=== PATIENT | female | born 1940 | race Caucasian/White ===

== ENCOUNTER 2019-06-10 13:07 | Emergency (ER) | payer MEDICARE, SELFPAY ==
[2019-06-10 13:22] VITALS: BP 139/95; PULSE 87; RESP 16; TEMP 36.7; O2SAT 96; BMI 32.8
--- NOTE | 2019-06-10 13:38 | XR_ITS ---
WS: [id number] RIGHT KNEE: 3 VIEW(S) TECHNIQUE: AP, oblique(s) and lateral. HISTORY: swelling COMPARISON: 10/31/2012 No fracture or dislocation. Mild tricompartment arthritis. Large joint effusion. Effusion extends over a length of 13.6 cm. Femoral artery calcifications. XR/XR knee RT 3V* [id number] IMPRESSION: Large suprapatellar joint effusion. New since 10/31/2012. No fracture.
--- NOTE | 2019-06-10 13:42 | ED_ITS ---
HPI - Extremity Problem General: Chief complaint: Extremity Problem,Nontraumatic Stated complaint: swollen knee Time Seen by Provider: 06/10/19 13:07 Review of Systems General: Reports: 10 or more systems reviewed and unremarkable except in HPI and below Musc: Reports: joint pain, joint swelling and limited range of motion; Denies: redness or joint warmth PFSH ED PFSH: Social History Smoking and tobacco status: never smoked Physical Exam Extremity: GENERAL: Yes weight-bearing difficulty LEFT LOWER EXTREMITY: Yes knee joint (ttp) Left knee: Yes palpation and Yes ROM (decreased) Course Vital Signs: Vital signs: Vital Signs Temperature 98.1 F 06/10/19 13:22 Pulse Rate 87 06/10/19 13:22 Respiratory Rate 16 06/10/19 13:22 Blood Pressure 139/95 06/10/19 13:22 Pulse Oximetry 96 06/10/19 13:22 Discharge Plan Discharge Patient Disposition: Home, Self-Care Clinical Impression: DJD (degenerative joint disease) of knee Qualifiers: Osteoarthritis type: unspecified Laterality: left Qualified Code(s): M17.12 - Unilateral primary osteoarthritis, left knee Condition: Stable Prescriptions: New tramadol 50 mg tablet 50 mg PO Q6H PRN (Reason: pain) Qty: 14 RF: 0 Discharge Orders: Discharge Order (Routine); Ordered 06/10/19 Ordered By: John Nazario Referrals: Alisa Mcnamara [Primary Care Provider] - Coding Level of Care Code ED Gamewell Operator for Chg Fwd Exam Problem Focused
[2019-06-10 15:49] VITALS: BP 140/92; PULSE 88; O2SAT 96
== END 2019-06-10 15:51 | disposition home or self-care (01) ==
PROVIDERS: Emergency Provider Family Medicine; Family Provider Registered Nurse; PCP Registered Nurse
DX: M17.12 Unilateral primary osteoarthritis, left knee (principal); M25.461 Effusion, right knee
CPT/HCPCS: 12345; 73562; 99281; 99282

== ENCOUNTER 2019-08-29 09:08 | Outpatient (CLI) | payer MEDICARE, SELFPAY ==
--- NOTE | 2019-08-29 09:27 | CT_ITS ---
WS: [id number] CTA THORACIC AORTA WITH AND WITHOUT CONTRAST. HISTORY: ASCENDING AORTIC ANEURYSM TECHNIQUE: CT imaging of the thorax is performed with and without contrast. After noncontrast imaging is performed, CT angiogram is performed during injection of Visipaque 320; 95 mL IV.. Sagittal and c oronal reconstructions, sagittal and coronal MIP imaging is submitted. All CT scans at [facility] use at least one of these dose optimization techniques: automated exposure control; mA and/o r kV adjustment per patient size (includes targeted exams where dose is matched to clinical indicatio n); or iterative reconstruction. DLP: 1340.84 mGycm COMPARISON: 02/24/2017 and 12/15/2016 Mild ectasia thoracic aorta. Maximum diameter of the ascending aorta is 4.0 cm. Similar to the prior study from 02/24/2017. Descending aorta normal caliber at 3.5 cm diameter. Atherosclerotic plaque is moderate. Atherosclerotic plaque extends into the proximal great vessels. LEFT vertebral artery arise s directly from the arch. There is intimal thickening and scattered calcifications within the aorta. Suprarenal aorta is normal caliber with atherosclerotic plaque. Pulmonary artery size is normal. Chronic emphysema with benign granulomata posterior LEFT upper lobe and RIGHT lower lobe. No adenopathy. Heart size is moderately enlarged. No pericardial effusion. Prior cholecystectomy. No adrenal mass. Splenic granulomata. Increase in thoracic kyphosis centered in the upper thoracic spine. Benign hemangioma at T5. CT/CT angio chest [id number] IMPRESSION: 1. Ectatic but nonaneurysmal dilatation thoracic aorta. Maximum diameter 4.0 c m, no change since 02/24/2017. 2. Intimal thickening and atherosclerotic plaque within the aorta. 3. Chronic emphysema with no suspicious pulmonary nodule or mass. 4. Prior cholecystectomy. 5. Mild cardiomegaly with extensive coronary artery atherosclerosis.
[2019-08-29] MEDS: iodixanol 320 mg/mL 100mL Btl IV (09:57)
== END 2019-08-29 09:09 | disposition home or self-care (01) ==
LOC: RADWPI 09:14
PROVIDERS: Family Provider Registered Nurse; PCP Registered Nurse; Visit Provider Internal Medicine Cardiovascular Disease
DX: I71.2 Thoracic aortic aneurysm, without rupture (principal); I25.10 Atherosclerotic heart disease of native coronary artery without angina pectoris; I51.7 Cardiomegaly; J43.8 Other emphysema
CPT/HCPCS: 71275; Q9967

== ENCOUNTER 2019-12-27 12:00 | Outpatient (CLI) | payer MEDICARE, SELFPAY ==
--- NOTE | 2019-12-27 12:12 | CT_ITS ---
WS: [id number] Exam: CT abdomen pelvis w con* [id number] Date/Time of Exam: 12/27/2019 12:00 PM Reason For Exam: EPIGASTRIC PAIN, RUQ PAIN, DIARRHEA, WEIGHT LOSS, AAA DLP: 1102.[address] scans at [facility] use at least one of these dose optimization techniques: automat ed exposure control; mA and/or kV adjustment per patient size (includes targeted exams where dose is matched to clinical indication); or iterative reconstruction. Comparison 11/14/2007. 5 mm noncalcified nodule in the right lower lobe. Calcified granulomas in both lower lobes. Triple ve ssel coronary artery calcifications noted. The liver, stomach, and pancreas are unremarkable. 1.2 cm low-attenuation nodule in the inferior posterior spleen probably a cyst. Calcified granulomas in the spleen. The gallbladder is surgically absent. There is mild aneurysmal dilatation of the infrarenal abdominal aorta measuring 3.6 cm greatest diameter. No dissection noted. The portal vein and IVC are patent. 4 mm nonobstructing stone in the right kidney. Very tiny bilateral renal cysts are noted. The kidneys function and drain normally. No adrenal masses. No lymphadenopathy or free air. Small bowel loops are normal in caliber. Normal appendix visualized. Sigmoid diverticulosis. No sign of acute div erticulitis. No mass or adenopathy in the pelvis. Unremarkable urinary bladder. No destructive bone l esions are seen. CT/CT abdomen pelvis w con* [id number] IMPRESSION: 1. Mild aneurysmal dilatation of the infrarenal abdominal aorta measuring 3.6 c m in greatest diameter. 2. Sigmoid diverticulosis. Small nonobstructing right renal stone. 3. 5 mm noncalcified nodule in the right lower lobe too small to characterize. If this patient is high risk for pulmonary malignancy a follow-up CT in 6-8 mo nths might be considered for further surveillance. 4. Other nonemergent findings as above.
[2019-12-27] MEDS: iohexol 300 mg/mL 50 mL Btl PO (13:01)
[2019-12-27 13:46] LABS: Blood Urea Nitrogen 9 mg/dL (8-23)
[2019-12-27] MEDS: iohexol 300 mg/mL 100 mL Btl IV (13:52)
== END 2019-12-27 12:01 | disposition home or self-care (01) ==
LOC: RADWPI 12:04
PROVIDERS: PCP Registered Nurse; Visit Provider Surgery
DX: R10.13 Epigastric pain (principal); R10.11 Right upper quadrant pain; R19.7 Diarrhea, unspecified; R63.4 Abnormal weight loss; I71.4 Abdominal aortic aneurysm, without rupture; K57.30 Diverticulosis of large intestine without perforation or abscess without bleeding; R91.1 Solitary pulmonary nodule
CPT/HCPCS: 74177; 82565; 84520; Q9967

== ENCOUNTER 2020-04-29 09:48 | Outpatient (CLI) | payer MEDICARE, SELFPAY ==
--- NOTE | 2020-04-29 10:02 | US_ITS ---
WS: [id number] THYROID ULTRASOUND HISTORY: ENLARGED THYROID GLAND/HYPOTHYROIDISM COMPARISON: None available. Right lobe: 2.9 cm x 0.9 cm x 1.2 cm. Volume: 1.8 cm3. Small shrunken thyroid gland is heterogeneous. No discrete well-formed nodules are identified. No inc reased vascularity. Left lobe: 0.5 cm x 0.4 cm x 0.2 cm. Small caliber thyroid. No discrete nodules. No increased vascularity. Isthmus: 0.2 cm. US/US soft tissue head neck [id number] IMPRESSION: Small shrunken heterogeneous thyroid gland. No discrete or suspicious nodules.
== END 2020-04-29 09:49 | disposition home or self-care (01) ==
LOC: RAD 10:00
PROVIDERS: PCP Registered Nurse; Visit Provider Registered Nurse
DX: E03.9 Hypothyroidism, unspecified (principal); E04.9 Nontoxic goiter, unspecified
CPT/HCPCS: 76536

== ENCOUNTER 2020-07-25 15:52 | Outpatient (CLI) | payer MEDICARE, SELFPAY ==
--- NOTE | 2020-07-25 16:13 | XRR_ITS ---
PROCEDURE INFORMATION: Exam: XR Chest Exam date and time: 07/25/2020 4:14 PM Age: 80 years old Clinical indication: Condition or disease; Lung condition and disease; Copd TECHNIQUE: Imaging protocol: XR of the chest. Views: 2 views. COMPARISON: CR Chest 1 [place] [id number] 11/23/2018 3:19 AM FINDINGS: The lungs are clear of infiltrate. There are no pleural effusions or pneumothorax. The heart size and pulmonary vascularity are normal. There is atherosclerotic change of the thoracic aorta. XR/XR chest 2V* [id number] IMPRESSION: No active disease.
[2020-07-25 16:51] LABS: Basophils % 0.5 %; Eosinophils # 0.1 10^3/uL (0.0-0.8); Eosinophils % 1.5 %; Hematocrit 43.7 % (37.0-47.0); Hemoglobin 13.8 g/dL (11.5-15.3); Lymphocytes # 2.7 10^3/uL (0.8-4.8); Mean Corpuscular HGB Conc 31.6 g/dL (30.0-36.0); Mean Corpuscular Hemoglobin 28.9 pg (28.0-34.0); Mean Corpuscular Volume 91.6 fL (81-99); Mean Platelet Volume 12.6 fL (7.4-10.4); Monocytes # 0.7 10^3/uL (0.2-0.9); Monocytes % 8.9 %; Neutrophils # 4.18 10^3/uL (1.8-7.7); Neutrophils % 53.8 %; Nucleated Red Blood Cells % 0 %; Platelet Count 227 10^3/cmm (130-400); Red Blood Count 4.77 10^6/uL (4.1-5.3); Red Cell Distribution Width 13.2 % (12.1-15.1); White Blood Count 7.8 10^3/uL (4.0-10.0)
[2020-07-25 17:12] LABS: D Dimer 0.68 ug/mIFEU (0-0.59)
[2020-07-25 17:22] LABS: Troponin T (5th) Once 9 ng/L (0-10)
[2020-07-25 17:29] LABS: Alanine Aminotransferase 9 U/L (0-33); Albumin Level 4.5 g/dL (3.5-5.2); Alkaline Phosphatase 101 IU/L (35-105); Anion Gap 15.7 (5-19); Aspartate Amino Transferase 16 U/L (0-32); Blood Urea Nitrogen 22 mg/dL (8-23); Calcium 9.5 mg/dL (8.5-10.5); Carbon Dioxide 27 mmol/L (22-29); Chloride 103 mmol/L (98-107); Chol HDL Ratio 3.02 mg/dL (0.0-4.40); Cholesterol 160 mg/dL (0-200); Globulin 2.3 g/dL (1.3-4.6); Glucose 87 mg/dL (65-115); HDL Cholesterol 53 mg/dL (60-100); LDL Cholesterol Calculated 62 mg/dL (50-129); LDL HDL Ratio 1.17 RATIO (0.00-3.22); NT Pro B Type Natriuretic Pept 1491 pg/mL (0-450); Osmolality Calculated 297 mOsm/kg (285-295); Potassium 3.7 mmol/L (3.5-5.1); Sodium 142 mmol/L (136-145); Thyroid Stimulating Hormone 3.04 uIU/mL (0.27-4.20); Total Bilirubin 0.3 mg/dL (0.15-1.2); Total Protein 6.8 g/dL (6.6-8.7); Triglycerides 224 mg/dL (0-150)
== END 2020-07-25 15:53 | disposition home or self-care (01) ==
PROVIDERS: PCP Registered Nurse; Visit Provider Registered Nurse
DX: J44.9 Chronic obstructive pulmonary disease, unspecified (principal); J96.11 Chronic respiratory failure with hypoxia; R07.9 Chest pain, unspecified; E03.9 Hypothyroidism, unspecified; I50.9 Heart failure, unspecified; I48.20 Chronic atrial fibrillation, unspecified
CPT/HCPCS: 36415; 71046; 80053; 80061; 83880; 84443; 84484; 85025; 85378

== ENCOUNTER 2021-04-27 20:00 | Outpatient (CLI) | payer MEDICARE, SELFPAY | END 2021-04-27 20:01 | disposition home or self-care (01) | LOC: SLEEP 04-28 08:01 | PROVIDERS: PCP Registered Nurse; Visit Provider Registered Nurse | DX: G47.10 Hypersomnia, unspecified (principal); R06.83 Snoring; R53.83 Other fatigue; G47.33 Obstructive sleep apnea (adult) (pediatric) | CPT/HCPCS: 95810 ==

== ENCOUNTER 2021-07-09 15:17 | Emergency (ER) | payer MEDICARE, SELFPAY ==
[2021-07-09 15:29] VITALS: BP 160/97; PULSE 104; RESP 18; TEMP 36.9; O2SAT 95; BMI 30.9
--- NOTE | 2021-07-09 16:00 | XRR_ITS ---
PROCEDURE INFORMATION: Exam: XR Chest Exam date and time: 07/09/2021 4:42 PM Age: 81 years old Clinical indication: Pain; Angina pectoris; Additional info: Chest pain TECHNIQUE: Imaging protocol: XR of the chest. Views: 1 view. COMPARISON: CR XR chest 2V* [id number] 07/25/2020 4:20 PM FINDINGS: Lungs: Hyperinflated lungs with mild diffuse coarsening. Calcified granulomas noted at the lung bases. No consolidation. Pleural spaces: No pleural effusion. No pneumothorax. Heart/Mediastinum: No cardiomegaly. Bones/joints: Visualized osseous structures are intact. XR/XR chest 1V portable [id number] IMPRESSION: No acute findings.
--- NOTE | 2021-07-09 16:00 | CTR_ITS ---
PROCEDURE INFORMATION: Exam: CTA Chest With Contrast Exam date and time: 07/09/2021 5:33 PM Clinical indication: Abnormal findings; Other: Increased aorta diameter; Additional info: Abd pain with increased aorta on US TECHNIQUE: Imaging protocol: Computed tomographic angiography of the chest with contrast. 3D rendering (Not supervised by radiologist): MIP and/or 3D reconstructed images were created and reviewed. COMPARISON: CTA chest 08/29/2019 FINDINGS: Pulmonary arteries: Normal. No pulmonary emboli. Aorta: Ectasia of the ascending thoracic aorta up to 4.2 cm. No aortic dissection. Lungs: Moderate centrilobular emphysematous changes of the lungs. No consolidation. 1 cm noncalcified slightly lobulated solid nodule noted in the left lung base series 2, image 359. Calcified granulomas noted at the lung bases. Pleural spaces: Unremarkable. No pneumothorax. No pleural effusion. Heart: Coronary artery calcifications noted. No cardiomegaly. No pericardial effusion. Lymph nodes: Mildly prominent mediastinal lymph nodes which are most likely reactive. Bones/joints: No acute fracture. Soft tissues: Unremarkable. Low-risk and high-risk patients: consider CT at 3 months, PET/CT, or tissue sampling 2. Ectasia of the ascending thoracic aorta up to 4.2 cm. PROCEDURE INFORMATION: Exam: CTA Abdomen and Pelvis With Contrast Exam date and time: 07/09/2021 5:33 PM Age: 81 years old Clinical indication: Abnormal findings; Other: Increased aorta diameter; Additional info: Abd pain with increased aorta on US TECHNIQUE: Imaging protocol: Computed tomographic angiography of the abdomen and pelvis with contrast material. 3D rendering (Not supervised by radiologist): MIP and/or 3D reconstructed images were created by the technologist. Radiation optimization: All CT scans at this facility use at least one of these dose optimization techniques: automated exposure control; mA and/or kV adjustment per patient size (includes targeted exams where dose is matched to clinical indication); or iterative reconstruction. Contrast material: [id number]; Contrast volume: 55 ml; Contrast route: INTRAVENOUS (IV); COMPARISON: CTA Thorac/Abd Aor [id number] 12/15/2016 3:09 PM RADIATION DOSE METRICS: Total DLP (mGy-cm): 1370.44 FINDINGS: Aorta: Infrarenal abdominal aortic aneurysm measuring up to 3.8 cm in AP diameter. No aortic dissection. Celiac trunk and mesenteric arteries: No occlusion or significant stenosis. Renal arteries: Mild stenosis at the origin of the left renal artery. No occlusion. Right iliac arteries: No occlusion or significant stenosis. Left iliac arteries: No occlusion or significant stenosis. Liver: No mass. Gallbladder and bile ducts: Cholecystectomy. No ductal dilation. Pancreas: Unremarkable. No mass. No ductal dilation. Spleen: Multiple calcified granulomas noted. No splenomegaly. Adrenal glands: Unremarkable. No mass. Kidneys and ureters: Unremarkable. No solid mass. No hydronephrosis. Stomach and bowel: Colonic diverticulosis noted. No obstruction. No mucosal thickening. Appendix: No evidence of appendicitis. Intraperitoneal space: Unremarkable. No free air. No significant fluid collection. Lymph nodes: Unremarkable. No enlarged lymph nodes. Urinary bladder: Unremarkable. No mass. Reproductive: Hysterectomy. Bones/joints: No acute fracture. No dislocation. Soft tissues: Unremarkable. CT/CT angio chest abdomen pelvis IMPRESSION: 1. Moderate emphysematous changes of the lungs with a 1 cm solid nodule noted in the left lung base. This is new from most recent comparison 08/29/2019. Fleischner criteria given below. IMPRESSION: Infrarenal abdominal aortic aneurysm measuring up to 3.8 cm.
--- NOTE | 2021-07-09 16:01 | ECG_ITS ---
[facility] Test Date: 2021-07-09 Pat Name: Samantha Lewis Department: Room: Gender: Female Manager Front Office: : 1940 Requested By: Billy Russell Order Number: [id number] Joanna MD: Quentin Jean M.D. Measurements Intervals [place] Rate: 120 P: MA: QRS: 42 QRSD: 83 T: 51 QT: 288 QTc: 408 Interpretive Statements ATRIAL FIBRILLATION WITH RAPID VENTRICULAR RESPONSE ABNORMAL RHYTHM ECG INTERPRETATION BASED ON A DEFAULT AGE OF 40 YEARS Compared to ECG 11/23/2018 03:10:52 No significant changes Electronically Signed On 07-10-2021 0:00:29 CDT by Quentin Jean M.D. [id number]
--- NOTE | 2021-07-09 16:02 | ED_ITS ---
HPI - Chest Pain General: Chief Complaint: Shortness of Breath/Dyspnea Stated Complaint: SOB Time Seen by Provider: 07/09/21 15:38 Source: patient and family Mode of arrival: ambulatory Limitations: no limitations History of Present Illness: This patient presents to emergency department because of abdominal and lower chest discomfort. She states his symptoms began earlier today and were associated with feeling lightheaded and short of breath. He states she is not felt like this before. She denies any ripping or tearing pain. She states the pain is better when she is nonambulatory. She denies any recent fever cough or other illness. She states that she has felt full today and tried to eat a banana but did not feel like she could eat much in the way of any food. She has had history of atrial fibrillation and is on diltiazem as well as rivaroxaban. She states she is taken those last night. She denies any blood in her stools bloody emesis etc. She is an ex-smoker. She is unaware of any history of aneurysm but was told she had a hernia somewhere . MD complaint: chest discomfort Prior episodes: No Pain location: substernal Relieving factors: rest Context: recent illness Associated symptoms: Reports abdominal pain and dyspnea; Deny fever(s), nausea, syncope or vomiting Risk Factors: Coronary artery disease risk factors: smoking history (Quit years ago) Thoracic aortic dissection risk factors: none Review of Systems Const: Denies: fever(s) or chills Eyes: Denies: change in vision or blurry vision ENMT: Denies: throat pain or odynophagia Card: Reports: chest pain, irregular heart rhythm, lightheadedness and pre- syncope; Denies: edema, swelling of feet/ankles or syncope Resp: Reports: dyspnea; Denies: productive cough, non-productive cough or wheezing GI: Reports: abdominal pain; Denies: nausea or vomiting : Denies: flank pain, difficulty voiding or dysuria Musc: Denies: neck pain, back pain or extremity pain Skin/Breast: Denies: rash Neuro: Denies: headache(s) Psych: Denies: anxiety or depression [facility] ED PFSH: Medical History AAA (abdominal aortic aneurysm) Atrial fibrillation CHF (congestive heart failure) COPD (chronic obstructive pulmonary disease) HTN (hypertension) Hyperlipidemia Family History Other CAD (coronary artery disease) Cancer Stroke Social History Smoking and tobacco status: former smoker Alcohol intake: never Physical Exam Narrative: EXAM NARRATIVE: Is alert and appears to be in no acute distress able to answer questions in appropriate fashion. Const: COMMON NORMALS: no acute distress and patient oriented x3 GENERAL APPEARANCE: comfortable HENMT: COMMON NORMALS: normocephalic, atraumatic, Normal nasal mucous me mbranes and turbinates present and moist oral mucous membranes HEAD & SCALP: normocephalic and atraumatic NOSE: Normal nasal mucous membranes and turbinates present Eye: COMMON NORMALS: Equal, round and reactive pupils present, EOMs intact bilaterally and no scleral icterus PUPIL: Yes Equal, round and reactive pupils present Neck/C-Spine: COMMON NORMALS: full ROM, no lymphadenopathy, no JVD and No carotid bruits Chest: COMMONS NORMALS: normal inspection of the chest and normal palpation of entire chest wall Resp: COMMON NORMALS: normal respiratory effort, No retractions, No use of accessory muscles and clear to auscultation bilaterally AUSCULTATION: clear to auscultation bilaterally Cardio: COMMON NORMALS: no JVD, No murmurs present (Cardio) and Peripheral pulses 2+ throughout RHYTHM: abnormal rhythm irregularly irregular PERIPHERAL PULSES: Peripheral pulses 2+ throughout GI: COMMON NORMALS: Normal to inspection, nondistended, normoactive bowel sounds present, no masses and no bruits INSPECTION: No visible herniation and No visible pulsation PALPATION: Yes Tenderness to palpation present (GI) (Under left paramedian just to the left of the umbilicus. No palpable mass) : COMMON NORMALS: Yes no CVA tenderness BLADDER/KIDNEY EXAM: Yes no CVA tenderness Back/Pelvis: COMMON NORMALS: no CVA tenderness, thoracic and lumbar spine normal to inspection, no thoracic nor lumbar tenderness, thoraco-lumbar ROM nor mal and straight leg raise negative bilaterally Extremity: COMMON NORMALS: normal to inspection, full ROM, capillary refill normal, no calf tenderness and no pedal edema Neuro: COMMON NORMALS: patient oriented x3, moves all extremities, no focal motor deficits and no sensory deficits noted CRANIAL NERVES: Yes CN normal except as noted Psych: COMMON NORMALS: mental status grossly normal and Normal thought process present THOUGHT PROCESS: Normal thought process present Skin: COMMON NORMALS: no rashes or lesions noted, no wounds, turgor normal and no jaundice GENERAL SKIN EXAM: no rashes or lesions noted and turgor normal Course Reevaluation(s): Reevaluation #1: Portable bedside ultrasound was used to visualize the abdominal aorta. She appears to have an increased AP diameter on sagittal view. We will proceed with CTA. Reevaluation #2: Patient's heart rate has been well controlled while in the emergency department. Her serial troponins are reassuring. She did have hypokalemia discovered which may have contributed to her symptoms as I suspect she was given episodes of rapid ventricular response causing her subjective lightheadedness and uncomfortable feeling in her lower abdomen and substernal region. Certainly no evidence at this time of pulmonary embolus, ruptured or dissecting aneurysm, ACS etc. Although she denied that she had a aneurysm I was able to find in her past history that she has had a history of an infrarenal aortic aneurysm of 3.3 cm previously noted. It is 3.8 cm today and I have cautioned her on that this will need to be monitored on an annual basis. We will go ahead and have her start taking a daily potassium replacement in addition to her Lasix. She states that she previously was taking a potassium replacement but it was large and she could not swallow it so discontinued it. We will give her a prescription for effervescent potassium to help mitigate that. At this point no evidence of an ongoing emergency medical condition I believe she is safe to be discharged home with close follow-up. She acknowledged our discussion. Time: 20:07 Vital Signs: Vital signs: Vital Signs Temperature 98.4 F 07/09/21 15:29 Pulse Rate 73 07/09/21 18:56 Respiratory Rate 17 07/09/21 18:56 Blood Pressure 115/111 07/09/21 18:56 Pulse Oximetry 94 07/09/21 18:56 MDM - Chest Pain Medical Decision Making Pleasant lady with history of vague substernal epigastric chest discomfort and lightheadedness. Her work-up today has been reassuring. No evidence to suggest a ongoing emergency medical condition such as, PE, aortic aneurysm, dissection, ACS etc. Hypokalemia is likely etiology to rapid ventricular response of her chronic atrial fibrillation with associated symptoms. Stable and controlled rate at this time after potassium replacement. Will discharge home at this time. Medical Records I reviewed the patient's medical records. Lab Data I reviewed the patient's lab results. : 07/09/21 15:44 07/09/21 15:44 Radiology Impressions Chest X-Ray 07/09/21 16:00 IMPRESSION: No acute findings. Chest/Abdomen/Pelvis CTA 07/09/21 16:00 IMPRESSION: 1. Moderate emphysematous changes of the lungs with a 1 cm solid nodule noted in the left lung base. This is new from most recent comparison 08/29/2019. Fleischner criteria given below. IMPRESSION: Infrarenal abdominal aortic aneurysm measuring up to 3.8 cm. Laboratory Results WBC 8.1 10^3/uL (4.0-10.0) 07/09/21 15:44 RBC 4.89 10^6/uL (4.1-5.3) 07/09/21 15:44 Hgb 14.4 g/dL (11.5-15.3) 07/09/21 15:44 Hct 43.8 % (37.0-47.0) 07/09/21 15:44 MCV 89.6 fl (81-99) 07/09/21 15:44 MCH 29.4 pg (28.0-34.0) 07/09/21 15:44 MCHC 32.9 g/dL (30.0-36.0) 07/09/21 15:44 RDW 13.2 % (12.1-15.1) 07/09/21 15:44 Plt Count 234 10^3/cmm (130-400) 07/09/21 15:44 MPV 13.3 fL (7.4-10.4) H 07/09/21 15:44 Neut % (Auto) 60.6 % 07/09/21 15:44 Lymph % (Auto) 28.1 % 07/09/21 15:44 [place] % (Auto) 8.7 % 07/09/21 15:44 Eos % (Auto) 1.5 % 07/09/21 15:44 Baso % (Auto) 0.7 % 07/09/21 15:44 Neut # (Auto) 4.91 10^3/uL (1.8-7.7) 07/09/21 15:44 Lymph # (Auto) 2.3 10^3/uL (0.8-4.8) 07/09/21 15:44 [place] # (Auto) 0.7 10^3/uL (0.2-0.9) 07/09/21 15:44 Eos # (Auto) 0.1 10^3/uL (0.0-0.8) 07/09/21 15:44 Baso # (Auto) 0.1 10^3/uL (0.0-0.1) 07/09/21 15:44 Nucleated RBC % (auto) 0 % 07/09/21 15:44 Nucleated RBCs # 0.0 /100WBC 07/09/21 15:44 Sodium 139 mmol/L (136-145) 07/09/21 15:44 Potassium 2.9 mmol/L (3.5-5.1) L 07/09/21 15:44 Chloride 99 mmol/L (98-107) 07/09/21 15:44 Carbon Dioxide 24 mmol/L (22-29) 07/09/21 15:44 Anion Gap 18.9 (5-19) 07/09/21 15:44 BUN 18 mg/dL (8-23) 07/09/21 15:44 Creatinine 1.0 mg/dL (0.5-0.9) H 07/09/21 15:44 GFR Calculation Not Reportable 07/09/21 15:44 Glucose 131 mg/dL (65-115) H 07/09/21 15:44 Calculated Osmolality 292 mOsm/kg (285-295) 07/09/21 15:44 Calcium 10.0 mg/dL (8.5-10.5) 07/09/21 15:44 Total Bilirubin 0.5 mg/dL (0.15-1.2) 07/09/21 15:44 AST 17 U/L (0-32) 07/09/21 15:44 ALT 13 U/L (0-33) 07/09/21 15:44 Alkaline Phosphatase 81 IU/L (35-105) 07/09/21 15:44 Troponin T Baseline 15 ng/L (0-10) H 07/09/21 15:44 Troponin T 120 Minute 12.98 ng/L (0-10) H 07/09/21 18:12 Delta Troponin T -2.02 ABS# (0-10) L 07/09/21 18:12 Total Protein 7.5 g/dL (6.6-8.7) 07/09/21 15:44 Albumin 4.6 g/dL (3.5-5.2) 07/09/21 15:44 Globulin 2.9 g/dL (1.3-4.6) 07/09/21 15:44 EKG Data EKG 1: EKG interpretation time: 16:08 Interpretation: EKG reveals underlying ventricular rate of 120 bpm. Appears to be atrial fibrillation with rapid ventricular response. No acute ST-T wave changes noted. No prior tracings within the system. Discharge Plan Discharge Patient Disposition: Home Clinical Impression: Chronic atrial fibrillation with rapid ventricular response, Acute hypokalemia, Aortic aneurysm Condition: Stable Prescriptions: New Effer-K 10 mEq tablet, effervescent 10 meq PO DAILY Qty: 30 1RF No Action levothyroxine 25 mcg tablet 25 mcg PO DAILY 0RF diltiazem HCl 300 mg capsule,extended release 24hr 300 mg PO DAILY 0RF lovastatin 20 mg tablet 20 mg PO DAILY 0RF furosemide 40 mg tablet 60 mg PO DAILY 0RF Xarelto 20 mg tablet 20 mg PO DAILY 0RF Discharge Orders: Discharge ED (Routine); Ordered 07/09/21 Ordered By: Billy Russell Referrals: Alisa Mcnamara [Primary Care Provider] - Discharge Diet: Usual diet Discharge Activity: Increase activity as tolerated Patient Instructions: Opioid Safety Activity Restrictions/Additional Instructions: Take all medications as prescribed. We have provided an additional potassium prescription that should be easier to swallow. Should you develop any new persistent or worsening symptoms return to the emergency department otherwise follow-up with your regular doctor as scheduled. Coding Level of Care Code ED Model Maker Plaster for Chg Fwd Exam Comprehensive
[2021-07-09 16:30] LABS: Basophils # 0.1 10^3/uL (0.0-0.1); Basophils % 0.7 %; Eosinophils # 0.1 10^3/uL (0.0-0.8); Eosinophils % 1.5 %; Hematocrit 43.8 % (37.0-47.0); Hemoglobin 14.4 g/dL (11.5-15.3); Lymphocytes # 2.3 10^3/uL (0.8-4.8); Lymphocytes % 28.1 %; Mean Corpuscular HGB Conc 32.9 g/dL (30.0-36.0); Mean Corpuscular Hemoglobin 29.4 pg (28.0-34.0); Mean Corpuscular Volume 89.6 fl (81-99); Monocytes # 0.7 10^3/uL (0.2-0.9); Monocytes % 8.7 %; Neutrophils # 4.91 10^3/uL (1.8-7.7); Neutrophils % 60.6 %; Nucleated Red Blood Cells % 0 %; Platelet Count 234 10^3/cmm (130-400); Red Blood Count 4.89 10^6/uL (4.1-5.3); Red Cell Distribution Width 13.2 % (12.1-15.1); White Blood Count 8.1 10^3/uL (4.0-10.0)
[2021-07-09 16:51] LABS: Mean Platelet Volume 13.3 fL (7.4-10.4)
[2021-07-09 16:54] LABS: Troponin(5th) Baseline 15 ng/L (0-10)
[2021-07-09 17:01] LABS: Alanine Aminotransferase 13 U/L (0-33); Albumin Level 4.6 g/dL (3.5-5.2); Alkaline Phosphatase 81 IU/L (35-105); Anion Gap 18.9 (5-19); Aspartate Amino Transferase 17 U/L (0-32); Blood Urea Nitrogen 18 mg/dL (8-23); Carbon Dioxide 24 mmol/L (22-29); Chloride 99 mmol/L (98-107); Globulin 2.9 g/dL (1.3-4.6); Glucose 131 mg/dL (65-115); Osmolality Calculated 292 mOsm/kg (285-295); Sodium 139 mmol/L (136-145); Total Bilirubin 0.5 mg/dL (0.15-1.2); Total Protein 7.5 g/dL (6.6-8.7)
[2021-07-09 17:16] LABS: Potassium 2.9 mmol/L (3.5-5.1)
[2021-07-09] MEDS: iohexol 300 mg/mL 100 mL Btl IV (17:27)
--- NOTE | 2021-07-09 18:01 | ECG_ITS ---
[facility] Test Date: 2021-07-09 Pat Name: Samantha Lewis Department: Room: Gender: Female Buncher Hand: : 1940 Requested By: Billy Russell Order Number: [id number] Joanna MD: Quentin Jean M.D. Measurements Intervals [place] Rate: 120 P: [place]: QRS: 42 QRSD: 83 T: 51 QT: 288 QTc: 408 Interpretive Statements ATRIAL FIBRILLATION WITH RAPID VENTRICULAR RESPONSE ABNORMAL RHYTHM ECG INTERPRETATION BASED ON A DEFAULT AGE OF 40 YEARS Compared to ECG 11/23/2018 03:10:52 No significant changes Electronically Signed On 07-10-2021 0:20:55 CDT by Quentin Jean M.D. [id number]
[2021-07-09] MEDS: potassium chloride ER 20 mEq Tablet 40 MEQ PO ×2 (18:37→20:04)
[2021-07-09 18:51] LABS: Troponin 5 2HR 12.98 ng/L (0-10)
[2021-07-09 18:55] LABS: Troponin 5 2HR Delta -2.02 ABS# (0-10)
[2021-07-09 18:56] VITALS: BP 115/111; PULSE 73; RESP 17; O2SAT 94
== END 2021-07-09 20:51 | disposition home or self-care (01) ==
PROVIDERS: Emergency Provider Emergency Medicine; PCP Registered Nurse
DX: I48.20 Chronic atrial fibrillation, unspecified (principal); E87.6 Hypokalemia; I71.4 Abdominal aortic aneurysm, without rupture; Z79.01 Long term (current) use of anticoagulants; Z87.891 Personal history of nicotine dependence
CPT/HCPCS: 71045; 71275; 74174; 80053; 84484; 85025; 93005; 99285; Q9967

== ENCOUNTER → 2021-08-27 12:44 | Outpatient (BNVA) | payer MEDICARE, SELFPAY | PROVIDERS: PCP Registered Nurse; Visit Provider Internal Medicine Critical Care Medicine | DX: R91.1 Solitary pulmonary nodule (principal); J43.9 Emphysema, unspecified; G47.33 Obstructive sleep apnea (adult) (pediatric); Z87.891 Personal history of nicotine dependence; I10 Essential (primary) hypertension; E78.5 Hyperlipidemia, unspecified | CPT/HCPCS: 99204 ==

== ENCOUNTER → 2021-10-05 11:17 | Outpatient (BNVA) | payer MEDICARE, SELFPAY | PROVIDERS: PCP Registered Nurse; Visit Provider Internal Medicine Critical Care Medicine | DX: R91.1 Solitary pulmonary nodule (principal); G47.33 Obstructive sleep apnea (adult) (pediatric); R13.10 Dysphagia, unspecified; J43.2 Centrilobular emphysema; K21.9 Gastro-esophageal reflux disease without esophagitis; R07.9 Chest pain, unspecified; Z87.891 Personal history of nicotine dependence | CPT/HCPCS: 99214 ==

== ENCOUNTER 2021-10-20 08:50 | Outpatient (CLI) | payer MEDICARE, SELFPAY ==
--- NOTE | 2021-10-20 13:39 | PFTS_ITS ---
Date of Study:10/20/21 Date of Dictation: MECHANICS: Forced vital capacity (FVC) is . Forced expiratory volume in one second (FEV1) is . FEV1/FVC is . FLOW VOLUME LOOP: . LUNG VOLUMES: Total lung capacity (TLC) is . Residual volume (RV) is . DIFFUSING CAPACITY FOR CARBON MONOXIDE: . INTERPRETATION: The pulmonary function tests are . mechanics and lung volumes. Gas exchange (DLCO) is . MTDD
== END 2021-10-20 08:51 | disposition home or self-care (01) ==
LOC: RT 08:51
PROVIDERS: PCP Registered Nurse; Visit Provider Internal Medicine Critical Care Medicine
DX: R91.1 Solitary pulmonary nodule (principal)
CPT/HCPCS: 94010; 94726; 94729

== ENCOUNTER 2021-10-26 10:23 | Outpatient (CLI) | payer MEDICARE, SELFPAY ==
--- NOTE | 2021-10-26 12:30 | CT_ITS ---
WS: [id number] CT CHEST TECHNIQUE: Noncontrast CT of the chest with coronal and sagittal reformatted images. CLINICAL INFORMATION: Pulmonary nodule COMPARISON: None. DLP: 748.[address] scans at [facility] use at least one of these dose optimization techniques: automated e xposure control; mA and/or kV adjustment per patient size (includes targeted exams where dose is matc hed to clinical indication); or iterative reconstruction. FINDINGS: Moderate chronic emphysematous changes. No acute pulmonary infiltrates. Interval increase in size of the noncalcified pulmonary nodule LEFT lower lobe medially. Today this measures approximately 12 mm i n maximum dimension compared to 10 mm previous. Surrounding slight spiculation. This can be further e valuated with PET/CT. Due to the size and location this is not easily amenable to CT-guided biopsy. Stable ascending thoracic aorta measuring 4.0 CM. Moderate aortic calcification. No mediastinal or hi lar lymphadenopathy. Normal GE junction. No axillary lymphadenopathy. Adrenal glands are normal. Fatty atrophy of the panc reas. Cholecystectomy clips. Mild thoracic kyphosis. Infrarenal abdominal aortic aneurysm measuring 3 .7 x 3.6 cm AP by transverse. CT/CT chest wo con [id number] IMPRESSION: 1. Interval increase in size of the LEFT lower lobe pulmonary nodule today [place] sur[place] 12 mm with slight spiculation. Recommend further evaluation with PET/CT. 2. No other significant changes compared to previous. 3. Stable infrarenal abdominal aortic aneurysm measuring 3.7 x 3.6 cm AP by tr ansverse. 4. Stable ascending thoracic aorta measuring 4.0 CM
== END 2021-10-26 10:24 | disposition home or self-care (01) ==
PROVIDERS: PCP Registered Nurse; Visit Provider Internal Medicine Critical Care Medicine
DX: R91.1 Solitary pulmonary nodule (principal); R13.10 Dysphagia, unspecified; I71.4 Abdominal aortic aneurysm, without rupture
CPT/HCPCS: 71250; 74230; 92611

== ENCOUNTER 2021-10-26 10:23 | Outpatient (CLI) | payer MEDICARE, SELFPAY ==
--- NOTE | 2021-10-26 10:45 | FL_ITS ---
WS: [id number] Exam: FL barium swallow modifd [id number] Date/Time of Exam: 10/26/2021 10:25 AM Reason For Exam: Fluoroscopy time: 1min [id number] minutes # of spot films: 0 Modified barium swallow was performed in conjunction with the speech therapy service. Swallowing function at the level of oropharynx was normal. No aspiration or penetration was observed. The patient tolerated thin liquid, nectar consistency and pudding consistency barium foodstuffs with out difficulty. The patient tolerated solid barium mixture foodstuffs and ingested a barium tablet wi thout difficulty. FL/FL barium swallow modifd [id number] IMPRESSION: 1. Unremarkable modified barium swallow. No sign of aspiration or penetration. A separate report of findings and recommendations will follow from the speech t herapy service.
== END 2021-10-26 10:24 | disposition home or self-care (01) ==
LOC: RAD 10:24
PROVIDERS: PCP Registered Nurse; Visit Provider Internal Medicine Critical Care Medicine
DX: R91.1 Solitary pulmonary nodule (principal); R13.10 Dysphagia, unspecified
CPT/HCPCS: 74230; 92611

== ENCOUNTER 2021-12-22 16:20 | Emergency (ER) | payer MEDICARE, SELFPAY ==
--- NOTE | 2021-12-22 16:32 | ECG_ITS ---
[facility] Test Date: 2021-12-22 Pat Name: Samantha Lewis Department: Room: Gender: Female Cost Estimator: : 1940 Requested By: Cory Soto Order Number: [id number] Joanna MD: Quentin Jean M.D. Measurements Intervals [place] Rate: 108 P: MT: QRS: 23 QRSD: 87 T: 52 QT: 334 QTc: 449 Interpretive Statements ATRIAL FIBRILLATION WITH RAPID VENTRICULAR RESPONSE ABNORMAL RHYTHM ECG INTERPRETATION BASED ON A DEFAULT AGE OF 40 YEARS Compared to ECG 07/09/2021 15:35:54 No significant changes Electronically Signed On 12-23-2021 0:21:44 CDT by Quentin Jean M.D. [id number]
[2021-12-22 16:36] VITALS: BP 160/93; PULSE 115; RESP 18; TEMP 36.5; O2SAT 95; BMI 31.8
--- NOTE | 2021-12-22 16:58 | XRR_ITS ---
PROCEDURE INFORMATION: Exam: XR Chest Exam date and time: 12/22/2021 5:24 PM Age: 81 years old Clinical indication: Shortness of breath; Patient HX: SOB; Additional info: Chf TECHNIQUE: Imaging protocol: Radiologic exam of the chest. Views: 1 view. COMPARISON: CT chest [facility] [id number] 10/26/2021 10:31 AM FINDINGS: Lungs: Calcified granulomas noted in the right lung base. No consolidation. Pleural spaces: No pleural effusion. No pneumothorax. Heart/Mediastinum: No cardiomegaly. Bones/joints: Visualized osseous structures are intact. XR/XR chest 1V portable [id number] IMPRESSION: No acute findings.
[2021-12-22 17:18] VITALS: BP 155/108; PULSE 106; RESP 18; O2SAT 97
--- NOTE | 2021-12-22 17:32 | ED_ITS ---
Documented by User: Cory Ang DO 01/01/22 07:44 HPI - Chest Pain General: Chief Complaint: Chest Pain Stated Complaint: Dr. Watkins sent for BP over 200 Time Seen by Provider: 12/22/21 16:58 Source: patient Mode of arrival: ambulatory History of Present Illness: 81-year-old female sent to the emergency room after being seen in the pulmonary clinic. She complaining of elevated blood pressure and irregular chest pain. Chest pain been going on for weeks it is reproducible with palpation. She has known atrial fibrillation she is on diltiazem. MD complaint: chest pain Onset (ago): week(s) Timing of current episode: episodic Prior episodes: Yes Onset: during rest Pain location: other (Upper sternal) Pain radiation: none Severity: mild Quality: tightness and aching Relieving factors: nothing Exacerbating factors: nothing Associated symptoms: Deny abdominal pain, diaphoresis, dyspnea, fever(s), leg edema, nausea, palpitations, sense of impending doom, syncope or vomiting Treatment prior to arrival: none Review of Systems Const: Denies: fever(s), chills, fatigue, malaise or diaphoresis ENMT: Denies: throat pain, ear or mastoid pain, nasal discharge or nasal congestion Card: Reports: chest pain and irregular heart rhythm; Denies: palpitations, edema, swelling of feet/ankles or syncope Resp: Denies: dyspnea GI: Denies: abdominal pain, nausea or vomiting : Denies: flank pain, difficulty voiding, dysuria, urinary frequency or urinary urgency Skin/Breast: Denies: rash or pruritus PFSH ED PFSH: Medical History AAA (abdominal aortic aneurysm) Atrial fibrillation CHF (congestive heart failure) COPD (chronic obstructive pulmonary disease) MARCUS (generalized anxiety disorder) HTN (hypertension) Hyperlipidemia Hypothyroidism Neuropathic pain Family History Other CAD (coronary artery disease) Cancer Stroke Social History Smoking and tobacco status: former smoker Quit status (tobacco): has quit using tobacco Year quit tobacco: 1997 Former quit date comment: 0.5 ppd X 40 years Alcohol intake: never Physical Exam Const: GENERAL APPEARANCE: cooperative and comfortable ORIENTATION/CONSCIOUSNESS: Yes awake, Yes oriented to person, Yes oriented to place and Yes oriented to time HENMT: COMMON NORMALS: normocephalic, atraumatic and hearing grossly normal bilaterally HEAD & SCALP: normocephalic and atraumatic Resp: COMMON NORMALS: normal respiratory effort, No retractions and No use of accessory muscles AUSCULTATION: crackles Cardio: COMMON NORMALS: No murmurs present (Cardio) RATE: tachycardic RHYTHM: abnormal rhythm irregularly irregular GI: COMMON NORMALS: Soft to palpation and No hepatosplenomegaly present A USCULTATION: Yes normoactive bowel sounds PALPATION: Yes Soft to palpation, No Tenderness to palpation present (GI), No Guarding due to palpation present (GI) and Yes No hepatosplenomegaly present Extremity: COMMON NORMALS: normal to inspection, capillary refill normal, no clubbing, cyanosis or edema, no calf tenderness and no pedal edema Neuro: SENSORIUM/ORIENTATION: Yes oriented to person, Yes oriented to place and Yes oriented to time Skin: COMMON NORMALS: no rashes or lesions noted GENERAL SKIN EXAM: no rashes or lesions noted Course Vital Signs: Vital signs: Vital Signs Temperature 97.7 F 12/22/21 16:36 Pulse Rate 92 12/22/21 18:30 Respiratory Rate 24 H 12/22/21 18:30 Blood Pressure 161/116 12/22/21 18:30 Pulse Oximetry 75 L 12/22/21 18:15 Oxygen Delivery Me thod 12/22/21 17:36 MDM - Chest Pain Medical Decision Making Care signed out to Dr. Singh at change of shift. See final notes for diagnosis and disposition. Patient presents here with chest pains likely muscle skeletal her troponins here are negative his blood pressure is improved as well she is to take a log of her blood pressure follow-up with PCP and 4 to 6 days with her log she is return if worsening she understands agrees plan. Medical Records I reviewed the patient's medical records. Lab Data I reviewed the patient's lab results. : 12/22/21 17:25 12/22/21 17:25 Radiology Impressions Chest X-Ray 12/22/21 16:58 IMPRESSION: No acute findings. Laboratory Results WBC 7.0 10^3/uL (4.0-10.0) 10/25/22 17: RBC 4.50 10^6/uL (4.1-5.3) 12/22/21 17: Hgb 13.3 g/dL (11.5-15.3) 12/22/21 17:25 Hct 41.3 % (37.0-47.0) 12/22/21 17: MCV 91.8 fl (81-99) 12/22/21 17: MCH 29.6 pg (28.0-34.0) 12/22/21 17: MCHC 32.2 g/dL (30.0-36.0) 12/22/21: RDW 12.9 % (12.1-15.1) 12/22/21: Plt Count 237 10^3/cmm (130-400) 12/22/21: MPV 12.5 fL (7.4-10.4) H 12/22/21: Neut % (Auto) 51.4 % 12/22/21: Lymph % (Auto) 36.8 % 12/22/21 17: [place] % (Auto) 8.2 % 12/22/21 17: Eos % (Auto) 2.6 % 12/22/21: Baso % (Auto) 0.9 % 12/22/21: Neut # (Auto) 3.62 10^3/uL (1.8-7.7) 12/22/21: Lymph # (Auto) 2.6 10^3/uL (0.8-4.8) 12/22/21 17:25 [place] # (Auto) 0.6 10^3/uL (0.2-0.9) 12/22/21: Eos # (Auto) 0.2 10^3/uL (0.0-0.8) 12/22/21: Baso # (Auto) 0.1 10^3/uL (0.0-0.1) 12/22/21: Nucleated RBC % (auto) 0 % 12/22/21: Nucleated RBCs # 0.0 /100WBC 12/22/21 17:25 Sodium 140 mmol/L (136-145) 12/22/21 17:25 Potassium 3.3 mmol/L (3.5-5.1) L 12/22/21 17:25 Chloride 101 mmol/L (98-107) 12/22/21 17:25 Carbon Dioxide 26 mmol/L (22-29) 12/22/21 17:25 Anion Gap 16.3 (5-19) 12/22/21 17:25 BUN 17 mg/dL (8-23) 12/22/21 17:25 Creatinine 1.0 mg/dL (0.5-0.9) H 12/22/21 17:25 GFR Calculation Not Reportable 12/22/21 17:25 Glucose 96 mg/dL (65-115) 12/22/21 17:25 Calculated Osmolality 291 mOsm/kg (285-295) 12/22/21 17:25 Calcium 9.8 mg/dL (8.5-10.5) 12/22/21 17:25 Total Bilirubin 0.4 mg/dL (0.15-1.2) 12/22/21 17:25 AST 18 U/L (0-32) 12/22/21 17:25 ALT 10 U/L (0-33) 12/22/21 17:25 Alkaline Phosphatase 83 U/L (35-105) 12/22/21 17:25 Troponin T Baseline 15 ng/L (0-10) H 12/22/21 17:25 Troponin T 120 Minute 13.66 ng/L (0-10) H 12/22/21 18:52 Delta Troponin T -1.34 ABS# (0-10) L 12/22/21 18:52 Total Protein 7.0 g/dL (6.6-8.7) 12/22/21 17:25 Albumin 4.0 g/dL (3.5-5.2) 12/22/21 17:25 Globulin 3.0 g/dL (1.3-4.6) 12/22/21 17:25 Discharge Plan Discharge Patient Disposition: Home Clinical Impression: Chest pain, HTN (hypertension) Condition: Stable Prescriptions: No Action levothyroxine 25 mcg tablet 25 mcg PO DAILY lovastatin 20 mg tablet 20 mg PO DAILY furosemide 40 mg tablet 40 mg PO DAILY diltiazem HCl 300 mg capsule,extended release 24hr 300 mg PO DAILY Qty: 90 1RF Xarelto 20 mg tablet 20 mg PO DAILY escitalopram oxalate 10 mg tablet 10 mg PO DAILY Zyrtec 10 mg capsule 10 mg PO DAILY PRN levalbuterol tartrate 45 mcg/actuation HFA aerosol inhaler 2 inh inhalation Q6H PRN (Reason: shortness of breath or wheezing) Qty: 15 3RF Rx Instructions: Pt unable to tolerate albuterol. cholecalciferol (vitamin D3) 1,250 mcg (50,000 unit) capsule PO DAILY potassium chloride 20 mEq tablet extended release 20 meq PO DAILY Discharge Orders: Discharge ED (Routine); Ordered 12/22/21 Ordered By: Arsalan Singh Referrals: Elsie Dc APRN [Primary Care Provider] - 1-3 days Discharge Diet: Advance as tolerated Discharge Activity: Resume usual activity Patient Instructions: Chest Pain (ED) Coding Level of Care Code ED Supervisor [employer] for Chg Fwd Exam Detailed Documented by User: Arsalan Singh MD 12/22/21 19:47 HPI - Chest Pain General: Chief Complaint: Chest Pain Stated Complaint: Dr. Watkins sent for BP over 200 Time Seen by Provider: 12/22/21 16:58 PFSH ED PFSH: Medical History AAA (abdominal aortic aneurysm) Atrial fibrillation CHF (congestive heart failure) COPD (chronic obstructive pulmonary disease) MARCUS (generalized anxiety disorder) HTN (hypertension) Hyperlipidemia Hypothyroidism Neuropathic pain Family History Other CAD (coronary artery disease) Cancer Stroke Social History Smoking and tobacco status: former smoker Quit status (tobacco): has quit using tobacco Year quit tobacco: 1997 Former quit date comment: 0.5 ppd X 40 years Alcohol intake: never Course Vital Signs: Vital signs: Vital Signs Temperature 97.7 F 12/22/21 16:36 Pulse Rate 92 12/22/21 18:30 Respiratory Rate 24 H 12/22/21 18:30 Blood Pressure 161/116 12/22/21 18:30 Pulse Oximetry 75 L 12/22/21 18:15 Oxygen Delivery Me thod 12/22/21 17:36 MDM - Chest Pain Medical Decision Making Patient presents here with chest pains likely muscle skeletal her troponins here are negative his blood pressure is improved as well she is to take a log of her blood pressure follow-up with PCP and 4 to 6 days with her log she is return if worsening she understands agrees plan. Lab Data : 12/22/21 17:25 12/22/21 17:25 Radiology Impressions Chest X-Ray 12/22/21 16:58 IMPRESSION: No acute findings. Laboratory Results WBC 7.0 10^3/uL (4.0-10.0) 12/22/21 17:25 RBC 4.50 10^6/uL (4.1-5.3) 12/22/21 17:25 Hgb 13.3 g/dL (11.5-15.3) 12/22/21 17:25 Hct 41.3 % (37.0-47.0) 12/22/21 17:25 MCV 91.8 fl (81-99) 12/22/21 17:25 MCH 29.6 pg (28.0-34.0) 12/22/21 17:25 MCHC 32.2 g/dL (30.0-36.0) 12/22/21 17: RDW 12.9 % (12.1-15.1) 12/22/21 17: Plt Count 237 10^3/cmm (130-400) 12/22/21 17:25 MPV 12.5 fL (7.4-10.4) H 12/22/21 17: Neut % (Auto) 51.4 % 12/22/21 17: Lymph % (Auto) 36.8 % 12/22/21 17:25 [place] % (Auto) 8.2 % 12/22/21 17:25 Eos % (Auto) 2.6 % 12/22/21 17:25 Baso % (Auto) 0.9 % 12/22/21 17: Neut # (Auto) 3.62 10^3/uL (1.8-7.7) 12/22/21 17:25 Lymph # (Auto) 2.6 10^3/uL (0.8-4.8) 12/22/21 17:25 [place] # (Auto) 0.6 10^3/uL (0.2-0.9) 12/22/21 17:25 Eos # (Auto) 0.2 10^3/uL (0.0-0.8) 12/22/21 17:25 Baso # (Auto) 0.1 10^3/uL (0.0-0.1) 12/22/21 17:25 Nucleated RBC % (auto) 0 % 12/22/21 17:25 Nucleated RBCs # 0.0 /100WBC 12/22/21 17:25 Sodium 140 mmol/L (136-145) 12/22/21 17:25 Potassium 3.3 mmol/L (3.5-5.1) L 12/22/21 17:25 Chloride 101 mmol/L (98-107) 12/22/21 17:25 Carbon Dioxide 26 mmol/L (22-29) 12/22/21 17:25 Anion Gap 16.3 (5-19) 12/22/21 17:25 BUN 17 mg/dL (8-23) 12/22/21 17:25 Creatinine 1.0 mg/dL (0.5-0.9) H 12/22/21 17:25 GFR Calculation Not Reportable 12/22/21 17:25 Glucose 96 mg/dL (65-115) 12/22/21 17:25 Calculated Osmolality 291 mOsm/kg (285-295) 12/22/21 17:25 Calcium 9.8 mg/dL (8.5-10.5) 12/22/21 17:25 Total Bilirubin 0.4 mg/dL (0.15-1.2) 12/22/21 17:25 AST 18 U/L (0-32) 12/22/21 17:25 ALT 10 U/L (0-33) 12/22/21 17:25 Alkaline Phosphatase 83 U/L (35-105) 12/22/21 17:25 Troponin T Baseline 15 ng/L (0-10) H 12/22/21 17:25 Troponin T 120 Minute 13.66 ng/L (0-10) H 12/22/21 18:52 Delta Troponin T -1.34 ABS# (0-10) L 12/22/21 18:52 Total Protein 7.0 g/dL (6.6-8.7) 12/22/21 17:25 Albumin 4.0 g/dL (3.5-5.2) 12/22/21 17:25 Globulin 3.0 g/dL (1.3-4.6) 12/22/21 17:25 Discharge Plan Discharge Patient Disposition: Home Clinical Impression: Chest pain, HTN (hypertension) Condition: Stable Prescriptions: No Action levothyroxine 25 mcg tablet 25 mcg PO DAILY lovastatin 20 mg tablet 20 mg PO DAILY furosemide 40 mg tablet 40 mg PO DAILY diltiazem HCl 300 mg capsule,extended release 24hr 300 mg PO DAILY Qty: 90 1RF Xarelto 20 mg tablet 20 mg PO DAILY escitalopram oxalate 10 mg tablet 10 mg PO DAILY Zyrtec 10 mg capsule 10 mg PO DAILY PRN levalbuterol tartrate 45 mcg/actuation HFA aerosol inhaler 2 inh inhalation Q6H PRN (Reason: shortness of breath or wheezing) Qty: 15 3RF Rx Instructions: Pt unable to tolerate albuterol. cholecalciferol (vitamin D3) 1,250 mcg (50,000 unit) capsule PO DAILY potassium chloride 20 mEq tablet extended release 20 meq PO DAILY Discharge Orders: Discharge ED (Routine); Ordered 12/22/21 Ordered By: Arsalan Singh Referrals: Elsie Dc, REAL ESTATE MANAGER [Primary Care Provider] - 1-3 days Discharge Diet: Advance as tolerated Discharge Activity: Resume usual activity Patient Instructions: Chest Pain (ED) Coding Level of Care Code ED Supervisor [employer] for Chg Fwd Exam Detailed
[2021-12-22 17:36] VITALS: BP 155/108; PULSE 96; RESP 15; O2SAT 97
[2021-12-22 17:50] LABS: Basophils # 0.1 10^3/uL (0.0-0.1); Basophils % 0.9 %; Eosinophils # 0.2 10^3/uL (0.0-0.8); Eosinophils % 2.6 %; Hematocrit 41.3 % (37.0-47.0); Hemoglobin 13.3 g/dL (11.5-15.3); Lymphocytes # 2.6 10^3/uL (0.8-4.8); Lymphocytes % 36.8 %; Mean Corpuscular HGB Conc 32.2 g/dL (30.0-36.0); Mean Corpuscular Hemoglobin 29.6 pg (28.0-34.0); Mean Corpuscular Volume 91.8 fl (81-99); Mean Platelet Volume 12.5 fL (7.4-10.4); Monocytes # 0.6 10^3/uL (0.2-0.9); Monocytes % 8.2 %; Neutrophils # 3.62 10^3/uL (1.8-7.7); Neutrophils % 51.4 %; Nucleated Red Blood Cells % 0 %; Platelet Count 237 10^3/cmm (130-400); Red Cell Distribution Width 12.9 % (12.1-15.1)
[2021-12-22 18:00] VITALS: BP 155/108; PULSE 102; RESP 23; O2SAT 90
[2021-12-22] MEDS: enalaprilat 1.25 mg/mL Inj IVP (18:09)
[2021-12-22] MEDS: dilTIAZem 60 mg Tablet PO (18:09)
[2021-12-22 18:15] VITALS: BP 167/125; PULSE 80; RESP 21; O2SAT 75
[2021-12-22 18:15] LABS: Troponin(5th) Baseline 15 ng/L (0-10)
[2021-12-22 18:17] LABS: Alanine Aminotransferase 10 U/L (0-33); Alkaline Phosphatase 83 U/L (35-105); Anion Gap 16.3 (5-19); Aspartate Amino Transferase 18 U/L (0-32); Blood Urea Nitrogen 17 mg/dL (8-23); Calcium 9.8 mg/dL (8.5-10.5); Carbon Dioxide 26 mmol/L (22-29); Chloride 101 mmol/L (98-107); Glucose 96 mg/dL (65-115); Osmolality Calculated 291 mOsm/kg (285-295); Potassium 3.3 mmol/L (3.5-5.1); Sodium 140 mmol/L (136-145); Total Bilirubin 0.4 mg/dL (0.15-1.2)
[2021-12-22 18:30] VITALS: BP 161/116; PULSE 92; RESP 24
[2021-12-22 19:23] LABS: Troponin 5 2HR 13.66 ng/L (0-10)
[2021-12-22 19:25] LABS: Troponin 5 2HR Delta -1.34 ABS# (0-10)
--- NOTE | 2021-12-22 19:53 | ECG_ITS ---
[facility] Test Date: 2021-12-22 Pat Name: Samantha Lewis Department: Room: Gender: Female Representative Government Relations: : 1940 Requested By: Cory Soto Order Number: [id number] Reading MD: Zoltan Drake M.D. Measurements Intervals [place] Rate: 71 P: ID: QRS: 46 QRSD: 90 T: 49 QT: 370 QTc: 404 Interpretive Statements ATRIAL FIBRILLATION ABNORMAL RHYTHM ECG Compared to ECG 12/22/2021 16:32:17 No significant changes Electronically Signed On 12-24-2021 7:08:59 CDT by Zoltan Drake M.D. [id number]
== END 2021-12-22 19:50 | disposition home or self-care (01) ==
PROVIDERS: Family Medicine; Emergency Provider Emergency Medicine; PCP Nurse Practitioner Adult Health
DX: R07.9 Chest pain, unspecified (principal); I10 Essential (primary) hypertension; I11.0 Hypertensive heart disease with heart failure; I50.9 Heart failure, unspecified; E78.5 Hyperlipidemia, unspecified; Z87.891 Personal history of nicotine dependence; C34.92 Malignant neoplasm of unspecified part of left bronchus or lung; J43.2 Centrilobular emphysema; G47.33 Obstructive sleep apnea (adult) (pediatric); R13.10 Dysphagia, unspecified
CPT/HCPCS: 36415; 71045; 80053; 84484; 85025; 93005; 96374; 99205; 99215; 99285; J3490

== ENCOUNTER → 2021-12-29 15:05 | Outpatient (BNVA) | payer MEDICARE, SELFPAY | PROVIDERS: PCP Family Medicine; Visit Provider Thoracic Surgery (Cardiothoracic Vascular Surgery) | DX: C34.92 Malignant neoplasm of unspecified part of left bronchus or lung (principal); Z87.891 Personal history of nicotine dependence | CPT/HCPCS: 99203; 99204 ==

== ENCOUNTER 2022-01-02 16:12 | Emergency (ER) | payer MEDICARE, SELFPAY ==
[2022-01-02 16:12] VITALS: BP 139/78; PULSE 79; RESP 16; TEMP 36.8; O2SAT 95; BMI 30.9
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
[2022-01-02] MEDS: acetaminophen 325 mg Tablet 650 MG PO (16:33)
[2022-01-02 16:46] VITALS: BP 148/96; O2SAT 96
[2022-01-02 17:20] VITALS: BP 138/86; PULSE 74; RESP 18; O2SAT 94
== END 2022-01-02 17:22 | disposition home or self-care (01) ==
PROVIDERS: Emergency Provider Emergency Medicine; PCP Family Medicine
DX: S16.1XXA Strain of muscle, fascia and tendon at neck level, initial encounter (principal); V49.59XA Passenger injured in collision with other motor vehicles in traffic accident, initial encounter; M25.561 Pain in right knee; M25.562 Pain in left knee; Z87.891 Personal history of nicotine dependence; Z79.01 Long term (current) use of anticoagulants
CPT/HCPCS: 70450; 72125; 73562; 99284

== ENCOUNTER 2022-01-05 06:00 | Day surgery (SDC) | payer MEDICARE, SELFPAY ==
[2022-01-01 13:51] VITALS: BMI 30.9
--- NOTE | 2022-01-01 14:23 | ANES.PREANE2 ---
Pre-Anesthetic Assessment Height/Weight: Height 1.6 m Weight 79.379 kg Operation Date: 01/05/22 07:00 Proposed Procedures p [id number] Bronch,mediastinoscopy,thorascopy possible thoraco C34.92(Not Applicable) - Anatoly Banegas MD s Bronchoscopy(Not Applicable) - Anatoly Banegas MD s Mediastinoscopy(Not Applicable) - Anatoly Banegas MD Familial anesthetic complications: None Social No alcohol and No tobacco former smoker Exam alert, oriented x 3, clear to auscultation bilaterally and regular rate & rhythm Airway Mallampati: Class II Dentition: false Pulmonary Sleep Apnea SCC lung CV/HEM Atrial Fibrillation, Congestive Heart Failure and Hypertension 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, 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 None reported Hepatic None reported GI None reported Metabolic Hyperlipidemia and Thyroid Disease Anesthetic Plan ASA status: 4 Anesthesia: General Other: +/- Arterial line and epidural for post op pain control, will discuss with surgeon if definitely proceeding with thoractomy or if its possible thoractomy as listed on procedure Risk of > 500 ml blood loss (7ml/kg in children): Yes, adequate IV access and fluids planned Medications/Allergies Home Medications Medication Instructions Recorded Confirmed Last Taken Type rivaroxaban 20 mg tablet (Xarelto) 20 mg PO DAILY 07/03/19 01/01/22 07/08/21 History levothyroxine 25 mcg tablet 25 mcg PO DAILY 10/02/20 01/01/22 07/09/21 History lovastatin 20 mg tablet 20 mg PO DAILY 10/02/20 01/01/22 07/09/21 History cetirizine 10 mg capsule (Zyrtec) 10 mg PO DAILY PRN Allergic 10/05/21 01/01/22 Unknown History Symptoms escitalopram oxalate 10 mg tablet 10 mg PO DAILY 10/05/21 01/01/22 Unknown History furosemide 40 mg tablet 40 mg PO DAILY 10/05/21 01/01/22 Unknown History levalbuterol tartrate 45 2 inh inhalation Q6H PRN shortness 12/22/21 01/01/22 Unknown Rx mcg/actuation aerosol inhaler of breath or wheezing #15 grams diltiazem HCl 300 mg 300 mg PO DAILY #90 caps 12/28/21 01/01/22 Unknown Rx capsule,extended release 24 hr cholecalciferol (vitamin D3) 1,250 1,250 mcg PO DAILY 12/29/21 01/01/22 Unknown History mcg (50,000 unit) capsule potassium chloride 20 mEq 20 meq PO DAILY 12/29/21 01/01/22 Unknown History tablet,extended release Allergies Allergy/AdvReac Type Severity Reaction Status Date / Time codeine Allergy ADR-Halluci Verified 01/01/22 13:45 nating Sulfa (Sulfonamide Allergy ALGY-Swell Verified 01/01/22 13:45 Antibiotics) Lip/Tongue/Throat [facility] Anesthesia Medical History AAA (abdominal aortic aneurysm) Atrial fibrillation CHF (congestive heart failure) COPD (chronic obstructive pulmonary disease) MARCUS (generalized anxiety disorder) HTN (hypertension) Hyperlipidemia Hypothyroidism Neuropathic pain Family History Other CAD (coronary artery disease) Cancer Stroke Social History Smoking and tobacco status: former smoker Quit status (tobacco): has quit using tobacco Year quit tobacco: 1997 Former quit date comment: 0.5 ppd X 40 years Alcohol intake: never Data Anesthesia Cardiac Studies: No Data to Display
[2022-01-01 14:31] LABS: Add Urine Microscopic? NO; Charge for UA Resulting for Rev
[2022-01-01 14:35] LABS: Bilirubin Urine Neg (Negative); Blood Urine Neg (Negative); Glucose Urine UA Norm (Normal); Ketones Urine Negative (Negative); Leukocyte Esterase Urine Negative (Negative); Nitrate Urine Negative (Negative); Protein Urine Neg (Negative); Urine Appearance Clear (CLEAR); Urine Color Colorless (Yellow); Urobilinogen Urine Norm (Negative); pH Urine 5 (5-7)
[2022-01-01 14:36] LABS: Basophils # 0.1 10^3/uL (0.0-0.1); Basophils % 0.8 %; Eosinophils # 0.2 10^3/uL (0.0-0.8); Eosinophils % 1.9 %; Hemoglobin 13.3 g/dL (11.5-15.3); Lymphocytes # 2.7 10^3/uL (0.8-4.8); Lymphocytes % 30.8 %; Mean Corpuscular HGB Conc 32.4 g/dL (30.0-36.0); Mean Corpuscular Hemoglobin 29.7 pg (28.0-34.0); Mean Corpuscular Volume 91.5 fl (81-99); Mean Platelet Volume 12.5 fL (7.4-10.4); Monocytes # 0.8 10^3/uL (0.2-0.9); Monocytes % 9.3 %; Neutrophils # 4.92 10^3/uL (1.8-7.7); Nucleated Red Blood Cells % 0 %; Platelet Count 214 10^3/cmm (130-400); Red Blood Count 4.48 10^6/uL (4.1-5.3); Red Cell Distribution Width 12.7 % (12.1-15.1); White Blood Count 8.6 10^3/uL (4.0-10.0)
[2022-01-01 14:47] LABS: INR 1.76 (0.8-1.2)
--- NOTE | 2022-01-01 15:14 | SUR.PREOP ---
1965 message and call placed to Dr. Banegas regarding pt's taking Xarelto and scheduled for surgery on tuesday,message received and call placed to pt and message left on pt's son's phone to call back
--- NOTE | 2022-01-01 16:46 | SUR.PREOP ---
0651 call received from pt's son Callum Lewis and instructed to tell pt(mother) to stop taking Xarelto today and pt's son Callum verbalized understanding
== END 2022-01-05 06:01 | disposition home or self-care (01) ==
LOC: OR 01-23 09:59
PROVIDERS: PCP Family Medicine; Visit Provider Thoracic Surgery (Cardiothoracic Vascular Surgery)
DX: Z01.818 Encounter for other preprocedural examination (principal)
CPT/HCPCS: 81003; 85025; 85610; 86850; 86900; 86920

== ENCOUNTER → 2022-01-11 15:54 | Outpatient (BNVA) | payer MEDICARE, SELFPAY | PROVIDERS: PCP Family Medicine; Visit Provider Family Medicine | DX: E78.5 Hyperlipidemia, unspecified (principal); E03.9 Hypothyroidism, unspecified | CPT/HCPCS: 80053; 80061; 84443 ==

== ENCOUNTER 2022-02-01 15:07 | Inpatient (IN) | payer MEDICARE, SELFPAY ==
[2022-01-28 09:08] VITALS: BMI 30.9
[2022-01-28 09:57] LABS: Add Urine Microscopic? NO; Charge for UA Resulting for Rev
--- NOTE | 2022-01-28 09:58 | ECG_ITS ---
[facility] Test Date: 2022-01-28 Pat Name: Samantha Lewis Department: Room: Gender: Female [employer] C[employer] Worker: : 1940 Requested By: Jacque Heck Order Number: [id number] Joanna MD: Xochitl Blanchard M.D. Measurements Intervals [place] Rate: 96 P: 0 FL: 0 QRS: 6 QRSD: 84 T: 58 QT: 342 QTc: 434 Interpretive Statements ATRIAL FIBRILLATION Compared to ECG 12/22/2021 19:33:56 No significant changes Electronically Signed On 01-28-2022 19:10:55 [employer]AL WASHER TENDER by Xochitl Blanchard M.D. [id number]
[2022-01-28 10:00] LABS: Basophils # 0.1 10^3/uL (0.0-0.1); Basophils % 1.2 %; Eosinophils # 0.1 10^3/uL (0.0-0.8); Eosinophils % 1.2 %; Hematocrit 45.3 % (37.0-47.0); Hemoglobin 14.7 g/dL (11.5-15.3); Lymphocytes # 1.4 10^3/uL (0.8-4.8); Lymphocytes % 20.7 %; Mean Corpuscular HGB Conc 32.5 g/dL (30.0-36.0); Mean Corpuscular Hemoglobin 29.6 pg (28.0-34.0); Mean Corpuscular Volume 91.3 fl (81-99); Mean Platelet Volume 12.1 fL (7.4-10.4); Monocytes # 0.6 10^3/uL (0.2-0.9); Monocytes % 9.4 %; Neutrophils # 4.38 10^3/uL (1.8-7.7); Neutrophils % 67.3 %; Nucleated Red Blood Cells % 0 %; Platelet Count 284 10^3/cmm (130-400); Red Blood Count 4.96 10^6/uL (4.1-5.3); Red Cell Distribution Width 12.8 % (12.1-15.1); White Blood Count 6.5 10^3/uL (4.0-10.0)
--- NOTE | 2022-01-28 10:10 | P.ANESASSM_ITS ---
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 Operation Date: 02/01/22 10:30 Proposed Procedures p Bronch,mediastinoscopy,thorascopy possible thoraco [id number],C34.9 2(Not Applicable) - Anatoly Banegas MD s Mediastinoscopy(Not Applicable) - Anatoly Banegas MD s Thoracotomy(Not Applicable) - Anatoly Banegas MD Familial anesthetic complications: None Social No alcohol and No tobacco Exam alert, oriented x 3, clear to auscultation bilaterally and regular rate & rhythm Airway Mallampati: Class I Dentition: false Pulmonary Sleep Apnea lung cancer CV/HEM Atrial Fibrillation, Congestive Heart Failure and Hypertension TAA and AAA Metabolic Thyroid Disease Anesthetic Plan ASA status: 4 Anesthesia: General Other: Epidural and A-line (requests sedation durign A line) Risk of > 500 ml blood loss (7ml/kg in children): Yes, adequate IV access and fluids planned Medications/Allergies Home Medications Medication Instructions Recorded Confirmed Last Taken Type rivaroxaban 20 mg tablet (Xarelto) 20 mg PO DAILY 07/03/19 01/28/22 01/27/22 History levothyroxine 25 mcg tablet 25 mcg PO DAILY 10/02/20 01/28/22 01/27/22 History lovastatin 20 mg tablet 20 mg PO DAILY 10/02/20 01/28/22 01/27/22 History cetirizine 10 mg capsule (Zyrtec) 10 mg PO DAILY PRN Allergic 10/05/21 01/28/22 01/25/22 History Symptoms escitalopram oxalate 10 mg tablet 10 mg PO DAILY 10/05/21 01/28/22 01/27/22 History furosemide 40 mg tablet 40 mg PO DAILY 10/05/21 01/28/22 01/27/22 History levalbuterol tartrate 45 2 inh inhalation Q6H PRN shortness 12/22/21 01/28/22 01/27/22 Rx mcg/actuation aerosol inhaler of breath or wheezing #15 grams diltiazem HCl 300 mg 300 mg PO DAILY #90 caps 12/28/21 01/28/22 01/27/22 Rx capsule,extended release 24 hr cholecalciferol (vitamin D3) 1,250 1,250 mcg PO DAILY 12/29/21 01/28/2201/27/22 History mcg (50,000 unit) capsule potassium chloride 20 mEq 20 meq PO DAILY 12/29/21 01/28/22 01/27/22 History tablet,extended release Allergies Allergy/AdvReac Type Severity Reaction Status Date / Time codeine Allergy ADR-Halluci Verified 01/11/22 14:53 nating Sulfa (Sulfonamide Allergy ALGY-Swell Verified 01/11/22 14:53 Antibiotics) Lip/Tongue/Throat [facility] Anesthesia Medical History AAA (abdominal aortic aneurysm) Atrial fibrillation CHF (congestive heart failure) COPD (chronic obstructive pulmonary disease) MARCUS (generalized anxiety disorder) HTN (hypertension) Hyperlipidemia Hypothyroidism Neuropathic pain Family History Other CAD (coronary artery disease) Cancer Stroke Social History Smoking and tobacco status: former smoker Quit status (tobacco): has quit using tobacco Year quit tobacco: 1997 Former quit date comment: 0.5 ppd X 40 years Alcohol intake: never Data Anesthesia 01/28/22 09:44 01/28/22 09:44 Short CBC 01/28/22 Range/Units 09:44 WBC 6.5 (4.0-10.0) 10^3/uL Hgb 14.7 (11.5-15.3) g/dL Hct 45.3 (37.0-47.0) % MCV 91.3 (81-99) fl Plt Count 284 (130-400) 10^3/cmm Neut % (Auto) 67.3 % Neut # (Auto) 4.38 (1.8-7.7) 10^3/uL Cardiac Studies: No Data to Display
[2022-01-28 10:13] LABS: INR 1.84 (0.8-1.2)
[2022-01-28 10:20] LABS: Anion Gap 16.5 (5-19); Blood Urea Nitrogen 9 mg/dL (8-23); Calcium 10.2 mg/dL (8.5-10.5); Carbon Dioxide 26 mmol/L (22-29); Chloride 101 mmol/L (98-107); Glucose 123 mg/dL (65-115); Osmolality Calculated 290 mOsm/kg (285-295); Potassium 3.5 mmol/L (3.5-5.1); Sodium 140 mmol/L (136-145)
[2022-01-28 10:23] LABS: Bilirubin Urine Neg (Negative); Blood Urine Neg (Negative); Glucose Urine UA Norm (Normal); Ketones Urine Negative (Negative); Leukocyte Esterase Urine Negative (Negative); Nitrate Urine Negative (Negative); Protein Urine Neg (Negative); Specific Gravity, Urine 1.005 (1.005-1.030); Urine Appearance Clear (CLEAR); Urine Color Yellow (Yellow); Urobilinogen Urine Neg (Negative); pH Urine 7 (5-7)
[2022-02-01] VITALS (29 sets, daily range): BP systolic 78–116; BP diastolic 51–69; PULSE 58–105; RESP 13–27; TEMP 36.6–36.7; O2SAT 90–96; BMI 30.9
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
[2022-02-01] MEDS: sodium chloride 0.9% 1,000 ML 30 ML IV (10:17)
[2022-02-01] MEDS: ceFAZolin 2,000 MG in sodium chloride 0.9% (plus) 50 ML 100 MG IV (10:55)
[2022-02-01] MEDS: ceFAZolin 1,000 mg SDV 2000 MG IRRIGATION (11:00)
--- NOTE | 2022-02-01 11:23 | ANES.PROC ---
Anesthesia Procedures Procedure/Date: 02/01/22 Epidural: Time Out Performed: Yes Consents Signed: Procedure Consent Consent: requested by attending/covering physician, from patient, risks and benefits reviewed and patient agrees to proceed Thoracic Level: T10-T11 Epidural position: sitting Epidural procedure: sterile prep of area, 1% lidocaine to numb the area, 18 g needle, neg for paresthesia, test dose given, 1.5% xylocaine 1:200k epi, no systemic response and sterile dressing applied Additional Comments: GABRIELE at 6cm, Cath at 11cm
--- NOTE | 2022-02-01 14:28 | P.OP_ITS ---
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 Flexible bronchoscopy #2. Mediastinoscopy with biopsy #3. Anteromedial basal segmentectomy left lower lobe Specimens removed/disposition: Biopsy lymph node station 4R: Frozen section benign Anteromedial basal segmentectomy left lower lobe: Frozen section non-small cell carcinoma Surgeon: Anatoly Banegas Anesthesia: General and Epidural Estimated blood loss (mL): 50 Complications: None Condition: stable Disposition: ICU Brief History: Ms. 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 Lesion in this region that identified originally during CTA for continued follow-up of her known abdominal aortic aneurysm. Over serial exams of this lesion did show growth. There is increased activity on PET scan and subsequent CT directed needle biopsy revealed the diagnosis of squamous cell carcinoma. She also demonstrated equivocal activity on PET scan of mediastinal adenopathy. Rationale for surgical removal was carefully and frankly discussed with her and her family. She underwent careful preoperative evaluation and subsequent was electively admitted for planned resection. Details of risk of the procedure were carefully and frankly discussed. Appropriate consents have been reviewed and signed. Procedure: 1. Flexible diagnostic bronchoscopy Ms. Lewis underwent general endotracheal anesthesia with an 8.0endotracheal tube. With adequate anesthesia, flexible bronchoscope was inserted through the endotracheal tube. In a methodical fashion the trachea, hank, right main bronchus and associated lobar bronchi were inspected. In a similar fashion the left side was inspected. Secretions were cleared as needed to allow for adequate inspection. Normal saline was used to clear light secretions. Findings: Main hank and secondary hank were sharp. Branching anatomy was normal. There was no evidence for extrinsic compression or submucosal infiltration. Mucosal was mildly friable. There was also noted to be some modest mucosal redundancy though no nnacy endobronchial lesions were identified. Once completed, the scope was withdrawn under direct visualization confirming cleared secretions and no substantial bleeding. Next, she was repositioned for planned mediastinoscopy. #2. Mediastinoscopy Ms. Lewis was repositioned for planned mediastinoscopy. Appropriate invasive lines were placed. After positioning over protective padding, she was sterilely prepped and draped. A transverse incision was made above the sternal notch and carried down through the platysma. Cautery was utilized and large bridging veins were secured with clips and ligature prior to division. The pretracheal space was reached and enhanced the surgeon's finger. Mediastinoscope was inserted by direct vision and carefully advanced along the anterior plane of the trachea. Utilizing blunt dissection with suction, prominent lymph nodes at stations 4R were dissected free. Aspiration was then carefully performed followed by biopsy under direct vision. Appropriate cultures were taken on the operative field. Specimens were sent to pathology for frozen analysis. Initial impression was benign After adequate biopsy and tissue sampling, the patient was placed in reverse Trendelenburg position. Hemostasis was confirmed with the use of cautery, packing, and Surgicel. After confirmation of hemostasis, the scope was withdrawn under direct vision. The wound was then carefully irrigated and closed with 3-0 and 4-0 Vicryl suture. The skin was reapproximated in a subcuticular manner. Sterile dressing was applied. She maintains equal breath sounds bilaterally. #3. Anteromedial basal segmentectomy of left lower lobe Single-lumen endotracheal tube was subsequently replaced with a double-lumen tracheal tube and confirmed in position. Ms. Lewis was then carefully placed in the right lateral decubitus position over axillary rolls and protective padding. She was carefully secured. She was then sterilely prepped and draped. Initially, 3 thoracoscopic ports were placed, one in the anterior axillary line, 1 in the mid clavicular line, and a third posteriorly. 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 Due to the small nature of the lesion, it was difficult to assess its exact location related to this anthracosis and adhesions. Therefore, we elected to connect the 2 lower posterior ports agreed a small thoracotomy which was then carefully opened allowing for digital palpation of the lower lobe and release of adhesions anteriorly, over the diaphragm, and posteriorly. We were sublabeled to identify the small lesion in question. A prominent #9 inferior vein lymph node was dissected free and harvested for permanent sectioning. Utilizing endoscopic stapler, and anteromedial basal segmentectomy was completed and the specimen sent to pathology for frozen analysis. Preliminary results are consistent with a non-small cell carcinoma. Staple line was separately noted to be intact and secured. A 28 Wolof drain was placed over the apex through the most anterior port site. This was secured and connected to Pleur-evac suction. Left lung was reinflated without substantial air leak noted. Retractor was re moved. Sponge needle count was correct. Chest wall was reapproximated initially with interrupted #2 Vicryl suture. This was followed by 2 layers of 0 Vicryl suture, then 1 layer of 2-0 Vicryl suture and subsequently with 4-0 Monocryl suture. Dermabond was then applied. Sterile dressing was placed. Ms. Lewis was returned to the supine position where she was awakened and extubated and taken to the ICU. I did counseling program leader with family at completion of the procedure.
--- NOTE | 2022-02-01 15:27 | XR_ITS ---
WS: [id number] EXAMINATION: XR chest 1V portable [id number] REASON FOR EXAM: s/p segmentectomy LLL COMPARISON: None available. ORDER DATE: 02/01/2022 3:53 PM TECHNIQUE: A single, portable frontal chest x-ray was obtained. X-RAY FINDINGS: Left chest tube in place with a tiny left apical pneumothorax The lungs are clear. Cardiomediastinal silhouette is normal. No evidence for pulmonary edema. Soft tissue and osseous structures are unremarkable. No tubes or lines are present. XR/XR chest 1V portable [id number] IMPRESSION: Tiny left apical pneumothorax as noted above..
--- NOTE | 2022-02-01 15:29 | P.ANESUD_ITS ---
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 Proposed Procedure: Operation Date: 02/01/22 10:30 Proposed Procedures p Bronch,mediastinoscopy,thorascopy possible thoraco [id number],C34.92(Not Applicable) - Anatoly Banegas MD s Mediastinoscopy(Not Applicable) - Anatoly Banegas MD s Thoracotomy(Not Applicable) - Anatoly Banegas MD Any changes to Pre-Anesthetic Assessment?: No Last Intake: Intake Last Liquid Date 01/31/22 Last Liquid Time 17:30 Last Solid Date 01/31/22 Last Solid Time 17:30 Labs Last 48hrs: Blood Bank 01/28/22 09:44 Blood Type A Positive Rho(D) Type Positive Antibody Screen Negative Vitals: Oxygen Delivery Nc thod 02/01/22 09:54 Exam: Pre-Anes Outpt Exam: alert, oriented x 3, clear to auscultation bilaterally and regular rate & rhythm Cardiac Studies: No Data to Display
--- NOTE | 2022-02-01 15:29 | ANE.PACU2 ---
Inpatient post-anesthesia follow up: Airway intact: Yes Vital signs: Temperature Pulse Rate Respiratory Rate Blood Pressure Pulse Oximetry Oxygen Delivery Me thod Room Air Oxygen Flow Rate Fraction of Inspir ed Oxygen Hydration adequate: Yes Nausea and vomiting: No Pain level: 1 Mental status: Baseline
--- NOTE | 2022-02-01 15:31 | PC.NURSE ---
Pt to unit Pt brought to unit via bed by OR staff. Pt placed on 3L/NC satting in the high 90's. Pt has chest tube to left side placed on wall suction and verified with Dr Castaneda. Dressings to left side and at sternal notch are CDI. Pt is able to wake up and answer questions. Family updated.
[2022-02-01] MEDS: morphine 4 mg/mL SDV 1 mL 2 MG IVP (17:05)
[2022-02-01] MEDS: lactated ringers 1,000 ML 100 ML IV (17:05)
[2022-02-01] MEDS: ceFAZolin 1,000 MG in sodium chloride 0.9% (plus) 50 ML 100 MG IV (21:48)
[2022-02-02] VITALS (210 sets, daily range): BP systolic 78–160; BP diastolic 43–108; PULSE 40–94; RESP 10–36; TEMP 36.7–36.9; O2SAT 85–99
[2022-02-02] MEDS: lactated ringers 1,000 ML 100 ML IV ×2 (01:19→11:21)
--- NOTE | 2022-02-02 02:45 | PC.NURSE ---
Art line removed @ 0210 this AM. Patient tolerated well with minimal bleeding. Pressure was held for 5 minutes and site assessed for hematoma and/or bleeding. No hematoma present and dressing applied. Patient instructed to notify nurse of any changes including bleeding, pressure, or numbness. Patient tolerated well
[2022-02-02 03:26] LABS: Basophils % 0.1 %; Hematocrit 32.4 % (37.0-47.0); Hemoglobin 10.1 g/dL (11.5-15.3); Lymphocytes # 0.9 10^3/uL (0.8-4.8); Lymphocytes % 9.5 %; Mean Corpuscular HGB Conc 31.2 g/dL (30.0-36.0); Mean Corpuscular Hemoglobin 29.4 pg (28.0-34.0); Mean Corpuscular Volume 94.5 fl (81-99); Monocytes # 0.4 10^3/uL (0.2-0.9); Neutrophils # 7.95 10^3/uL (1.8-7.7); Neutrophils % 85.9 %; Nucleated Red Blood Cells % 0 %; Platelet Count 140 10^3/cmm (130-400); Red Blood Count 3.43 10^6/uL (4.1-5.3); Red Cell Distribution Width 13.2 % (12.1-15.1); White Blood Count 9.3 10^3/uL (4.0-10.0)
[2022-02-02 03:54] LABS: Anion Gap 13.8 (5-19); Blood Urea Nitrogen 14 mg/dL (8-23); Calcium 8.5 mg/dL (8.5-10.5); Carbon Dioxide 21 mmol/L (22-29); Chloride 106 mmol/L (98-107); Glucose 140 mg/dL (65-115); Osmolality Calculated 287 mOsm/kg (285-295); Potassium 3.8 mmol/L (3.5-5.1); Sodium 137 mmol/L (136-145)
[2022-02-02] MEDS: diphenhydrAMINE 25 mg Capsule PO ×2 (04:31→19:54)
--- NOTE | 2022-02-02 05:41 | P.PN_ITS ---
Subjective Subjective: Postop day #1 status post segmentectomy left lower lobe for non- small cell carcinoma. Ms. Lewis has had a good night. Pain appears to be under good control. Chest tube output 90 cc since return from surgery. No airleak is noted while on suction. Nurses report no difficulties. This morning 's chest x-ray reveals good tube placement with some haziness at the costodiaphragmatic angle which I feel most probably represents pulmonary contusion from the resection line. No pneumothorax is noted. No substantial fluid collection noted. Mediastinum is unremarkable. Vitals/I&O/Wt Last Vital Signs Temp 98.1 F 02/02/22 02:40 Pulse 59 L 02/02/22 04:40 Resp 24 H 02/02/22 04:40 BP 105/72 02/02/22 04:40 Pulse Ox 97 02/02/22 04:40 O2 Del Method 02/02/22 02:40 O2 Flow Rate 2 02/02/22 02:40 02/01/22 02/01/22 02/02/22 14:59 22:59 06:59 Intake Total 50 / 50 250 / 300 823.333 / 1123.333 Output Total 215 / 215 Balance 50 / 50 35 / 85 823.333 / 908.333 Weight last 48 hrs Weight 175 lb Physical Exam Const: COMMON NORMALS: patient oriented x3 Chest: OTHER: Surgical dressings are in place, clean and dry. No subcutaneous emphysema. Resp: OTHER: There is some modest limitation of breath sounds in the left base posteriorly. Otherwise, clear Cardio: OTHER: Irregular rhythm with normal rate consistent with her longstanding A. fib GI: COMMON NORMALS: Normal to inspection, nondistended, normoactive bowel sounds present Extremity: COMMON NORMALS: no clubbing, cyanosis or edema Neuro: COMMON NORMALS: patient oriented x3, no focal motor deficits and no sensory deficits noted Urinary Catheter Management: Olson: Cath Placed During This Visit: yes Reason for Continuing Indwelling Catheter: Accurate Measurement of Urinary Output in Critically Ill Patients Urinary Catheter Date of Insertion: 02/01/22 Urinary Catheter Time of Insertion: 10:55 Data 02/02/22 02:19 02/02/22 02:19 A&P Assessment and plan (1) 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: Postop day #1 status post left lower lobe segmentectomy Plan: Out of bed in chair. Chest tube to waterseal. Chest x-ray in a.m. Plan to discontinue epidural catheter tomorrow morning then resume anticoagulation shortly thereafter. Final pathology pending. Attestations Medical Necessity Statement*: Postop day #1 status post left lower lobe segmentectomy for non-small cell carcinoma Time Spent in Patient Care: 16 - 35 minutes (>than 50% of time spent in counselling and/or direct pt care on unit) . Coding Level of Care Code Acute Respiratory Coordinator for Francisco Noland Diagnoses 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
[2022-02-02] MEDS: ceFAZolin 1,000 MG in sodium chloride 0.9% (plus) 50 ML 100 MG IV ×2 (05:54→12:53)
--- NOTE | 2022-02-02 06:00 | XR_ITS ---
WS: [id number] EXAMINATION: XR chest 1V portable [id number] REASON FOR EXAM: POD#1 s/p LLL segmentectomy COMPARISON: None available. ORDER DATE: 02/02/2022 4:42 AM TECHNIQUE: A single, portable frontal chest x-ray was obtained. X-RAY FINDINGS: Increased atelectasis has developed in the left lower lobe. Increased small left pleural effusion with chest tube in place. Tiny left apical pneumothorax now min imal.. Cardiomediastinal silhouette is normal. No evidence for pulmonary edema. Soft tissue demonstrates minimal subcutaneous gas in the lateral lower chest wall XR/XR chest 1V portable [id number] IMPRESSION: Increasing atelectasis in the left lower lobe with small pleural effusion and further diminishing tiny left apical pneumothorax
--- NOTE | 2022-02-02 07:56 | ANE.PACU2 ---
Inpatient post-anesthesia follow up: Airway intact: Yes Vital signs: Temperature 98.1 F Pulse Rate 63 Respiratory Rate 19 Blood Pressure 103/57 Pulse Oximetry 97 Oxygen Delivery Me thod Nasal Cannula Oxygen Flow Rate 2 Fraction of Inspir ed Oxygen Hydration adequate: Yes Nausea and vomiting: No Pain level: 2 Mental status: Baseline Additional Comments: POD#1, appeared to do well overnight, minimal pain (mediastinoscopy site), some PCEA usage.
[2022-02-02] MEDS: escitalopram 10 mg Tablet PO (08:54)
[2022-02-02] MEDS: levothyroxine 25 mcg Tablet PO (08:54)
[2022-02-02] MEDS: pantoprazole DR 40 mg Tablet PO (08:54)
[2022-02-02] MEDS: dilTIAZem ER (24HR) 300 mg Capsule PO (08:54)
[2022-02-02] MEDS: potassium chloride ER 20 mEq Tablet PO (08:54)
[2022-02-02] MEDS: atorvastatin 40 mg Tablet 20 MG PO (08:54)
[2022-02-02] MEDS: FUROsemide 40 mg Tablet PO (08:54)
--- NOTE | 2022-02-02 09:07 | XR_ITS ---
WS: [id number] EXAMINATION: XR chest 1V portable [id number] REASON FOR EXAM: Follow up Right shoulder pain COMPARISON: Earlier today ORDER DATE: 02/02/2022 9:07 AM TECHNIQUE: A single, portable frontal chest x-ray was obtained. X-RAY FINDINGS: Prior atelectasis has resolved in the left lower lobe. Tiny left apical pneumothorax now Again more noticeable than on the prior study. Cardiomediastinal silhouette is normal. No evidence for pulmonary edema. Soft tissue demonstrates minimal subcutaneous gas in the lateral lower chest wall XR/XR chest 1V portable [id number] IMPRESSION: Clearing of atelectasis in the left lower lobe slightly more noticeable tiny ap ical pneumothorax on the left
--- NOTE | 2022-02-02 09:11 | PC.NURSE ---
Dr. Banegas notified of patient having Right shoulder pain 12/07. Orders received for chest x-ray obtained.
[2022-02-02] MEDS: morphine 4 mg/mL SDV 1 mL 2 MG IVP ×2 (09:16→12:36)
[2022-02-02] MEDS: ketorolac 30 mg/mL INJ IVP ×2 (12:33→20:38)
--- NOTE | 2022-02-02 14:23 | PC.NURSE ---
Patient up to chair at this time. Tolerating well.
[2022-02-02] MEDS: fixodent 39 gm Tube 1 APPLIC DENTAL (14:48)
[2022-02-02] MEDS: alum-mag-hydroxide-sime 30 mL UDC PO (19:54)
[2022-02-02] MEDS: lactated ringers 1,000 ML 10 ML IV (20:38)
[2022-02-03] VITALS (25 sets, daily range): BP systolic 111–181; BP diastolic 61–125; PULSE 70–105; RESP 17–28; TEMP 36.8–37.1; O2SAT 88–97
[2022-02-03] MEDS: ketorolac 30 mg/mL INJ IVP ×3 (03:21→16:17)
[2022-02-03] MEDS: diphenhydrAMINE 50 mg/mL SDV 1mL 12.5 MG IVP (04:05)
[2022-02-03] MEDS: guaiFENesin 100 mg/5 mL UDC 10 mL 200 MG PO ×3 (04:05→20:22)
--- NOTE | 2022-02-03 04:26 | PC.NURSE ---
Patient woke up with reports of shortness of breath and requesting to sit up. Assisted to side of bed and then up to chair. O2 saturations remain 93-95% on 3L NC. Patient reports itching and anxiety. Audible wheezing noted. Patient does take xopenex inhalers and xanax at home which she is currently not receiving. Linens changed and bath given. Benadryl 12.5mg given for itching and quaifenesin given for cough. Will obtain AM chest x-ray and notify Dr. Castaneda of patient condition. Intermittent air leak noted to chest tube when patient coughing.
[2022-02-03] MEDS: levalbuterol 1.25 mg/3 mL Neb INHALATION (05:40)
--- NOTE | 2022-02-03 05:45 | PC.NURSE ---
Dr. Banegas to bedside, epidural dc'd per Dr. Banegas, left pleural chest tube dc'd per Dr. Banegas. Dressing changed over left chest incision. Tolerated well. IV fluids dc'd per Dr. Banegas.
--- NOTE | 2022-02-03 06:00 | XR_ITS ---
WS: [id number] EXAMINATION: XR chest 1V portable [id number] REASON FOR EXAM: POD#2 s/p segmentectomy LLL COMPARISON: Previous study ORDER DATE: 02/03/2022 5:06 AM TECHNIQUE: A single, portable frontal chest x-ray was obtained. X-RAY FINDINGS: Prior atelectasis has slightly recurred in the left lower lobe. Tiny left apical pneumothorax and chest tube unchanged Cardiomediastinal silhouette is normal. No evidence for pulmonary edema. Soft tissue demonstrates minimal subcutaneous gas in the lateral lower chest wall New mild blunting of the right costophrenic angle suggesting a small right pleural effusion XR/XR chest 1V portable [id number] XR/XR chest 1V portable [id number] IMPRESSION: Interval recurrence of mild atelectasis in the left lower lobe Unchanged tiny left apical pneumothorax new small right effusion
--- NOTE | 2022-02-03 06:29 | P.PN_ITS ---
Subjective Subjective: Postop day #2 status post left lower lobe anterior medial segmentectomy. Final pathology pending. Chest tube output approximate 50 cc past 12 hours. No airleak noted. Up in chair on rounds. Has complained of abdominal gas and bloating though did have some flatus last night. Vitals/I&O/Wt Last Vital Signs Temp 98.6 F 02/03/22 04:00 Pulse 79 02/03/22 06:00 Resp 21 H 02/03/22 06:00 BP 162/99 02/03/22 06:00 Pulse Ox 93 02/03/22 06:00 O2 Del Method 02/03/22 06:00 O2 Flow Rate 3 02/03/22 06:00 02/02/22 02/02/22 02/03/22 14:59 22:59 06:59 Intake Total 1630 / 1630 1178.333 / 2808.333 395 / 3203.333 Output Total 920 / 920 1809 / 2729 Balance 1630 / 1630 258.333 / 1888.333 -1414 / 474.333 Weight last 48 hrs Weight 175 lb Physical Exam Chest: OTHER: Incision line is clean, dry and intact. Surgical dressing was removed the incision line painted with Betadine and redressed. Chest tube was discontinued. There is minimal subcutaneous emphysema. I did remove the epidural catheter with dressing change. Epidural catheter tip is intact. Resp: AUSCULTATION: wheezes OTHER: Good breath sounds bilaterally with some slight blunting posteriorly on the left. Cardio: OTHER: Atrial fibrillation with controlled rate. Extremity: COMMON NORMALS: normal to inspection and no clubbing, cyanosis or edema Urinary Catheter Management: Olson: Cath Placed During This Visit: yes Reason for Continuing Indwelling Catheter: Accurate Measurement of Urinary Output in Critically Ill Patients Urinary Catheter Date of Insertion: 02/01/22 Urinary Catheter Time of Insertion: 10:55 Data 02/02/22 02:19 02/02/22 02:19 A&P Assessment and plan (1) 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: Postop day #2 status post segmentectomy left lower lobe Plan: Chest tube discontinued. Olson catheter discontinued. Epidural catheter discontinued. Ambulate with assistance. Pulmonary toilet. Awaiting final pathology report. Nebulizer treatments for wheezing. Home health referral Attestations Medical Necessity Statement*: Postop day #2 status post segmentectomy left lower lobe for non-small cell carcinoma. Coding Level of Care Code Acute Lab Coordinator for g Fwd Diagnoses 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
[2022-02-03] MEDS: potassium chloride ER 20 mEq Tablet PO (09:06)
[2022-02-03] MEDS: levothyroxine 25 mcg Tablet PO (09:06)
[2022-02-03] MEDS: pantoprazole DR 40 mg Tablet PO (09:06)
[2022-02-03] MEDS: dilTIAZem ER (24HR) 300 mg Capsule PO (09:06)
[2022-02-03] MEDS: FUROsemide 40 mg Tablet PO (09:06)
[2022-02-03] MEDS: escitalopram 10 mg Tablet PO (09:06)
[2022-02-03] MEDS: atorvastatin 40 mg Tablet 20 MG PO (09:06)
--- NOTE | 2022-02-03 10:39 | ANE.PACU2 ---
Inpatient post-anesthesia follow up: Airway intact: Yes Vital signs: Temperature 98.6 F Pulse Rate 79 Respiratory Rate 21 Blood Pressure 162/99 Pulse Oximetry 93 Oxygen Delivery Me thod Nasal Cannula Oxygen Flow Rate 3 Fraction of Inspir ed Oxygen Hydration adequate: Yes Nausea and vomiting: No Pain level: 3 Mental status: Baseline Additional Comments: POD#2, up walking around, epidural pulled by surgeon
[2022-02-03] MEDS: cetirizine 10 mg Tablet PO (12:45)
[2022-02-03] MEDS: morphine 4 mg/mL SDV 1 mL 2 MG IVP (13:04)
--- NOTE | 2022-02-03 14:03 | PC.NURSE ---
Morphine admin for 7 out of 10 pain left back. VSS. Unable to completed pain assessment with MAR due to MAr timing out during admin. PT's IV went bad, needed a new start. US used to access R AC.
[2022-02-03] MEDS: alum-mag-hydroxide-sime 30 mL UDC PO (18:49)
--- NOTE | 2022-02-03 18:51 | PC.NURSE ---
Bedside report completed with FRANK De Jesus
--- NOTE | 2022-02-03 19:10 | NUR.SHIFT ---
Shift Note: Pt has been up to chair for most of shift. She has ambulated twice this shift, the second time double the length of the first walk. She has had audible wheezing from door way for most of shift. It has improved after last ambulation and after the Robitussin. It seemed to help loosen up her cough, more productive. She remains on 2lpm/Nc. Home O2 evaluate completed. She has c/o of pain in her left back. She has received Toradol twice and Morphine once. This evening she said it felt better. She has been up to BSC multiple times this shift. She has also been incontinent of urine. She has been incontinent of bowels, outout smear to very small. Sons very attentive Frequent safety and comfort rounds continue. Orders and/or nursing care completed as indicated. Patient monitored for response to intervention and treatment(s). Education provided includes Toradol, Morphine, Robitussin DM, ambulating, plan of care and progress Patient and/or communications representative verbalizes understadning of plan of care and discussed medications. Will continue to monitor.
[2022-02-03] MEDS: oxyCODONE-APAP 5-325 mg Tablet 1 TAB PO (20:22)
[2022-02-04] VITALS (14 sets, daily range): BP systolic 126–157; BP diastolic 72–98; PULSE 73–104; RESP 15–29; TEMP 36.8–36.9; O2SAT 90–94
[2022-02-04] MEDS: oxyCODONE-APAP 5-325 mg Tablet 1 TAB PO ×3 (04:02→15:14)
--- NOTE | 2022-02-04 05:51 | P.PN_ITS ---
Subjective Subjective: Postop day #3 status post segmentectomy left lower lobe. Chest tube was discontinued yesterday afternoon. This morning's chest x-ray remains clear. She will require supplemental oxygen at discharge. Nurses report she slept quite well last night. Good and effective cough. Dressings are dry. Vitals/I&O/Wt Last Vital Signs Temp 98.4 F 02/04/22 04:00 Pulse 87 02/04/22 05:31 Resp 20 H 02/04/22 04:02 BP 134/87 02/04/22 04:00 Pulse Ox 91 02/04/22 04:00 O2 Del Method 02/04/22 04:00 O2 Flow Rate 2 02/04/22 04:00 02/03/22 02/03/22 02/04/22 14:59 22:59 06:59 Intake Total 950 / 950 450 / 1400 150 / 1550 Output Total 800 / 800 350 / 1150 600 / 1750 Balance 150 / 150 100 / 250 -450 / -200 Physical Exam Chest: COMMONS NORMALS: normal inspection of the chest and normal palpation of entire chest wall Resp: COMMON NORMALS: normal respiratory effort and No retractions OTHER: Minimal decrease in the left base posteriorly though aeration appears to be improving. Cardio: COMMON NORMALS: regular rate RATE: regular rate RHYTHM: abnormal rhythm (Chronic A. fib with controlled rate) Urinary Catheter Management: Olson: Cath Placed During This Visit: yes Reason for Continuing Indwelling Catheter: Accurate Measurement of Urinary Output in Critically Ill Patients Urinary Catheter Date of Insertion: 02/01/22 Urinary Catheter Time of Insertion: 10:55 Data 02/02/22 02:19 02/02/22 02:19 A&P Assessment and plan (1) 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: Postop day #3 Will plan to discharge to home later today with home health services. Home O2 evaluation is been completed and home oxygen will be arranged. Continues to make good progress. Attestations Medical Necessity Statement*: Postop day #3 status post left lower lobe segmentectomy for non-small cell carcinoma Coding Level of Care Code Acute Mechanical Engineering Technician for Francisco Noland Diagnoses 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
--- NOTE | 2022-02-04 06:00 | XR_ITS ---
WS: [id number] EXAMINATION: XR chest 1V portable [id number] REASON FOR EXAM: Postop day 3 status post segmentectomy. Chest tube dc'd COMPARISON: 02/03/2022 ORDER DATE: 02/04/2022 5:00 AM TECHNIQUE: A single, portable frontal chest x-ray was obtained. X-RAY FINDINGS: Left chest tube is been removed. There may be moderately increased right basal atelectasis and/or ear ly infiltrate. Left basal atelectasis unchanged. Atherosclerotic aortic change. Mild generalized group home paraprofessional saeed lung changes. Minimal remaining subcutaneous emphysema left lateral chest wall. XR/XR chest 1V portable [id number] IMPRESSION: Recommend follow-up of the possible developing right basal infiltrate versus at electasis.
[2022-02-04] MEDS: rivaroxaban 10 mg Tablet 20 MG PO (06:13)
--- NOTE | 2022-02-04 06:22 | PC.NURSE ---
Dr. Banegas made rounds on patient, restarted on xarelto and first dose administered. Plans for discharge to home later in day discussed.
--- NOTE | 2022-02-04 06:45 | PC.NURSE ---
Bedside report completed with FRANK De Jesus.
[2022-02-04] MEDS: FUROsemide 40 mg Tablet PO (08:47)
[2022-02-04] MEDS: potassium chloride ER 20 mEq Tablet PO (08:47)
[2022-02-04] MEDS: levothyroxine 25 mcg Tablet PO (08:48)
[2022-02-04] MEDS: levoFLOXacin 500 mg Tablet PO (08:48)
[2022-02-04] MEDS: escitalopram 10 mg Tablet PO (08:48)
[2022-02-04] MEDS: pantoprazole DR 40 mg Tablet PO (08:48)
[2022-02-04] MEDS: amoxicillin-clav 500-125 mg Tablet 1 TAB PO (08:48)
--- NOTE | 2022-02-04 08:54 | P.DS_ITS ---
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 Lewis is a pleasant 81-year-old female with previously CT directed needle biopsy proven squamous cell carcinoma of a small 1 cm nodule in the inferior medial aspect of the left lower lobe. She has been carefully evaluated by Dr. Watkins from our pulmonary service. She was referred to consider surgical resection. After careful preoperative evaluation she was electively admitted on February 01 where she underwent flexible diagnostic bronchoscopy, mediastinoscopy for mediastinal adenopathy which returned negative on frozen section for malignancy, and subsequent left lower lobe anterior medial segmentectomy. Pathology has returned squamous cell carcinoma with clear margins. Pathology of harvested #9 inferior pulmonary vein lymph node was also negative. Postoperatively, she convalesced in the ICU where she remained stable. She had low drain output and minimal air leak which resolved within 12 hours. She underwent aggressive pulmonary toilet. Epidural catheter was discontinued at the second postop day. Chest tube was discontinued yesterday. Chest x-ray this morning is clear. She does have a modest cough though she is unable to have sputum production. She will need further pulmonary toilet with incentive spirometry. She will require supplemental oxygen at 2 L nasal cannula at discharge. Home health arrangements is also been completed. She will be discharged to home later today in stable condition. Status: Acute Reason for Visit Reason for Visit: C34.92 Physical Exam Chest: OTHER: Thoracoscopic ports and access incision are clean, dry, and intact. Chest wall is stable. There is no subtendinous emphysema. No erythema or drainage. Resp: OTHER: Lungs are clear bilaterally with some modest crackles in the left base posteriorly. Cardio: COMMON NORMALS: regular rate RATE: regular rate RHYTHM: abnormal rhythm irregularly irregular (History of longstanding atrial fibrillation with controlled rate.) GI: COMMON NORMALS: Normal to inspection, nondistended, normoactive bowel sounds present Extremity: COMMON NORMALS: no clubbing, cyanosis or edema Urinary Catheter Management: Olson: Cath Placed During This Visit: yes Reason for Continuing Indwelling Catheter: Accurate Measurement of Urinary Output in Critically Ill Patients Urinary Catheter Date of Insertion: 02/01/22 Urinary Catheter Time of Insertion: 10:55 Discharge Data Studies Completed and Pending Completed Studies During Hospitalization Category Date Time Status XR chest 1V portable [id number] NOW Exams 02/02/22 09:07 Completed XR chest 1V portable [id number] Routine Exams 02/01/22 15:27 Completed XR chest 1V portable [id number] Routine Exams 02/02/22 06:00 Completed XR chest 1V portable [id number] Routine Exams 02/03/22 06:00 Completed XR chest 1V portable [id number] Routine Exams 02/04/22 06:00 Completed Pathology: Surgical [PTH] Routine Pth 02/01/22 14:15 Completed Pending at discharge Category Date Time Status Leukocyte Reduced RBC Routine Lab 01/28/22 09:44 Results Type and Screen - Cardiac Routine Lab 01/28/22 09:44 Results Radiology Impressions Chest X-Ray 02/04/22 06:00 IMPRESSION: Recommend follow-up of the possible developing right basal infiltrate versus atelectasis. Laboratory Results WBC 9.3 10^3/uL (4.0-10.0) 02/02/22 02:19 RBC 3.43 10^6/uL (4.1-5.3) L 02/02/22 02:19 Hgb 10.1 g/dL (11.5-15.3) L 02/02/22 02:19 Hct 32.4 % (37.0-47.0) L 02/02/22 02:19 MCV 94.5 fl (81-99) 02/02/22 02:19 MCH 29.4 pg (28.0-34.0) 02/02/22 02:19 MCHC 31.2 g/dL (30.0-36.0) 02/02/22 02:19 RDW 13.2 % (12.1-15.1) 02/02/22 02:19 Plt Count 140 10^3/cmm (130-400) 02/02/22 02:19 MPV 13.0 fL (7.4-10.4) H 02/02/22 02:19 Neut % (Auto) 85.9 % 02/02/22 02:19 Lymph % (Auto) 9.5 % 02/02/22 02:19 [place] % (Auto) 4.0 % 02/02/22 02:19 Eos % (Auto) 0.0 % 02/02/22 02:19 Baso % (Auto) 0.1 % 02/02/22 02:19 Neut # (Auto) 7.95 10^3/uL (1.8-7.7) H 02/02/22 02:19 Lymph # (Auto) 0.9 10^3/uL (0.8-4.8) 02/02/22 02:19 [place] # (Auto) 0.4 10^3/uL (0.2-0.9) 02/02/22 02:19 Eos # (Auto) 0.0 10^3/uL (0.0-0.8) 02/02/22 02:19 Baso # (Auto) 0.0 10^3/uL (0.0-0.1) 02/02/22 02:19 Nucleated RBC % (auto) 0 % 02/02/22 02:19 Nucleated RBCs # 0.0 /100WBC 02/02/22 02:19 PT 21.60 SECONDS (12.1-14.9) H 01/28/22 09:44 INR 1.84 (0.8-1.2) H 01/28/22 09:44 Sodium 137 mmol/L (136-145) 02/02/22 02:19 Potassium 3.8 mmol/L (3.5-5.1) 02/02/22 02:19 Chloride 106 mmol/L (98-107) 02/02/22 02:19 Carbon Dioxide 21 mmol/L (22-29) L 02/02/22 02:19 Anion Gap 13.8 (5-19) 02/02/22 02:19 BUN 14 mg/dL (8-23) 02/02/22 02:19 Creatinine 1.0 mg/dL (0.5-0.9) H 02/02/22 02:19 GFR Calculation Not Reportable 02/02/22 02:19 Glucose 140 mg/dL (65-115) H 02/02/22 02:19 Calculated Osmolality 287 mOsm/kg (285-295) 02/02/22 02:19 Calcium 8.5 mg/dL (8.5-10.5) 02/02/22 02:19 Urine Color Yellow (Yellow) 01/28/22 09:31 Urine Appearance Clear (CLEAR) 01/28/22 09:31 Urine pH 7 (5-7) 01/28/22 09:31 Ur Specific [place] 1.005 (1.005-1.030) 01/28/22 09:31 Urine Protein Neg (Negative) 01/28/22 09:31 Urine Glucose (UA) Norm (Normal) 01/28/22 09:31 Urine Ketones Negative (Negative) 01/28/22 09:31 Urine Blood Neg (Negative) 01/28/22 09:31 Urine Nitrate Negative (Negative) 01/28/22 09:31 Urine Bilirubin Neg (Negative) 01/28/22 09:31 Urine Urobilinogen Neg mg/dL (Negative) 01/28/22 09:31 Ur Leukocyte Esterase Negative (Negative) 01/28/22 09:31 Blood Type A Positive 01/28/22 09:44 Rho(D) Type Positive 01/28/22 09:44 Antibody Screen Negative 01/28/22 09:44 Crossmatch See Detail 01/28/22 09:44 Procedures Performed Flexible diagnostic bronchoscopy, mediastinoscopy, left thoracoscopy with left lower lobe anterior medial segmentectomy on February 01, 2022 Vitals Last Vital Signs Temp 98.4 F 02/04/22 04:00 Pulse 87 02/04/22 08:13 Resp 18 02/04/22 08:47 BP 147/74 02/04/22 06:00 Pulse Ox 93 02/04/22 08:47 O2 Del Method 02/04/22 08:13 O2 Flow Rate 2 02/04/22 08:13 Discharge Plan Discharge Patient Disposition: Home Health Service Condition: Stable Prescriptions: New oxycodone-acetaminophen 5-325 mg Tablet 1 tab PO Q6H PRN (Reason: Severe Pain) Qty: 28 0RF levofloxacin 500 mg tablet 500 mg PO DAILY 10 Days Qty: 10 0RF amoxicillin-pot clavulanate [Augmentin] 500-125 mg tablet 1 tab PO TID Qty: 30 0RF Continued levothyroxine 25 mcg tablet 25 mcg PO DAILY lovastatin 20 mg tablet 20 mg PO DAILY furosemide 40 mg tablet 40 mg PO DAILY diltiazem HCl 300 mg capsule,extended release 24hr 300 mg PO DAILY Qty: 90 1RF Xarelto 20 mg tablet 20 mg PO DAILY escitalopram oxalate 10 mg tablet 10 mg PO DAILY Zyrtec 10 mg capsule 10 mg PO DAILY PRN (Reason: Allergic Symptoms) cholecalciferol (vitamin D3) 1,250 mcg (50,000 unit) capsule 1,250 mcg PO DAILY potassium chloride 20 mEq tablet extended release 20 meq PO DAILY Xopenex HFA 45 mcg/actuation HFA aerosol inhaler 2 inh inhalation Q6H PRN (Reason: shortness of breath or wheezing) Rx Instructions: Pt unable to tolerate albuterol. alprazolam 0.25 mg Tablet 0.25 mg PO DAILY PRN (Reason: anxiety) Rx Instructions: 0.25 1 to 2 tablets daily prn anxiety Discharge Orders: Discharge Order (Routine); Ordered 02/04/22 Ordered By: Anatoly Banegas Referrals: Anatoly Banegas MD [Physician] - 1 month Discharge Diet: Usual diet Discharge Activity: Limit activity as instructed Patient Instructions: Opioid Safety Activity Restrictions/Additional Instructions: May remove bandage in 2 days May begin daily showers in 3 days Dry incision carefully after showers. May re-cover if desired to prevent irritation from clothing. No swimming or tub baths x 2 weeks No ointments on incision Report drainage, redness, heat, increased pain, or swelling to clinic Use incentive spirometer frequently Ambulate frequently Discharge Attestations Time Spent in Discharge Care*: less than 30 min Specific Discharge Activities: educating patient, educating and/or supporting family/caregiver, documenting/other paperwork and evaluating patient/reviewing data Status at Discharge: Cognitive status at discharge: cognitively intact , Behavioral status at discharge: cooperative , Functional status at discharge: independent ambulation , Overall status at discharge: patient is back to baseline Quality Metrics Clinical Quality Measures [ No reported AMI, CVA or VTE this stay] Coding Level of Care Code Acute Chg FW DC note Diagnoses 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
--- NOTE | 2022-02-04 12:45 | PC.NURSE ---
Awaiting Home health to call case management back for discharge,
[2022-02-04] MEDS: guaiFENesin 100 mg/5 mL UDC 10 mL 200 MG PO (14:14)
--- NOTE | 2022-02-04 15:00 | PC.NURSE ---
Family called from [facility], [facility] does not have enough Percocet to fill prescription. Notified Dr Banegas, new script to [facility] pharmacy on main campus, Called [facility] to verify, and cancel their Percocet prescription.
--- NOTE | 2022-02-04 15:43 | PC.NURSE ---
Discharge instructions provided and discussed. Including incision care, medications and follow-up appts. Pt dressed and ready to go. Awaiting Percocet prescription form Pharmacy.
--- NOTE | 2022-02-04 16:05 | PC.NURSE ---
Pt left unit with family.
== END 2022-02-04 15:30 | disposition home health service (06) | DRG 164 ==
LOC: ICU 15:08
PROVIDERS: Admitting Provider Thoracic Surgery (Cardiothoracic Vascular Surgery); PCP Family Medicine; Visit Provider Thoracic Surgery (Cardiothoracic Vascular Surgery)
PROC: 0BJ08ZZ Inspection of Tracheobronchial Tree, Via Natural or Artificial Opening Endoscopic (ICD-10-PCS; CPT 31622; principal; 2022-02-01 10:30)
PROC: 0WJC4ZZ Inspection of Mediastinum, Percutaneous Endoscopic Approach (ICD-10-PCS; CPT 39401; 2022-02-01 10:30)
PROC: 0BBJ4ZZ Excision of Left Lower Lung Lobe, Percutaneous Endoscopic Approach (ICD-10-PCS; 2022-02-01 10:30)
DX: C34.32 Malignant neoplasm of lower lobe, left bronchus or lung (principal); I48.20 Chronic atrial fibrillation, unspecified; R59.0 Localized enlarged lymph nodes; I11.0 Hypertensive heart disease with heart failure; I50.9 Heart failure, unspecified; G47.33 Obstructive sleep apnea (adult) (pediatric); J44.9 Chronic obstructive pulmonary disease, unspecified; E78.5 Hyperlipidemia, unspecified; E03.9 Hypothyroidism, unspecified; I71.40 Abdominal aortic aneurysm, without rupture, unspecified; Z87.891 Personal history of nicotine dependence; Z79.01 Long term (current) use of anticoagulants
CPT/HCPCS: 36415; 51702; 71045; 80048; 81003; 85025; 85610; 86850; 86900; 86920; 88305; 88307; 88312; 88331; 88342; 93005; 94640; 94664; 94760; J0690; J1100; J1170; J1200; J1885; J2250; J2270; J2370; J2405; J2704; J2795; J3010; J3490; J7030; J7120; J7614

== ENCOUNTER 2022-02-08 10:01 | Emergency (ER) | payer MEDICARE, SELFPAY ==
[2022-02-08 10:19] VITALS: BP 161/87; PULSE 100; RESP 26; TEMP 36.4; O2SAT 97; BMI 31.8
--- NOTE | 2022-02-08 10:25 | XR_ITS ---
WS: [id number] Portable AP upright chest, 02/08/2022 Clinical Data: dyspnea/cough Comparison: Portable chest, 02/04/2022 Findings: No nodules, masses or effusions are seen. The heart is normal. The pulmonary vascularity is not increased. No pneumonia or pneumothorax is seen. The right basilar opacity has cleared. The subc utaneous emphysema at the left costophrenic angle has almost totally cleared. The aortic arch and shu cending thoracic aorta show calcification and tortuosity. Monitor leads are on the chest wall. XR/XR chest 1V portable [id number] Impression: Atherosclerosis.
--- NOTE | 2022-02-08 10:25 | ECG_ITS ---
[facility] Test Date: 2022-02-08 Pat Name: Samantha Lewis Department: Room: Gender: Female Presales Consultant: : 1940 Requested By: Cory Soto Order Number: [id number] Joanna MD: Zoltan Drake M.D. Measurements Intervals [place] Rate: 104 P: 0 RI: 0 QRS: 19 QRSD: 98 T: 36 QT: 330 QTc: 435 Interpretive Statements ATRIAL FIBRILLATION WITH RAPID VENTRICULAR RESPONSE ABNORMAL RHYTHM ECG Compared to ECG 01/28/2022 09:58:25 No significant changes Electronically Signed On 02-08-2022 14:59:49 MEAL TEMPERER by Zoltan Drake M.D. [email or web address]
--- NOTE | 2022-02-08 10:26 | ED_ITS ---
HPI - Abdominal Pain General: Chief Complaint: Abdominal Pain Stated Complaint: ABD PAIN Time Seen by Provider: 02/08/22 10:02 Source: patient Mode of arrival: ambulatory History of Present Illness: 81-year-old female who is 1 week postop lung resection and node biopsy. Is patient readily admits she not been following her doctor's instruction she is having some pelvic fullness and difficult time with urination does go small amounts frequently. She also has noticed quite a bit of bloating and has not been able to have bowel movements she has been taking her pain medications regularly. She denies any fever sweats chills she has not changed the bandage on her incision to her thorax since surgery 1 week ago. MD elicited complaint: abdominal pain Onset (ago): day(s) Pain Consistency: constant Location: Suprapubic Severity: mild Quality: cramping Radiation: none Exacerbating factors: nothing Relieving factors: nothing Associated Symptoms: Reports bloating, constipation, GI cramping and poor appetite; Denies anorexia, belching, change in bowel habits, change in stool character, chills, coffee ground emesis, diarrhea, dyspepsia, dysuria, excessive flatus, fever(s), heartburn, hematochezia, hematuria, hematemesis, fecal incontinence, loose stools, melena, nausea, syncope and vomiting Review of Systems Const: Denies: fever(s) or chills ENMT: Denies: throat pain, ear or mastoid pain, nasal discharge or nasal congestion Card: Denies: chest pain, palpitations, irregular heart rhythm or syncope Resp: Denies: dyspnea, productive cough or non-productive cough GI: Reports: abdominal pain, constipation, bloating and GI cramping; Denies: nausea, vomiting, hematemesis, coffee ground emesis, heartburn, diarrhea, belching, excessive flatus, fecal incontinence, change in bowel habits, change in stool character, hematochezia or melena : Denies: dysuria, urinary frequency, urinary urgency or hematuria Skin/Breast: Denies: rash or pruritus PFSH ED PFSH: Medical History AAA (abdominal aortic aneurysm) Atrial fibrillation CHF (congestive heart failure) COPD (chronic obstructive pulmonary disease) MARCUS (generalized anxiety disorder) HTN (hypertension) Hyperlipidemia Hypothyroidism Neuropathic pain 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 Family History Other CAD (coronary artery disease) Cancer Stroke Social History Smoking and tobacco status: former smoker Quit status (tobacco): has quit using tobacco Year quit tobacco: 1997 Former quit date comment: 0.5 ppd X 40 years Alcohol intake: never Course Vital Signs: Vital signs: Vital Signs Temperature 97.6 F 02/08/22 10:19 Pulse Rate 96 02/08/22 13:00 Respiratory Rate 18 02/08/22 13:00 Blood Pressure 144/95 02/08/22 13:00 Pulse Oximetry 93 02/08/22 13:00 Oxygen Delivery Me thod 02/08/22 10:52 Oxygen Flow Rate 3 02/08/22 10:52 MDM - Abdominal Pain Medical Decision Making Labs and imaging reviewed. Patient has a colonic ileus. She also has a mild cystitis treat the cystitis discharge her home she asked about her nebulizer fluid she wants to get the Elisabet naqvi to follow-up with primary care with that that usually can be a prior authorization issue with her insurer. We will change the bandage for her incision the incision site itself looks good on exam can follow-up with Dr. Banegas as previously scheduled. Medical Records I reviewed the patient's medical records. Lab Data I reviewed the patient's lab results. 02/08/22 11:15 02/08/22 11:15 Labs/Radiology: Radiology Impressions Chest X-Ray 02/08/22 10:25 Impression: Atherosclerosis. Abdomen/Pelvis CT 02/08/22 11:40 IMPRESSION: 1. Interval postop changes left lower lobe and left posterolateral chest wall. 2. Moderate degree of subcutaneous emphysema left lateral chest wall and left lateral abdominal wall of uncertain etiology. Follow-up CT chest recommended for further assessment. 3. Moderate gaseous distention involving majority the large bowel likely secondary to colonic ileus. 4. 3.9 cm aneurysm mid abdominal aorta, stable. Laboratory Results WBC 6.8 10^3/uL (4.0-10.0) 02/08/22 11:15 RBC 3.99 10^6/uL (4.1-5.3) L 02/08/22 11:15 Hgb 11.7 g/dL (11.5-15.3) 02/08/22 11:15 Hct 35.8 % (37.0-47.0) L 02/08/22 11:15 MCV 89.7 fl (81-99) 02/08/22 11:15 MCH 29.3 pg (28.0-34.0) 02/08/22 11:15 MCHC 32.7 g/dL (30.0-36.0) 02/08/22 11:15 RDW 13.0 % (12.1-15.1) 02/08/22 11:15 Plt Count 166 10^3/cmm (130-400) 02/08/22 11:15 MPV 12.1 fL (7.4-10.4) H 02/08/22 11:15 Neut % (Auto) 65.6 % 02/08/22 11:15 Lymph % (Auto) 18.9 % 02/08/22 11:15 [place] % (Auto) 12.6 % 02/08/22 11:15 Eos % (Auto) 2.0 % 02/08/22 11:15 Baso % (Auto) 0.3 % 02/08/22 11:15 Neut # (Auto) 4.48 10^3/uL (1.8-7.7) 02/08/22 11:15 Lymph # (Auto) 1.3 10^3/uL (0.8-4.8) 02/08/22 11:15 [place] # (Auto) 0.9 10^3/uL (0.2-0.9) 02/08/22 11:15 Eos # (Auto) 0.1 10^3/uL (0.0-0.8) 02/08/22 11:15 Baso # (Auto) 0.0 10^3/uL (0.0-0.1) 02/08/22 11:15 Nucleated RBC % (auto) 0 % 02/08/22 11:15 Nucleated RBCs # 0.0 /100WBC 02/08/22 11:15 Sodium 134 mmol/L (136-145) L 02/08/22 11:15 Potassium 3.5 mmol/L (3.5-5.1) 02/08/22 11:15 Chloride 93 mmol/L (98-107) L 02/08/22 11:15 Carbon Dioxide 31 mmol/L (22-29) H 02/08/22 11:15 Anion Gap 13.5 (5-19) 02/08/22 11:15 BUN 11 mg/dL (8-23) 02/08/22 11:15 Creatinine 0.8 mg/dL (0.5-0.9) 02/08/22 11:15 GFR Calculation Not Reportable 02/08/22 11:15 Glucose 95 mg/dL (65-115) 02/08/22 11:15 Calculated Osmolality 277 mOsm/kg (285-295) L 02/08/22 11:15 Lactic Acid 1.4 mmol/L (0.5-2.2) 02/08/22 11:15 Calcium 9.7 mg/dL (8.5-10.5) 02/08/22 11:15 Total Bilirubin 0.4 mg/dL (0.15-1.2) 02/08/22 11:15 AST 19 U/L (0-32) 02/08/22 11:15 ALT 10 U/L (0-33) 02/08/22 11:15 Alkaline Phosphatase 68 U/L (35-105) 02/08/22 11:15 Total Protein 6.2 g/dL (6.6-8.7) L 02/08/22 11:15 Albumin 3.5 g/dL (3.5-5.2) 02/08/22 11:15 Globulin 2.7 g/dL (1.3-4.6) 02/08/22 11:15 Lipase 26 U/L (13-60) 02/08/22 11:15 Urine Color Yellow (Yellow) 02/08/22 11:58 Urine Appearance Hazy (CLEAR) A 02/08/22 11:58 Urine pH 6 (5-7) 02/08/22 11:58 Ur Specific [place] 1.015 (1.005-1.030) 02/08/22 11:58 Urine Protein Neg (Negative) 02/08/22 11:58 Urine Glucose (UA) Norm (Normal) 02/08/22 11:58 Urine Ketones Negative (Negative) 02/08/22 11:58 Urine Blood Neg (Negative) 02/08/22 11:58 Urine Nitrate Negative (Negative) 02/08/22 11:58 Urine Bilirubin Neg (Negative) 02/08/22 11:58 Urine Urobilinogen Norm mg/dL (Negative) 02/08/22 11:58 Ur Leukocyte Esterase Trace (Negative) H 02/08/22 11:58 Urine RBC 0-4 /hpf (0-2) H 02/08/22 11:58 Urine WBC 15-25 /hpf (0-5) H 02/08/22 11:58 Ur Squamous Epith Cells 0-4 /hpf (0-5) H 02/08/22 11:58 Amorphous Sediment Not Reportable 02/08/22 11:58 Urine Bacteria Trace /hpf (NONE) 02/08/22 11:58 Urine Yeast 1+ /hpf H 02/08/22 11:58 Discharge Plan Discharge Patient Disposition: Home Clinical Impression: Cystitis, Emphysema of lung, AAA (abdominal aortic aneurysm), HTN (h ypertension) Condition: Stable Prescriptions: No Action levothyroxine 25 mcg tablet 25 mcg PO QAM lovastatin 20 mg tablet 20 mg PO BEDTIME furosemide 40 mg tablet 40 mg PO QAM Xarelto 20 mg tablet 20 mg PO BEDTIME escitalopram oxalate 10 mg tablet 10 mg PO DAILY potassium chloride 20 mEq tablet extended release 20 meq PO DAILY alprazolam 0.25 mg Tablet 0.25 - 0.5 mg PO DAILY PRN (Reason: anxiety) levofloxacin 500 mg tablet 500 mg PO DAILY 10 Days Qty: 10 0RF amoxicillin-pot clavulanate [Augmentin] 500-125 mg tablet 1 tab PO TID Qty: 30 0RF levalbuterol HCl 1.25 mg/0.5 mL solution for nebulization 1.25 mg inhalation Q8H PRN (Reason: shortness of breath or wheezing) Qty: 30 0RF Rx Instructions: must dilute for administration oxycodone-acetaminophen 5-325 mg tablet 1 tab PO Q8H PRN (Reason: pain) Qty: 25 0RF ergocalciferol (vitamin D2) 1,250 mcg (50,000 unit) capsule 50,000 unit PO Q7D Rx Instructions: on tue diltiazem HCl 300 mg capsule,extended release 24hr 300 mg PO BEDTIME Robitussin-DM 10-100 mg/5 mL Syrup 10 ml PO Q4H PRN (Reason: Cough) Discharge Orders: Discharge ED (Routine); Ordered 02/08/22 Ordered By: Cory Ang Referrals: July Aguayo DO [Primary Care Provider] - Discharge Diet: Usual diet Discharge Activity: Resume usual activity Activity Restrictions/Additional Instructions: You are seen for abdominal discomfort found to have cystitis. We will start you on an oral antibiotic take 1 twice daily until complete. If symptoms worsen or change return to the emergency room. The CT scan showed a colonic ileus you can use laxatives to try to improve those symptoms. Coding Level of Care Code ED [employer] Retoucher for Francisco Noland
[2022-02-08 10:52] VITALS: BP 132/90; PULSE 98; RESP 19; O2SAT 95
--- NOTE | 2022-02-08 11:10 | PC.NURSE ---
PT PLACED ON CONTINUOUS NIBP, SPO2, AND CM
[2022-02-08 11:22] VITALS: BP 146/89; PULSE 104; RESP 16; O2SAT 95
[2022-02-08 11:25] LABS: Basophils % 0.3 %; Eosinophils # 0.1 10^3/uL (0.0-0.8); Hematocrit 35.8 % (37.0-47.0); Hemoglobin 11.7 g/dL (11.5-15.3); Lymphocytes # 1.3 10^3/uL (0.8-4.8); Lymphocytes % 18.9 %; Mean Corpuscular HGB Conc 32.7 g/dL (30.0-36.0); Mean Corpuscular Hemoglobin 29.3 pg (28.0-34.0); Mean Corpuscular Volume 89.7 fl (81-99); Mean Platelet Volume 12.1 fL (7.4-10.4); Monocytes # 0.9 10^3/uL (0.2-0.9); Monocytes % 12.6 %; Neutrophils # 4.48 10^3/uL (1.8-7.7); Neutrophils % 65.6 %; Nucleated Red Blood Cells % 0 %; Platelet Count 166 10^3/cmm (130-400); Red Blood Count 3.99 10^6/uL (4.1-5.3); White Blood Count 6.8 10^3/uL (4.0-10.0)
--- NOTE | 2022-02-08 11:40 | CTR_ITS ---
PROCEDURE INFORMATION: Exam: CT Abdomen And Pelvis Without Contrast Exam date and time: 02/08/2022 12:07 PM Age: 81 years old Clinical indication: Abdominal pain; Localized; Left upper quadrant (luq) TECHNIQUE: Imaging protocol: Computed tomography of the abdomen and pelvis without contrast. Radiation optimization: All CT scans at this facility use at least one of these dose optimization techniques: automated exposure control; mA and/or kV adjustment per patient size (includes targeted exams where dose is matched to clinical indication); or iterative reconstruction. COMPARISON: CT angio chest abdomen pelvis 07/09/2021 5:[address] chest performed October 26, 2021 RADIATION DOSE METRICS: Total DLP (mGy-cm): 733.77 FINDINGS: Lungs: Patient has since undergone surgery left lower lobe with postsurgical sutures present. There is a small left basilar effusion and adjacent minor atelectatic changes. There are scattered granulomatous calcifications within the spleen which is otherwise unremarkable.. Liver: Normal. No mass. Gallbladder and bile ducts: Gallbladder has been removed. Bile ducts are not appreciably dilated. Pancreas: Unremarkable. Main pancreatic duct is not significantly dilated. Spleen: Normal. No splenomegaly. Adrenal glands: Normal. No mass. Kidneys and ureters: Kidneys are unremarkable. No calculi or hydronephrosis detected. Stomach and bowel: There is moderate generalized gaseous distention involving majority the large bowel likely secondary to diffuse colonic ileus. There are few scattered diverticula in the sigmoid colon without evidence of diverticulitis. There is no obstructing mass detected. Small bowel loops are unremarkable. Appendix: No evidence of appendicitis. Intraperitoneal space: There is no free intraperitoneal air or free fluid seen. Vasculature: There are diffuse atherosclerotic changes of the abdominal aorta and iliac vessels with stable fusiform shaped aneurysm of the mid abdominal aorta measuring 3.9 cm in maximum diameter. Lymph nodes: Unremarkable. No enlarged lymph nodes. Urinary bladder: Unremarkable as visualized. Reproductive: Uterus has been removed. Bones/joints: Unremarkable. No acute fracture. Soft tissues: There is some ill-defined fat stranding within the left posterolateral chest wall partially visualized that may be postoperative in nature. There is also a moderate amount of subcutaneous emphysema within the left lower chest and upper abdominal wall etiology of which is unclear, possibly postoperative in nature. CT/CT abdomen pelvis wo con [id number] IMPRESSION: 1. Interval postop changes left lower lobe and left posterolateral chest wall. 2. Moderate degree of subcutaneous emphysema left lateral chest wall and left lateral abdominal wall of uncertain etiology. Follow-up CT chest recommended for further assessment. 3. Moderate gaseous distention involving majority the large bowel likely secondary to colonic ileus. 4. 3.9 cm aneurysm mid abdominal aorta, stable.
[2022-02-08 11:59] LABS: Alanine Aminotransferase 10 U/L (0-33); Albumin Level 3.5 g/dL (3.5-5.2); Alkaline Phosphatase 68 U/L (35-105); Anion Gap 13.5 (5-19); Aspartate Amino Transferase 19 U/L (0-32); Blood Urea Nitrogen 11 mg/dL (8-23); Calcium 9.7 mg/dL (8.5-10.5); Carbon Dioxide 31 mmol/L (22-29); Chloride 93 mmol/L (98-107); Globulin 2.7 g/dL (1.3-4.6); Glucose 95 mg/dL (65-115); Lactic Sepsis W/Reflex 1.4 mmol/L (0.5-2.2); Lipase 26 U/L (13-60); Osmolality Calculated 277 mOsm/kg (285-295); Potassium 3.5 mmol/L (3.5-5.1); Sodium 134 mmol/L (136-145); Total Bilirubin 0.4 mg/dL (0.15-1.2); Total Protein 6.2 g/dL (6.6-8.7)
[2022-02-08 12:22] VITALS: BP 157/70; PULSE 100; RESP 17; O2SAT 96
[2022-02-08 12:43] LABS: Add Urine Microscopic? YES; Bacteria Urine TRACE /hpf; Bilirubin Urine Neg (Negative); Blood Urine Neg (Negative); Glucose Urine UA Norm (Normal); Ketones Urine Negative (Negative); Leukocyte Esterase Urine Trace (Negative); Nitrate Urine Negative (Negative); Protein Urine Neg (Negative); RBC Urine 0-4 /hpf (0-2); Specific Gravity, Urine 1.015 (1.005-1.030); Squamous Epithelial Cell Urine 0-4 /hpf (0-5); Urine Appearance Hazy (CLEAR); Urine Color Yellow (Yellow); Urobilinogen Urine Norm (Negative); WBC Urine 15-25 /hpf (0-5); pH Urine 6 (5-7)
[2022-02-08 12:44] LABS: Add Urine Culture? Yes
[2022-02-08 13:00] VITALS: BP 144/95; PULSE 96; RESP 18; O2SAT 93
[2022-02-08 14:40] VITALS: BP 134/93; PULSE 95; RESP 20; O2SAT 94
== END 2022-02-08 14:42 | disposition home or self-care (01) ==
PROVIDERS: Emergency Provider Family Medicine; PCP Family Medicine
DX: N30.90 Cystitis, unspecified without hematuria (principal); J43.9 Emphysema, unspecified; I71.40 Abdominal aortic aneurysm, without rupture, unspecified; I10 Essential (primary) hypertension; I11.0 Hypertensive heart disease with heart failure; I50.9 Heart failure, unspecified; E78.5 Hyperlipidemia, unspecified; Z85.118 Personal history of other malignant neoplasm of bronchus and lung; Z87.891 Personal history of nicotine dependence
CPT/HCPCS: 36415; 51798; 71045; 74176; 80053; 81001; 83605; 83690; 85025; 87086; 93005; 99285

== ENCOUNTER → 2022-03-04 09:41 | Outpatient (BNVA) | payer MEDICARE, SELFPAY | PROVIDERS: PCP Family Medicine; Visit Provider Internal Medicine Pulmonary Disease | DX: C34.92 Malignant neoplasm of unspecified part of left bronchus or lung (principal); J43.9 Emphysema, unspecified; G47.33 Obstructive sleep apnea (adult) (pediatric); R13.10 Dysphagia, unspecified; I48.19 Other persistent atrial fibrillation; E03.9 Hypothyroidism, unspecified; E78.5 Hyperlipidemia, unspecified; Z79.01 Long term (current) use of anticoagulants; Z87.891 Personal history of nicotine dependence | CPT/HCPCS: 99214 ==

== ENCOUNTER 2022-03-08 11:25 | Emergency (ER) | payer MEDICARE, SELFPAY ==
[2022-03-08 12:38] VITALS: BP 168/108; PULSE 85; RESP 16; TEMP 36.5; O2SAT 93
--- NOTE | 2022-03-08 12:54 | W.ED.WOUNDLC ---
HPI - Wound/Laceration General: Chief Complaint: Wound/Laceration Stated Complaint: surgical site infection Time Seen by Provider: 03/08/22 12:40 Source: patient and family Mode of arrival: ambulatory Limitations: no limitations History of Present Illness: Patient is a nice 81-year-old female who presents to ED today with concerns of a wound infection. Patient states she is status post segmentectomy of left lower lobe performed by Dr. Banegas approximately a month ago. She states she did have a chest tube drain while in the hospital but this was removed prior to discharge. She states the stitch was never removed however and now she is having some redness and drainage from the site. She has no other complaints at this time. She states she has had follow-up with Makenzie and Dr. Ann. Onset (ago): day(s) Location: chest Place: home Patient tetanus UTD: Yes Associated symptoms: Reports no associated symptoms; Denies chills, fever(s), nausea or vomiting Review of Systems Const: Denies: fever(s), chills, body aches, fatigue or malaise Card: Denies: chest pain Resp: Denies: dyspnea GI: Denies: nausea or vomiting Skin/Breast: Reports: other (concern for drain site infection) PFS ED PFSH: Medical History AAA (abdominal aortic aneurysm) Atrial fibrillation CHF (congestive heart failure) COPD (chronic obstructive pulmonary disease) MARCUS (generalized anxiety disorder) HTN (hypertension) Hyperlipidemia Hypothyroidism Neuropathic pain 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 intact suture from chest tube drain that was removed over a month ago; erythema noted, suture embedded into skin, scant purulent serous drainage noted; no surrounding cellulitis Resp: COMMON NORMALS: normal respiratory effort and clear to auscultation bilaterally AUSCULTATION: clear to auscultation bilaterally Cardio: COMMON NORMALS: regular rate and regular rhythm RATE: regular rate RHYTHM: regular rhythm Neuro: COMMON NORMALS: patient oriented x3 SENSORIUM/ORIENTATION: Yes alert, Yes oriented to person, Yes oriented to place and Yes oriented to time Course Vital Signs: Vital signs: Vital Signs Temperature 97.7 F 03/08/22 12:38 Pulse Rate 85 03/08/22 12:38 Respiratory Rate 16 03/08/22 12:38 Blood Pressure 168/108 03/08/22 12:38 Pulse Oximetry 93 03/08/22 12:38 Oxygen Delivery Me thod 03/08/22 12:38 MDM - Wound/Laceration Medical Decision Making Patient has an embedded suture that has been in place for over a month now. This was easily cut out. She has some surrounding mild erythema with some scant drainage. Discussed wound care at home and will place on oral Keflex. Recommend follow-up with Dr. Banegas and/or Dr. Ann as scheduled. Return to ED precautions given. Discharge Plan Discharge Patient Disposition: Home Clinical Impression: Eroded suture Qualifiers: Encounter type: initial encounter Qualified Code(s): T81.89XA - Other complications of procedures, not elsewhere classified, initial encounter Condition: Stable Prescriptions: New cephalexin 500 mg capsule 500 mg PO Q6H 7 Days Qty: 28 0RF No Action levothyroxine 25 mcg tablet 25 mcg PO QAM lovastatin 20 mg tablet 20 mg PO BEDTIME furosemide 40 mg tablet 40 mg PO QAM Xarelto 20 mg tablet 20 mg PO BEDTIME escitalopram oxalate 10 mg tablet 10 mg PO DAILY levalbuterol HCl 0.63 mg/3 mL solution for nebulization 0.63 mg inhalation Q8H PRN (Reason: shortness of breath or wheezing) Qty: 270 2RF hydrocodone-acetaminophen 5-325 mg tablet 1 tab PO Q8H PRN (Reason: pain) 7 Days Qty: 21 0RF potassium chloride 20 mEq tablet extended release 20 meq PO DAILY Qty: 90 1RF molnupiravir 200 mg capsule 800 mg PO Q12H 5 Days Qty: 40 0RF alprazolam 0.25 mg Tablet 0.25 - 0.5 mg PO DAILY PRN (Reason: anxiety) amoxicillin-pot clavulanate [Augmentin] 500-125 mg tablet 1 tab PO TID Qty: 30 0RF oxycodone-acetaminophen 5-325 mg tablet 1 tab PO Q8H PRN (Reason: pain) Qty: 25 0RF ergocalciferol (vitamin D2) 1,250 mcg (50,000 unit) capsule 50,000 unit PO Q7D Rx Instructions: on tue diltiazem HCl 300 mg capsule,extended release 24hr 300 mg PO BEDTIME Robitussin-DM 10-100 mg/5 mL Syrup 10 ml PO Q4H PRN (Reason: Cough) Discharge Orders: Discharge ED (Routine); Ordered 03/08/22 Ordered By: Larisa Green Referrals: July Aguayo DO [Primary Care Provider] - Coding Level of Care Code ED Technical Operations Specialist for Francisco Noland
== END 2022-03-08 13:15 | disposition home or self-care (01) ==
PROVIDERS: Emergency Provider Physician Assistant; PCP Family Medicine
DX: T81.89XA Other complications of procedures, not elsewhere classified, initial encounter (principal); I11.0 Hypertensive heart disease with heart failure; I50.9 Heart failure, unspecified; J44.9 Chronic obstructive pulmonary disease, unspecified; E78.5 Hyperlipidemia, unspecified; Z85.118 Personal history of other malignant neoplasm of bronchus and lung; Z87.891 Personal history of nicotine dependence; Y83.8 Other surgical procedures as the cause of abnormal reaction of the patient, or of later complication, without mention of misadventure at the time of the procedure
CPT/HCPCS: 99282

== ENCOUNTER 2022-03-25 14:59 | Outpatient (CLI) | payer MEDICARE, SELFPAY ==
--- NOTE | 2022-03-25 15:30 | CT_ITS ---
WS: [id number] CT CHEST TECHNIQUE: Noncontrast CT of the chest with coronal and sagittal reformatted images. CLINICAL INFORMATION: Lung cancer postoperative 7 weeks. Pain in chest with breathing. COMPARISON: CT October 26, 2021 and PET/CT November 07, 2021 DLP: 356.[address] scans at [facility] use at least one of these dose optimization techniques: automated e xposure control; mA and/or kV adjustment per patient size (includes targeted exams where dose is matc hed to clinical indication); or iterative reconstruction. FINDINGS:Postoperative changes interval resection of the previously described FDG avid LEFT lower lob e spiculated pulmonary nodule. No evidence of recurrent or progressive disease. Volume loss LEFT lowe r lobe. Subsegmental atelectasis LEFT lower lobe with pleurodesis. Small LEFT pleural effusion.Noncal cified nodule RIGHT upper lobe measuring 5 mm appears new from previous. Fibrosis in the lung apices. Stable aneurysmal ascending thoracic aorta measuring 4.0 CM. Aortic and vascular calcification. Moder ate chronic emphysematous changes. Splenic granulomas. Fatty atrophy of the pancreas. Adrenal glands are normal. Cholecystectomy clips. Mild thoracic kyphosis. Infrarenal abdominal aortic aneurysm appears stable measuring 3.6 x 3.9 cm AP by transverse partially visualized. CT/CT chest wo con [id number] IMPRESSION: 1. Interval resection of the previously described LEFT lower lobe spiculated p ulmonary nodule. No evidence of recurrent or progressive disease. 2. Subsegmental atelectasis LEFT lower lobe with pleurodesis. Small LEFT pleur al effusion. 3. Noncalcified 5 mm nodule RIGHT upper lobe appears new from previous. Recomm end 6 month follow-up. 4. Stable ascending thoracic aorta measuring 4.0 CM. 5. No mediastinal or hilar lymphadenopathy. 6. Vascular calcification including coronary. 7. Partially visualized upper abdominal aortic aneurysm unchanged. 8. Prior cholecystectomy.
== END 2022-03-25 15:00 | disposition home or self-care (01) ==
PROVIDERS: PCP Family Medicine; Visit Provider Internal Medicine Pulmonary Disease
DX: C34.92 Malignant neoplasm of unspecified part of left bronchus or lung (principal); G47.33 Obstructive sleep apnea (adult) (pediatric); J43.9 Emphysema, unspecified
CPT/HCPCS: 71250; 81000; 87086

== ENCOUNTER → 2022-04-08 09:37 | Outpatient (BNVA) | payer MEDICARE, SELFPAY | PROVIDERS: PCP Family Medicine; Visit Provider Internal Medicine Pulmonary Disease | DX: J43.9 Emphysema, unspecified (principal); G47.33 Obstructive sleep apnea (adult) (pediatric); R13.10 Dysphagia, unspecified; I48.19 Other persistent atrial fibrillation; E03.9 Hypothyroidism, unspecified; R91.1 Solitary pulmonary nodule; R10.13 Epigastric pain; R10.2 Pelvic and perineal pain; R19.7 Diarrhea, unspecified; Z79.01 Long term (current) use of anticoagulants; Z90.2 Acquired absence of lung [part of]; Z85.118 Personal history of other malignant neoplasm of bronchus and lung; Z87.891 Personal history of nicotine dependence | CPT/HCPCS: 87493; 87506; 99214 ==

== ENCOUNTER 2022-04-20 13:35 | Outpatient (CLI) | payer MEDICARE, SELFPAY ==
[2022-04-20 14:17] VITALS: PULSE 57; RESP 18; O2SAT 95
[2022-04-20] MEDS: albuterol 2.5 mg/3 mL Neb INHALATION (14:17)
[2022-04-20 14:22] VITALS: PULSE 71
== END 2022-04-20 13:36 | disposition home or self-care (01) ==
PROVIDERS: PCP Family Medicine; Visit Provider Internal Medicine Pulmonary Disease
DX: J43.9 Emphysema, unspecified (principal); C34.92 Malignant neoplasm of unspecified part of left bronchus or lung; G47.33 Obstructive sleep apnea (adult) (pediatric)
CPT/HCPCS: 94060; 94618; 94726; 94729; J7613

== ENCOUNTER 2022-06-25 14:00 | Outpatient (CLI) | payer MEDICARE, SELFPAY ==
--- NOTE | 2022-06-25 14:07 | CT_ITS ---
WS: [id number] CT ABDOMEN PELVIS TECHNIQUE: Contrast-enhanced CT of the abdomen and pelvis with coronal and sagittal reformatted image s. CLINICAL INFORMATION: GASTRIC PAIN COMPARISON: February 08, 2022 DLP: 366.[address] scans at [facility] use at least one of these dose optimization techniques: automated e xposure control; mA and/or kV adjustment per patient size (includes targeted exams where dose is matc hed to clinical indication); or iterative reconstruction. FINDINGS: Lobulated bilobed infrarenal abdominal aortic aneurysm with peripheral mural thrombus measuring 3.6 x 4.1 cm AP by transverse. Additional slightly more distal aneurysm measuring 3.2 x 3.3 cm AP by trans verse Subsegmental atelectasis LEFT lower lobe with volume loss LEFT lower lobe and pleural calcifications. Chronic appearing mild pleural thickening LEFT lower lobe.Prior postoperative changes LEFT lower lob e Diffuse fatty infiltration of the liver. Cholecystectomy clips. Normal portal vein and splenic vein. Fatty atrophy of the pancreas. Splenic granulomas. Celiac and SMA are patent with mild stenosis of th e origin. Normal GE junction. Tiny fat-containing umbilical hernia. Sigmoid diverticulosis. No eviden ce of acute diverticulitis. Normal appendix in the RIGHT lower quadrant. Adrenal glands are normal. N ormal renal parenchymal enhancement. No hydronephrosis. Slight grade 1 anterolisthesis L5 on S1. Moderate bilateral L5-S1 foraminal narrowing LEFT greater th an RIGHT. Hysterectomy. CT/CT abdomen pelvis w con* [id number] IMPRESSION: 1. Lobulated bilobed abdominal aortic aneurysm is stable in appearance as desc ribed above. 2. Sigmoid diverticulosis. No evidence of acute diverticulitis. 3. Normal appendix in the RIGHT lower quadrant. 4. No evidence of small or large bowel obstruction. 5. No free fluid in the abdomen or pelvis. 6. Prior postoperative changes LEFT lower lobe. 7. Prior hysterectomy. 8. No other acute findings.
[2022-06-25] MEDS: iohexol 350 mg/mL 500 mL Btl (per mL) PO (15:20)
[2022-06-25] MEDS: iohexol 350 mg/mL 100 mL Btl IV (15:34)
== END 2022-06-25 14:01 | disposition home or self-care (01) ==
LOC: RAD 14:02
PROVIDERS: PCP Nurse Practitioner Family; Visit Provider Nurse Practitioner Family
DX: R10.9 Unspecified abdominal pain (principal); I71.40 Abdominal aortic aneurysm, without rupture, unspecified; K57.30 Diverticulosis of large intestine without perforation or abscess without bleeding; Z90.710 Acquired absence of both cervix and uterus
CPT/HCPCS: 74177; Q9967

== ENCOUNTER → 2022-07-05 10:10 | Outpatient (BNVA) | payer MEDICARE, SELFPAY | PROVIDERS: PCP Nurse Practitioner Family; Visit Provider Internal Medicine Pulmonary Disease | DX: J43.2 Centrilobular emphysema (principal); G47.33 Obstructive sleep apnea (adult) (pediatric); R91.1 Solitary pulmonary nodule; C34.32 Malignant neoplasm of lower lobe, left bronchus or lung; Z87.891 Personal history of nicotine dependence; R07.9 Chest pain, unspecified | CPT/HCPCS: 99214 ==

== ENCOUNTER → 2022-10-28 10:35 | Outpatient (BNVA) | payer MEDICARE, SELFPAY | PROVIDERS: PCP Nurse Practitioner Family; Visit Provider Internal Medicine Pulmonary Disease | DX: R91.1 Solitary pulmonary nodule (principal); J43.9 Emphysema, unspecified; G47.33 Obstructive sleep apnea (adult) (pediatric); C34.92 Malignant neoplasm of unspecified part of left bronchus or lung; Z87.891 Personal history of nicotine dependence | CPT/HCPCS: 99214 ==

== ENCOUNTER 2022-11-11 14:42 | Outpatient (CLI) | payer MEDICARE, SELFPAY ==
--- NOTE | 2022-11-11 15:30 | CT_ITS ---
WS: [id number] CT chest wo con [id number] HISTORY: 6 month f/u RIGHT upper lobe nodule TECHNIQUE: Axial imaging performed through the thorax. Coronal and sagittal reformats are submitted. All CT scans at [facility] use at least one of these dose optimization techniques: automated exposure control; mA and/or kV adjustment per patient size (includes targeted exams where dose is mat ched to clinical indication); or iterative reconstruction. CONTRAST: None DLP: 334.61 mGy.cm COMPARISON: 03/25/2022 and 10/26/2021 Lungs and central airway: Previously described nodule in the RIGHT upper lobe has significantly decre ased in size. On today's study this appears to be coalescence of interstitium. There is no residual n odule of any significance. There are a few scattered benign granulomata and mild pleural thickening a nd tagging. No pneumonia. Postsurgical changes at the LEFT lung base. Pleura: Normal. No pleural effusion. Heart and pericardium: Mild cardiomegaly. Extensive coronary artery calcifications. Mediastinum and phyllis: Small mediastinal and hilar lymph nodes. Lymph nodes have not increased in size or number. Vessels: Moderate to severe plaque within the thoracic aorta. Stable diameter of 4.0 cm. Pulmonary ar vernon size is mildly enlarged. Chest wall and lower neck: No soft tissue masses. Upper abdomen: Suprarenal aortic calcification. No adrenal mass. Splenic granulomata. Fatty replaceme nt of the visualized pancreas. Osseous structures: No destructive bone process. IMPRESSION: 1. Interval resolution of the 5 mm RIGHT upper lobe nodule. 2. Resection of the LEFT lower lobe spiculated pulmonary nodule. Postsurgical changes are stable. 3. Advanced atherosclerosis and ectasia thoracic aorta. No increase in size. 4. Cardiomegaly and advanced coronary artery atherosclerosis.
== END 2022-11-11 14:43 | disposition home or self-care (01) ==
LOC: RAD 14:48
PROVIDERS: PCP Nurse Practitioner Family; Visit Provider Internal Medicine Pulmonary Disease
DX: R91.1 Solitary pulmonary nodule (principal); I51.7 Cardiomegaly; I25.10 Atherosclerotic heart disease of native coronary artery without angina pectoris
CPT/HCPCS: 71250; 99214

== ENCOUNTER 2023-03-25 12:37 | Emergency (ER) | payer MEDICARE, SELFPAY ==
[2023-03-25 12:41] VITALS: BP 112/73; PULSE 85; RESP 18; TEMP 36.4; O2SAT 95; BMI 27.4
--- NOTE | 2023-03-25 12:55 | ED_ITS ---
HPI - Extremity Problem General: Chief complaint: Extremity Injury, Lower Stated complaint: right leg pain Time Seen by Provider: 03/25/23 12:49 Source: patient Mode of arrival: ambulatory Limitations: no limitations History of Present Illness: Patient is a nice 83-year-old female presents to ED today for evaluation of some discomfort that she started developing yesterday evening to her right medial distal thigh. Patient is concerned she could have a blood clot. Patient has atrial fibrillation and does take Xarelto. She has been compliant on this medication. She has not noticed any redness or swelling to the extremity. She has not noticed any color or temperature changes. Denies numbness, tingling, loss of sensation. She has no back pain. MD Complaint: extremity pain Onset (ago): day(s) (yesterday evening) Pain Consistency: constant Location: right and lower extremity Radiation: none Relieving factors: nothing Exacerbating factors: nothing Associated symptoms: Reports no associated symptoms; Deny chest pain, fever(s) or rash Review of Systems Const: Denies: fever(s), chills, body aches, fatigue or malaise Card: Denies: chest pain Resp: Denies: dyspnea GI: Denies: abdominal pain : Denies: flank pain, dysuria or hematuria Musc: Reports: extremity pain; Denies: neck pain, back pain, extremity swelling, joint pain, joint swelling, joint redness, joint warmth, joint stiffness, limited range of motion, muscle cramps, muscle weakness or decrease in muscle mass Skin/Breast: Denies: rash Neuro: Denies: headache(s), numbness in extremities, weakness in extremities, sensory changes or difficulty walking [facility] ED PFSH: Medical History MARCUS (generalized anxiety disorder) Hypothyroidism 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 Neuropathic pain CHF (congestive heart failure) Atrial fibrillation AAA (abdominal aortic aneurysm) HTN (hypertension) COPD (chronic obstructive pulmonary disease) Hyperlipidemia Family History Other CAD (coronary artery disease) Cancer Stroke Social History Smoking and tobacco/nicotine status: former use of tobacco/nicotine Quit status (tobacco/nicotine): has quit using Year quit tobacco: 1997 Former quit date comment: 0.5 ppd X 40 years Alcohol intake: never Substance/Drug Use: never Physical Exam Const: COMMON NORMALS: no acute distress, average body habitus, patient oriented x3, no limitations, healthy appearing, alert and well nourished Resp: COMMON NORMALS: normal respiratory effort and clear to auscultation bilaterally AUSCULTATION: clear to auscultation bilaterally Cardio: COMMON NORMALS: regular rate RATE: regular rate RHYTHM: abnormal rhythm irregularly irregular (pt with known a fib) GI: COMMON NORMALS: Normal to inspection, nondistended, normoactive bowel sounds present, Soft to palpation, non-tender and no masses PALPATION: Yes Soft to palpation : COMMON NORMALS: Yes no CVA tenderness BLADDER/KIDNEY EXAM: Yes no CVA tenderness Back/Pelvis: COMMON NORMALS: no CVA tenderness and thoracic and lumbar spine normal to inspection Extremity: COMMON NORMALS: normal to inspection, full ROM, capillary refill normal, no joint enlargement, no clubbing, cyanosis or edema, no calf tenderness and no pedal edema GENERAL: Yes normal exam except as noted RIGHT LOWER EXTREMITY: Yes upper leg (TTP medial distal R thigh; no swelling, redness, or palpable cord) Right upper leg: Yes neurovascular exam (normal; pulses palpable throughout entire extremity) Neuro: COMMON NORMALS: patient oriented x3, moves all extremities, no focal motor deficits and no sensory deficits noted SENSORIUM/ORIENTATION: Yes alert Skin: COMMON NORMALS: no rashes or lesions noted GENERAL SKIN EXAM: no rashes or lesions noted Course Vital Signs: Vital signs: Vital Signs Temperature 97.6 F 03/25/23 12:41 Pulse Rate 85 03/25/23 12:41 Respiratory Rate 18 03/25/23 12:41 Blood Pressure 112/73 03/25/23 12:41 Pulse Oximetry 95 03/25/23 12:41 Oxygen Delivery Me thod Room Air 03/25/23 12:41 MDM - Extremity (Nontraumatic) Medical Decision Making US negative for DVT. Patient will be allowed discharge with return precautions. Otherwise she can follow up with PCP if symptoms persist. Medical Records I reviewed the patient's medical records. XR interpretation done by ED provider, pending radiology final review (prelim report by Pedro kamilah) Discharge Plan Discharge Patient Disposition: Home Clinical Impression: Pain in right leg Condition: Stable Prescriptions: No Action levothyroxine 25 mcg tablet 25 mcg PO QAM lovastatin 20 mg tablet 20 mg PO BEDTIME furosemide 40 mg tablet 40 mg PO QAM Xarelto 20 mg tablet 20 mg PO BEDTIME escitalopram oxalate 10 mg tablet 10 mg PO DAILY Spiriva with HandiHaler 18 mcg capsule, w/inhalation device 1 cap inhalation DAILY Qty: 30 3RF Rx Instructions: puncture 1 cap using device; one dose = 2 inhalations hydrocodone-acetaminophen 5-325 mg tablet 1 tab PO Q8H PRN (Reason: pain) 7 Days Qty: 14 0RF pantoprazole [Protonix] 40 mg tablet,delayed release (DR/EC) 40 mg PO DAILY Qty: 30 1RF levalbuterol HCl 0.63 mg/3 mL solution for nebulization 0.63 mg inhalation Q8H PRN (Reason: shortness of breath or wheezing) Qty: 270 2RF molnupiravir 200 mg capsule 800 mg PO Q12H 5 Days Qty: 40 0RF ondansetron HCl 4 mg tablet 4 mg PO Q8H PRN (Reason: nausea and vomiting) Qty: 21 0RF potassium chloride 20 mEq tablet extended release 20 meq PO DAILY Qty: 90 1RF alprazolam 0.25 mg tablet 0.25 - 0.5 mg PO DAILY PRN (Reason: anxiety) Qty: 60 0RF levalbuterol tartrate [Xopenex HFA] 45 mcg/actuation HFA aerosol inhaler 2 inh inhalation Q6H Qty: 45 3RF diltiazem HCl 300 mg capsule,extended release 24hr 300 mg PO BEDTIME Qty: 90 0RF ergocalciferol (vitamin D2) 1,250 mcg (50,000 unit) capsule 50,000 unit PO Q7D Rx Instructions: on tue Robitussin-DM 10-100 mg/5 mL Syrup 10 ml PO Q4H PRN (Reason: Cough) Discharge Orders: Discharge ED (Routine); Ordered 03/25/23 Ordered By: Larisa Green Referrals: Drew Arellano FNP [Primary Care Provider] - Activity Restrictions/Additional Instructions: As we discussed your ultrasound today was negative for blood clot. You may follow-up with primary care in the next week or so if symptoms persist. Coding Level of Care Code ED Truck And Transport Mechanic for Francisco Noland
--- NOTE | 2023-03-25 12:55 | USCV_ITS ---
Samantha Lewis Age: 83 Gender: F : 1940 Exam Date: 03/25/2023 13:27 Ordering Phys: Larisa Green Technologist: Tito Caal Exam Location: [facility] [place] Indication: leg pain PROCEDURES: Venous duplex imaging was performed in only the right lower extremity. The following venous structures were evaluated: common femoral vein, profunda vein, proximal portion of the greater saphenous vein, superficial femoral vein, and the popliteal vein. In addition, the posterior tibial and peroneal trunk were evaluated. Serial compression, augmentation maneuvers, and spectral Doppler flow evaluation were performed. FINDINGS: Normal 2-D Doppler and augmentation and compressibility throughout the lower extremity venous structures. Additional imaging through the proximal calf veins also reveals no thrombus. Limited evaluation of the greater saphenous vein is patent with no thrombus. CONCLUSIONS No evidence of right lower extremity DVT. Jeremiah Rodas MD (Electronically Signed) Final Date: 25 March 2023 15:42 S
[2023-03-25 13:48] VITALS: BP 112/73; PULSE 85; RESP 18; TEMP 36.4; O2SAT 95
== END 2023-03-25 13:49 | disposition home or self-care (01) ==
PROVIDERS: Emergency Provider Physician Assistant; PCP Nurse Practitioner Family
DX: M79.604 Pain in right leg (principal); Z85.118 Personal history of other malignant neoplasm of bronchus and lung; I11.0 Hypertensive heart disease with heart failure; I50.9 Heart failure, unspecified; J44.9 Chronic obstructive pulmonary disease, unspecified; E78.5 Hyperlipidemia, unspecified; Z87.891 Personal history of nicotine dependence
CPT/HCPCS: 93971; 99284

== ENCOUNTER 2023-04-22 08:50 | Emergency (ER) | payer MEDICARE, MEDICAID, SELFPAY ==
--- NOTE | 2023-04-22 08:52 | ECG_ITS ---
[facility] Test Date: 2023-04-22 Pat Name: Samantha Lewis Department: Room: Gender: Female Die Cast Engineer: : 1940 Requested By: Arsalan Singh Order Number: [id number] Joanna MD: Bret Olguin M.D. Measurements Intervals [place] Rate: 78 P: 0 OH: 0 QRS: 61 QRSD: 89 T: 63 QT: 347 QTc: 396 Interpretive Statements ATRIAL FIBRILLATION Compared to ECG 02/08/2022 10:36:16 No significant changes Electronically Signed On 04-22-2023 10:46:18 [employer] by Bret Olguin M.D. [id number] f
--- NOTE | 2023-04-22 08:52 | XR_ITS ---
WS: [id number] Examination: XR chest 1V portable [id number] Reason for Exam: cp Date: 04/22/2023 Comparison: 02/08/2022 Findings: The heart is prominent in size. The aorta is broadened and tortuous. The lungs are hyperinflated the lung markings are increased which I suspect are chronic in nature. I see no overt failure or large effusion. There is no dense consolidation. Impression: The heart is enlarged with atherosclerotic change. Chronic changes are noted within the lungs There is no edema or dense consolidation appreciated.
[2023-04-22 08:56] VITALS: BP 182/107; PULSE 77; RESP 18; TEMP 36.4; O2SAT 93; BMI 27.6
--- NOTE | 2023-04-22 09:01 | ED_ITS ---
HPI - Chest Pain 2 General: Chief Complaint: Chest Pain Stated Complaint: chest pain, cough, congestion Time Seen by Provider: 04/22/23 08:52 Source: patient Mode of arrival: ambulatory Limitations: no limitations History of Present Illness: 83-year-old female states over the last 3 days she has been having cough congestion with a productive cough. She has a history of COPD along with CHF. She had no known sick contacts denies any fevers. States she been having some burning chest pain after coughing so much. States her pain is worse with her cough denies any nausea or diaphoresis Associated symptoms: Deny abdominal pain, dyspnea, fever(s), nausea or vomiting Review of Systems 2 Const: Denies: fever(s), chills, body aches or change in appetite Eyes: Denies: blurry vision or eye discomfort ENMT: Denies: throat pain or dental pain Card: Reports: chest pain Resp: Reports: productive cough; Denies: dyspnea GI: Denies: abdominal pain, nausea, vomiting or diarrhea Musc: Denies: neck pain or back pain Skin/Breast: Denies: rash Neuro: Denies: headache(s) PFSH ED 2 PFSH: Medical History MARCUS (generalized anxiety disorder) Hypothyroidism 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 Neuropathic pain CHF (congestive heart failure) Atrial fibrillation AAA (abdominal aortic aneurysm) HTN (hypertension) COPD (chronic obstructive pulmonary disease) Hyperlipidemia Family History Other CAD (coronary artery disease) Cancer Stroke Social History Smoking and tobacco/nicotine status: former use of tobacco/nicotine Quit status (tobacco/nicotine): has quit using Year quit tobacco: 1997 Former quit date comment: 0.5 ppd X 40 years Alcohol intake: never Substance/Drug Use: never Physical Exam 2 Const: COMMON NORMALS: patient oriented x3 HENMT: COMMON NORMALS: normocephalic and atraumatic HEAD & SCALP: n ormocephalic and atraumatic Eye: COMMON NORMALS: conjunctivae normal CONJUNCTIVA: Yes conjunctivae normal Neck/C-Spine: COMMON NORMALS: full ROM and supple Chest: COMMONS NORMALS: normal inspection of the chest and normal palpation of entire chest wall Resp: COMMON NORMALS: normal respiratory effort, No retractions, No use of accessory muscles and clear to auscultation bilaterally AUSCULTATION: clear to auscultation bilaterally Cardio: COMMON NORMALS: regular rate, regular rhythm and No murmurs present (Cardio) RATE: regular rate RHYTHM: regular rhythm Extremity: COMMON NORMALS: normal to inspection and full ROM Neuro: COMMON NORMALS: patient oriented x3, moves all extremities and no focal motor deficits Psych: COMMON NORMALS: mental status grossly normal, Normal thought process present and cooperative THOUGHT PROCESS: Normal thought process present Skin: COMMON NORMALS: no rashes or lesions noted and no wounds GENERAL SKIN EXAM: no rashes or lesions noted Course 2 Vital Signs: Vital signs: Vital Signs Temperature 97.6 F 04/22/23 08:56 Pulse Rate 94 04/22/23 09:29 Respiratory Rate 18 04/22/23 09:23 Blood Pressure 171/89 04/22/23 09:51 Pulse Oximetry 95 04/22/23 09:23 Oxygen Delivery Me thod Room Air 04/22/23 09:23 MDM - Chest Pain Medical Decision Making Patient presents here with a productive cough along with congestion she had some chest pain that is likely from her cough she has no signs of ACS her troponins at her baseline she is well-appearing here did give her Decadron and breathing treatment will place her on Keflex she is follow-up with PCP and return if worsening. Medical Records I reviewed the patient's medical records. Lab Data I reviewed the patient's lab results. 04/22/23 09:25 04/22/23 09:25 Laboratory Results WBC 6.79 10^3/uL (3.29-11.43) 04/22/23 09:25 RBC 4.64 10^6/uL (3.85-5.65) 04/22/23 09:25 Hgb 13.60 g/dL (11.27-16.99) 04/22/23 09:25 Hct 41.0 % (36-47) 04/22/23 09:25 MCV 88.4 fl (85-98) 04/22/23 09:25 MCH 29.3 pg (27-33) 04/22/23 09:25 MCHC 33.2 g/dL (30-55) 04/22/23 09:25 RDW 13.7 % (12.1-15.1) 04/22/23 09:25 Plt Count 196 10^3/cmm (157-399) 04/22/23 09:25 MPV 11.7 fL (7.4-10.4) H 04/22/23 09:25 Neut % (Auto) 66.8 % 04/22/23 09:25 Lymph % (Auto) 21.4 % 04/22/23 09:25 [place] % (Auto) 9.3 % 04/22/23 09:25 Eos % (Auto) 1.2 % 04/22/23 09:25 Baso % (Auto) 0.9 % 04/22/23 09:25 Neut # (Auto) 4.54 10^3/uL (1.8-7.7) 04/22/23 09:25 Lymph # (Auto) 1.5 10^3/uL (0.8-4.8) 04/22/23 09:25 [place] # (Auto) 0.6 10^3/uL (0.2-0.9) 04/22/23 09:25 Eos # (Auto) 0.1 10^3/uL (0.0-0.8) 04/22/23 09:25 Baso # (Auto) 0.1 10^3/uL (0.0-0.1) 04/22/23 09:25 Nucleated RBC % (auto) 0 % 04/22/23 09:25 Nucleated RBCs # 0.0 /100WBC 04/22/23 09:25 PT 23.20 SECONDS (12.1-14.9) H 04/22/23 09:25 INR 1.98 (0.8-1.2) H 04/22/23 09:25 Sodium 141 mmol/L (136-145) 04/22/23 09:25 Potassium 3.7 mmol/L (3.5-5.1) 04/22/23 09:25 Chloride 102 mmol/L (98-107) 04/22/23 09:25 Carbon Dioxide 26 mmol/L (22-29) 04/22/23 09:25 Anion Gap 16.7 (5-19) 04/22/23 09:25 BUN 9 mg/dL (8-23) 04/22/23 09:25 Creatinine 0.9 mg/dL (0.5-0.9) 04/22/23 09:25 GFR Calculation Not Reportable 04/22/23 09:25 Glucose 87 mg/dL (65-115) 04/22/23 09:25 Calculated Osmolality 290 mOsm/kg (285-295) 04/22/23 09:25 Calcium 9.5 mg/dL (8.5-10.5) 04/22/23 09:25 Total Bilirubin 0.5 mg/dL (0.15-1.2) 04/22/23 09:25 AST 13 U/L (0-32) 04/22/23 09:25 ALT 8 U/L (0-33) 04/22/23 09:25 Alkaline Phosphatase 97 U/L (35-105) 04/22/23 09:25 Troponin T Baseline 14 ng/L (0-10) H 04/22/23 09:25 NT-Pro-B Natriuret Pep 1549 pg/mL (0-450) H 04/22/23 09:25 Total Protein 6.7 g/dL (6.6-8.7) 04/22/23 09:25 Albumin 4.3 g/dL (3.5-5.2) 04/22/23 09:25 Globulin 2.4 g/dL (1.3-4.6) 04/22/23 09:25 Lipase 37 U/L (13-60) 04/22/23 09:25 Influenza Type A Ag negative (Negative) 04/22/23 09:08 Influenza Type B Ag negative (Negative) 04/22/23 09:08 SARS-CoV-2 Ag (Rapid) negative (Negative) 04/22/23 09:08 All radiology interpretation(s) finalized by discharge EKG Data EKG 1: I personally reviewed and interpreted this EKG as follows: EKG interpretation date: 04/22/23 EKG interpretation time: 09:00 Interpretation: afib hr [address] or t wave abnormalities qrs 89 qtc 380 Discharge Plan Discharge Patient Disposition: Home Clinical Impression: Bronchitis Condition: Stable Prescriptions: New cephalexin 500 mg capsule 500 mg PO TID 7 Days Qty: 21 0RF No Action furosemide 40 mg tablet 40 mg PO QAM Xarelto 20 mg tablet 20 mg PO BEDTIME escitalopram oxalate 10 mg tablet 10 mg PO DAILY hydrocodone-acetaminophen 5-325 mg tablet 1 tab PO Q8H PRN (Reason: pain) 7 Days Qty: 14 0RF pantoprazole [Protonix] 40 mg tablet,delayed release (DR/EC) 40 mg PO DAILY Qty: 30 1RF levalbuterol HCl 0.63 mg/3 mL solution for nebulization 0.63 mg inhalation Q8H PRN (Reason: shortness of breath or wheezing) Qty: 270 2RF alprazolam 0.25 mg tablet 0.25 - 0.5 mg PO DAILY PRN (Reason: anxiety) Qty: 60 0RF diltiazem HCl 300 mg capsule,extended release 24hr 300 mg PO BEDTIME Qty: 90 0RF dextromethorphan-guaifenesin [Robitussin-DM] 10-100 mg/5 mL Syrup 10 ml PO Q4H PRN (Reason: Cough) levothyroxine 50 mcg tablet 50 mcg PO QAM montelukast 10 mg tablet 10 mg PO DAILY fluticasone propionate 50 mcg/actuation spray,suspension 2 spray INTRANASAL BEDTIME ezetimibe 10 mg tablet 10 mg PO DAILY Xopenex HFA 45 mcg/actuation HFA aerosol inhaler 2 inh inhalation Q6H PRN (Reason: Shortness Of Breath) potassium chloride 20 mEq tablet extended release 20 meq PO QAM Discharge Orders: Discharge ED (Routine); Ordered 04/22/23 Ordered By: Arsalan Singh Referrals: Sophie Hairston DO [Primary Care Provider] - 4-7 days Discharge Diet: Advance as tolerated Discharge Activity: Resume usual activity Patient Instructions: Acute Bronchitis (ED) Coding Level of Care Code ED Icicle Machine Operator for Francisco Noland
[2023-04-22 09:23] VITALS: PULSE 102; RESP 18; O2SAT 95
[2023-04-22] MEDS: ipratropium-albuterol 3 mL Neb INHALATION (09:23)
[2023-04-22] MEDS: dexamethasone 10 mg/mL INJ IVP (09:27)
[2023-04-22 09:29] VITALS: PULSE 94
[2023-04-22 09:38] LABS: Basophils # 0.1 10^3/uL (0.0-0.1); Basophils % 0.9 %; Eosinophils # 0.1 10^3/uL (0.0-0.8); Eosinophils % 1.2 %; Lymphocytes # 1.5 10^3/uL (0.8-4.8); Lymphocytes % 21.4 %; Mean Corpuscular HGB Conc 33.2 g/dL (30-55); Mean Corpuscular Hemoglobin 29.3 pg (27-33); Mean Corpuscular Volume 88.4 fl (85-98); Mean Platelet Volume 11.7 fL (7.4-10.4); Monocytes # 0.6 10^3/uL (0.2-0.9); Monocytes % 9.3 %; Neutrophils # 4.54 10^3/uL (1.8-7.7); Neutrophils % 66.8 %; Nucleated Red Blood Cells % 0 %; Platelet Count 196 10^3/cmm (157-399); Red Blood Count 4.64 10^6/uL (3.85-5.65); Red Cell Distribution Width 13.7 % (12.1-15.1); White Blood Count 6.79 10^3/uL (3.29-11.43)
[2023-04-22 09:51] VITALS: BP 171/89
[2023-04-22] MEDS: hyDRALAzine 20 mg/mL INJ 1 mL 10 MG IVP (09:53)
[2023-04-22 09:54] LABS: INR 1.98 (0.8-1.2)
[2023-04-22 09:59] LABS: Troponin(5th) Baseline 14 ng/L (0-10)
[2023-04-22 10:06] LABS: Alanine Aminotransferase 8 U/L (0-33); Albumin Level 4.3 g/dL (3.5-5.2); Alkaline Phosphatase 97 U/L (35-105); Anion Gap 16.7 (5-19); Aspartate Amino Transferase 13 U/L (0-32); Blood Urea Nitrogen 9 mg/dL (8-23); Calcium 9.5 mg/dL (8.5-10.5); Carbon Dioxide 26 mmol/L (22-29); Chloride 102 mmol/L (98-107); Globulin 2.4 g/dL (1.3-4.6); Glucose 87 mg/dL (65-115); Lipase 37 U/L (13-60); NT Pro B Type Natriuretic Pept 1549 pg/mL (0-450); Osmolality Calculated 290 mOsm/kg (285-295); Potassium 3.7 mmol/L (3.5-5.1); Sodium 141 mmol/L (136-145); Total Bilirubin 0.5 mg/dL (0.15-1.2); Total Protein 6.7 g/dL (6.6-8.7)
--- NOTE | 2023-04-22 10:18 | PC.PHAR ---
pt states she takes care of her own medications-pt states she has been trying to get help with setting up her meds-pt states she still takes diltiazem er 300mg hs ext shows last filled 11/25/22 90d/s-lexapro 10mg daily ext shows last filled 12/07/22 90d/s-zetia 10mg daily ext shows last filled 11/09/22 100d/s-protonix 40mg daily ext shows last filled 11/09/22 90d/s-pt states she is unsure if she takes singulair 10mg daily ext shows last filled 01/25/23 90d/s-pt states she only has one inhaler the xopenex ext shows last filled 11/09/22 90d/s-pt states she doesnt have a spiriva handihaler shows written 07/05/22 ext doesnt show when last filled-pt states she no longer takes vitamin d2 50,000units q7d states not taken for a long time-notes are made in the pharmacy comments
[2023-04-22 10:22] LABS: Influenza A by IFA negative (Negative); Influenza B by IFA negative (Negative); SARS Covid-2 Antigen negative (Negative)
== END 2023-04-22 10:39 | disposition home or self-care (01) ==
PROVIDERS: Emergency Provider Emergency Medicine; PCP Family Medicine
DX: J44.89 Other specified chronic obstructive pulmonary disease (principal); Z11.52 Encounter for screening for COVID-19; Z87.891 Personal history of nicotine dependence; I11.0 Hypertensive heart disease with heart failure; I50.9 Heart failure, unspecified; Z85.118 Personal history of other malignant neoplasm of bronchus and lung; E78.5 Hyperlipidemia, unspecified
CPT/HCPCS: 71045; 80053; 83690; 83880; 84484; 85025; 85610; 87426; 87804; 93005; 94640; 96374; 96375; 99285; J0360; J1100

== ENCOUNTER → 2023-04-28 07:48 | Outpatient (BNVA) | payer MEDICARE, SELFPAY | PROVIDERS: PCP Family Medicine; Visit Provider Internal Medicine Pulmonary Disease | DX: J43.2 Centrilobular emphysema (principal); G47.33 Obstructive sleep apnea (adult) (pediatric); R91.1 Solitary pulmonary nodule; C34.92 Malignant neoplasm of unspecified part of left bronchus or lung; J22 Unspecified acute lower respiratory infection | CPT/HCPCS: 99214 ==

== ENCOUNTER 2023-05-13 08:21 | Outpatient (CLI) | payer MEDICARE, SELFPAY ==
--- NOTE | 2023-05-13 09:00 | CTR_ITS ---
PROCEDURE INFORMATION: Exam: CT Chest Without Contrast; Diagnostic Exam date and time: 05/13/2023 8:39 AM Age: 83 years old Clinical indication: Abnormal findings; Abnormal radiologic exam of lung or chest; Prior surgery; Surgery date: 6+ months; Patient HX: HX of left lung cancer; Additional info: 6 month f/u TECHNIQUE: Imaging protocol: Diagnostic computed tomography of the chest without contrast. Radiation optimization: All CT scans at this facility use at least one of these dose optimization techniques: automated exposure control; mA and/or kV adjustment per patient size (includes targeted exams where dose is matched to clinical indication); or iterative reconstruction. COMPARISON: CT chest wo con [id number] 11/11/2022 3:09 PM RADIATION DOSE METRICS: Total DLP (mGy-cm): 333.76 FINDINGS: Thyroid: Grossly unremarkable. Lungs: No focal consolidation. No pneumothorax. Moderate emphysematous changes. No new, enlarging or suspicious pulmonary nodules. Postsurgical changes of the left lower lobe. Pleural spaces: No pleural effusion. Heart: No cardiomegaly. No pericardial effusion. Coronary arteries: There are incidental coronary artery calcifications. Mediastinal space: Trachea and airway are grossly patent. No evidence of mediastinal hemorrhage or hematoma. Lymph nodes: No evidence of mediastinal adenopathy. Evaluation for hilar adenopathy is limited by lack of IV contrast. Vasculature: There is aneurysmal dilatation of the ascending and descending thoracic aorta to approximately 4.3 and 3.6 cm, respectively. Extensive densely calcified atherosclerotic plaque of the thoracic aorta. Evaluation for acute vascular injury or thrombosis is limited by lack of IV contrast. Bones/joints: No evidence of acute fracture or aggressive osseous lesion. T5 vertebral body hemangioma. Soft tissues: No evidence of fluid collection or hematoma in the superficial soft tissues. Other findings: No evidence of acute abnormality in the upper abdomen. Partially visualized aneurysmal dilatation of the infrarenal abdominal aorta. CT/CT chest wo con [id number] IMPRESSION: 1. No new, enlarging or suspicious pulmonary nodules. 2. Postsurgical changes of the left lower lobe. 3. Aneurysmal dilatation of the thoracic aorta with extensive atherosclerosis, not significantly changed. 4. Moderate emphysematous changes. Correlation with patient history is recommended to evaluate whether the patient may benefit from annual outpatient low-dose screening CT of the chest.
== END 2023-05-13 08:22 | disposition home or self-care (01) ==
PROVIDERS: PCP Physician Assistant; Visit Provider Internal Medicine Pulmonary Disease
DX: R91.1 Solitary pulmonary nodule (principal); Z85.118 Personal history of other malignant neoplasm of bronchus and lung; J43.9 Emphysema, unspecified; Z98.890 Other specified postprocedural states
CPT/HCPCS: 71250

== ENCOUNTER 2023-06-15 14:53 | Outpatient (CLI) | payer MEDICARE, SELFPAY ==
--- NOTE | 2023-06-15 15:02 | CT_ITS ---
WS: [id number] CT HEAD TECHNIQUE: Noncontrast and contrast-enhanced CT of the head. CLINICAL INFORMATION: HEADACHE COMPARISON: CT 2019 DLP: 2083.[address] scans at [facility] use at least one of these dose optimization techniques: automated e xposure control; mA and/or kV adjustment per patient size (includes targeted exams where dose is matc hed to clinical indication); or iterative reconstruction. FINDINGS: No evidence intracranial hemorrhage or mass effect. Ventricular system and basilar cisterns are paten t. Moderate small vessel changes with moderate parenchymal volume loss. Intracranial vascular calcifi cation. No abnormal intracranial enhancement. Tiny chronic lacunar infarct RIGHT caudate. Paranasal sinuses and mastoid air cells are well aerated. Normal posterior nasopharynx. IMPRESSION: 1. No evidence intracranial hemorrhage or mass effect. 2. No abnormal intracranial enhancement. 3. Intracranial vascular calcification. 4. Moderate small vessel changes. Moderate parenchymal volume loss. 5. If persistent symptoms, MRI without and with gadolinium enhancement would be more sensitive for m etastatic disease if patient is a candidate.
[2023-06-15] MEDS: iohexol 350 mg/mL 500 mL Btl (per mL) IV (16:00)
== END 2023-06-15 14:54 | disposition home or self-care (01) ==
LOC: RAD 14:54
PROVIDERS: PCP Physician Assistant; Visit Provider Physician Assistant
DX: R51.9 Headache, unspecified (principal); G31.89 Other specified degenerative diseases of nervous system
CPT/HCPCS: 70470; Q9967

== ENCOUNTER → 2023-07-26 10:39 | Outpatient (BNVA) | payer MEDICARE, SELFPAY | PROVIDERS: PCP Physician Assistant; Visit Provider Internal Medicine Cardiovascular Disease | DX: E78.5 Hyperlipidemia, unspecified (principal); I48.19 Other persistent atrial fibrillation; F41.1 Generalized anxiety disorder; G47.33 Obstructive sleep apnea (adult) (pediatric); Z87.891 Personal history of nicotine dependence; I11.0 Hypertensive heart disease with heart failure; I50.9 Heart failure, unspecified | CPT/HCPCS: 99203 ==

== ENCOUNTER 2023-09-14 05:25 | Outpatient (CLI) | payer MEDICARE, MEDICAID, SELFPAY ==
--- NOTE | 2023-09-14 | USR_ITS ---
PROCEDURE INFORMATION: Exam: US Abdomen, Limited; Right Upper Quadrant Exam date and time: 09/14/2023 8:31 AM Age: 83 years old Clinical indication: Abdominal pain; Generalized TECHNIQUE: Imaging protocol: Real time ultrasound of the abdomen with image documentation. Limited exam focused on the right upper quadrant. COMPARISON: US abdomen limited [id number] 09/07/2018 3:23 PM FINDINGS: Liver: Liver is diffusely increased in echogenicity, most commonly seen in hepatic steatosis, though other forms of parenchymal liver disease could have a similar appearance. This limits evaluation for subtle isoechoic masses but no masses are seen. Gallbladder: The gallbladder has been surgically removed. Biliary ducts: Normal. No stones. No dilation. Pancreas: Visualized pancreas is unremarkable. Right kidney: Normal. No mass. No hydronephrosis. Aorta: Aneurysmal dilatation of the infrarenal abdominal aorta measuring 4.0 cm in diameter. US/US liver [id number] IMPRESSION: 1. Hyperechoic liver, which can be seen with fatty infiltration or hepatocellular disease. 2. Infrarenal abdominal aortic aneurysm.
== END 2023-09-14 05:26 | disposition home or self-care (01) ==
LOC: RADOUTREAD 09-15 05:28
PROVIDERS: PCP Physician Assistant; Visit Provider Physician Assistant
DX: R10.9 Unspecified abdominal pain (principal)

== ENCOUNTER 2023-11-29 15:07 | Emergency (ER) | payer MEDICARE, MEDICAID, SELFPAY ==
[2023-11-29 15:15] VITALS: BP 156/99; PULSE 100; RESP 18; TEMP 36.4; O2SAT 96; BMI 26.2
--- NOTE | 2023-11-29 15:27 | ECG_ITS ---
[facility] Test Date: 2023-11-29 Pat Name: Samantha Lewis Department: Room: Gender: Female Pest Control Technician: : 1940 Requested By: Cory Soto Order Number: [id number] Joanna MD: Bret Olguin M.D. Measurements Intervals [place] Rate: 94 P: 0 NC: 0 QRS: 30 QRSD: 85 T: 58 QT: 346 QTc: 433 Interpretive Statements ATRIAL FIBRILLATION ABNORMAL RHYTHM ECG Compared to ECG 04/22/2023 09:00:34 No significant changes Electronically Signed On 11-29-2023 16:23:23 CDT by Bret Olguin M.D. [email or web address]
--- NOTE | 2023-11-29 15:43 | ED_ITS ---
HPI - Abdominal Pain 2 General: Chief Complaint: Abdominal Pain Stated Complaint: abd pain Time Seen by Provider: 11/29/23 15:27 History of Present Illness: 83-year-old female presents to the [facility] ency room with complaints of abdominal pain. She twisted in her chair a week ago since then she has right rib pain is reproducible with palpation along her lower ribs on the right she also has pain reaching around the back is somewhat less tender at the level of about T9 and 10 in the right paraspinal muscles. She has not had any other symptoms no abdominal pain no pain radiating down into the groin. She has a history of known lobulated aortic aneurysm for which you had it evaluated earlier this year and was stable. No chest pain no shortness of breath no difficulty with bowel or bladder. Associated Symptoms: Denies chills, dysuria and fever(s) Related Data Home Medications Medication Instructions Recorded Confirmed rivaroxaban 20 mg tablet (Xarelto) 20 mg PO BEDTIME 07/03/19 07/26/23 escitalopram oxalate 10 mg tablet 10 mg PO DAILY 10/05/21 07/26/23 furosemide 40 mg tablet 40 mg PO QAM 10/05/21 07/26/23 ezetimibe 10 mg tablet 10 mg PO DAILY 04/22/23 07/26/23 levalbuterol tartrate 45 2 inh inhalation Q6H PRN Shortness 04/22/23 07/26/23 mcg/actuation aerosol inhaler Of Breath (Xopenex HFA) levothyroxine 50 mcg tablet 50 mcg PO QAM 04/22/23 07/26/23 fluticasone propionate 50 2 spray intranasal BEDTIME PRN 07/26/23 07/26/23 mcg/actuation nasal spray,suspension Previous Rx's Medication Instructions Recorded levalbuterol HCl 0.63 mg/3 mL 0.63 mg (3 mL) inhalation Q8H PRN 02/10/22 solution for nebulization shortness of breath or wheezing #270 mL pantoprazole 40 mg tablet,delayed 40 mg PO DAILY #30 tabs 03/25/22 release (Protonix) alprazolam 0.25 mg tablet 0.25 - 0.5 mg (1 - 2 x 0.25 mg) PO 04/09/22 DAILY PRN anxiety #60 tabs diltiazem HCl 300 mg 300 mg PO BEDTIME #90 caps 11/24/22 capsule,extended release 24 hr potassium chloride 20 mEq See Rx Instructions .Route 06/01/23 tablet,extended release .COMPLEX #30 tabs ciprofloxacin HCl 250 mg tablet 250 mg PO BID #10 tabs 11/29/23 (Cipro) tramadol 50 mg tablet 50 mg PO Q8H PRN pain #10 tabs 11/29/23 Allergies Allergy/AdvReac Type Severity Reaction Status Date / Time codeine Allergy ADR-Halluci Verified 07/26/23 10:49 nating Sulfa (Sulfonamide Allergy ALGY-Swell Verified 07/26/23 10:49 Antibiotics) Lip/Tongue/Throat Review of Systems 2 Const: Denies: fever(s) or chills Card: Reports: other (Rib pain); Denies: chest pain Resp: Denies: dyspnea GI: Denies: abdominal pain : Denies: dysuria, urinary frequency or urinary urgency Musc: Denies: neck pain or back pain Skin/Breast: Denies: rash PFSH ED 2 PFSH: Medical History MARCUS (generalized anxiety disorder) Hypothyroidism 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 Neuropathic pain CHF (congestive heart failure) Atrial fibrillation AAA (abdominal aortic aneurysm) HTN (hypertension) COPD (chronic obstructive pulmonary disease) Hyperlipidemia Family History Other CAD (coronary artery disease) Cancer Stroke Social History Smoking and tobacco/nicotine status: former use of tobacco/nicotine Quit status (tobacco/nicotine): has quit using Year quit tobacco: 1997 Former quit date comment: 0.5 ppd X 40 years Alcohol intake: never Substance/Drug Use: never Physical Exam 2 Const: COMMON NORMALS: no acute distress GENERAL APPEARANCE: cooperative and comfortable ORIENTATION/CONSCIOUSNESS: Yes awake, Yes oriented to person, Yes oriented to place and Yes oriented to time HENMT: COMMON NORMALS: normocephalic, atraumatic and hearing grossly normal bilaterally HEAD & SCALP: normocephalic and atraumatic Chest: OTHER: Reproducible pain with palpation along the lower costal margin on the right. Point tenderness. Resp: COMMON NORMALS: normal respiratory effort, No retractions, No use of accessory muscles and clear to auscultation bilaterally AUSCULTATION: clear to auscultation bilaterally Cardio: COMMON NORMALS: regular rate, regular rhythm and No murmurs present (Cardio) RATE: regular rate RHYTHM: regular rhythm GI: COMMON NORMALS: Soft to palpation and No hepatosplenomegaly present A USCULTATION: Yes normoactive bowel sounds PALPATION: Yes Soft to palpation, No Tenderness to palpation present (GI), No Guarding due to palpation present (GI) and Yes No hepatosplenomegaly present Extremity: COMMON NORMALS: normal to inspection, capillary refill normal, no clubbing, cyanosis or edema, no calf tenderness and no pedal edema OTHER: Bilateral femoral pulses are equal and strong Neuro: SENSORIUM/ORIENTATION: Yes oriented to person, Yes oriented to place and Yes oriented to time Skin: COMMON NORMALS: no rashes or lesions noted GENERAL SKIN EXAM: no rashes or lesions noted Course 2 Vital Signs: Vital signs: Vital Signs Temperature 97.6 F 11/29/23 15:15 Pulse Rate 88 11/29/23 16:58 Respiratory Rate 18 11/29/23 15:15 Blood Pressure 153/103 11/29/23 16:58 Pulse Oximetry 94 11/29/23 16:58 Oxygen Delivery Me thod Room Air 11/29/23 15:50 MDM - Abdominal Pain Medical Decision Making Patient has no abdominal pain her pain that she does have is point tenderness which she can identify is reproducible on palpation. She has good femoral pulses no pain radiating into the groin. She did not believe given her symptoms this represents any complication with her previously diagnosed aneurysm. Her aneurysm has been stable in the past. Discharge home pain medications given follow-up as needed. Incidental finding of cystitis patient started on Cipro. X-rays done at the outpatient clinic which are on synapse were reviewed in the chart. They were done earlier today prior to coming to the emergency room Medical Records I reviewed the patient's medical records. Lab Data I reviewed the patient's lab results. 11/29/23 15:50 11/29/23 15:50 Labs/Radiology: Laboratory Results WBC 6.40 10^3/uL (3.29-11.43) 11/29/23 15:50 RBC 4.35 10^6/uL (3.85-5.65) 11/29/23 15:50 Hgb 12.80 g/dL (11.27-16.99) 11/29/23 15:50 Hct 39.1 % (36-47) 11/29/23 15:50 MCV 89.9 fl (85-98) 11/29/23 15:50 MCH 29.4 pg (27-33) 11/29/23 15:50 MCHC 32.7 g/dL (30-55) 11/29/23 15:50 RDW 13.3 % (12.1-15.1) 11/29/23 15:50 Plt Count 226 10^3/cmm (157-399) 11/29/23 15:50 MPV 11.6 fL (7.4-10.4) H 11/29/23 15:50 Neut % (Auto) 49.9 % 11/29/23 15:50 Lymph % (Auto) 38.6 % 11/29/23 15:50 [place] % (Auto) 8.9 % 11/29/23 15:50 Eos % (Auto) 1.4 % 11/29/23 15:50 Baso % (Auto) 0.9 % 11/29/23 15:50 Neut # (Auto) 3.19 10^3/uL (1.8-7.7) 11/29/23 15:50 Lymph # (Auto) 2.5 10^3/uL (0.8-4.8) 11/29/23 15:50 [place] # (Auto) 0.6 10^3/uL (0.2-0.9) 11/29/23 15:50 Eos # (Auto) 0.1 10^3/uL (0.0-0.8) 11/29/23 15:50 Baso # (Auto) 0.1 10^3/uL (0.0-0.1) 11/29/23 15:50 Nucleated RBC % (auto) 0 % 11/29/23 15:50 Nucleated RBCs # 0.0 /100WBC 11/29/23 15:50 Sodium 142 mmol/L (136-145) 11/29/23 15:50 Potassium 3.9 mmol/L (3.5-5.1) 11/29/23 15:50 Chloride 103 mmol/L (98-107) 11/29/23 15:50 Carbon Dioxide 24 mmol/L (22-29) 11/29/23 15:50 Anion Gap 18.1 (5-19) 11/29/23 15:50 BUN 16 mg/dL (8-23) 11/29/23 15:50 Creatinine 1.2 mg/dL (0.5-0.9) H 11/29/23 15:50 GFR Calculation Not Reportable 11/29/23 15:50 Glucose 100 mg/dL (65-115) 11/29/23 15:50 Calculated Osmolality 295 mOsm/kg (285-295) 11/29/23 15:50 Calcium 9.6 mg/dL (8.5-10.5) 11/29/23 15:50 Total Bilirubin 0.3 mg/dL (0.15-1.2) 11/29/23 15:50 AST 19 U/L (0-32) 11/29/23 15:50 ALT 10 U/L (0-33) 11/29/23 15:50 Alkaline Phosphatase 150 U/L (35-105) H 11/29/23 15:50 Troponin T Baseline 14 ng/L (0-10) H 11/29/23 15:50 Total Protein 6.9 g/dL (6.6-8.7) 11/29/23 15:50 Albumin 4.3 g/dL (3.5-5.2) 11/29/23 15:50 Globulin 2.6 g/dL (1.3-4.6) 11/29/23 15:50 Urine Color Yellow (Yellow) 11/29/23 15:29 Urine Appearance Clear (CLEAR) 11/29/23 15:29 Urine pH 6.0 (5-7) 11/29/23 15:29 Ur Specific [place] 1.007 (1.005-1.030) 11/29/23 15:29 Urine Protein Negative (Negative) 11/29/23 15: Urine Glucose (UA) Negative (Normal) 11/29/23 15: Urine Ketones Negative (Negative) 11/29/23 15: Urine Blood Negative (Negative) 11/29/23 15: Urine Nitrate Negative (Negative) 11/29/23: Urine Bilirubin Negative (Negative) 11/29/23 15: Urine Urobilinogen 0.2 mg/dL (Negative) 11/29/23 15:29 Ur Leukocyte Esterase 2+ (Negative) A 11/29/23 15:29 Urine RBC 0-4 /hpf (0-2) H 11/29/23 15:29 Urine WBC 11-20 /hpf (0-5) H 11/29/23 15:29 Ur Squamous Epith Cells 5-10 /hpf (0-5) H 11/29/23 15:29 Amorphous Sediment Not Reportable 11/29/23 15:29 Urine Bacteria 1+ /hpf (NONE) H 11/29/23 15:29 No radiology studies performed this visit Discharge Plan Discharge Patient Disposition: Home Clinical Impression: Rib pain on right side, AAA (abdominal aortic aneurysm), Cystitis Condition: Stable Prescriptions: New tramadol 50 mg tablet 50 mg PO Q8H PRN (Reason: pain) Qty: 10 0RF ciprofloxacin HCl [Cipro] 250 mg tablet 250 mg PO BID Qty: 10 0RF No Action furosemide 40 mg tablet 40 mg PO QAM Xarelto 20 mg tablet 20 mg PO BEDTIME escitalopram oxalate 10 mg tablet 10 mg PO DAILY pantoprazole [Protonix] 40 mg tablet,delayed release (DR/EC) 40 mg PO DAILY Qty: 30 1RF levalbuterol HCl 0.63 mg/3 mL solution for nebulization 0.63 mg inhalation Q8H PRN (Reason: shortness of breath or wheezing) Qty: 270 2RF alprazolam 0.25 mg tablet 0.25 - 0.5 mg PO DAILY PRN (Reason: anxiety) Qty: 60 0RF diltiazem HCl 300 mg capsule,extended release 24hr 300 mg PO BEDTIME Qty: 90 0RF potassium chloride 20 mEq tablet extended release See Rx Instructions .ROUTE .COMPLEX Qty: 30 0RF Dose Instruction: TAKE 1 TABLET BY MOUTH DAILY Rx Instructions: TAKE 1 TABLET BY MOUTH DAILY levothyroxine 50 mcg tablet 50 mcg PO QAM ezetimibe 10 mg tablet 10 mg PO DAILY Xopenex HFA 45 mcg/actuation HFA aerosol inhaler 2 inh inhalation Q6H PRN (Reason: Shortness Of Breath) fluticasone propionate 50 mcg/actuation spray,suspension 2 spray INTRANASAL BEDTIME PRN Discharge Orders: Discharge ED (Routine); Ordered 11/29/23 Ordered By: Cory Ang Referrals: Xiomara Gamez PA [Primary Care Provider] - Discharge Activity: Resume usual activity Patient Instructions: Opioid Safety, Pain Management Activity Restrictions/Additional Instructions: Thank you for choosing [facility] for your healthcare needs today. It is very important that you follow up as instructed or that you return to the Emergency Department should you have concerns or if your condition changes or worsens in any way. Leaving ER you were seen in the emergency room for rib and back pain. On your exam there was reproducible pain with point tenderness across the right lower ribs and on your back on the right side. Your femoral pulses are equal bilaterally. X-rays done earlier today were reviewed on the chart. There is no fractures present the remainder of exam was normal. Coding Level of Care Code ED Stations Superintendent for Francisco Noland
[2023-11-29 15:46] LABS: Bilirubin Urine Negative (Negative); Blood Urine Negative (Negative); Glucose Urine UA Negative (Normal); Ketones Urine Negative (Negative); Leukocyte Esterase Urine 2+ (Negative); Nitrate Urine Negative (Negative); Protein Urine Negative (Negative); Specific Gravity, Urine 1.007 (1.005-1.030); Urine Appearance Clear (CLEAR); Urine Color Yellow (Yellow); Urobilinogen Urine 0.2 mg/dL (Negative)
[2023-11-29 15:50] VITALS: BP 156/129; PULSE 88; O2SAT 94
[2023-11-29 15:59] LABS: Basophils # 0.1 10^3/uL (0.0-0.1); Basophils % 0.9 %; Eosinophils # 0.1 10^3/uL (0.0-0.8); Eosinophils % 1.4 %; Hematocrit 39.1 % (36-47); Lymphocytes # 2.5 10^3/uL (0.8-4.8); Lymphocytes % 38.6 %; Mean Corpuscular HGB Conc 32.7 g/dL (30-55); Mean Corpuscular Hemoglobin 29.4 pg (27-33); Mean Corpuscular Volume 89.9 fl (85-98); Mean Platelet Volume 11.6 fL (7.4-10.4); Monocytes # 0.6 10^3/uL (0.2-0.9); Monocytes % 8.9 %; Neutrophils # 3.19 10^3/uL (1.8-7.7); Neutrophils % 49.9 %; Nucleated Red Blood Cells % 0 %; Platelet Count 226 10^3/cmm (157-399); Red Blood Count 4.35 10^6/uL (3.85-5.65); Red Cell Distribution Width 13.3 % (12.1-15.1)
[2023-11-29 16:13] LABS: Troponin(5th) Baseline 14 ng/L (0-10)
[2023-11-29 16:14] LABS: Alkaline Phosphatase 150 U/L (35-105); Chloride 103 mmol/L (98-107); Potassium 3.9 mmol/L (3.5-5.1); Sodium 142 mmol/L (136-145)
[2023-11-29 16:19] LABS: Add Urine Microscopic? YES; RBC Urine 0-4 /hpf (0-2)
[2023-11-29 16:20] LABS: Bacteria Urine 1+ /hpf
[2023-11-29 16:22] LABS: Alanine Aminotransferase 10 U/L (0-33); Albumin Level 4.3 g/dL (3.5-5.2); Anion Gap 18.1 (5-19); Aspartate Amino Transferase 19 U/L (0-32); Blood Urea Nitrogen 16 mg/dL (8-23); Calcium 9.6 mg/dL (8.5-10.5); Carbon Dioxide 24 mmol/L (22-29); Globulin 2.6 g/dL (1.3-4.6); Glucose 100 mg/dL (65-115); Osmolality Calculated 295 mOsm/kg (285-295); Total Bilirubin 0.3 mg/dL (0.15-1.2); Total Protein 6.9 g/dL (6.6-8.7)
[2023-11-29 16:24] LABS: Add Urine Culture? No
[2023-11-29 16:58] VITALS: BP 153/103; PULSE 88; O2SAT 94
== END 2023-11-29 16:55 | disposition home or self-care (01) ==
PROVIDERS: Emergency Provider Family Medicine; PCP Physician Assistant
DX: R07.81 Pleurodynia (principal); I71.40 Abdominal aortic aneurysm, without rupture, unspecified; N30.90 Cystitis, unspecified without hematuria
CPT/HCPCS: 36415; 80053; 81001; 84484; 85025; 93005; 99285

== ENCOUNTER 2024-01-01 13:53 | Emergency (ER) | payer MEDICARE, MEDICAID, SELFPAY ==
[2024-01-01 13:55] VITALS: BP 123/88; PULSE 79; RESP 20; TEMP 36.7; O2SAT 96
--- NOTE | 2024-01-01 14:00 | CTR_ITS ---
PROCEDURE INFORMATION: Exam: CT Cervical Spine Without Contrast Exam date and time: 01/01/2024 3:05 PM Age: 83 years old Clinical indication: Injury or trauma; Fall; Blunt trauma TECHNIQUE: Imaging protocol: Computed tomography of the cervical spine without contrast. Radiation optimization: All CT scans at this facility use at least one of these dose optimization techniques: automated exposure control; mA and/or kV adjustment per patient size (includes targeted exams where dose is matched to clinical indication); or iterative reconstruction. COMPARISON: CT cervical spin wo con* [id number] 01/02/2022 4:35 PM RADIATION DOSE METRICS: Total DLP (mGy-cm): 1001.9 FINDINGS: Bones: No acute cervical spine fracture identified. Chronic multilevel degenerative disc disease and facet arthropathy produce variable degrees of chronic bony encroachment on the cervical spinal canal and foramina. No acute traumatic subluxation identified. There is minimal degenerative anterolisthesis at the C3-C4 and C4-C5 levels and at C7-T1. Lungs: Only the apical regions are included on this exam. Very small pleural effusion is evident on the most inferior image. Soft tissues: No obvious acute abnormality detected. CT/CT cervical spin wo con* [id number] IMPRESSION: 1. No acute cervical spine fracture detected. 2. Chronic cervical spondylosis. 3. Small left pleural effusion is evident on the most inferior image.
--- NOTE | 2024-01-01 14:00 | CTR_ITS ---
PROCEDURE INFORMATION: Exam: CT Head Without Contrast Exam date and time: 01/01/2024 3:05 PM Age: 83 years old Clinical indication: Injury or trauma; Fall; Blunt trauma (contusions or hematomas) TECHNIQUE: Imaging protocol: Computed tomography of the head without contrast. Radiation optimization: All CT scans at this facility use at least one of these dose optimization techniques: automated exposure control; mA and/or kV adjustment per patient size (includes targeted exams where dose is matched to clinical indication); or iterative reconstruction. COMPARISON: CT head wo/w con [id number] 06/15/2023 3:48 PM RADIATION DOSE METRICS: Total DLP (mGy-cm): 1156.3 FINDINGS: Brain: No acute intracranial hemorrhage or abnormal intracranial mass effect is identified. There are moderately extensive chronic appearing small-vessel ischemic changes within both cerebral hemispheres. No subdural collections are identified. Atherosclerotic calcifications involve the carotid and vertebral arteries at the skull base. Cerebral ventricles: Size within normal range for age. No midline shift. Paranasal sinuses: Visualized portions of paranasal sinuses are well aerated. Mastoid air cells: Visualized portions of mastoid sinuses are not opacified. Bones: No obvious fracture of the cranium. Soft tissues: Other than as stated above, no obvious acute abnormality. CT/CT head wo con* [id number] IMPRESSION: No acute intracranial hemorrhage or mass effect.
--- NOTE | 2024-01-01 14:00 | ED_ITS ---
HPI - Fall 2 General: Chief Complaint: Fall Stated Complaint: right wrist pain s/p fall Time Seen by Provider: 01/01/24 13:57 History of Present Illness: 83-year-old female who reports that she got up to go to the bathroom and was walking across the floor and excellently slipped in a wet spot on her floor. Patient has injury with some deformity to the right wrist. Patient also reports of neck pain and right hip pain. Patient was brought in by EMS. Patient is alert and oriented. Patient does take Xarelto. Patient has a history of atrial fibs, lung cancer, CHF, anxiety, hypothyroidism, and GERD. Related Data Home Medications Medication Instructions Recorded Confirmed rivaroxaban 20 mg tablet (Xarelto) 20 mg PO BEDTIME 07/03/19 07/26/23 escitalopram oxalate 10 mg tablet 10 mg PO DAILY 10/05/21 07/26/23 furosemide 40 mg tablet 40 mg PO QAM 10/05/21 07/26/23 ezetimibe 10 mg tablet 10 mg PO DAILY 04/22/23 07/26/23 levalbuterol tartrate 45 2 inh inhalation Q6H PRN Shortness 04/22/23 07/26/23 mcg/actuation aerosol inhaler Of Breath (Xopenex HFA) levothyroxine 50 mcg tablet 50 mcg PO QAM 04/22/23 07/26/23 fluticasone propionate 50 2 spray intranasal BEDTIME PRN 07/26/23 07/26/23 mcg/actuation nasal spray,suspension Previous Rx's Medication Instructions Recorded levalbuterol HCl 0.63 mg/3 mL 0.63 mg (3 mL) inhalation Q8H PRN 02/10/22 solution for nebulization shortness of breath or wheezing #270 mL pantoprazole 40 mg tablet,delayed 40 mg PO DAILY #30 tabs 03/25/22 release (Protonix) alprazolam 0.25 mg tablet 0.25 - 0.5 mg (1 - 2 x 0.25 mg) PO 04/09/22 DAILY PRN anxiety #60 tabs diltiazem HCl 300 mg 300 mg PO BEDTIME #90 caps 11/24/22 capsule,extended release 24 hr potassium chloride 20 mEq See Rx Instructions .Route 06/01/23 tablet,extended release .COMPLEX #30 tabs ciprofloxacin HCl 250 mg tablet 250 mg PO BID #10 tabs 11/29/23 (Cipro) tramadol 50 mg tablet 50 mg PO Q8H PRN pain #10 tabs 11/29/23 hydrocodone 5 mg-acetaminophen 325 1 tab PO Q8H PRN pain #7 tabs 01/01/24 mg tablet Allergies Allergy/AdvReac Type Severity Reaction Status Date / Time codeine Allergy ADR-Halluci Verified 07/26/23 10:49 nating Sulfa (Sulfonamide Allergy ALGY-Swell Verified 07/26/23 10:49 Antibiotics) Lip/Tongue/Throat Review of Systems 2 General: Reports: 10 or more systems reviewed and unremarkable except in HPI and below Musc: Reports: other (Right wrist deformity, right hip pain, neck pain.) PFSH ED 2 PFSH: Medical History MARCUS (generalized anxiety disorder) Hypothyroidism 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 Neuropathic pain CHF (congestive heart failure) Atrial fibrillation AAA (abdominal aortic aneurysm) HTN (hypertension) COPD (chronic obstructive pulmonary disease) Hyperlipidemia Family History Other CAD (coronary artery disease) Cancer Stroke Social History Smoking and tobacco/nicotine status: former use of tobacco/nicotine Quit status (tobacco/nicotine): has quit using Year quit tobacco: 1997 Former quit date comment: 0.5 ppd X 40 years Alcohol intake: never Substance/Drug Use: never Physical Exam 2 Const: COMMON NORMALS: alert HENMT: COMMON NORMALS: normocephalic HEAD & SCALP: normocephalic Neck/C-Spine: COMMON NORMALS: full ROM Chest: COMMONS NORMALS: normal palpation of entire chest wall Resp: COMMON NORMALS: normal respiratory effort Cardio: COMMON NORMALS: regular rate RATE: regular rate GI: COMMON NORMALS: Soft to palpation and non-tender PALPATION: Yes Soft to palpation Back/Pelvis: COMMON NORMALS: thoracic and lumbar spine normal to inspection Extremity: RIGHT UPPER EXTREMITY: Yes wrist (Splint intact, neurovascular intact.) OTHER: No shortening or rotation of the right lower extremity is noted. Patient has decreased range of motion of the hip due to pain. Neuro: SENSORIUM/ORIENTATION: Yes alert Skin: COMMON NORMALS: turgor normal GENERAL SKIN EXAM: turgor normal Course 2 Vital Signs: Vital signs: Vital Signs Temperature 98.1 F 01/01/24 13:55 Pulse Rate 79 01/01/24 13:55 Respiratory Rate 18 01/01/24 14:35 Blood Pressure 123/88 01/01/24 13:55 Pulse Oximetry 94 01/01/24 14:35 MDM - Fall Medical Decision Making 83-year-old female comes in today for complaints of fall. Patient slipped and fell on a wet spot on the floor catching herself with outstretched arm. Patient reports right hip pain, right wrist pain, and neck discomfort. Patient does take routine Xarelto for atrial fibs. Differential diagnosis wrist fracture, hip fracture, intracranial bleeding, cervical fracture, muscle strain, contusions. X-ray of the hip noted no obvious fractures. X-ray of the wrist noted a distal radial fracture with minimal to no displacement. CT of the cervical spine showed no acute fracture. CT of the head showed no intracranial hemorrhage or fractures. Patient was placed in a splint of her wrist. Patient was recommended to follow-up with primary care as needed. Case management was requested to help patient follow-up with orthopedics for further evaluation and treatment. Lab Data 01/01/24 15:07 01/01/24 15:07 Radiology Impressions Cervical Spine CT 01/01/24 14:00 IMPRESSION: 1. No acute cervical spine fracture detected. 2. Chronic cervical spondylosis. 3. Small left pleural effusion is evident on the most inferior image. Head CT 01/01/24 14:00 IMPRESSION: No acute intracranial hemorrhage or mass effect. Laboratory Results WBC 8.49 10^3/uL (3.29-11.43) 01/01/24 15:07 RBC 4.33 10^6/uL (3.85-5.65) 01/01/24 15:07 Hgb 12.50 g/dL (11.27-16.99) 01/01/24 15:07 Hct 38.9 % (36-47) 01/01/24 15:07 MCV 89.8 fl (85-98) 01/01/24 15:07 MCH 28.9 pg (27-33) 01/01/24 15:07 MCHC 32.1 g/dL (30-55) 01/01/24 15:07 RDW 12.6 % (12.1-15.1) 01/01/24 15:07 Plt Count 233 10^3/cmm (157-399) 01/01/24 15:07 MPV 12.1 fL (7.4-10.4) H 01/01/24 15:07 Neut % (Auto) 68.3 % 01/01/24 15:07 Lymph % (Auto) 21.7 % 01/01/24 15:07 [place] % (Auto) 8.4 % 01/01/24 15:07 Eos % (Auto) 0.9 % 01/01/24 15:07 Baso % (Auto) 0.6 % 01/01/24 15:07 Neut # (Auto) 5.80 10^3/uL (1.8-7.7) 01/01/24 15:07 Lymph # (Auto) 1.8 10^3/uL (0.8-4.8) 01/01/24 15:07 [place] # (Auto) 0.7 10^3/uL (0.2-0.9) 01/01/24 15:07 Eos # (Auto) 0.1 10^3/uL (0.0-0.8) 01/01/24 15:07 Baso # (Auto) 0.1 10^3/uL (0.0-0.1) 01/01/24 15:07 Nucleated RBC % (auto) 0 % 01/01/24 15:07 Nucleated RBCs # 0.0 /100WBC 01/01/24 15:07 XR interpretation done by ED provider, pending radiology final review Discharge Plan Discharge Patient Disposition: Home Clinical Impression: Fall from slip, trip, or stumble Qualifiers: Encounter type: initial encounter Qualified Code(s): W01.0XXA - Fall on same level from slipping, tripping and stumbling without subsequent striking against object, initial encounter Distal radius fracture, right Qualifiers: Encounter type: initial encounter Fracture type: closed Fracture morphology: u nspecified fracture morphology Qualified Code(s): S52.501A - Unspecified fracture of the lower end of right radius, initial encounter for closed fracture Condition: Stable Prescriptions: New hydrocodone-acetaminophen 5-325 mg tablet 1 tab PO Q8H PRN (Reason: pain) Qty: 7 0RF No Action furosemide 40 mg tablet 40 mg PO QAM Xarelto 20 mg tablet 20 mg PO BEDTIME escitalopram oxalate 10 mg tablet 10 mg PO DAILY pantoprazole [Protonix] 40 mg tablet,delayed release (DR/EC) 40 mg PO DAILY Qty: 30 1RF levalbuterol HCl 0.63 mg/3 mL solution for nebulization 0.63 mg inhalation Q8H PRN (Reason: shortness of breath or wheezing) Qty: 270 2RF alprazolam 0.25 mg tablet 0.25 - 0.5 mg PO DAILY PRN (Reason: anxiety) Qty: 60 0RF diltiazem HCl 300 mg capsule,extended release 24hr 300 mg PO BEDTIME Qty: 90 0RF potassium chloride 20 mEq tablet extended release See Rx Instructions .ROUTE .COMPLEX Qty: 30 0RF Dose Instruction: TAKE 1 TABLET BY MOUTH DAILY Rx Instructions: TAKE 1 TABLET BY MOUTH DAILY levothyroxine 50 mcg tablet 50 mcg PO QAM ezetimibe 10 mg tablet 10 mg PO DAILY Xopenex HFA 45 mcg/actuation HFA aerosol inhaler 2 inh inhalation Q6H PRN (Reason: Shortness Of Breath) fluticasone propionate 50 mcg/actuation spray,suspension 2 spray INTRANASAL BEDTIME PRN tramadol 50 mg tablet 50 mg PO Q8H PRN (Reason: pain) Qty: 10 0RF ciprofloxacin HCl [Cipro] 250 mg tablet 250 mg PO BID Qty: 10 0RF Discharge Orders: Discharge ED (Routine); Ordered 01/01/24 Ordered By: Anatoly Nye Referrals: Xiomara Gamez PA [Primary Care Provider] - Discharge Diet: Usual diet Discharge Activity: Limit activity as instructed Patient Instructions: Splint Care (ED) Activity Restrictions/Additional Instructions: Keep splint clean and dry. Use acetaminophen as needed for pain. Use ice packs for further pain relief. Follow-up with primary care for further instructions. Return to ED for new concerns. Coding Level of Care Code ED Teacher Of The Sight Impaired for Francisco Noland
--- NOTE | 2024-01-01 14:00 | XRR_ITS ---
PROCEDURE INFORMATION: Exam: XR Right Wrist Exam date and time: 01/01/2024 2:23 PM Age: 83 years old Clinical indication: Injury or trauma; Fall; Blunt trauma (contusions or hematomas); Injury details: History--pt slipped and fell today. PT C/O right wrist pain, neck pain, and right hip pain. PT did hit her head. HX of right distal radius fracture. ; Additional info: Fall injury TECHNIQUE: Imaging protocol: Radiologic exam of the right wrist. Views: 3 or more views. Frontal Oblique Lateral COMPARISON: No relevant prior studies available. FINDINGS: Bones/joints: Diffusely severely decreased bone density. Limited sensitivity to detect acute abnormalities. Comminuted fractures are identified within the distal radius. Multiple fracture lines and bony fragments. There is impaction of the distal radius with dorsal angulation and displacement. Adjacent soft tissue edema.. Moderate to severe generalized bony degenerative changes. Moderate to severe degenerative changes identified within the 1st carpal metacarpal articulation. Moderate to severe lateral wrist sclerosis with osteophytes, joint space narrowing. Chondrocalcinosis is demonstrated. Large right wrist joint effusion is demonstrated. Soft tissues: Moderate to severe soft tissue edema surrounds the distal radius and right wrist region. Notes: If there is further concern, followup radiographs or MRI of the wrist may be performed for complete assessment. XR/XR wrist RT min 3V* [id number] IMPRESSION: 1. Comminuted fractures involving the distal radius, as described above. Soft tissue edema. 2. Large joint effusion. 3. Moderate to severe chronic bony degenerative changes.
--- NOTE | 2024-01-01 14:00 | XRR_ITS ---
PROCEDURE INFORMATION: Exam: XR Right Hip Exam date and time: 01/01/2024 2:23 PM Age: 83 years old Clinical indication: Injury or trauma; Fall; Blunt trauma (contusions or hematomas); Injury details: History--pt slipped and fell today. PT C/O right wrist pain, neck pain, and right hip pain. PT did hit her head. ; Additional info: Fall, include pelvis TECHNIQUE: Imaging protocol: Radiologic exam of the right hip. Views: 1 view hip with pelvis when performed. COMPARISON: CT abdomen pelvis w con* [id number] 06/25/2022 3:31 PM FINDINGS: Bones/joints: Bilateral lumbar sacral transitional vertebra is demonstrated. The visualized sacral arches appear intact. Generalized bony degenerative changes. No visualized evidence for acute bony fracture or dislocation. Bony structures appear otherwise unremarkable. Soft tissues: Unremarkable. Vasculature: Calcifications in the pelvis, most compatible with phleboliths. Moderate to severe diffuse atherosclerotic arterial vascular wall calcifications are demonstrated. Notes: If there is further concern, recommend follow-up radiographs or MRI for complete assessment. XR/XR hip RT 2-3V wo/w pel* [id number] IMPRESSION: 1. No acute abnormality identified. 2. Chronic findings.
--- NOTE | 2024-01-01 14:04 | ECG_ITS ---
[facility] Test Date: 2024-01-01 Pat Name: Samantha Lewis Department: Room: Gender: Female Psychiatric Assistant: : 1940 Requested By: Anatoly Riley Order Number: [id number] Joanna MD: Natasha Ashraf M.D. Measurements Intervals [place] Rate: 77 P: 0 UT: 0 QRS: 17 QRSD: 93 T: 2 QT: 362 QTc: 411 Interpretive Statements ATRIAL FIBRILLATION ABNORMAL RHYTHM ECG Compared to ECG 11/29/2023 15:30:11 No significant changes Electronically Signed On 01-01-2024 14:19:22 MARINE DIVER by Natasha Ashraf M.D. [id number]
[2024-01-01] MEDS: ondansetron 2 mg/ML SDV 2 mL 4 MG IVP (14:33)
[2024-01-01 14:35] VITALS: RESP 18; O2SAT 94
[2024-01-01] MEDS: fentaNYL 50 mcg/mL INJ 2mL IVP (14:35)
[2024-01-01 15:12] LABS: Basophils # 0.1 10^3/uL (0.0-0.1); Basophils % 0.6 %; Eosinophils # 0.1 10^3/uL (0.0-0.8); Eosinophils % 0.9 %; Hematocrit 38.9 % (36-47); Lymphocytes # 1.8 10^3/uL (0.8-4.8); Lymphocytes % 21.7 %; Mean Corpuscular HGB Conc 32.1 g/dL (30-55); Mean Corpuscular Hemoglobin 28.9 pg (27-33); Mean Corpuscular Volume 89.8 fl (85-98); Mean Platelet Volume 12.1 fL (7.4-10.4); Monocytes # 0.7 10^3/uL (0.2-0.9); Monocytes % 8.4 %; Neutrophils % 68.3 %; Nucleated Red Blood Cells % 0 %; Platelet Count 233 10^3/cmm (157-399); Red Blood Count 4.33 10^6/uL (3.85-5.65); Red Cell Distribution Width 12.6 % (12.1-15.1); White Blood Count 8.49 10^3/uL (3.29-11.43)
[2024-01-01 15:34] LABS: Alanine Aminotransferase 7 U/L (0-33); Albumin Level 4.2 g/dL (3.5-5.2); Alkaline Phosphatase 102 U/L (35-105); Anion Gap 16.7 (5-19); Aspartate Amino Transferase 15 U/L (0-32); Blood Urea Nitrogen 12 mg/dL (8-23); Calcium 9.4 mg/dL (8.5-10.5); Carbon Dioxide 24 mmol/L (22-29); Chloride 102 mmol/L (98-107); Globulin 2.6 g/dL (1.3-4.6); Glucose 117 mg/dL (65-115); Osmolality Calculated 289 mOsm/kg (285-295); Potassium 3.7 mmol/L (3.5-5.1); Sodium 139 mmol/L (136-145); Total Bilirubin 0.4 mg/dL (0.15-1.2); Total Protein 6.8 g/dL (6.6-8.7)
[2024-01-01 15:57] VITALS: BP 144/77; PULSE 83; RESP 14; O2SAT 94
--- NOTE | 2024-01-02 09:04 | DCPLANNER ---
messaged ortho for er f/u
== END 2024-01-01 15:56 | disposition home or self-care (01) ==
PROVIDERS: Emergency Provider Nurse Practitioner Family; PCP Physician Assistant
DX: S52.501A Unspecified fracture of the lower end of right radius, initial encounter for closed fracture (principal); W01.0XXA Fall on same level from slipping, tripping and stumbling without subsequent striking against object, initial encounter; I11.0 Hypertensive heart disease with heart failure; I50.9 Heart failure, unspecified; J44.9 Chronic obstructive pulmonary disease, unspecified; C34.92 Malignant neoplasm of unspecified part of left bronchus or lung; Z87.891 Personal history of nicotine dependence
CPT/HCPCS: 36415; 70450; 72125; 73110; 73502; 80053; 85025; 93005; 96374; 96375; 99285; 99291; J2405; J3010

== ENCOUNTER 2024-01-02 05:32 | Emergency (ER) | payer MEDICARE, MEDICAID, SELFPAY ==
[2024-01-02 05:37] VITALS: BMI 26.6
[2024-01-02 05:49] VITALS: BP 153/92; PULSE 85; RESP 18; O2SAT 93
[2024-01-02] MEDS: ondansetron 2 mg/ML SDV 2 mL 4 MG IVP (06:10)
[2024-01-02] MEDS: morphine 4 mg/mL SDV 1 mL 2 MG IVP (06:10)
--- NOTE | 2024-01-02 06:22 | W.ED.FALL ---
HPI - Fall General: Chief Complaint: Fall Stated Complaint: fall left wrist pain and ill from pain pill Time Seen by Provider: 01/02/24 05:38 History of Present Illness: 83-year-old female presents emergency room via private vehicle she was in the emergency room last night after a fall and has a right comminuted distal radius fracture. Patient reports nausea and poor pain control with medications given. She did not eat anything with her medications she has not reinjured her wrist. She removed her splint last night because she thought it was increasing the pain she did not apply any ice or elevation to the extremity. Related Data Home Medications Medication Instructions Recorded Confirmed rivaroxaban 20 mg tablet (Xarelto) 20 mg PO BEDTIME 07/03/19 07/26/23 escitalopram oxalate 10 mg tablet 10 mg PO DAILY 10/05/21 07/26/23 furosemide 40 mg tablet 40 mg PO QAM 10/05/21 07/26/23 ezetimibe 10 mg tablet 10 mg PO DAILY 04/22/23 07/26/23 levalbuterol tartrate 45 2 inh inhalation Q6H PRN Shortness 04/22/23 07/26/23 mcg/actuation aerosol inhaler Of Breath (Xopenex HFA) levothyroxine 50 mcg tablet 50 mcg PO QAM 04/22/23 07/26/23 fluticasone propionate 50 2 spray intranasal BEDTIME PRN 07/26/23 07/26/23 mcg/actuation nasal spray,suspension Previous Rx's Medication Instructions Recorded levalbuterol HCl 0.63 mg/3 mL 0.63 mg (3 mL) inhalation Q8H PRN 02/10/22 solution for nebulization shortness of breath or wheezing #270 mL pantoprazole 40 mg tablet,delayed 40 mg PO DAILY #30 tabs 03/25/22 release (Protonix) alprazolam 0.25 mg tablet 0.25 - 0.5 mg (1 - 2 x 0.25 mg) PO 04/09/22 DAILY PRN anxiety #60 tabs diltiazem HCl 300 mg 300 mg PO BEDTIME #90 caps 11/24/22 capsule,extended release 24 hr potassium chloride 20 mEq See Rx Instructions .Route 06/01/23 tablet,extended release .COMPLEX #30 tabs ciprofloxacin HCl 250 mg tablet 250 mg PO BID #10 tabs 11/29/23 (Cipro) tramadol 50 mg tablet 50 mg PO Q8H PRN pain #10 tabs 11/29/23 hydrocodone 5 mg-acetaminophen 325 1 tab PO Q8H PRN pain #7 tabs 01/01/24 mg tablet ondansetron HCl 4 mg tablet 4 mg PO Q6H PRN nausea and 01/02/24 vomiting #20 tabs Allergies Allergy/AdvReac Type Severity Reaction Status Date / Time codeine Allergy ADR-Halluci Verified 07/26/23 10:49 nating Sulfa (Sulfonamide Allergy ALGY-Swell Verified 07/26/23 10:49 Antibiotics) Lip/Tongue/Throat Review of Systems Musc: Reports: joint pain and joint swelling [facility] PFSH: Medical History MARCUS (generalized anxiety disorder) Hypothyroidism 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 Neuropathic pain CHF (congestive heart failure) Atrial fibrillation AAA (abdominal aortic aneurysm) HTN (hypertension) COPD (chronic obstructive pulmonary disease) Hyperlipidemia Family History Other CAD (coronary artery disease) Cancer Stroke Social History Smoking and tobacco/nicotine status: former use of tobacco/nicotine Quit status (tobacco/nicotine): has quit using Year quit tobacco: 1997 Former quit date comment: 0.5 ppd X 40 years Alcohol intake: never Substance/Drug Use: never Physical Exam Extremity: OTHER: Examination of the right wrist there is cotton padding covered by gauze not but there is no splint in place when I asked the patient she confirmed that she had taken it off at home. Neurovascularly intact. Mild swelling at the distal radius. Course Vital Signs: Vital signs: Vital Signs Pulse Rate 88 01/02/24 07:21 Respiratory Rate 18 01/02/24 05:49 Blood Pressure 159/84 01/02/24 07:21 Pulse Oximetry 95 01/02/24 07:21 Oxygen Delivery Me thod Room Air 01/02/24 05:49 MDM - Fall Medical Decision Making Discussed with the patient that the splint itself helps with pain control suspect her increased pain was from removing the splint as well as some swelling we will send her home with this resplinted with a full-length sugar-tong splint additionally we will put her in a sling with the arm mildly elevated above the level of the elbow to decrease the swelling. Continue to use the hydrocodone for pain and follow-up with orthopedics Medical Records I reviewed the patient's medical records. No radiology studies performed this visit Discharge Plan Discharge Patient Disposition: Home Clinical Impression: Closed fracture of right distal radius Condition: Stable Prescriptions: New ondansetron HCl 4 mg tablet 4 mg PO Q6H PRN (Reason: nausea and vomiting) Qty: 20 0RF No Action furosemide 40 mg tablet 40 mg PO QAM Xarelto 20 mg tablet 20 mg PO BEDTIME escitalopram oxalate 10 mg tablet 10 mg PO DAILY pantoprazole [Protonix] 40 mg tablet,delayed release (DR/EC) 40 mg PO DAILY Qty: 30 1RF levalbuterol HCl 0.63 mg/3 mL solution for nebulization 0.63 mg inhalation Q8H PRN (Reason: shortness of breath or wheezing) Qty: 270 2RF alprazolam 0.25 mg tablet 0.25 - 0.5 mg PO DAILY PRN (Reason: anxiety) Qty: 60 0RF diltiazem HCl 300 mg capsule,extended release 24hr 300 mg PO BEDTIME Qty: 90 0RF potassium chloride 20 mEq tablet extended release See Rx Instructions .ROUTE .COMPLEX Qty: 30 0RF Dose Instruction: TAKE 1 TABLET BY MOUTH DAILY Rx Instructions: TAKE 1 TABLET BY MOUTH DAILY levothyroxine 50 mcg tablet 50 mcg PO QAM ezetimibe 10 mg tablet 10 mg PO DAILY Xopenex HFA 45 mcg/actuation HFA aerosol inhaler 2 inh inhalation Q6H PRN (Reason: Shortness Of Breath) fluticasone propionate 50 mcg/actuation spray,suspension 2 spray INTRANASAL BEDTIME PRN tramadol 50 mg tablet 50 mg PO Q8H PRN (Reason: pain) Qty: 10 0RF ciprofloxacin HCl [Cipro] 250 mg tablet 250 mg PO BID Qty: 10 0RF hydrocodone-acetaminophen 5-325 mg tablet 1 tab PO Q8H PRN (Reason: pain) Qty: 7 0RF Discharge Orders: Discharge ED (Routine); Ordered 01/02/24 Ordered By: Cory Ang Referrals: Karla Constantino MD [Primary Care Provider] - Discharge Diet: Usual diet Discharge Activity: Limit activity as instructed Patient Instructions: Opioid Safety, Pain Management Activity Restrictions/Additional Instructions: Thank you for choosing [facility] for your healthcare needs today. It is very important that you follow up as instructed or that you return to the Emergency Department should you have concerns or if your condition changes or worsens in any way. You are seen in the emergency room with wrist pain at the site of your fracture. Your arm was resplinted recommend you leave the splint in place until you see orthopedics. You can also use a sling elevate the arm above the level of the elbow to minimize swelling at the wrist. section 8 property manager will make arrangements for you to follow-up with orthopedics. Continues to pain medications given. You were also given a prescription for ondansetron and to help with the nausea related to the use of the pain medication. Additionally it would be helpful to take pain meds with something to eat. You may have increased bruising and swelling at due to being on the Xarelto as well. Coding Level of Care Code ED Neurodiagnostic Tech for Francisco Noland
[2024-01-02 07:21] VITALS: BP 159/84; PULSE 88; O2SAT 95
--- NOTE | 2024-01-02 09:10 | DCPLANNER ---
messaged ortho for er f/u
== END 2024-01-02 07:22 | disposition home or self-care (01) ==
PROVIDERS: Emergency Provider Family Medicine; PCP Family Medicine
DX: S52.591A Other fractures of lower end of right radius, initial encounter for closed fracture (principal); W19.XXXA Unspecified fall, initial encounter; Z87.891 Personal history of nicotine dependence; C34.92 Malignant neoplasm of unspecified part of left bronchus or lung; I11.0 Hypertensive heart disease with heart failure; I50.9 Heart failure, unspecified; J44.9 Chronic obstructive pulmonary disease, unspecified
CPT/HCPCS: 29125; 96374; 96375; 99284; J2270; J2405

== ENCOUNTER → 2024-01-06 09:48 | Outpatient (BNVA) | payer MEDICARE, MEDICAID, SELFPAY | PROVIDERS: PCP Family Medicine; Visit Provider Physician Assistant | DX: S52.501A Unspecified fracture of the lower end of right radius, initial encounter for closed fracture (principal); Y99.9 Unspecified external cause status | CPT/HCPCS: 73110 ==

== ENCOUNTER 2024-01-06 11:43 | Outpatient (CLI) | payer MEDICARE, MEDICAID, SELFPAY | END 2024-01-06 11:44 | disposition home or self-care (01) | LOC: SPT 11:45 | PROVIDERS: PCP Family Medicine; Visit Provider Physician Assistant | DX: Z46.89 Encounter for fitting and adjustment of other specified devices (principal); S62.101D Fracture of unspecified carpal bone, right wrist, subsequent encounter for fracture with routine healing; X58.XXXD Exposure to other specified factors, subsequent encounter | CPT/HCPCS: 97760; 99203; L3982 ==

== ENCOUNTER → 2024-01-20 09:50 | Outpatient (BNVA) | payer MEDICARE, MEDICAID, SELFPAY | PROVIDERS: PCP Family Medicine; Visit Provider Student in an Organized Health Care Education/Training Program | DX: S52.501A Unspecified fracture of the lower end of right radius, initial encounter for closed fracture (principal); X58.XXXA Exposure to other specified factors, initial encounter | CPT/HCPCS: 73110 ==

== ENCOUNTER 2024-01-20 10:56 | Outpatient (CLI) | payer MEDICARE, SELFPAY ==
--- NOTE | 2024-01-20 11:25 | XR_ITS ---
WS: [id number] Exam: XR lumbar spine min 4V [id number] Date/Time of Exam: 01/20/2024 11:49 AM Reason For Exam: LUMBAR BACK PAIN Comparison 11/14/2007. No acute fracture noted. Minimal degenerative anterolisthesis of L5 on S1. Facet arthropathy at all l evels. Mild spondylosis. Slight levoscoliosis. Aneurysmal dilatation of the lower abdominal aorta [place] suring about 4.3 cm by plain film measurement. There may be some magnification factor present. XR/XR lumbar spine min 4V [id number] IMPRESSION: 1. Degenerative changes of the lumbar spine as noted above. No fracture or sign ificant malalignment. 2. Aneurysmal dilatation of the abdominal aorta as noted above. Further work-up with CT or ultrasound is recommended for accurate assessment.
--- NOTE | 2024-01-20 11:25 | XR_ITS ---
WS: [id number] Exam: XR thoracic spine 3V* [id number] Date/Time of Exam: 01/20/2024 11:49 AM Reason For Exam: THORACIC BACK PAIN No acute fracture. Spondylosis and degenerative disc changes. Osteopenia. Partially visualized left l ower lobe atelectasis is seen. XR/XR thoracic spine 3V* [id number] IMPRESSION: 1. Degenerative changes and osteopenia of the T-spine. No fracture.
== END 2024-01-20 10:57 | disposition home or self-care (01) ==
PROVIDERS: PCP Nurse Practitioner Family; Visit Provider Nurse Practitioner Family
DX: M51.34 Other intervertebral disc degeneration, thoracic region (principal); M51.360 Other intervertebral disc degeneration, lumbar region with discogenic back pain only; M47.896 Other spondylosis, lumbar region; M85.80 Other specified disorders of bone density and structure, unspecified site; I71.40 Abdominal aortic aneurysm, without rupture, unspecified; J98.11 Atelectasis
CPT/HCPCS: 72072; 72110

== ENCOUNTER 2024-01-20 11:05 | Outpatient (CLI) | payer MEDICARE, SELFPAY | END 2024-01-20 11:06 | disposition home or self-care (01) | LOC: SPT 11:06 | PROVIDERS: PCP Nurse Practitioner Family; Visit Provider Student in an Organized Health Care Education/Training Program | DX: Z46.89 Encounter for fitting and adjustment of other specified devices (principal); S52.501S Unspecified fracture of the lower end of right radius, sequela; X58.XXXS Exposure to other specified factors, sequela | CPT/HCPCS: A4565 ==

== ENCOUNTER 2024-01-30 19:36 | Observation (INO) | payer MEDICARE, MEDICAID, SELFPAY ==
[2024-01-30] VITALS (15 sets, daily range): BP systolic 131–165; BP diastolic 81–113; PULSE 58–91; RESP 13–22; TEMP 36.7; O2SAT 92–97; BMI 26.4
--- NOTE | 2024-01-30 19:39 | ECG_ITS ---
[facility]: [facility]24-[facility]30 Pat Name: Samantha Lewis Department: Room: Gender: Female Deckhand: : 1940 Requested By: Arsalan Singh Order Number: [id number] Joanna MD: Bret Olguin M.D. Measurements Intervals [place] Rate: 94 P: 0 MD: 0 QRS: 34 QRSD: 90 T: 42 QT: 341 QTc: 428 Interpretive Statements ATRIAL FIBRILLATION Compared to ECG 01/01/2024 01:16:26 No significant changes Electronically Signed On 01-31-2024 21:34:16 COSMETIC DENTIST by Bret Olguin M.D. [email or web address]
--- NOTE | 2024-01-30 19:50 | XRR_ITS ---
PROCEDURE INFORMATION: Exam: XR Chest Exam date and time: 01/30/2024 7:56 PM Age: 83 years old Clinical indication: Pain; Chest pressure; Prior surgery; Surgery date: 6+ months; Surgery type: Lt lung; Additional info: Cp TECHNIQUE: Imaging protocol: Radiologic exam of the chest. Views: 1 view. COMPARISON: CR XR ribs RT mn 3V w CXR1V [id number] 11/29/2023 2:29 PM FINDINGS: Lungs: Patchy airspace opacities in the left lower lobe and to a lesser extent in the right lower lobe. Small bilateral calcified nodules. Pleural spaces: Small left pleural effusion. No pneumothorax. Heart/Mediastinum: Cardiomegaly, grossly stable. Bones/joints: No acute findings. XR/XR chest 1V portable [id number] IMPRESSION: 1. Bxzx-inrafyt-pxfr-right lower lobe patchy airspace opacities concerning for sequelae of infection in the proper clinical setting. 2. Small left pleural effusion.
--- NOTE | 2024-01-30 19:55 | CTR_ITS ---
PROCEDURE INFORMATION: Exam: CTA Chest With Contrast Exam date and time: 01/30/2024 8:32 PM Age: 83 years old Clinical indication: Abdominal pain; Generalized; Chest pressure; Additional info: Cp/abd pain TECHNIQUE: Imaging protocol: Computed tomographic angiography of the chest with contrast. Exam focused on the arteries. 3D rendering (Not supervised by radiologist): MIP and/or 3D reconstructed images were created by the technologist. Radiation optimization: All CT scans at this facility use at least one of these dose optimization techniques: automated exposure control; mA and/or kV adjustment per patient size (includes targeted exams where dose is matched to clinical indication); or iterative reconstruction. Contrast material: [id number]; Contrast volume: 100 ml; Contrast route: INTRAVENOUS (IV); COMPARISON: CT ang ches abdpel [id number] 07/09/2021 5:33 PM RADIATION DOSE METRICS: Total DLP (mGy-cm): 258.7 FINDINGS: Pulmonary arteries: Normal. No pulmonary emboli. Aorta: Ascending thoracic aorta dilated to 4 cm. Lungs: Emphysematous changes. Pleural spaces: Moderate to large loculated left pleural effusion. Heart: Cardiomegaly. Coronary arteries: Coronary artery atherosclerotic calcifications. Lymph nodes: Unremarkable. No enlarged lymph nodes. Bones/joints: L1 vertebral body superior endplate compression deformity without retropulsion of bony fragments, new compared to prior exam. T6 vertebral body hemangioma. Soft tissues: Unremarkable. PROCEDURE INFORMATION: Exam: CT Abdomen And Pelvis With Contrast Exam date and time: 01/30/2024 8:32 PM Age: 83 years old Clinical indication: Abdominal pain; Generalized; Chest pressure; Additional info: Cp/abd pain TECHNIQUE: Imaging protocol: Computed tomography of the abdomen and pelvis with contrast. Radiation optimization: All CT scans at this facility use at least one of these dose optimization techniques: automated exposure control; mA and/or kV adjustment per patient size (includes targeted exams where dose is matched to clinical indication); or iterative reconstruction. Contrast material: [id number]; Contrast volume: 100 ml; Contrast route: INTRAVENOUS (IV); COMPARISON: CT abdomen pelvis w con* [id number] 06/25/2022 3:31 PM RADIATION DOSE METRICS: Total DLP (mGy-cm): 411.98 FINDINGS: Liver: Normal. No mass. Gallbladder and biliary ducts: Cholecystectomy. Pancreas: Normal. No ductal dilation. Spleen: Normal. No splenomegaly. Adrenal glands: Normal. No mass. Kidneys and ureters: Bilateral punctate nonobstructing renal calyceal stones. Stomach and bowel: Diverticulosis without diverticulitis. Appendix: No evidence of appendicitis. Intraperitoneal space: Unremarkable. No free air. No significant fluid collection. Vasculature: Fusiform infrarenal abdominal aortic aneurysm measuring 4.2 cm in diameter scattered aortic atherosclerotic calcifications. Proximal renal artery atherosclerotic calcifications bilaterally with 70-80% luminal narrowing. Lymph nodes: Unremarkable. No enlarged lymph nodes. Urinary bladder: Unremarkable as visualized. Reproductive: Unremarkable as visualized. Bones/joints: Unremarkable. No acute fracture. Soft tissues: Unremarkable. CT/CT angio chest w abd pel w con IMPRESSION: 1. Negative for pulmonary embolus 2. Emphysematous changes. 3. Moderate to large loculated left pleural effusion. 4. 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 5. Coronary artery atherosclerotic calcifications. 6. Cardiomegaly. 7. L1 vertebral body superior endplate compression deformity without retropulsion of bony fragments, new compared to prior exam. 8. T6 vertebral body hemangioma. IMPRESSION: 1. Negative for focal acute inflammatory process in the abdomen or pelvis 2. Cholecystectomy. 3. Fusiform infrarenal abdominal aortic aneurysm measuring 4.2 cm in diameter scattered aortic atherosclerotic calcifications. 4. Bilateral punctate nonobstructing renal calyceal stones. 5. Diverticulosis without diverticulitis. 6. Proximal renal artery atherosclerotic calcifications bilaterally with 70-80% luminal narrowing.
[2024-01-30 19:57] LABS: Basophils % 0.4 %; Eosinophils # 0.2 10^3/uL (0.0-0.8); Eosinophils % 1.9 %; Hematocrit 40.4 % (36-47); Lymphocytes # 3.4 10^3/uL (0.8-4.8); Mean Corpuscular HGB Conc 32.2 g/dL (30-55); Mean Corpuscular Hemoglobin 28.3 pg (27-33); Mean Platelet Volume 13.1 fL (7.4-10.4); Monocytes # 1.1 10^3/uL (0.2-0.9); Neutrophils # 5.96 10^3/uL (1.8-7.7); Neutrophils % 55.3 %; Nucleated Red Blood Cells % 0 %; Platelet Count 255 10^3/cmm (157-399); Red Blood Count 4.59 10^6/uL (3.85-5.65); Red Cell Distribution Width 13.2 % (12.1-15.1); White Blood Count 10.76 10^3/uL (3.29-11.43)
--- NOTE | 2024-01-30 19:57 | ED_ITS ---
HPI - Abdominal Pain 2 General: Chief Complaint: Abdominal Pain Stated Complaint: ABD/BACK PAIN Time Seen by Provider: 01/30/24 19:42 Source: patient and EMS Mode of arrival: EMS Limitations: no limitations History of Present Illness: 83-year-old female states she has been h aving abdominal pain that radiates to her chest and back that started this morning states pain was a 7 out of 10 is improved with pain meds and route. She denies any fever shortness of breath denies any vomiting or diarrhea. She denies any worsening factors Associated Symptoms: Denies chills, diarrhea, fever(s), nausea and vomiting Related Data Home Medications Medication Instructions Recorded Confirmed rivaroxaban 20 mg tablet (Xarelto) 20 mg PO BEDTIME 07/03/19 01/20/24 escitalopram oxalate 10 mg tablet 10 mg PO DAILY 10/05/21 01/20/24 furosemide 40 mg tablet 40 mg PO QAM 10/05/21 01/20/24 ezetimibe 10 mg tablet 10 mg PO DAILY 04/22/23 01/20/24 levalbuterol tartrate 45 2 inh inhalation Q6H PRN Shortness 04/22/23 01/20/24 mcg/actuation aerosol inhaler Of Breath (Xopenex HFA) levothyroxine 50 mcg tablet 50 mcg PO QAM 04/22/23 01/20/24 fluticasone propionate 50 2 spray intranasal BEDTIME PRN 07/26/23 01/20/24 mcg/actuation nasal spray,suspension Previous Rx's Medication Instructions Recorded levalbuterol HCl 0.63 mg/3 mL 0.63 mg (3 mL) inhalation Q8H PRN 02/10/22 solution for nebulization shortness of breath or wheezing #270 mL pantoprazole 40 mg tablet,delayed 40 mg PO DAILY #30 tabs 03/25/22 release (Protonix) alprazolam 0.25 mg tablet 0.25 - 0.5 mg (1 - 2 x 0.25 mg) PO 04/09/22 DAILY PRN anxiety #60 tabs diltiazem HCl 300 mg 300 mg PO BEDTIME #90 caps 11/24/22 capsule,extended release 24 hr potassium chloride 20 mEq See Rx Instructions .Route 06/01/23 tablet,extended release .COMPLEX #30 tabs ciprofloxacin HCl 250 mg tablet 250 mg PO BID #10 tabs 10/01/24 (Cipro) Right distal radial fx fast form #1 ea 01/06/24 ondansetron HCl 4 mg tablet 4 mg PO Q6H PRN nausea and 01/06/24 vomiting #20 tabs Arm Sling #1 ea 01/20/24 tramadol 50 mg tablet 50 mg PO Q8H PRN pain 7 days #21 01/20/24 tabs Allergies Allergy/AdvReac Type Severity Reaction Status Date / Time codeine Allergy ADR-Halluci Verified 01/30/24 19:46 nating Sulfa (Sulfonamide Allergy ALGY-Swell Verified 01/30/24 19:46 Antibiotics) Lip/Tongue/Throat Review of Systems 2 Const: Denies: fever(s), chills, body aches or change in appetite ENMT: Denies: throat pain or dental pain Card: Reports: chest pain Resp: Denies: dyspnea GI: Reports: abdominal pain; Denies: nausea, vomiting or diarrhea Musc: Reports: back pain; Denies: neck pain Skin/Breast: Denies: rash Neuro: Denies: headache(s) PFSH ED 2 PFSH: Medical History MARCUS (generalized anxiety disorder) Hypothyroidism 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 Neuropathic pain CHF (congestive heart failure) Atrial fibrillation AAA (abdominal aortic aneurysm) HTN (hypertension) COPD (chronic obstructive pulmonary disease) Hyperlipidemia Family History Other CAD (coronary artery disease) Cancer Stroke Social History Smoking and tobacco/nicotine status: former use of tobacco/nicotine Quit status (tobacco/nicotine): has quit using Year quit tobacco: 1997 Former quit date comment: 0.5 ppd X 40 years Alcohol intake: never Substance/Drug Use: never Physical Exam 2 Const: COMMON NORMALS: no acute distress, patient oriented x3 and healthy appearing HENMT: COMMON NORMALS: normocephalic and atraumatic HEAD & SCALP: n ormocephalic and atraumatic Eye: COMMON NORMALS: conjunctivae normal CONJUNCTIVA: Yes conjunctivae normal Neck/C-Spine: COMMON NORMALS: full ROM and supple Chest: COMMONS NORMALS: normal inspection of the chest Resp: COMMON NORMALS: No retractions and No use of accessory muscles OTHER: decreased breath sounds on left Cardio: COMMON NORMALS: regular rate and No murmurs present (Cardio) RATE: regular rate RHYTHM: abnormal rhythm irregularly irregular GI: COMMON NORMALS: Normal to inspection, nondistended, normoactive bowel sounds present, Soft to palpation and no masses PALPATION: Yes Soft to palpation OTHER: diffuse mild tenderness Extremity: COMMON NORMALS: normal to inspection and full ROM Neuro: COMMON NORMALS: patient oriented x3, moves all extremities and no focal motor deficits Psych: COMMON NORMALS: mental status grossly normal, Normal thought process present and cooperative THOUGHT PROCESS: Normal thought process present Skin: COMMON NORMALS: no rashes or lesions noted and no wounds GENERAL SKIN EXAM: no rashes or lesions noted Course 2 Vital Signs: Vital signs: Vital Signs Temperature 98.1 F 01/30/24 19:38 Pulse Rate 73 01/30/24 20:15 Respiratory Rate 15 01/30/24 20:15 Blood Pressure 142/91 01/30/24 20:01 Pulse Oximetry 94 01/30/24 20:15 Oxygen Delivery Me thod Room Air 01/30/24 20:15 Oxygen Flow Rate 2 01/30/24 19:38 MDM - Abdominal Pain Medical Decision Making Patient presents here with chest abdominal pain she is also complaining of some dyspnea CT shows a loculated pleural effusion spoke to hospitalist will admit for observation start IV antibiotics. Medical Records I reviewed the patient's medical records. Lab Data I reviewed the patient's lab results. 01/30/24 19:15 01/30/24 19:15 Labs/Radiology: Radiology Impressions Chest X-Ray 01/30/24 19:50 IMPRESSION: 1. Wvxn-prupsmx-mrmo-right lower lobe patchy airspace opacities concerning for sequelae of infection in the proper clinical setting. 2. Small left pleural effusion. Chest/Abdomen/Pelvis CT 01/30/24 19:55 IMPRESSION: 1. Negative for pulmonary embolus 2. Emphysematous changes. 3. Moderate to large loculated left pleural effusion. 4. 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 5. Coronary artery atherosclerotic calcifications. 6. Cardiomegaly. 7. L1 vertebral body superior endplate compression deformity without retropulsion of bony fragments, new compared to prior exam. 8. T6 vertebral body hemangioma. IMPRESSION: 1. Negative for focal acute inflammatory process in the abdomen or pelvis 2. Cholecystectomy. 3. Fusiform infrarenal abdominal aortic aneurysm measuring 4.2 cm in diameter scattered aortic atherosclerotic calcifications. 4. Bilateral punctate nonobstructing renal calyceal stones. 5. Diverticulosis without diverticulitis. 6. Proximal renal artery atherosclerotic calcifications bilaterally with 70-80% luminal narrowing. Laboratory Results WBC 10.76 10^3/uL (3.29-11.43) 01/30/24 19:15 RBC 4.59 10^6/uL (3.85-5.65) 01/30/24 19:15 Hgb 13.00 g/dL (11.27-16.99) 01/30/24 19:15 Hct 40.4 % (36-47) 01/30/24 19:15 MCV 88.0 fl (85-98) 01/30/24 19:15 MCH 28.3 pg (27-33) 01/30/24 19:15 MCHC 32.2 g/dL (30-55) 01/30/24 19:15 RDW 13.2 % (12.1-15.1) 01/30/24 19:15 Plt Count 255 10^3/cmm (157-399) 01/30/24 19:15 MPV 13.1 fL (7.4-10.4) H 01/30/24 19:15 Neut % (Auto) 55.3 % 01/30/24 19:15 Lymph % (Auto) 32.0 % 01/30/24 19:15 [place] % (Auto) 10.0 % 01/30/24 19:15 Eos % (Auto) 1.9 % 01/30/24 19:15 Baso % (Auto) 0.4 % 01/30/24 19:15 Neut # (Auto) 5.96 10^3/uL (1.8-7.7) 01/30/24 19:15 Lymph # (Auto) 3.4 10^3/uL (0.8-4.8) 01/30/24 19:15 [place] # (Auto) 1.1 10^3/uL (0.2-0.9) H 01/30/24 19:15 Eos # (Auto) 0.2 10^3/uL (0.0-0.8) 01/30/24 19:15 Baso # (Auto) 0.0 10^3/uL (0.0-0.1) 01/30/24 19:15 Nucleated RBC % (auto) 0 % 01/30/24 19:15 Nucleated RBCs # 0.0 /100WBC 01/30/24 19:15 Sodium 135 mmol/L (136-145) L 01/30/24 19:15 Potassium 3.6 mmol/L (3.5-5.1) 01/30/24 19:15 Chloride 95 mmol/L (98-107) L 01/30/24 19:15 Carbon Dioxide 29 mmol/L (22-29) 01/30/24 19:15 Anion Gap 14.6 (5-19) 01/30/24 19:15 BUN 10 mg/dL (8-23) 01/30/24 19:15 Creatinine 0.9 mg/dL (0.5-0.9) 01/30/24 19:15 GFR Calculation Not Reportable 01/30/24 19:15 Glucose 97 mg/dL (65-115) 01/30/24 19:15 Calculated Osmolality 279 mOsm/kg (285-295) L 01/30/24 19:15 Calcium 10.8 mg/dL (8.5-10.5) H 01/30/24 19:15 Total Bilirubin 0.4 mg/dL (0.15-1.2) 01/30/24 19:15 AST 16 U/L (0-32) 01/30/24 19:15 ALT 9 U/L (0-33) 01/30/24 19:15 Alkaline Phosphatase 123 U/L (35-105) H 01/30/24 19:15 Troponin T Baseline 15 ng/L (0-10) H 01/30/24 19:15 Total Protein 7.0 g/dL (6.6-8.7) 01/30/24 19:15 Albumin 4.4 g/dL (3.5-5.2) 01/30/24 19:15 Globulin 2.6 g/dL (1.3-4.6) 01/30/24 19:15 Lipase 44 U/L (13-60) 01/30/24 19:15 Urine Color Yellow (Yellow) 01/30/24 19:52 Urine Appearance Clear (CLEAR) 01/30/24 19:52 Urine pH 6.5 (5-7) 01/30/24 19:52 Ur Specific [place] 1.007 (1.005-1.030) 01/30/24 19:52 Urine Protein Negative (Negative) 01/30/24 19:52 Urine Glucose (UA) Negative (Normal) 01/30/24 19:52 Urine Ketones Negative (Negative) 01/30/24 19:52 Urine Blood Negative (Negative) 01/30/24 19:52 Urine Nitrate Negative (Negative) 01/30/24 19:52 Urine Bilirubin Negative (Negative) 01/30/24 19:52 Urine Urobilinogen 1.0 mg/dL (Negative) 01/30/24 19:52 Ur Leukocyte Esterase Trace (Negative) A 01/30/24 19:52 Urine RBC 0-2 /hpf (0-2) 01/30/24 19:52 Urine WBC 0-5 /hpf (0-5) 01/30/24 19:52 Ur Squamous Epith Cells 0-5 /hpf (0-5) 01/30/24 19:52 Amorphous Sediment Not Reportable 01/30/24 19:52 Urine Bacteria None seen /hpf (NONE) 01/30/24 19:52 Hyaline Casts 0-4 /lpf H 01/30/24 19:52 All radiology interpretation(s) finalized by discharge EKG Data EKG 1: I personally reviewed and interpreted this EKG as follows: EKG interpretation date: 01/30/24 EKG interpretation time: 19:39 Interpretation: afib hr [address] elevation qrs 90 qtc 393 Discharge Plan Discharge Patient Disposition: Admitted As Inpatient Clinical Impression: Pleural effusion, Chest pain Condition: Stable Prescriptions: No Action furosemide 40 mg tablet 40 mg PO QAM Xarelto 20 mg tablet 20 mg PO BEDTIME escitalopram oxalate 10 mg tablet 10 mg PO DAILY (DME) Right distal radial fx fast form See Rx Instructions .Route .MEDSUPPLY Qty: 1 0RF Rx Instructions: As directed ondansetron HCl 4 mg tablet 4 mg PO Q6H PRN (Reason: nausea and vomiting) Qty: 20 0RF pantoprazole [Protonix] 40 mg tablet,delayed release (DR/EC) 40 mg PO DAILY Qty: 30 1RF (DME) Arm Sling See Rx Instructions .Route .MEDSUPPLY Qty: 1 0RF Rx Instructions: As directed tramadol 50 mg tablet 50 mg PO Q8H PRN (Reason: pain) 7 Days Qty: 21 0RF levalbuterol HCl 0.63 mg/3 mL solution for nebulization 0.63 mg inhalation Q8H PRN (Reason: shortness of breath or wheezing) Qty: 270 2RF alprazolam 0.25 mg tablet 0.25 - 0.5 mg PO DAILY PRN (Reason: anxiety) Qty: 60 0RF diltiazem HCl 300 mg capsule,extended release 24hr 300 mg PO BEDTIME Qty: 90 0RF potassium chloride 20 mEq tablet extended release See Rx Instructions .ROUTE .COMPLEX Qty: 30 0RF Dose Instruction: TAKE 1 TABLET BY MOUTH DAILY Rx Instructions: TAKE 1 TABLET BY MOUTH DAILY levothyroxine 50 mcg tablet 50 mcg PO QAM ezetimibe 10 mg tablet 10 mg PO DAILY Xopenex HFA 45 mcg/actuation HFA aerosol inhaler 2 inh inhalation Q6H PRN (Reason: Shortness Of Breath) fluticasone propionate 50 mcg/actuation spray,suspension 2 spray INTRANASAL BEDTIME PRN ciprofloxacin HCl [Cipro] 250 mg tablet 250 mg PO BID Qty: 10 0RF Referrals: Lucinda Sanford FNP [Primary Care Provider] - Coding Level of Care Code ED Principle Software Engineer for [facility] Noland
[2024-01-30 19:59] LABS: Bilirubin Urine Negative (Negative); Blood Urine Negative (Negative); Glucose Urine UA Negative (Normal); Ketones Urine Negative (Negative); Leukocyte Esterase Urine Trace (Negative); Nitrate Urine Negative (Negative); Protein Urine Negative (Negative); Specific Gravity, Urine 1.007 (1.005-1.030); Urine Appearance Clear (CLEAR); Urine Color Yellow (Yellow); pH Urine 6.5 (5-7)
[2024-01-30 20:17] LABS: Add Urine Microscopic? YES; Bacteria Urine None Seen /hpf; Hyaline Casts Urine 0-4 /lpf; RBC Urine 0-2 /hpf (0-2); Squamous Epithelial Cell Urine 0-5 /hpf (0-5); WBC Urine 0-5 /hpf (0-5)
[2024-01-30 20:18] LABS: Troponin(5th) Baseline 15 ng/L (0-10)
[2024-01-30 20:19] LABS: Alanine Aminotransferase 9 U/L (0-33); Albumin Level 4.4 g/dL (3.5-5.2); Alkaline Phosphatase 123 U/L (35-105); Anion Gap 14.6 (5-19); Aspartate Amino Transferase 16 U/L (0-32); Blood Urea Nitrogen 10 mg/dL (8-23); Calcium 10.8 mg/dL (8.5-10.5); Carbon Dioxide 29 mmol/L (22-29); Chloride 95 mmol/L (98-107); Creatinine Clr Calc Pharmacy 47.0243; Globulin 2.6 g/dL (1.3-4.6); Glucose 97 mg/dL (65-115); Lipase 44 U/L (13-60); Osmolality Calculated 279 mOsm/kg (285-295); Potassium 3.6 mmol/L (3.5-5.1); Sodium 135 mmol/L (136-145); Total Bilirubin 0.4 mg/dL (0.15-1.2)
[2024-01-30] MEDS: iohexol 350 mg/mL 500 mL Btl (per mL) IV (20:35)
--- NOTE | 2024-01-30 21:52 | PM.HP ---
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 Patient is stating that after taking all of her medications around 7 PM she went to bed and then she start experiencing worsening of left-sided chest pain, she could not breathe, before that she was experiencing bodyaches all over, no recent fever nausea vomiting diarrhea or productive cough. Patient notified her son and son called EMS. Patient recently had a mechanical/fall with trauma to her right hand seeing Dr. Spencer. Has a splint. She has history of A-fib took Xarelto at 7 PM 01/29. Patient was given fentanyl by the EMS her pain subsided. By the time I saw her she is hemodynamically stable currently on room air, no leukocytosis or fever, CT chest is showing loculated effusion, I have clearly stated to the patient that it could be empyema and she needs to be transferred for a pulling unit operator and chest tube placement but nothing will be done because she has taken Xarelto, patient does not want to be transferred at this point stating that she would like to get opinion from interventional radiology and if they are able to do it here she rather stay in [place] Review of records revealed that patient was seeing Dr. Ayoub, she has COPD severe obstructive sleep apnea, abdominal aortic aneurysm which has been stable interventions, Dr. Cooper ordered repeat CT scan on 10/26/2021 which showed interval increase in size of left lower lobe pulmonary nodule measuring 12 mm with slight spiculation. Follow-up PET/CT on 11/07/2021 showed 1.1 cm left lower lobe pulmonary nodule with SUV 6.7 high probability of malignancy. Equivocal activity in multiple mediastinal nodes appearance is more typical for reactive adenopathy than malignancy. With significant concerns for malignancy she was referred to [facility] for CT-guided biopsy which showed moderately differentiated nonkeratinizing squamous cell carcinoma with necrosis consistent with a lung primary. High-grade squamous dysplasia involving bronchial epithelium. Review of Systems Const: Reports: chills and body aches; Denies: fever(s) Eyes: Denies: change in vision ENMT: Denies: throat pain Card: Reports: chest pain Resp: Reports: dyspnea Medications/Allergies Home Medications Medication Instructions Recorded Confirmed Last Taken Type rivaroxaban 20 mg tablet (Xarelto) 20 mg PO BEDTIME 07/03/19 01/20/24 04/21/23 History escitalopram oxalate 10 mg tablet 10 mg PO DAILY 10/05/21 01/20/24 01/31/22 History furosemide 40 mg tablet 40 mg PO QAM 10/05/21 01/20/24 04/21/23 History levalbuterol HCl 0.63 mg/3 mL 0.63 mg (3 mL) inhalation Q8H PRN 02/10/22 01/20/24 Unknown Rx solution for nebulization shortness of breath or wheezing #270 mL pantoprazole 40 mg tablet,delayed 40 mg PO DAILY #30 tabs 03/25/22 01/20/24 Unknown Rx release (Protonix) alprazolam 0.25 mg tablet 0.25 - 0.5 mg (1 - 2 x 0.25 mg) PO 04/09/22 01/20/24 Unknown Rx DAILY PRN anxiety #60 tabs diltiazem HCl 300 mg 300 mg PO BEDTIME #90 caps 11/24/22 01/20/24 Unknown Rx capsule,extended release 24 hr ezetimibe 10 mg tablet 10 mg PO DAILY 04/22/23 01/20/24 Unknown History levalbuterol tartrate 45 2 inh inhalation Q6H PRN Shortness 04/22/23 01/20/24 Unknown History mcg/actuation aerosol inhaler Of Breath (Xopenex HFA) levothyroxine 50 mcg tablet 50 mcg PO QAM 04/22/23 01/20/24 04/22/23 History potassium chloride 20 mEq See Rx Instructions .Route 06/01/23 01/20/24 Unknown Rx tablet,extended release .COMPLEX #30 tabs fluticasone propionate 50 2 spray intranasal BEDTIME PRN 07/26/23 01/20/24 Unknown History mcg/actuation nasal spray,suspension ciprofloxacin HCl 250 mg tablet 250 mg PO BID #10 tabs 11/29/23 01/20/24 Unknown Rx (Cipro) Right distal radial fx fast form #1 ea 01/06/24 01/20/24 Unknown Rx ondansetron HCl 4 mg tablet 4 mg PO Q6H PRN nausea and 01/06/24 01/20/24 Unknown Rx vomiting #20 tabs Arm Sling #1 ea 01/20/24 01/20/24 Unknown Rx tramadol 50 mg tablet 50 mg PO Q8H PRN pain 7 days #21 01/20/24 01/20/24 Unknown Rx tabs Allergies Allergy/AdvReac Type Severity Reaction Status Date / Time codeine Allergy ADR-Halluci Verified 01/30/24 19:46 nating Sulfa (Sulfonamide Allergy ALGY-Swell Verified 01/30/24 19:46 Antibiotics) Lip/Tongue/Throat PFSH Acute PFSH: Medical History MARCUS (generalized anxiety disorder) Hypothyroidism 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 Neuropathic pain CHF (congestive heart failure) Atrial fibrillation AAA (abdominal aortic aneurysm) HTN (hypertension) COPD (chronic obstructive pulmonary disease) Hyperlipidemia Family History Other CAD (coronary artery disease) Cancer Stroke Social History Smoking and tobacco/nicotine status: former use of tobacco/nicotine Quit status (tobacco/nicotine): has quit using Year quit tobacco: 1997 Former quit date comment: 0.5 ppd X 40 years Alcohol intake: never Substance/Drug Use: never Vitals/I&O/Wt Last Vital Signs Temp 98.1 F 01/30/24 19:38 Pulse 73 01/30/24 20:15 Resp 15 01/30/24 20:15 BP 142/91 01/30/24 20:01 Pulse Ox 94 01/30/24 20:15 O2 Del Method Room Air 01/30/24 20:15 O2 Flow Rate 2 01/30/24 19:38 Weight last 48 hrs Weight 69.853 kg Physical Exam Narrative: Awake and alert GCS 15 Currently on room air No active chest pain Pleasant and cooperative Euvolemic Nonfocal neuroexam Family at the bedside Pleasant and cooperative S1, S2 Has a splint in right arm Data 01/30/24 19:15 01/30/24 19:15 A&P Assessment and plan (1) HTN (hypertension): (2) CHF (congestive heart failure): Qualifiers: Heart failure type: diastolic Heart failure chronicity: chronic Qualified Code(s): I50.32 - Chronic diastolic (congestive) heart failure (3) Atrial fibrillation: Qualifiers: Atrial fibrillation type: other persistent Qualified Code(s): I48.19 - Other persistent atrial fibrillation (4) AAA (abdominal aortic aneurysm): (5) Obstructive sleep apnea: (6) Pleural effusion: (7) Squamous cell carcinoma of left lung: (8) Loculated pleural effusion: Plan Loculated left-sided effusion No fever or leukocytosis No active shortness of breath No active chest pain Review of records revealed that she has chronic left rib pain, squamous cell cancer of left lung status post lobectomy Postsurgical changes with atelectasis however pleural effusion loculation is new Patient is well aware that this could be empyema which needs to be drained, she has taken Xarelto 7 PM, she is wanting IR opinion first before making a decision whether she will be okay with transfer to [place] at this point she wants to stay in [place] I will start patient on IV antibiotics and resume Xopenex AAA: Dimensions of aneurysm has not changed, no active chest pain radiation towards her back, hemodynamically stable Patient has severe obstructive sleep apnea will use CPAP/2 L of oxygen at nighttime Patient lives with her son Last dose of Xarelto 7 PM 01/29 Will keep her on cardiac diet Continue diuresis Congestive heart failure no acute exacerbation continue home regimen of Lasix History of hypothyroidism continue levothyroxine 50 mcg A-fib without RVR continue AV barb blocking agent hold Xarelto, will put her on DVT prophylactic regimen of Lovenox Attestations Medical Necessity Statement*: Anticipating discharge within 48 hours Diagnoses Essential hypertension I10 Chronic diastolic congestive heart failure I50.32 Heart failure type: diastolic Heart failure chronicity: chronic Other persistent atrial fibrillation I48.19 Atrial fibrillation type: other persistent Abdominal aortic aneurysm (AAA) without rupture I71.4 Obstructive sleep apnea G47.33 Pleural effusion J90 Squamous cell carcinoma of left lung C34.92 Loculated pleural effusion J90
[2024-01-30] MEDS: cefTRIAXone 1,000 mg SDV 1000 MG IVP (21:53)
[2024-01-30] MEDS: AZITHROMYCIN ADD-Vantage 500 MG in 0.9% NaCl ADD-Vantage 250 ML 250 MG IV (22:05)
[2024-01-30 22:13] LABS: Lactate Dehydrogenase 172 U/L (135-214)
[2024-01-30 22:17] LABS: Reflex FDPQ test REFLEX FDP QUEST TES
[2024-01-30 22:26] LABS: Troponin 5 2HR 14.08 ng/L (0-10)
[2024-01-30 22:36] LABS: Troponin 5 2HR Delta -0.92 ABS# (0-10)
[2024-01-30 22:42] LABS: INR 4.13 (0.8-1.2)
[2024-01-30 22:43] LABS: Partial Thromboplastin Time 56.5 SECONDS (23.9-36.7)
[2024-01-30 22:50] LABS: D Dimer 2.33 ug/mLFEU (0-0.59)
[2024-01-30 23:06] LABS: Fibrinogen 415 mg/dL (174-498)
--- NOTE | 2024-01-30 23:43 | PC.NURSE ---
Patient states she currently uses [facility], but she would like to use [facility] in the future. Patient does not have a list of her home medications with her, but says that she has been here recently, so that her list should be pretty up to date.
[2024-01-31] VITALS (8 sets, daily range): BP systolic 133–165; BP diastolic 67–83; PULSE 64–82; RESP 16–18; TEMP 36.3–36.9; O2SAT 91–95
[2024-01-31] MEDS: vancomycin 1,500 MG/300 ML PIGGYBACK 200 MG IV (00:40)
[2024-01-31] MEDS: acetaminophen 500 mg Tablet PO (00:47)
[2024-01-31 01:41] LABS: Basophils % 0.5 %; Eosinophils # 0.2 10^3/uL (0.0-0.8); Eosinophils % 1.9 %; Hematocrit 34.8 % (36-47); Lymphocytes # 2.2 10^3/uL (0.8-4.8); Lymphocytes % 28.7 %; Mean Corpuscular HGB Conc 31.6 g/dL (30-55); Mean Corpuscular Hemoglobin 28.2 pg (27-33); Mean Corpuscular Volume 89.2 fl (85-98); Mean Platelet Volume 12.2 fL (7.4-10.4); Monocytes # 0.9 10^3/uL (0.2-0.9); Monocytes % 11.1 %; Neutrophils # 4.42 10^3/uL (1.8-7.7); Neutrophils % 57.3 %; Nucleated Red Blood Cells % 0 %; Platelet Count 213 10^3/cmm (157-399); Red Cell Distribution Width 13.3 % (12.1-15.1); White Blood Count 7.73 10^3/uL (3.29-11.43)
--- NOTE | 2024-01-31 01:50 | ECG_ITS ---
[facility] Date: 2024-01-31 Pat Name: Samantha Lewis Department: Room: 277 Gender: Female Early Childhood Special Educator: : 1940 Requested By: Arsalan Singh Order Number: [id number] Joanna MD: Bret Olguin M.D. Measurements Intervals Aldie Rate: 69 P: 0 NV: 0 QRS: 54 QRSD: 81 T: 63 QT: 383 QTc: 412 Interpretive Statements ATRIAL FIBRILLATION ABNORMAL RHYTHM ECG Compared to ECG 01/30/2024 19:39:00 No significant changes Electronically Signed On 01-31-2024 21:54:27 ETHYL BLENDER by Bret Olguin M.D. [id number]
[2024-01-31 01:57] LABS: Troponin 5 6HR 14.69 ng/L (0-10)
[2024-01-31 01:59] LABS: Troponin 5 6HR Delta -0.31 ng/L (0-12)
[2024-01-31 02:00] LABS: Anion Gap 16.1 (5-19); Blood Urea Nitrogen 8 mg/dL (8-23); C Reactive Protein 29.9 mg/L (0.0-4.9); Calcium 9.1 mg/dL (8.5-10.5); Carbon Dioxide 26 mmol/L (22-29); Chloride 98 mmol/L (98-107); Creatinine Clr Calc Pharmacy 53.7869; Glucose 97 mg/dL (65-115); Magnesium 2.2 mg/dL (1.7-2.3); Osmolality Calculated 282 mOsm/kg (285-295); Potassium 3.1 mmol/L (3.5-5.1); Sodium 137 mmol/L (136-145)
[2024-01-31 02:01] LABS: MRSA PCR OZH (swab) NOT DETECTED (Not Detecte)
--- NOTE | 2024-01-31 02:01 | PC.NURSE ---
While Vancomycin was being administered, patient's scalp became red and itchy. Patient did not have itchy or redness anywhere else on her body, only her scalp. VSS. Dr. Burleson notified and ordered to stop the Vancomycin and give oral Benadryl 25 mg.
[2024-01-31] MEDS: diphenhydrAMINE 25 mg Capsule PO (02:29)
[2024-01-31] MEDS: piperacillin-tazobactam 3.375 GM in sodium chloride 0.9% (plus) 50 ML IV ×2 (02:30→10:47)
[2024-01-31] MEDS: FUROsemide 40 mg Tablet PO (05:39)
[2024-01-31] MEDS: levothyroxine 50 mcg Tablet PO (05:39)
--- NOTE | 2024-01-31 06:11 | PC.NURSE ---
Dr. Burleson notified that patient had a potassium of 3.1 that was drawn at 01:27 this morning and notified that patient just recently received 40 mg PO Lasix.
--- NOTE | 2024-01-31 08:35 | PHA.VACGOAL ---
Vancomycin Goal - Goal Vancomycin Goal:: 10-15 mg/L Vancomycin Indication:: Other - Therapy Current therapy:: Pip/Tazo Day of therpy:: Day 1 of [] Actual body weight (kg): 161 lb 4.8 oz - Data Labs: WBC 7.73 10^3/uL (3.29-11.43) 01/31/24 01:27 RBC 3.90 10^6/uL (3.85-5.65) 01/31/24 01:27 Hgb 11.00 g/dL (11.27-16.99) L 01/31/24 01:27 Hct 34.8 % (36-47) L 01/31/24 01:27 MCV 89.2 fl (85-98) 01/31/24 01:27 MCH 28.2 pg (27-33) 01/31/24 01:27 MCHC 31.6 g/dL (30-55) 01/31/24 01:27 RDW 13.3 % (12.1-15.1) 01/31/24 01:27 Sodium 137 mmol/L (136-145) 01/31/24 01:27 Potassium 3.1 mmol/L (3.5-5.1) L 01/31/24 01:27 Chloride 98 mmol/L (98-107) 01/31/24 01:27 Carbon Dioxide 26 mmol/L (22-29) 01/31/24 01:27 Anion Gap 16.1 (5-19) 01/31/24 01:27 BUN 8 mg/dL (8-23) 01/31/24 01:27 Creatinine 0.8 mg/dL (0.5-0.9) 01/31/24 01:27 GFR Calculation Not Reportable 01/31/24 01:27 Treatment plan:: new consult Regimen:: 1500 mg loading dose given Maintenance dose of 1250 mg Q24H Follow up:: WILL CONTINUE TO MONITOR AND FOLLOW UP DAILY
[2024-01-31] MEDS: potassium chloride ER 20 mEq Tablet PO ×2 (08:59→13:52)
[2024-01-31] MEDS: pantoprazole DR 40 mg Tablet PO (08:59)
[2024-01-31] MEDS: sennosides-docusate Tablet 1 TAB PO (08:59)
--- NOTE | 2024-01-31 09:14 | US_ITS ---
WS: [id number] INDICATION: Pleural effusion TECHNIQUE: Ultrasound chest FINDINGS: Small LEFT pleural effusion measuring 2.2 cm in maximum transverse dimension. This is insuf ficient for safe thoracentesis. No significant RIGHT pleural fluid. US/US chest [id number] IMPRESSION: See above
--- NOTE | 2024-01-31 10:24 | PC.CHAP ---
Pastoral Care Encounter/Spiritual Assessment Type of Contact [] Declined clinical lab assistant visit [] Patient/Family/Request visit [] Outpatient visit [] Follow-up visit [] Physician referral [] Code/Alert [x] Routine visit [] Staff referral [] Actively dying [] Patient sleeping [x] Family support [] [] Out of room [] Palliative care [] [] Receiving care in room [] Pre-surgical visit [] Trauma [] Long length of stay [] ICU visit [] Other: Relational/Emotional Strength [x] Patient feels connected with others/family/visitors/staff [] Distress [] Loneliness/isolation [] Abandonment Spirituality of Patient [x] Person of Marlin [] Attends Druze of their Marlin [x] Believes in Prayer [] Reads Bible or Confucianist materials [] There are Spiritual issues to be addressed Gas Line Repairer Interventions [x] Prayer [x] Active listening [] Non-anxious presence [x] Spiritual/emotional support [] Crisis/trauma care [] Spiritual counseling [] Bereavement support [] Provided bereavement packet [] Provided Bible/devotional materials [] Provided toy/stuffed animal, coloring book to patient or family member [] Provided Communion [] Anointing/[place] [] Salvation [x] Completed spiritual assessment [] Other: Impact on Illness or Injury [] Angry [] Fearful [] Anxious [] Often cries [] Exhaustion [] Unable to work [] Unable to attend church [] Unable to walk/stand [] Unable to read [] Unable to drive [] Unable to eat/drink [] Unable to sleep [] Unable to be with family [] Patient intubated [] Other: Summary Time spent with patient 5 min
--- NOTE | 2024-01-31 13:34 | P.DS_ITS ---
Discharge Providers Date of Admission: 01/30/24 21:47 Date of Discharge: January 31, 2024 Attending Provider at Admission: Isabela Burleson MD Attending Provider at Discharge: Isabela Burleson MD Primary Care Provider: Lucinda Sanford Diagnoses at Discharge Discharge Diagnosis (1) HTN (hypertension): Status: Acute (2) CHF (congestive heart failure): Status: Acute Qualifiers: Heart failure chronicity: chronic Heart failure type: diastolic Qualified Code(s): I50.32 - Chronic diastolic (congestive) heart failure (3) Atrial fibrillation: Status: Acute Qualifiers: Atrial fibrillation type: other persistent Qualified Code(s): I48.19 - Other persistent atrial fibrillation (4) AAA (abdominal aortic aneurysm): Status: Acute (5) Obstructive sleep apnea: Status: Acute (6) Pleural effusion: Status: Acute (7) Squamous cell carcinoma of left lung: Status: Acute (8) Loculated pleural effusion: Status: Acute Reason for Visit Reason for Visit: ABD/BACK PAIN Brief History: Samantha Lewis is a 83 year old female who chronic left-sided rib pain, lobectomy secondary to cancer squamous cell, severe obstructive sleep apnea uses 2 L at baseline, present to the hospital with epigastric and left-sided chest pain. Patient is stating that after taking all of her medications around 7 PM she went to bed and then she start experiencing worsening of left-sided chest pain, she could not breathe, before that she was experiencing bodyaches all over, no recent fever nausea vomiting diarrhea or productive cough. Patient notified her son and son called EMS. Patient recently had a mechanical/fall with trauma to her right hand seeing Dr. Spencer. Has a splint. She has history of A-fib took Xarelto at 7 PM 01/29. Patient was given fentanyl by the EMS her pain subsided. By the time I saw her she is hemodynamically stable currently on room air, no leukocytosis or fever, CT chest is showing loculated effusion, I have clearly stated to the patient that it could be empyema and she needs to be transferred for a rigger third and chest tube placement but nothing will be done because she has taken Xarelto, patient does not want to be transferred at this point stating that she would like to get opinion from interventional radiology and if they are able to do it here she rather stay in [place] Review of records revealed that patient was seeing Dr. Ayoub, she has COPD severe obstructive sleep apnea, abdominal aortic aneurysm which has been stable interventions, Dr. Cooper ordered repeat CT scan on 10/26/2021 which showed interval increase in size of left lower lobe pulmonary nodule measuring 12 mm with slight spiculation. Follow-up PET/CT on 11/07/2021 showed 1.1 cm left lower lobe pulmonary nodule with SUV 6.7 high probability of malignancy. Equivocal activity in multiple mediastinal nodes appearance is more typical for reactive adenopathy than malignancy. With significant concerns for malignancy she was referred to [facility] for CT-guided biopsy which showed moderately differentiated nonkeratinizing squamous cell carcinoma with necrosis consistent with a lung primary. High-grade squamous dysplasia involving bronchial epithelium. Hospital Course Hospital Course During hospital stay she remained afebrile, maintain saturation on room air, without tachypnea or tachycardia, had no leukocytosis. No suspicion of sepsis, no suggestion of complicated pneumonia or empyema. Noted loculated/complex pleural effusion on CT. As per prior discussion with patient and family as per their wishes contacted interventional radiology today, as per discussion effusion is rather small as opposed to the read on initial CT moderate to large. Additional assessment obtained with chest ultrasound to see if there is possibility to sampled effusion, which returned to be too small to be safely sampled at this time. On discussion she notes that her pain is pleuritic, rating through her back, around the lower chest and epigastrium. She is noted to have a new compression fracture of L1 with certainly could be responsible for her symptoms other than that complex infection itself. She is to continue with conservative management with lidocaine patch, acetaminophen, topical agents, heat/cold therapy. Please follow-up with regards to possible osteoporotic fracture, versus possible pathologic fracture/metastatic disease. In case of lack of improvement or worsening consider further of management. She is asked to follow-up with her oncologist. Please follow-up pleural effusion with reassessment imaging for further consideration of diagnostic thoracentesis in case of increasing effusion. Anticoagulation will need to be held in advance. Please follow-up additional incidental findings noted on CT imaging including aortic arch dilation 4 cm and infrarenal fusiform AAA, 4.2 cm. Emphysema, cardiomegaly, noted coronary and renal artery calcifications, punctate bilateral nephrolithiasis, diverticulosis. Physical Exam Const: COMMON NORMALS: patient oriented x3 and alert GENERAL APPEARANCE: cooperative ORIENTATION/CONSCIOUSNESS: Yes awake HENMT: COMMON NORMALS: oropharynx normal Neck/C-Spine: COMMON NORMALS: no JVD Resp: COMMON NORMALS: normal respiratory effort and clear to auscultation bilaterally AUSCULTATION: clear to auscultation bilaterally Cardio: COMMON NORMALS: no JVD, regular rhythm, S1 normal heart sound present, S2 normal heart sound present and No murmurs present (Cardio) RHYTHM: regular rhythm HEART SOUNDS: S1 normal heart sound present and S2 normal heart sound present GI: COMMON NORMALS: Normal to inspection, nondistended, normoactive bowel sounds present, Soft to palpation and non-tender PALPATION: Yes Soft to palpation Extremity: COMMON NORMALS: no joint enlargement and no pedal edema Neuro: COMMON NORMALS: patient oriented x3 and moves all extremities SENSORIUM/ORIENTATION: Yes alert Skin: COMMON NORMALS: no rashes or lesions noted GENERAL SKIN EXAM: no rashes or lesions noted Discharge Data Studies Completed and Pending Completed Studies During Hospitalization Category Date Time Status CT angio chest w abd pel w con Stat Cat Scan 01/30/24 19:55 Completed XR chest 1V portable [id number] Stat Exams 01/30/24 19:50 Completed [place] chest [id number] Routine Ultrasound 01/31/24 09:14 Completed Pending at discharge Category Date Time Status Blood Culture Stat Lab 01/30/24 21:37 Results Cell Count w Diff Pleural Fld Routine Lab 01/30/24 23:36 Uncollected Cyto Order Verification Routine Lab 01/30/24 23:36 Ordered Fibrinogen Degradation Product Routine Lab 01/30/24 22:17 Received Glucose Pleural Fluid Routine Lab 01/30/24 23:36 Uncollected LDH Pleural Fluid Routine Lab 01/30/24 23:36 Uncollected Pleural Fluid Albumin Routine Lab 01/30/24 23:36 Uncollected Pleural [Left Pleural Fluid Analysis] Routine Lab 01/30/24 23:36 Uncollected Sputum Culture and Gram Stain Routine Lab 01/30/24 23:36 Uncollected Total Protein Pleural Fluid Routine Lab 01/30/24 23:36 Uncollected pH Pleural Fluid Routine Lab 01/30/24 23:36 Uncollected Radiology Impressions Chest X-Ray 01/30/24 19:50 IMPRESSION: 1. Uptt-evmcsmu-cabh-right lower lobe patchy airspace opacities concerning for sequelae of infection in the proper clinical setting. 2. Small left pleural effusion. Chest/Abdomen/Pelvis CT 01/30/24 19:55 IMPRESSION: 1. Negative for pulmonary embolus 2. Emphysematous changes. 3. Moderate to large loculated left pleural effusion. 4. 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 5. Coronary artery atherosclerotic calcifications. 6. Cardiomegaly. 7. L1 vertebral body superior endplate compression deformity without retropulsion of bony fragments, new compared to prior exam. 8. T6 vertebral body hemangioma. IMPRESSION: 1. Negative for focal acute inflammatory process in the abdomen or pelvis 2. Cholecystectomy. 3. Fusiform infrarenal abdominal aortic aneurysm measuring 4.2 cm in diameter scattered aortic atherosclerotic calcifications. 4. Bilateral punctate nonobstructing renal calyceal stones. 5. Diverticulosis without diverticulitis. 6. Proximal renal artery atherosclerotic calcifications bilaterally with 70-80% luminal narrowing. Chest Ultrasound 01/31/24 09:14 IMPRESSION: See above Laboratory Results WBC 7.73 10^3/uL (3.29-11.43) 01/31/24 01:27 RBC 3.90 10^6/uL (3.85-5.65) 01/31/24 01:27 Hgb 11.00 g/dL (11.27-16.99) L 01/31/24 01:27 Hct 34.8 % (36-47) L 01/31/24 01:27 MCV 89.2 fl (85-98) 01/31/24 01:27 MCH 28.2 pg (27-33) 01/31/24 01:27 MCHC 31.6 g/dL (30-55) 01/31/24 01:27 RDW 13.3 % (12.1-15.1) 01/31/24 01:27 Plt Count 213 10^3/cmm (157-399) 01/31/24 01:27 MPV 12.2 fL (7.4-10.4) H 01/31/24 01:27 Neut % (Auto) 57.3 % 01/31/24 01:27 Lymph % (Auto) 28.7 % 01/31/24 01:27 [place] % (Auto) 11.1 % 01/31/24 01:27 Eos % (Auto) 1.9 % 01/31/24 01:27 Baso % (Auto) 0.5 % 01/31/24 01:27 Neut # (Auto) 4.42 10^3/uL (1.8-7.7) 01/31/24 01:27 Lymph # (Auto) 2.2 10^3/uL (0.8-4.8) 01/31/24 01:27 [place] # (Auto) 0.9 10^3/uL (0.2-0.9) 01/31/24 01:27 Eos # (Auto) 0.2 10^3/uL (0.0-0.8) 01/31/24 01:27 Baso # (Auto) 0.0 10^3/uL (0.0-0.1) 01/31/24 01:27 Nucleated RBC % (auto) 0 % 01/31/24 01: Nucleated RBCs # 0.0 /100WBC 01/31/24 01:27 PT 41.60 SECONDS (12.1-14.9) H 01/30/24 22:14 INR 4.13 (0.8-1.2) H 01/30/24 22:14 APTT 56.5 SECONDS (23.9-36.7) H 01/30/24 22:14 Fibrinogen 415 mg/dL (174-498) 01/30/24 22:14 D-Dimer 2.33 ug/mLFEU (0-0.59) H 01/30/24 22:14 Sodium 137 mmol/L (136-145) 01/31/24 01:27 Potassium 3.1 mmol/L (3.5-5.1) L 01/31/24 01:27 Chloride 98 mmol/L (98-107) 01/31/24 01:27 Carbon Dioxide 26 mmol/L (22-29) 01/31/24 01:27 Anion Gap 16.1 (5-19) 01/31/24 01:27 BUN 8 mg/dL (8-23) 01/31/24 01:27 Creatinine 0.8 mg/dL (0.5-0.9) 01/31/24 01:27 GFR Calculation Not Reportable 01/31/24 01:27 Glucose 97 mg/dL (65-115) 01/31/24 01:27 Calculated Osmolality 282 mOsm/kg (285-295) L 01/31/24 01:27 Calcium 9.1 mg/dL (8.5-10.5) 01/31/24 01:27 Magnesium 2.2 mg/dL (1.7-2.3) 01/31/24 01:27 Total Bilirubin 0.4 mg/dL (0.15-1.2) 01/30/24 19:15 AST 16 U/L (0-32) 01/30/24 19:15 ALT 9 U/L (0-33) 01/30/24 19:15 Alkaline Phosphatase 123 U/L (35-105) H 01/30/24 19:15 Lactate Dehydrogenase 172 U/L (135-214) 01/30/24 19:15 Troponin T Baseline 15 ng/L (0-10) H 01/30/24 19:15 Troponin T 120 Minute 14.08 ng/L (0-10) H 01/30/24 21:43 Delta Troponin T -0.92 ABS# (0-10) L 01/30/24 21:43 Troponin T Hi Sens 6Hr 14.69 ng/L (0-10) H 01/31/24 01:27 Troponin T Hi Sens 6Hr Delta -0.31 ng/L (0-12) L 01/31/24 01:27 C-Reactive Protein 29.9 mg/L (0.0-4.9) H 01/31/24 01:27 Total Protein 7.0 g/dL (6.6-8.7) 01/30/24 19:15 Albumin 4.4 g/dL (3.5-5.2) 01/30/24 19:15 Globulin 2.6 g/dL (1.3-4.6) 01/30/24 19:15 Lipase 44 U/L (13-60) 01/30/24 19:15 Urine Color Yellow (Yellow) 01/30/24 19:52 Urine Appearance Clear (CLEAR) 01/30/24 19:52 Urine pH 6.5 (5-7) 01/30/24 19:52 Ur Specific [place] 1.007 (1.005-1.030) 01/30/24 19:52 Urine Protein Negative (Negative) 01/30/24 19:52 Urine Glucose (UA) Negative (Normal) 01/30/24 19:52 Urine Ketones Negative (Negative) 01/30/24 19:52 Urine Blood Negative (Negative) 01/30/24 19:52 Urine Nitrate Negative (Negative) 01/30/24 19:52 Urine Bilirubin Negative (Negative) 01/30/24 19:52 Urine Urobilinogen 1.0 mg/dL (Negative) 01/30/24 19:52 Ur Leukocyte Esterase Trace (Negative) A 01/30/24 19:52 Urine RBC 0-2 /hpf (0-2) 01/30/24 19:52 Urine WBC 0-5 /hpf (0-5) 01/30/24 19:52 Ur Squamous Epith Cells 0-5 /hpf (0-5) 01/30/24 19:52 Amorphous Sediment Not Reportable 01/30/24 19:52 Urine Bacteria None seen /hpf (NONE) 01/30/24 19:52 Hyaline Casts 0-4 /lpf H 01/30/24 19:52 Nasal MRSA (PCR) Not detected (Not Detecte) 01/31/24 00:30 Vitals Last Vital Signs Temp 97.3 F L 01/31/24 12:12 Pulse 79 01/31/24 12:12 Resp 16 01/31/24 12:12 BP 133/71 01/31/24 12:12 Pulse Ox 91 01/31/24 12:12 O2 Del Method Room Air 01/31/24 12:12 O2 Flow Rate 2 01/30/24 19:38 Discharge Plan Discharge Patient Disposition: Home Condition: Stable Prescriptions: New lidocaine 5 % adhesive patch,medicated 1 patch topical DAILY Qty: 15 0RF Rx Instructions: Upper part of lower back. leave on most painful area for up to 12 hrs acetaminophen 500 mg Tablet 500 mg PO Q4H PRN (Reason: fever) Qty: 30 3RF Continued furosemide 40 mg tablet 40 mg PO QAM Xarelto 20 mg tablet 20 mg PO BEDTIME (DME) Right distal radial fx fast form See Rx Instructions .Route .MEDSUPPLY Qty: 1 0RF Rx Instructions: As directed ondansetron HCl 4 mg tablet 4 mg PO Q6H PRN (Reason: nausea and vomiting) Qty: 20 0RF pantoprazole [Protonix] 40 mg tablet,delayed release (DR/EC) 40 mg PO DAILY Qty: 30 1RF (DME) Arm Sling See Rx Instructions .Route .MEDSUPPLY Qty: 1 0RF Rx Instructions: As directed tramadol 50 mg tablet 50 mg PO Q8H PRN (Reason: pain) 7 Days Qty: 21 0RF diltiazem HCl 300 mg capsule,extended release 24hr 300 mg PO BEDTIME Qty: 90 0RF potassium chloride 20 mEq tablet extended release See Rx Instructions .ROUTE .COMPLEX Qty: 30 0RF Dose Instruction: TAKE 1 TABLET BY MOUTH DAILY Rx Instructions: TAKE 1 TABLET BY MOUTH DAILY levothyroxine 50 mcg tablet 50 mcg PO QAM levalbuterol tartrate [Xopenex HFA] 45 mcg/actuation HFA aerosol inhaler 2 inh inhalation Q6H PRN (Reason: Shortness Of Breath) docusate sodium 100 mg capsule 100 mg PO BID Discharge Orders: Discharge Order (Routine); Ordered 01/31/24 Ordered By: Franc Perkins Referrals: Your, oncologist [Other] - 4-7 days (Loculated pleural effusion, L vertebral fracture.) Lucinda Sanford FNP [Primary Care Provider] - 02/03/24 10:30 am (Appointment will be at the [facility] [address]!) Discharge Diet: As Directed and Cardiac Discharge Activity: Increase activity as tolerated Patient Instructions: Lidocaine Patch (On the skin), Pleural Effusion (GEN), Opioid Safety Activity Restrictions/Additional Instructions: Please follow-up with your primary provider for reassessment of L1 compression fracture. Use lidocaine patch, capsaicin and/were mental, cool or warming pack, which ever provides best relief. Please use incentive spirometer. Please further visit with your primary provider and cancer doctor for additional workup of possible osteoporosis versus metastatic/pathologic fracture as well as treatment. In case of lack of improvement or worsening symptoms, discuss with your primary provider consideration of referral for vertebroplasty. Please follow-up with your primary doctor for reassessment of loculated left lung pleural effusion, reassessment imaging to confirm that it is not expanding. The effusion was too small to try to aspirate at current time. Follow-up with your prime provider to reassess in case this changes allowing a diagnostic sample at that time. Your blood thinner medication would have to be held beforehand. Continue follow-up with your primary provider with regards to lung cancer. Please follow-up with your primary doctor regarding other incidentally noted findings on CT as discussed including emphysema, cardiomegaly as well as ascending thoracic dilation (4 cm) as well as infrarenal aortic aneurysm (4.2 cm), tiny bilateral kidney stones. As well as calcification of coronary arteries around your heart and calcifications of arteries supplying both kidneys. As discussed, seek medical attention in case of any worsening or new concerning symptoms. Discharge Attestations Time Spent in Discharge Care*: greater than 30 min Status at Discharge: Cognitive status at discharge: cognitively intact , Behavioral status at discharge: cooperative , Quality Metrics Clinical Quality Measures [ No reported AMI, CVA or VTE this stay] Coding Level of Care Code 82011 Total time (in minutes) for Discharge: 65 Diagnoses Essential hypertension I10 Chronic diastolic congestive heart failure I50.32 Heart failure chronicity: chronic Heart failure type: diastolic Other persistent atrial fibrillation I48.19 Atrial fibrillation type: other persistent Abdominal aortic aneurysm (AAA) without rupture I71.4 Obstructive sleep apnea G47.33 Pleural effusion J90 Squamous cell carcinoma of left lung C34.92 Loculated pleural effusion J90
[2024-02-09 00:19] LABS: Fibrinogen Degradation Product <5 mcg/mL (LESS THAN 5)
== END 2024-01-31 14:46 | disposition home or self-care (01) ==
LOC: ER 22:08 → MEDSURG 22:47
PROVIDERS: Admitting Provider Internal Medicine; Emergency Provider Emergency Medicine; PCP Nurse Practitioner Family; Visit Provider Internal Medicine
DX: J90 Pleural effusion, not elsewhere classified (principal); I11.0 Hypertensive heart disease with heart failure; I50.32 Chronic diastolic (congestive) heart failure; I48.19 Other persistent atrial fibrillation; I71.40 Abdominal aortic aneurysm, without rupture, unspecified; G47.33 Obstructive sleep apnea (adult) (pediatric); C34.92 Malignant neoplasm of unspecified part of left bronchus or lung; Z90.89 Acquired absence of other organs; Z91.81 History of falling; I48.91 Unspecified atrial fibrillation; Z79.01 Long term (current) use of anticoagulants; J44.9 Chronic obstructive pulmonary disease, unspecified; F41.1 Generalized anxiety disorder; E03.9 Hypothyroidism, unspecified; E78.5 Hyperlipidemia, unspecified; Z87.891 Personal history of nicotine dependence
CPT/HCPCS: 36415; 71045; 71275; 74177; 76604; 80048; 80053; 81001; 83615; 83690; 83735; 84484; 85025; 85362; 85378; 85384; 85610; 85730; 86140; 87040; 93005; 96365; 96367; 96375; 99285; G0378; J0456; J0696; J2543; J3370; J7050

== ENCOUNTER → 2024-02-10 10:16 | Outpatient (BNVA) | payer MEDICARE, MEDICAID, SELFPAY | PROVIDERS: PCP Nurse Practitioner Family; Visit Provider Student in an Organized Health Care Education/Training Program | DX: S52.501A Unspecified fracture of the lower end of right radius, initial encounter for closed fracture (principal); X58.XXXA Exposure to other specified factors, initial encounter | CPT/HCPCS: 73110; 99213 ==

== ENCOUNTER 2024-02-10 10:58 | Outpatient (CLI) | payer MEDICARE, MEDICAID, SELFPAY | END 2024-02-10 10:59 | disposition home or self-care (01) | LOC: SPT 10:59 | PROVIDERS: PCP Nurse Practitioner Family; Visit Provider Student in an Organized Health Care Education/Training Program | DX: Z46.89 Encounter for fitting and adjustment of other specified devices (principal); S62.101S Fracture of unspecified carpal bone, right wrist, sequela; X58.XXXS Exposure to other specified factors, sequela | CPT/HCPCS: L3908 ==

== ENCOUNTER 2024-02-19 07:31 | Inpatient (IN) | payer MEDICARE, MEDICAID, SELFPAY ==
[2024-02-19] VITALS (14 sets, daily range): BP systolic 117–176; BP diastolic 69–123; PULSE 69–97; RESP 16–20; TEMP 36.4–36.8; O2SAT 90–96; BMI 24.7; BMI 25.0
--- NOTE | 2024-02-19 07:36 | XRR_ITS ---
PROCEDURE INFORMATION: Exam: XR Chest Exam date and time: 02/19/2024 7:50 AM Age: 83 years old Clinical indication: Cough and dyspnea; Additional info: Weakness TECHNIQUE: Imaging protocol: Radiologic exam of the chest. Views: 1 view. Other technique: Frontal portable upright view of the chest. COMPARISON: CT angio chest w abd pel w con 01/30/2024 8:32 PM FINDINGS: Tubes, catheters and devices: EKG leads are present overlying the chest. Lungs: Left basilar pulmonary partial atelectasis/infiltrate. Right mid and lower lung zone calcified pulmonary parenchymal granulomas. The pulmonary vasculature is normal. Pleural spaces: Moderate subpulmonic left pleural effusion. No pneumothorax. Heart/Mediastinum: The heart is normal in size and contour. Mediastinum: Stable. 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 Bones/joints: Stable. XR/XR chest 1V portable [id number] IMPRESSION: 1. Left basilar pulmonary partial atelectasis/infiltrate. Pneumonia is difficult to exclude. Clinical correlation is recommended. 2. Moderate subpulmonic left pleural effusion. 3. Aortic arch ectasia, stable.
--- NOTE | 2024-02-19 07:37 | ECG_ITS ---
[facility] Test Date: 2024-02-19 Pat Name: Samantha Lewis Department: Room: Gender: Female Reserve Operator: : 1940 Requested By: Arsalan Singh Order Number: [id number] Joanna MD: Bret Olguin M.D. Measurements Intervals [place] Rate: 98 P: 0 NC: 0 QRS: 35 QRSD: 87 T: 69 QT: 337 QTc: 431 Interpretive Statements ATRIAL FIBRILLATION Compared to ECG 01/31/2024 02:01:05 No significant changes Electronically Signed On 02-20-2024 20:14:54 DISTRIBUTION MANAGER by Bret Olguin M.D. [email or web address]
--- NOTE | 2024-02-19 07:39 | CTR_ITS ---
PROCEDURE INFORMATION: Exam: CT Head Without Contrast Exam date and time: 02/19/2024 7:48 AM Age: 83 years old Clinical indication: Stroke-like symptoms; Drowsines/somnolence; Additional info: Weakness TECHNIQUE: Imaging protocol: Computed tomography of the head without contrast. Radiation optimization: All CT scans at this facility use at least one of these dose optimization techniques: automated exposure control; mA and/or kV adjustment per patient size (includes targeted exams where dose is matched to clinical indication); or iterative reconstruction. Other technique: STROKE PROTOCOL was implemented. 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 Moderate hypoattenuating foci are noted in the central cerebral, posterior superior periatrial and anterior lateral ventricular periventricular white matter bilaterally. No intracranial hemorrhage. No mass or acute cortical infarction identified. Ventricles: Prominence of the ventricular system and subarachnoid spaces is consistent with the patient's age of 83 years. Paranasal sinuses: Visualized sinuses are unremarkable. No fluid levels. Mastoid air cells: Visualized mastoid air cells are well aerated. Orbital cavities: Bilateral prior cataract surgery with lens replacements. Bones: Unremarkable. No acute fracture. Soft tissues: Unremarkable. Vasculature: Atherosclerotic calcifications are present involving the basilar artery, and the carotid artery siphons and vertebral arteries bilaterally. CT/CT head wo con* [id number] IMPRESSION: 1. 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 2. Age appropriate supratentorial and infratentorial atrophy. 3. Moderate chronic white matter microvascular ischemic disease. 4. No acute intracranial abnormality identified. ASSESSMENT: ASPECTS ([place] Stroke Program Early CT Score) is 10.
--- NOTE | 2024-02-19 07:40 | ED_ITS ---
HPI - Weakness 2 General: Chief complaint: Weakness Stated complaint: weakness; afib Time Seen by Provider: 02/19/24 07:35 Source: patient and EMS Mode of arrival: EMS Limitations: no limitations History of Present Illness: 83-year-old female who states that she i s started to have some generalized weakness last night she states that she feels weak when she tries to walk and feels like she is going to pass out she denies any syncopal events she denies headache denies any chest pain she states she is feels very weak no focal deficits Associated symptoms: Denies chest pain, chills, fever(s), headache(s), nausea or vomiting Review of Systems 2 Const: Reports: fatigue and malaise; Denies: fever(s), chills, body aches or change in appetite Eyes: Denies: blurry vision or eye discomfort ENMT: Denies: throat pain or dental pain Card: Reports: pre-syncope; Denies: chest pain Resp: Denies: dyspnea GI: Denies: abdominal pain, nausea, vomiting or diarrhea Musc: Denies: neck pain or back pain Skin/Breast: Denies: rash Neuro: Denies: headache(s) PFSH ED 2 PFSH: Medical History MARCUS (generalized anxiety disorder) Hypothyroidism 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 Neuropathic pain CHF (congestive heart failure) Atrial fibrillation AAA (abdominal aortic aneurysm) HTN (hypertension) COPD (chronic obstructive pulmonary disease) Hyperlipidemia Family History Other CAD (coronary artery disease) Cancer Stroke Social History Smoking and tobacco/nicotine status: former use of tobacco/nicotine Quit status (tobacco/nicotine): has quit using Year quit tobacco: 1997 Former quit date comment: 0.5 ppd X 40 years Alcohol intake: never Substance/Drug Use: never Physical Exam 2 Const: COMMON NORMALS: patient oriented x3 HENMT: COMMON NORMALS: normocephalic and atraumatic HEAD & SCALP: n ormocephalic and atraumatic Eye: COMMON NORMALS: Equal, round and reactive pupils present and EOMs intact bilaterally PUPIL: Yes Equal, round and reactive pupils present Neck/C-Spine: COMMON NORMALS: full ROM and supple Chest: COMMONS NORMALS: normal inspection of the chest Resp: COMMON NORMALS: normal respiratory effort, No retractions, No use of accessory muscles and clear to auscultation bilaterally AUSCULTATION: clear to auscultation bilaterally Cardio: COMMON NORMALS: regular rate, regular rhythm and No murmurs present (Cardio) RATE: regular rate RHYTHM: regular rhythm GI: COMMON NORMALS: Normal to inspection, nondistended, normoactive bowel sounds present, Soft to palpation, non-tender and no masses PALPATION: Yes Soft to palpation Extremity: COMMON NORMALS: normal to inspection and full ROM Neuro: COMMON NORMALS: patient oriented x3, moves all extremities and no focal motor deficits CRANIAL NERVES: Yes CN normal except as noted SPEECH: s peech normal MOTOR EXAM: 5/5 motor strength present throughout Psych: COMMON NORMALS: mental status grossly normal, Normal thought process present and cooperative THOUGHT PROCESS: Normal thought process present Skin: COMMON NORMALS: no rashes or lesions noted and no wounds GENERAL SKIN EXAM: no rashes or lesions noted Course 2 Vital Signs: Vital signs: Vital Signs Temperature 98.3 F 02/19/24 07:31 Pulse Rate 76 02/19/24 08:30 Respiratory Rate 20 H 02/19/24 07:31 Blood Pressure 137/88 02/19/24 08:30 Pulse Oximetry 95 02/19/24 08:30 Oxygen Delivery Me thod Room Air 02/19/24 08:30 MDM - Weakness Medical Decision Making Patient presents here with generalized weakness along with some dizziness this all began last night she has had a difficult time walking here NIH here is 0 no signs of any focal deficits her head CT showed no acute abnormality she does have a large pleural effusion likely pneumonia could be causing her symptoms patient's last known well was last night spoke to the hospitalist will admit at this time Medical Records I reviewed the patient's medical records. Lab Data I reviewed the patient's lab results. 02/19/24 07:05 02/19/24 07:05 Radiology Impressions Chest X-Ray 02/19/24 07:36 IMPRESSION: 1. Left basilar pulmonary partial atelectasis/infiltrate. Pneumonia is difficult to exclude. Clinical correlation is recommended. 2. Moderate subpulmonic left pleural effusion. 3. Aortic arch ectasia, stable. Head CT 02/19/24 07:39 IMPRESSION: 1. 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 2. Age appropriate supratentorial and infratentorial atrophy. 3. Moderate chronic white matter microvascular ischemic disease. 4. No acute intracranial abnormality identified. ASSESSMENT: ASPECTS ([place] Stroke Program Early CT Score) is 10. ADDENDUM: 02/19/24 0804 THIS REPORT CONTAINS FINDINGS THAT MAY BE CRITICAL TO PATIENT CARE. The findings were verbally communicated by me to DR. LEONCIO LANDEROS via telephone conference at 8:01 AM CAMPAIGN MANAGER on 02/19/2024. The findings were acknowledged and understood. Chest CT 02/19/24 07:57 IMPRESSION: 1. Lingular pulmonary nodule. Pulmonary neoplasia not excluded. PET/CT or percutaneous needle biopsy recommended (modified from Nora et al., Fleischner Society, 2017). 2. New right middle lobe noncalcified nodule. . Impression. Fleischner Society recommendations not given pending assessment of the above. 3. Tree in bud density right middle and upper lobes. Early pneumonia is not excluded. Clinical correlation is recommended. 4. Ascending aortic ectasia, stable. 5. Moderately large left dependent pleural effusion with intrafissural extension, interval mild posterior pleural thickening. 6. Coronary atherosclerosis. 7. Infrarenal abdominal aortic aneurysm, stable as visualized. 8. Prior cholecystectomy. 9. Nonspecific interval hyperostosis of the posterior left 7th and 8th ribs. 10. Subacute splenic infarction. 11. Mild bilateral renal cortical scarring. 12. Diverticulosis. Laboratory Results WBC 9.14 10^3/uL (3.29-11.43) 02/19/24 07:05 RBC 5.01 10^6/uL (3.85-5.65) 02/19/24 07:05 Hgb 14.40 g/dL (11.27-16.99) 02/19/24 07:05 Hct 44.1 % (36-47) 02/19/24 07:05 MCV 88.0 fl (85-98) 02/19/24 07:05 MCH 28.7 pg (27-33) 02/19/24 07:05 MCHC 32.7 g/dL (30-55) 02/19/24 07:05 RDW 13.2 % (12.1-15.1) 02/19/24 07:05 Plt Count 243 10^3/cmm (157-399) 02/19/24 07:05 MPV 13.3 fL (7.4-10.4) H 02/19/24 07:05 Neut % (Auto) 56.6 % 02/19/24 07:05 Lymph % (Auto) 33.4 % 02/19/24 07:05 [place] % (Auto) 7.0 % 02/19/24 07:05 Eos % (Auto) 2.1 % 02/19/24 07:05 Baso % (Auto) 0.7 % 02/19/24 07:05 Neut # (Auto) 5.18 10^3/uL (1.8-7.7) 02/19/24 07:05 Lymph # (Auto) 3.1 10^3/uL (0.8-4.8) 02/19/24 07:05 [place] # (Auto) 0.6 10^3/uL (0.2-0.9) 02/19/24 07:05 Eos # (Auto) 0.2 10^3/uL (0.0-0.8) 02/19/24 07:05 Baso # (Auto) 0.1 10^3/uL (0.0-0.1) 02/19/24 07:05 Nucleated RBC % (auto) 0 % 02/19/24 07:05 Nucleated RBCs # 0.0 /100WBC 02/19/24 07:05 PT 23.40 SECONDS (12.1-14.9) H 02/19/24 07:05 INR 2.00 (0.8-1.2) H 02/19/24 07:05 Sodium 143 mmol/L (136-145) 02/19/24 07:05 Potassium 3.4 mmol/L (3.5-5.1) L 02/19/24 07:05 Chloride 102 mmol/L (98-107) 02/19/24 07:05 Carbon Dioxide 27 mmol/L (22-29) 02/19/24 07:05 Anion Gap 17.4 (5-19) 02/19/24 07:05 BUN 11 mg/dL (8-23) 02/19/24 07:05 Creatinine 0.9 mg/dL (0.5-0.9) 02/19/24 07:05 GFR Calculation Not Reportable 02/19/24 07:05 Glucose 117 mg/dL (65-115) H 02/19/24 07:05 Calculated Osmolality 296 mOsm/kg (285-295) H 02/19/24 07:05 Calcium 10.6 mg/dL (8.5-10.5) H 02/19/24 07:05 Total Bilirubin 0.5 mg/dL (0.15-1.2) 02/19/24 07:05 AST 17 U/L (0-32) 02/19/24 07:05 ALT 11 U/L (0-33) 02/19/24 07:05 Alkaline Phosphatase 111 U/L (35-105) H 02/19/24 07:05 Total Protein 7.8 g/dL (6.6-8.7) 02/19/24 07:05 Albumin 4.6 g/dL (3.5-5.2) 02/19/24 07:05 Globulin 3.2 g/dL (1.3-4.6) 02/19/24 07:05 Urine Color Yellow (Yellow) 02/19/24 07:41 Urine Appearance Clear (CLEAR) 02/19/24 07:41 Urine pH 8.0 (5-7) A 02/19/24 07:41 Ur Specific [place] 1.007 (1.005-1.030) 02/19/24 07:41 Urine Protein Negative (Negative) 02/19/24 07:41 Urine Glucose (UA) Negative (Normal) 02/19/24 07:41 Urine Ketones Negative (Negative) 02/19/24 07:41 Urine Blood Negative (Negative) 02/19/24 07:41 Urine Nitrate Negative (Negative) 02/19/24 07:41 Urine Bilirubin Negative (Negative) 02/19/24 07:41 Urine Urobilinogen 0.2 mg/dL (Negative) 02/19/24 07:41 Ur Leukocyte Esterase Negative (Negative) 02/19/24 07:41 Urine RBC 0-2 /hpf (0-2) 02/19/24 07:41 Urine WBC 0-5 /hpf (0-5) 02/19/24 07:41 Ur Squamous Epith Cells 0-5 /hpf (0-5) 02/19/24 07:41 Amorphous Sediment Not Reportable 02/19/24 07:41 Urine Bacteria None seen /hpf (NONE) 02/19/24 07:41 Hyaline Casts 0.40 /lpf 02/19/24 07:41 All radiology interpretation(s) finalized by discharge EKG Data EKG 1: I personally reviewed and interpreted this EKG as follows: EKG interpretation date: 02/19/24 EKG interpretation time: 07:37 Interpretation: afib hr [address] elevation qrs 87 qtc 392 Discharge Plan Discharge Patient Disposition: Admitted As Inpatient Clinical Impression: Pneumonia, Pleural effusion, Weakness, Dizziness Condition: Stable Coding Level of Care Code ED Product Safety Tester for Chg Fwd Related Data Home Medications Medication Instructions Recorded Confirmed rivaroxaban 20 mg tablet (Xarelto) 20 mg PO BEDTIME 07/03/19 02/10/24 furosemide 40 mg tablet 40 mg PO QAM 10/05/21 02/10/24 levalbuterol tartrate 45 2 inh inhalation Q6H PRN Shortness 04/22/23 02/10/24 mcg/actuation aerosol inhaler Of Breath (Xopenex HFA) levothyroxine 50 mcg tablet 50 mcg PO QAM 04/22/23 02/10/24 docusate sodium 100 mg capsule 100 mg PO BID 01/31/24 02/10/24 Previous Rx's Medication Instructions Recorded pantoprazole 40 mg tablet,delayed 40 mg PO DAILY #30 tabs 03/25/22 release (Protonix) diltiazem HCl 300 mg 300 mg PO BEDTIME #90 caps 11/24/22 capsule,extended release 24 hr potassium chloride 20 mEq See Rx Instructions .Route 06/01/23 tablet,extended release .COMPLEX #30 tabs Right distal radial fx fast form #1 ea 01/06/24 ondansetron HCl 4 mg tablet 4 mg PO Q6H PRN nausea and 01/06/24 vomiting #20 tabs Arm Sling #1 ea 01/20/24 tramadol 50 mg tablet 50 mg PO Q8H PRN pain 7 days #21 01/20/24 tabs acetaminophen 500 mg tablet 500 mg PO Q4H PRN fever #30 tabs 01/31/24 lidocaine 5 % topical patch 1 patch topical DAILY #15 ea 01/31/24 Velcro Right wrist brace #1 ea 12/13/24 Allergies Allergy/AdvReac Type Severity Reaction Status Date / Time codeine Allergy ADR-Halluci Verified 02/10/24 10:16 nating Sulfa (Sulfonamide Allergy ALGY-Swell Verified 02/10/24 10:16 Antibiotics) Lip/Tongue/Throat vancomycin Allergy ALGY-Redness Verified 02/10/24 10:16 of Skin NIH stroke score NIHSS Level Of Consciousness - 1a: 0 Level Of Consciousness Questions - 1b: Both Correct Level Of Consciousness Commands - 1c: Both Correct Best Gaze - 2: Normal Visual Escobar - 3: No Visual Loss Facial Palsy - 4: Normal Motor Arm Right - 5: No Drift Motor Arm Left - 5: No Drift Motor Leg Right - 6: No Drift Motor Leg Left - 6: No Drift Limb Ataxia - 7: Absent Sensory - 8: Normal Best Language - 9: No Aphasia Dysarthia - 10: Normal Extinction And Inattention - 11: 0 Score Total Score: 0
[2024-02-19 07:48] LABS: Basophils # 0.1 10^3/uL (0.0-0.1); Basophils % 0.7 %; Eosinophils # 0.2 10^3/uL (0.0-0.8); Eosinophils % 2.1 %; Hematocrit 44.1 % (36-47); Lymphocytes # 3.1 10^3/uL (0.8-4.8); Lymphocytes % 33.4 %; Mean Corpuscular HGB Conc 32.7 g/dL (30-55); Mean Corpuscular Hemoglobin 28.7 pg (27-33); Mean Platelet Volume 13.3 fL (7.4-10.4); Monocytes # 0.6 10^3/uL (0.2-0.9); Neutrophils # 5.18 10^3/uL (1.8-7.7); Neutrophils % 56.6 %; Nucleated Red Blood Cells % 0 %; Platelet Count 243 10^3/cmm (157-399); Red Blood Count 5.01 10^6/uL (3.85-5.65); Red Cell Distribution Width 13.2 % (12.1-15.1); White Blood Count 9.14 10^3/uL (3.29-11.43)
--- NOTE | 2024-02-19 07:57 | CTR_ITS ---
PROCEDURE INFORMATION: Exam: CT Chest With Contrast; Diagnostic Exam date and time: 02/19/2024 8:07 AM Age: 83 years old Clinical indication: Abnormal findings; Abnormal radiologic exam of lung or chest; Prior surgery; Surgery date: 6+ months; Surgery type: Lt lung gb; Additional info: Mass TECHNIQUE: Imaging protocol: Diagnostic computed tomography of the chest with contrast. Radiation optimization: All CT scans at this facility use at least one of these dose optimization techniques: automated exposure control; mA and/or kV adjustment per patient size (includes targeted exams where dose is matched to clinical indication); or iterative reconstruction. Contrast material: OMNI 350; Contrast volume: 100 ml; Contrast route: INTRAVENOUS (IV); COMPARISON: 1. CT angio chest w abd pel w con 01/30/2024 8:[address] chest wo con [id number] 05/13/2023 8:39 AM RADIATION DOSE METRICS: Total DLP (mGy-cm): 278.81 FINDINGS: Thyroid: The bilateral thyroid lobes are unremarkable. Lungs: Left upper lobe calcified pulmonary parenchymal granuloma. A 13.8 x 6.4 mm noncalcified pulmonary nodule with pleural retraction is redemonstrated in the superior segment of the lingula (LOC 160), stable. Right middle lobe medial segment 8.8 x 6.2 mm noncalcified nodule, new, with surrounding tree in bud density. Additional tree in bud density in the right upper lobe anterior segment. Bilateral lower lobe, and lingular calcified pulmonary parenchymal granulomas. Postsurgical changes left posterior lung base redemonstrated. Pleural spaces: Moderately large left dependent pleural effusion with intrafissural extension, interval mild posterior pleural thickening. No pneumothorax. Heart: No cardiomegaly. No pericardial effusion. Coronary arteries: LAD, LCx and RCA calcified coronary atherosclerosis. Lymph nodes: Right hilar granulomatous barb calcifications are present. Vasculature: Moderate aortic arch, branch, and descending thoracic aortic atherosclerotic calcification. Ascending aortic ectasia measuring 4.1 cm. No pulmonary artery embolism identified. No thoracic aortic dissection identified. Infrarenal abdominal aortic aneurysm is present measuring 4.0 cm AP dimension, incompletely imaged inferiorly. There is no evidence of rupture or leakage. Gallbladder and biliary ducts: The gallbladder is surgically absent, with metallic clips in the gallbladder fossa. Spleen: The spleen demonstrates several small calcifications consistent with healed granulomatous disease. Anterior inferior likely subacute (mild volume loss) splenic infarction, measuring approximately 2.7 x 3.0 x 4.7 cm. Kidneys: Mild bilateral renal cortical scarring. Intestine: Distal transverse colonic diverticula are present without evidence of diverticulitis. Bones/joints: Mild interval T12 vertebral body compression deformity, likely chronic. Clinical correlation with the patient's specific symptomatology is recommended. Nonspecific interval hyperostosis of the posterior left 7th and 8th ribs (series 7, image 6). Diffuse osteopenia. Mild leftward upper thoracic, rightward thoracic spinal curvature. Soft tissues: Unremarkable. CT/CT chest w con* [id number] IMPRESSION: 1. Lingular pulmonary nodule. Pulmonary neoplasia not excluded. PET/CT or percutaneous needle biopsy recommended (modified from Nora et al., Fleischner Society, 2017). 2. New right middle lobe noncalcified nodule. . Impression. Fleischner Society recommendations not given pending assessment of the above. 3. Tree in bud density right middle and upper lobes. Early pneumonia is not excluded. Clinical correlation is recommended. 4. Ascending aortic ectasia, stable. 5. Moderately large left dependent pleural effusion with intrafissural extension, interval mild posterior pleural thickening. 6. Coronary atherosclerosis. 7. Infrarenal abdominal aortic aneurysm, stable as visualized. 8. Prior cholecystectomy. 9. Nonspecific interval hyperostosis of the posterior left 7th and 8th ribs. 10. Subacute splenic infarction. 11. Mild bilateral renal cortical scarring. 12. Diverticulosis.
[2024-02-19] MEDS: labetalol 5 mg/mL SDV 20mL 10 MG IVP (08:00)
[2024-02-19 08:07] LABS: Alanine Aminotransferase 11 U/L (0-33); Albumin Level 4.6 g/dL (3.5-5.2); Alkaline Phosphatase 111 U/L (35-105); Anion Gap 17.4 (5-19); Aspartate Amino Transferase 17 U/L (0-32); Blood Urea Nitrogen 11 mg/dL (8-23); Calcium 10.6 mg/dL (8.5-10.5); Carbon Dioxide 27 mmol/L (22-29); Chloride 102 mmol/L (98-107); Creatinine Clr Calc Pharmacy 43.9905; Globulin 3.2 g/dL (1.3-4.6); Glucose 117 mg/dL (65-115); Osmolality Calculated 296 mOsm/kg (285-295); Potassium 3.4 mmol/L (3.5-5.1); Sodium 143 mmol/L (136-145); Total Bilirubin 0.5 mg/dL (0.15-1.2); Total Protein 7.8 g/dL (6.6-8.7)
[2024-02-19] MEDS: iohexol 350 mg/mL 500 mL Btl (per mL) IV (08:14)
[2024-02-19 08:15] LABS: Bilirubin Urine Negative (Negative); Blood Urine Negative (Negative); Glucose Urine UA Negative (Normal); Ketones Urine Negative (Negative); Leukocyte Esterase Urine Negative (Negative); Nitrate Urine Negative (Negative); Protein Urine Negative (Negative); Specific Gravity, Urine 1.007 (1.005-1.030); Urine Appearance Clear (CLEAR); Urine Color Yellow (Yellow); Urobilinogen Urine 0.2 mg/dL (Negative)
[2024-02-19 08:18] LABS: Add Urine Microscopic? YES; Bacteria Urine None Seen /hpf; RBC Urine 0-2 /hpf (0-2); Squamous Epithelial Cell Urine 0-5 /hpf (0-5); WBC Urine 0-5 /hpf (0-5)
[2024-02-19] MEDS: aspirin 81 mg Chew Tablet 324 MG PO (08:57)
[2024-02-19] MEDS: meclizine 25 mg tablet 50 MG PO (08:57)
[2024-02-19] MEDS: cefTRIAXone 1,000 mg SDV 1000 MG IVP (09:55)
[2024-02-19] MEDS: AZITHROMYCIN ADD-Vantage 500 MG in 0.9% NaCl ADD-Vantage 250 ML 250 MG IV (09:57)
--- NOTE | 2024-02-19 11:46 | P.HP_ITS ---
Providers/Chief Complaint 2 Admitting Physician: Franc Perkins Chief Complaint: weakness; afib History of Present Illness Pleasant 83-year-old lady with history of squamous cell lung cancer, status post lobectomy, severe PRIYANKA, on 2 L at baseline, who presented to the hospital due to generalized weakness, received a call from ER that she has been weak to the point of having difficulty walking, having productive cough, with suspicion of pneumonia with tree-in-bud density in right middle and upper lobes. Additionally noted lingular pulmonary nodule, as well as moderately large left lower dependent pleural effusion with interval mild posterior pleural thickening. She states that she has been having productive cough. Some malaise, body aches, headache, generally not feeling well and weak. Review of Systems 2 Const: Reports: chills, body aches and malaise; Denies: fever(s) ENMT: Denies: throat pain Card: Denies: chest pain, edema, pre-syncope or dyspnea on exertion Resp: Reports: dyspnea and productive cough; Denies: change in phlegm color or hemoptysis GI: Denies: abdominal pain, nausea, vomiting, diarrhea, constipation, hematochezia or melena : Denies: flank pain, urinary frequency or hematuria Musc: Denies: back pain, joint swelling or joint redness Skin/Breast: Denies: rash or new lesions Neuro: Reports: headache(s); Denies: dizziness Medications/Allergies Home Medications Medication Instructions Recorded Confirmed Last Taken Type rivaroxaban 20 mg tablet (Xarelto) 20 mg PO BEDTIME 07/03/19 02/19/24 02/18/24 History furosemide 40 mg tablet 40 mg PO QAM 10/05/21 02/19/24 02/18/24 History pantoprazole 40 mg tablet,delayed 40 mg PO DAILY #30 tabs 03/25/22 02/19/24 02/18/24 Rx release (Protonix) diltiazem HCl 300 mg 300 mg PO BEDTIME #90 caps 11/24/22 02/19/24 02/18/24 Rx capsule,extended release 24 hr levalbuterol tartrate 45 2 inh inhalation Q6H PRN Shortness 04/22/23 02/19/24 Unknown History mcg/actuation aerosol inhaler Of Breath (Xopenex HFA) levothyroxine 50 mcg tablet 50 mcg PO QAM 04/22/23 02/19/24 02/18/24 History Right distal radial fx fast form #1 ea 01/06/24 02/19/24 Unknown Rx ondansetron HCl 4 mg tablet 4 mg PO Q6H PRN nausea and 01/06/24 02/19/24 02/18/24 Rx vomiting #20 tabs Arm Sling #1 ea 01/20/24 02/19/24 Unknown Rx tramadol 50 mg tablet 50 mg PO Q8H PRN pain 7 days #21 01/20/24 02/19/24 Unknown Rx tabs acetaminophen 500 mg tablet 500 mg PO Q4H PRN fever #30 tabs 01/31/24 02/19/24 Unknown Rx docusate sodium 100 mg capsule 100 mg PO BID 01/31/24 02/19/24 02/18/24 History lidocaine 5 % topical patch 1 patch topical DAILY #15 ea 01/31/24 02/19/24 Unknown Rx Velcro Right wrist brace #1 ea 02/10/24 02/19/24 Unknown Rx albuterol sulfate 90 mcg/actuation 2 puff inhalation .Q4-6H PRN 02/19/24 02/19/24 Unknown History aerosol inhaler Shortness Of Breath Or Wheezing alendronate 10 mg tablet 10 mg PO DAILY 02/19/24 02/19/24 02/18/24 History amoxicillin 875 mg-potassium 1 tab PO BID 02/19/24 02/19/24 Unknown History clavulanate 125 mg tablet cholecalciferol (vitamin D3) 50 100 mcg PO DAILY 02/19/24 02/19/24 02/18/24 History mcg (2,000 unit) capsule (Vitamin D3) fluticasone propionate 50 2 spray intranasal DAILY 02/19/24 02/19/24 Unknown History mcg/actuation nasal spray,suspension (Flonase Allergy Relief) meclizine 25 mg tablet 25 mg PO Q6H PRN Dizziness Or 02/19/24 02/19/24 Unknown History Vertigo potassium chloride 20 mEq 20 meq PO DAILY 02/19/24 02/19/24 02/18/24 History tablet,extended release Allergies Allergy/AdvReac Type Severity Reaction Status Date / Time codeine Allergy ADR-Halluci Verified 02/10/24 10:16 nating Sulfa (Sulfonamide Allergy ALGY-Swell Verified 02/10/24 10:16 Antibiotics) Lip/Tongue/Throat vancomycin Allergy ALGY-Redness Verified 02/10/24 10:16 of Skin PFSH Acute 2 PFSH: Medical History MARCUS (generalized anxiety disorder) Hypothyroidism 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 Neuropathic pain CHF (congestive heart failure) Atrial fibrillation AAA (abdominal aortic aneurysm) HTN (hypertension) COPD (chronic obstructive pulmonary disease) Hyperlipidemia Family History Other CAD (coronary artery disease) Cancer Stroke Social History Smoking and tobacco/nicotine status: former use of tobacco/nicotine Quit status (tobacco/nicotine): has quit using Year quit tobacco: 1997 Former quit date comment: 0.5 ppd X 40 years Alcohol intake: never Substance/Drug Use: never Vitals/I&O/Wt Last Vital Signs Temp 98.3 F 02/19/24 07:31 Pulse 79 02/19/24 10:26 Resp 20 H 02/19/24 07:31 BP 155/88 02/19/24 10:26 Pulse Ox 95 02/19/24 10:26 O2 Del Method Room Air 02/19/24 09:00 02/18/24 02/19/24 02/19/24 22:59 06:59 14:59 Intake Total 550 / 550 Balance 550 / 550 Weight last 48 hrs Weight 63.503 kg Physical Exam 2 Const: COMMON NORMALS: patient oriented x3 and alert GENERAL APPEARANCE: c ooperative ORIENTATION/CONSCIOUSNESS: Yes awake HENMT: COMMON NORMALS: oropharynx normal Neck/C-Spine: COMMON NORMALS: no JVD Resp: COMMON NORMALS: normal respiratory effort and clear to auscultation bilaterally AUSCULTATION: clear to auscultation bilaterally and diminished lung sounds on the left in the lower lung naik Cardio: COMMON NORMALS: no JVD, regular rhythm, S1 normal heart sound present, S2 normal heart sound present and No murmurs present (Cardio) RHYTHM: regular rhythm HEART SOUNDS: S1 normal heart sound present and S2 normal heart sound present GI: COMMON NORMALS: Normal to inspection, nondistended, normoactive bowel sounds present, Soft to palpation and non-tender PALPATION: Yes Soft to palpation Extremity: COMMON NORMALS: no joint enlargement and no pedal edema Neuro: COMMON NORMALS: patient oriented x3 and moves all extremities S ENSORIUM/ORIENTATION: Yes alert Skin: COMMON NORMALS: no rashes or lesions noted GENERAL SKIN EXAM: no rashes or lesions noted Data 02/19/24 07:05 02/19/24 07:05 Micro: Microbiology 02/19/24 09:37 Blood Culture - Preliminary Blood SPECIMEN COLLECTED 02/19/24 09:35 Blood Culture - Preliminary Blood SPECIMEN COLLECTED A&P Assessment and plan (1) Pneumonia: With productive cough, malaise, body ache, mild headache, generalized weakness, tree-in-bud opacities right middle and upper lobes. Additionally revisualize left lower lobe moderately large pleural effusion. She overall does not appear to be in sepsis, does not appear to have empyema like picture, however, with nodule in the lingula, history of lung cancer, concern for possible recurrence with possible malignant effusion with noted interval mild posterior pleural thickening. Reviewed vitals, CBC, INR, CMP, UA, chest x-ray, head CT, chest CT, EKG on my interpretation with atrial fibrillation, without evidence of ischemia, pending official read, ER provider note, discussed with ER provider. She is started on ceftriaxone, azithromycin, will continue, monitor for risk of QTc prolongation, repeat EKG. Request sputum culture, obtain urine bacterial antigens, Legionella antigen, obtain MRSA PCR. Requested viral studies with COVID, flu, RSV PCR. Will obtain assessment with MBS. Follow-up blood culture. Left pleural effusion as below. (2) Weakness: Treat pneumonia. Additionally with underlying malignancy, with possible relapse, possible malignant effusion. Treat pneumonia as above. Additional assessment of effusion. Check TSH. (3) Pleural effusion: With regards to left lower pleural effusion, will obtain chest ultrasound. Reviewed ultrasound from prior admission, was not found to have enough fluid for sample. Will see if he has accumulated more this time to send a sample. Lower suspicion for any empyema given her presentation, but may benefit from cytology to assess for malignant effusion. For now we will hold Xarelto in anticipation of possible thoracentesis. Plan Hypothyroidism: Check TSH Atrial fibrillation: Hold Xarelto in anticipation of possible thoracentesis COPD: Possible mild exacerbation, in addition to antibiotics as above, will give breathing treatments with DuoNebs, as well as budesonide, obtain sputum culture. Consider steroid depending on condition. HTN: Monitor blood pressures HLD CHF: Does not appear in exacerbation MARCUS Other medical problems Attestations 2 Medical Necessity Statement*: Admission over 2 midnights anticipated for assessment and management of pneumonia, generalized weakness and a lady with history as, cell lung cancer with possible relapse with pleural effusion, assessment for possible malignant effusion while on anticoagulation with Xarelto. and High MDM includes amount and/or complexity of data reviewed/ordered [ previous or external records, resulted lab(s)/test(s), ordered lab(s)/test(s), independent test interpretation and other healthcare professional discussion] and described risk of complication, morbidity or mortality of management as documented Diagnoses Pneumonia J18.9 Weakness R53.1 Pleural effusion J90
[2024-02-19] MEDS: pantoprazole DR 40 mg Tablet PO (11:58)
[2024-02-19 13:00] LABS: Covid PCR NEGATIVE (Negative); Influenza A NEGATIVE (Negative); Influenza B NEGATIVE (Negative); Respiratory Syncytial Virus Ce NEGATIVE (Negative)
[2024-02-19 13:33] LABS: MRSA PCR OZH (swab) NOT DETECTED (Not Detecte)
[2024-02-19] MEDS: acetaminophen 500 mg Tablet PO (16:40)
[2024-02-19] MEDS: ondansetron 4 MG Tablet PO (16:40)
[2024-02-19] MEDS: docusate sodium 100 mg Capsule PO (18:06)
[2024-02-19] MEDS: enoxaparin 40 mg/0.4 mL Syringe SUBCUT (18:06)
[2024-02-19] MEDS: dilTIAZem ER (24HR) 300 mg Capsule PO (21:17)
[2024-02-19] MEDS: TRAMadol 50 mg Tablet PO (23:43)
[2024-02-20 04:00] VITALS: BP 117/64; PULSE 63; RESP 17; TEMP 36.7; O2SAT 90
[2024-02-20] MEDS: acetaminophen 500 mg Tablet PO (04:38)
--- NOTE | 2024-02-20 06:00 | US_ITS ---
WS: [id number] Ultrasound chest, LEFT. HISTORY: Possible thoracentesis. There is a small complex LEFT pleural effusion. Slightly larger than on the prior examination. Lung m oves in and out of the effusion. US/US chest 28636 IMPRESSION: Small LEFT pleural effusion.
[2024-02-20 06:14] LABS: Basophils # 0.1 10^3/uL (0.0-0.1); Basophils % 1.3 %; Eosinophils # 0.2 10^3/uL (0.0-0.8); Eosinophils % 3.5 %; Hematocrit 38.2 % (36-47); Lymphocytes # 2.1 10^3/uL (0.8-4.8); Lymphocytes % 33.8 %; Mean Corpuscular HGB Conc 29.6 g/dL (30-55); Mean Corpuscular Hemoglobin 28.8 pg (27-33); Mean Corpuscular Volume 97.4 fl (85-98); Mean Platelet Volume 12.9 fL (7.4-10.4); Monocytes # 0.6 10^3/uL (0.2-0.9); Monocytes % 10.3 %; Neutrophils # 3.16 10^3/uL (1.8-7.7); Neutrophils % 50.8 %; Nucleated Red Blood Cells % 0 %; Platelet Count 213 10^3/cmm (157-399); Red Blood Count 3.92 10^6/uL (3.85-5.65); Red Cell Distribution Width 13.8 % (12.1-15.1); White Blood Count 6.22 10^3/uL (3.29-11.43)
[2024-02-20 06:34] LABS: Albumin Level 3.7 g/dL (3.5-5.2); Chloride 106 mmol/L (98-107); Potassium 3.3 mmol/L (3.5-5.1); Sodium 142 mmol/L (136-145)
[2024-02-20] MEDS: levothyroxine 50 mcg Tablet PO (06:50)
[2024-02-20] MEDS: FUROsemide 40 mg Tablet PO (06:50)
[2024-02-20 07:02] LABS: Alanine Aminotransferase 8 U/L (0-33); Alkaline Phosphatase 83 U/L (35-105); Anion Gap 14.3 (5-19); Aspartate Amino Transferase 13 U/L (0-32); Blood Urea Nitrogen 12 mg/dL (8-23); Calcium 9.4 mg/dL (8.5-10.5); Carbon Dioxide 25 mmol/L (22-29); Creatinine Clr Calc Pharmacy 49.5997; Globulin 2.5 g/dL (1.3-4.6); Glucose 96 mg/dL (65-115); Osmolality Calculated 294 mOsm/kg (285-295); Thyroid Stimulating Hormone 2.54 uIU/mL (0.27-4.20); Total Bilirubin 0.3 mg/dL (0.15-1.2); Total Protein 6.2 g/dL (6.6-8.7)
[2024-02-20] MEDS: lidocaine 5% Patch 1 PATCH TOPICAL (08:06)
[2024-02-20] MEDS: AZITHROMYCIN ADD-Vantage 500 MG in 0.9% NaCl ADD-Vantage 250 ML 250 MG IV (08:07)
[2024-02-20] MEDS: cefTRIAXone 1,000 mg SDV 1000 MG IVP (08:07)
[2024-02-20 08:33] VITALS: BP 152/81; PULSE 83; RESP 18; TEMP 36.6; O2SAT 91
[2024-02-20 09:05] VITALS: PULSE 82; RESP 18; O2SAT 95
--- NOTE | 2024-02-20 09:30 | FL_ITS ---
WS: [id number] MODIFIED BARIUM SWALLOW HISTORY: Oropharyngeal dysphagia FLUOROSCOPY TIME: 2min [id number] # of spot films: [id number] Modified barium swallow was performed by the speech pathologist. Fluoroscopy was provided with the pa tient in a lateral projection. Multiple food consistencies were provided. Multiple fluid/fluid consistencies were provided during a swallowing exam. A single episode of minima l laryngeal penetration was noted with thin liquids. No aspiration. Patient was able to swallow all f ood consistencies without difficulty. Barium tablet was swallowed without difficulty. FL/FL barium swallow modifd 26539 IMPRESSION: 1. No laryngeal aspiration. 2. Single episode of laryngeal penetration with thin liquids. Please see speech therapist report also for recommendations.
--- NOTE | 2024-02-20 09:59 | PC.CHAP ---
Pastoral Care Encounter/Spiritual Assessment Type of Contact [] Declined communications editor visit [] Patient/Family/Request visit [] Outpatient visit [] Follow-up visit [] Physician referral [] Code/Alert [x] Routine visit [] Staff referral [] Actively dying [] Patient sleeping [x] Family support [] [] Out of room [] Palliative care [] [] Receiving care in room [] Pre-surgical visit [] Trauma [] Long length of stay [] ICU visit [] Other: Relational/Emotional Strength [] Patient feels connected with others/family/visitors/staff [] Distress [] Loneliness/isolation [] Abandonment Spirituality of Patient [x] Person of Marlin [] Attends Judaism of their [place]lin [x] Believes in Prayer [] Reads Bible or Holiness materials [] There are Spiritual issues to be addressed Farm General Manager Interventions [x] Prayer [x] Active listening [] Non-anxious presence [] Spiritual/emotional support [] Crisis/trauma care [] Spiritual counseling [] Bereavement support [] Provided bereavement packet [x Provided Bible/devotional materials [] Provided toy/stuffed animal, coloring book to patient or family member [] Provided Communion [] Anointing/[place] [] Salvation [x] Completed spiritual assessment [] Other: Impact on Illness or Injury [] Angry [] Fearful [] Anxious [] Often cries [] Exhaustion [] Unable to work [] Unable to attend adventism [] Unable to walk/stand [] Unable to read [] Unable to drive [] Unable to eat/drink [] Unable to sleep [] Unable to be with family [] Patient intubated [] Other: Summary Time spent with patient 20 min
[2024-02-20 12:05] VITALS: BP 154/96; PULSE 85; RESP 17; TEMP 36.6; O2SAT 92
--- NOTE | 2024-02-20 14:07 | P.PN_ITS ---
Vitals/I&O/Wt Last Vital Signs Temp 98 F 02/20/24 12:05 Pulse 85 02/20/24 12:05 Resp 17 02/20/24 12:05 BP 154/96 02/20/24 12:05 Pulse Ox 92 02/20/24 12:05 O2 Del Method Room Air 02/20/24 12:05 02/19/24 02/20/24 02/20/24 22:59 06:59 14:59 Intake Total 720 / 1750 / 1989 970 / 970 Output Total 440 / 540 Balance 720 / 1650 -200 / 1450 970 / 970 Weight last 48 hrs Weight 63.82 kg Weight 63.957 kg Weight 63.503 kg Physical Exam 2 Const: COMMON NORMALS: no acute distress and patient oriented x3 Resp: COMMON NORMALS: normal respiratory effort, No retractions and No use of accessory muscles AUSCULTATION: wheezes Cardio: COMMON NORMALS: regular rate, regular rhythm, S1 normal heart sound present and S2 normal heart sound present RATE: regular rate RHYTHM: r egular rhythm HEART SOUNDS: S1 normal heart sound present and S2 normal heart sound present GI: COMMON NORMALS: Normal to inspection, nondistended, normoactive bowel sounds present and non-tender Extremity: COMMON NORMALS: no pedal edema Neuro: COMMON NORMALS: patient oriented x3 Psych: COMMON NORMALS: mental status grossly normal Data 02/20/24 05:57 02/20/24 05:57 Micro: Microbiology 02/19/24 12:00 Gram Stain - Final Sputum - Expectorated Sputum Sputum Culture - Preliminary 02/19/24 09:37 Blood Culture - Preliminary Blood NEGATIVE TO DATE 02/19/24 09:35 Blood Culture - Preliminary Blood NEGATIVE TO DATE 02/19/24 12:00 Legionella Urinary Antigen - Final Urine,Voided Bacterial Antigens - Final A&P Assessment and plan (1) Pneumonia: - Continue Rocephin -Continue Zithromycin (2) Weakness: (3) Pleural effusion: - INR is 2 -Ultrasound thoracocentesis ordered -Pleural studies ordered -Will see if there is no fluid to drain and if it can be drained today Plan Hypothyroidism: Atrial fibrillation: Hold Xarelto in anticipation of possible thoracentesis COPD: Possible mild exacerbation, in addition to antibiotics as above, will give breathing treatments with DuoNebs, as well as budesonide, obtain sputum culture. Consider steroid depending on condition. HTN: Monitor blood pressures HLD CHF: Does not appear in exacerbation MARCUS Other medical problems Attestations 2 Medical Necessity Statement*: Patient requires hospitalization for pneumonia, pleural effusion Diagnoses Pneumonia J18.9 Weakness R53.1 Pleural effusion J90
[2024-02-20 14:47] LABS: INR 1.07 (0.8-1.2)
[2024-02-20 15:52] VITALS: BP 137/90; PULSE 94; RESP 16; TEMP 36.5; O2SAT 92
[2024-02-20] MEDS: docusate sodium 100 mg Capsule PO (17:06)
[2024-02-20 20:00] VITALS: BP 173/80; PULSE 94; RESP 17; TEMP 36.5; O2SAT 90
[2024-02-20] MEDS: dilTIAZem ER (24HR) 300 mg Capsule PO (22:00)
[2024-02-21] VITALS: BP 148/87; PULSE 91; RESP 17; TEMP 36.7; O2SAT 95
[2024-02-21 04:00] VITALS: BP 160/78; PULSE 88; RESP 17; TEMP 36.4; O2SAT 96
[2024-02-21] MEDS: ondansetron 4 MG Tablet PO (04:37)
[2024-02-21 06:14] LABS: Basophils # 0.1 10^3/uL (0.0-0.1); Basophils % 0.9 %; Eosinophils # 0.4 10^3/uL (0.0-0.8); Eosinophils % 5.2 %; Hematocrit 38.5 % (36-47); Lymphocytes % 24.8 %; Mean Corpuscular HGB Conc 31.9 g/dL (30-55); Mean Corpuscular Hemoglobin 28.8 pg (27-33); Mean Corpuscular Volume 90.2 fl (85-98); Mean Platelet Volume 12.4 fL (7.4-10.4); Monocytes # 0.7 10^3/uL (0.2-0.9); Monocytes % 8.2 %; Neutrophils % 60.7 %; Nucleated Red Blood Cells % 0 %; Platelet Count 223 10^3/cmm (157-399); Red Blood Count 4.27 10^6/uL (3.85-5.65); Red Cell Distribution Width 13.3 % (12.1-15.1); White Blood Count 8.07 10^3/uL (3.29-11.43)
[2024-02-21] MEDS: FUROsemide 40 mg Tablet PO (06:15)
[2024-02-21] MEDS: levothyroxine 50 mcg Tablet PO (06:15)
[2024-02-21 06:35] LABS: Alanine Aminotransferase 11 U/L (0-33); Albumin Level 3.9 g/dL (3.5-5.2); Alkaline Phosphatase 86 U/L (35-105); Anion Gap 16.2 (5-19); Aspartate Amino Transferase 16 U/L (0-32); Blood Urea Nitrogen 13 mg/dL (8-23); Calcium 9.6 mg/dL (8.5-10.5); Carbon Dioxide 26 mmol/L (22-29); Chloride 99 mmol/L (98-107); Creatinine Clr Calc Pharmacy 39.6926; Globulin 2.3 g/dL (1.3-4.6); Glucose 105 mg/dL (65-115); Osmolality Calculated 286 mOsm/kg (285-295); Potassium 3.2 mmol/L (3.5-5.1); Sodium 138 mmol/L (136-145); Total Bilirubin 0.3 mg/dL (0.15-1.2); Total Protein 6.2 g/dL (6.6-8.7)
[2024-02-21 07:40] VITALS: BP 158/100; PULSE 82; RESP 16; TEMP 36.8; O2SAT 93
[2024-02-21] MEDS: potassium chloride ER 20 mEq Tablet PO (08:18)
[2024-02-21] MEDS: pantoprazole DR 40 mg Tablet PO (08:18)
[2024-02-21] MEDS: docusate sodium 100 mg Capsule PO (08:18)
[2024-02-21] MEDS: lidocaine 5% Patch 1 PATCH TOPICAL (08:18)
[2024-02-21] MEDS: cefTRIAXone 1,000 mg SDV 1000 MG IVP (08:18)
[2024-02-21 10:00] VITALS: PULSE 90; RESP 18; O2SAT 93
[2024-02-21] MEDS: AZITHROMYCIN ADD-Vantage 500 MG in 0.9% NaCl ADD-Vantage 250 ML 250 MG IV (10:48)
[2024-02-21 11:17] VITALS: BP 131/86; PULSE 85; RESP 15; TEMP 36.6; O2SAT 94
--- NOTE | 2024-02-21 14:14 | P.DS_ITS ---
Discharge Providers Date of Admission: 02/19/24 08:56 Date of Discharge: February 21, 2024 Attending Provider at Admission: Franc Perkins Attending Provider at Discharge: Chuck Moon MD Diagnoses at Discharge Discharge Diagnosis (1) Pneumonia: Status: Acute (2) Weakness: Status: Acute (3) Pleural effusion: Status: Acute Reason for Visit Reason for Visit: weakness; afib Hospital Course Hospital Course Pleasant 83-year-old lady with history of squamous cell lung cancer, status post lobectomy, severe PRIYANKA, on 2 L at baseline, who presented to the hospital due to generalized weakness, received a call from ER that she has been weak to the point of having difficulty walking, having productive cough, with suspicion of pneumonia with tree-in-bud density in right middle and upper lobes. 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 So her anticoagulants were held, INR was 2 so thoracentesis was delayed, she was supposed to have a thoracentesis 02/21/2024 due to concerns for malignant or infective pleural effusion, however patient declined. Patient would prefer to have her workup and a thoracentesis done in [place]. We discussed the morbidity and mortality associated with her pleural effusion, including but not limited to risk of cancer, sepsis, septic shock, morbidity and mortality discussed, she voiced understanding, all questions answered, declined to do thoracentesis during her hospitalization here at [facility]. Will discharge her home with a close follow-up with primary care, referral sent to pulmonology in [place]. Patient was advised if she has any recurrent shortness of breath to me to come back to the emergency room Patient at times is noncompliant with oxygen therapy, and her CPAP machine. Discussed importance of compliance, will send her an order for a new CPAP mask Patient was also noted to have lingular pulmonary nodule, new right middle lobe noncalcified nodule, mild posterior pleural thickening of the left. Patient advised to follow-up with pulmonary as outpatient, for consideration of PET scan Patient was also found to have subacute splenic infarction no complaints of abdominal pain, left upper quadrant abdominal pain, she is on Xarelto, has a history of atrial fibrillation which she should continue follow-up with primary care Physical Exam Const: COMMON NORMALS: no acute distress and patient oriented x3 Resp: COMMON NORMALS: normal respiratory effort, No retractions, No use of accessory muscles and clear to auscultation bilaterally AUSCULTATION: clear to auscultation bilaterally Cardio: COMMON NORMALS: regular rate, regular rhythm, S1 normal heart sound present and S2 normal heart sound present RATE: regular rate RHYTHM: regular rhythm HEART SOUNDS: S1 normal heart sound present and S2 normal heart sound present GI: COMMON NORMALS: Normal to inspection, nondistended, normoactive bowel sounds present and non-tender Extremity: COMMON NORMALS: no pedal edema Neuro: COMMON NORMALS: patient oriented x3 Psych: COMMON NORMALS: mental status grossly normal Discharge Data Studies Completed and Pending Completed Studies During Hospitalization Category Date Time Status CT chest w con* [id number] Stat Cat Scan 02/19/24 07:[address] head wo con* [id number] Stat Cat Scan 02/19/24 07:39 Completed [place] barium swallow modifd 12898 Routine Exams 02/20/24 09:30 Completed XR chest 1V portable [id number] Stat Exams 02/19/24 07:36 [place] chest [id number] Routine Ultrasound 02/20/24 06:00 Completed Pending at discharge Category Date Time Status Amylase, Pleural Fluid Routine Lab 02/20/24 06:09 Ordered Albumin Body Fluid Routine Lab 02/20/24 06:09 Ordered Blood Culture Stat Lab 02/19/24 09:37 Results Body Fluid Analysis Routine Lab 02/20/24 06:09 Ordered Body Fluid Culture & GS Routine Lab 02/20/24 06:09 Ordered Complete Blood Count w/Auto AM LABS Lab 02/22/24 04:00 Ordered Comprehensive Metabolic Panel AM LABS Lab 02/22/24 04:00 Ordered Creatinine Body Fluid Routine Lab 02/20/24 06:09 Ordered Cyto Order Verification Routine Lab 02/20/24 06:09 Ordered Glucose Pleural Fluid Routine Lab 02/20/24 06:09 Ordered Hematocrit Body Fluid Routine Lab 02/20/24 06:09 Ordered LDH Pleural Fluid Routine Lab 02/20/24 06:09 Ordered Mycobacteria, Culture w/Fluor Routine Lab 02/20/24 06:09 Ordered Total Protein Pleural Fluid Routine Lab 02/20/24 06:09 Ordered Triglycerides, Pleural Fluid Routine Lab 02/20/24 06:09 Ordered pH Pleural Fluid Routine Lab 02/20/24 06:09 Ordered Cytology [PTH] Routine Pth 02/20/24 06:09 Ordered US thoracentesis [id number] Routine Ultrasound 02/21/24 06:08 Ordered Radiology Impressions Chest X-Ray 02/19/24 07:36 IMPRESSION: 1. Left basilar pulmonary partial atelectasis/infiltrate. Pneumonia is difficult to exclude. Clinical correlation is recommended. 2. Moderate subpulmonic left pleural effusion. 3. Aortic arch ectasia, stable. Head CT 02/19/24 07:39 IMPRESSION: 1. 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 2. Age appropriate supratentorial and infratentorial atrophy. 3. Moderate chronic white matter microvascular ischemic disease. 4. No acute intracranial abnormality identified. ASSESSMENT: ASPECTS ([place] Stroke Program Early CT Score) is 10. ADDENDUM: 02/19/24 0804 THIS REPORT CONTAINS FINDINGS THAT MAY BE CRITICAL TO PATIENT CARE. The findings were verbally communicated by me to DR. LEONCIO LANDEROS via telephone conference at 8:01 AM HEAD INSULATION BOARD SAW OPERATOR on 02/19/2024. The findings were acknowledged and understood. Chest CT 02/19/24 07:57 IMPRESSION: 1. Lingular pulmonary nodule. Pulmonary neoplasia not excluded. PET/CT or percutaneous needle biopsy recommended (modified from Nora et al., Fleischner Society, 2017). 2. New right middle lobe noncalcified nodule. . Impression. Fleischner Society recommendations not given pending assessment of the above. 3. Tree in bud density right middle and upper lobes. Early pneumonia is not excluded. Clinical correlation is recommended. 4. Ascending aortic ectasia, stable. 5. Moderately large left dependent pleural effusion with intrafissural extension, interval mild posterior pleural thickening. 6. Coronary atherosclerosis. 7. Infrarenal abdominal aortic aneurysm, stable as visualized. 8. Prior cholecystectomy. 9. Nonspecific interval hyperostosis of the posterior left 7th and 8th ribs. 10. Subacute splenic infarction. 11. Mild bilateral renal cortical scarring. 12. Diverticulosis. Chest Ultrasound 02/20/24 06:00 IMPRESSION: Small LEFT pleural effusion. Modified Barium Swallow 02/20/24 09:30 IMPRESSION: 1. No laryngeal aspiration. 2. Single episode of laryngeal penetration with thin liquids. Please see speech therapist report also for recommendations. Laboratory Results WBC 8.07 10^3/uL (3.29-11.43) 02/21/24 05:56 RBC 4.27 10^6/uL (3.85-5.65) 02/21/24 05:56 Hgb 12.30 g/dL (11.27-16.99) 02/21/24 05:56 Hct 38.5 % (36-47) 02/21/24 05:56 MCV 90.2 fl (85-98) D 02/21/24 05:56 MCH 28.8 pg (27-33) 02/21/24 05:56 MCHC 31.9 g/dL (30-55) D 02/21/24 05:56 RDW 13.3 % (12.1-15.1) 02/21/24 05:56 Plt Count 223 10^3/cmm (157-399) 02/21/24 05:56 MPV 12.4 fL (7.4-10.4) H 02/21/24 05:56 Neut % (Auto) 60.7 % 02/21/24 05:56 Lymph % (Auto) 24.8 % 02/21/24 05:56 [place] % (Auto) 8.2 % 02/21/24 05:56 Eos % (Auto) 5.2 % 02/21/24 05:56 Baso % (Auto) 0.9 % 02/21/24 05:56 Neut # (Auto) 4.90 10^3/uL (1.8-7.7) 02/21/24 05:56 Lymph # (Auto) 2.0 10^3/uL (0.8-4.8) 02/21/24 05:56 [place] # (Auto) 0.7 10^3/uL (0.2-0.9) 02/21/24 05:56 Eos # (Auto) 0.4 10^3/uL (0.0-0.8) 02/21/24 05:56 Baso # (Auto) 0.1 10^3/uL (0.0-0.1) 02/21/24 05:56 Nucleated RBC % (auto) 0 % 02/21/24 05:56 Nucleated RBCs # 0.0 /100WBC 02/21/24 05:56 PT 13.50 SECONDS (12.1-14.9) 02/21/24 05:56 INR 1.00 (0.8-1.2) 02/21/24 05:56 Sodium 138 mmol/L (136-145) 02/21/24 05:56 Potassium 3.2 mmol/L (3.5-5.1) L 02/21/24 05:56 Chloride 99 mmol/L (98-107) 02/21/24 05:56 Carbon Dioxide 26 mmol/L (22-29) 02/21/24 05:56 Anion Gap 16.2 (5-19) 02/21/24 05:56 BUN 13 mg/dL (8-23) 02/21/24 05:56 Creatinine 1.0 mg/dL (0.5-0.9) H 02/21/24 05:56 GFR Calculation Not Reportable 02/21/24 05:56 Glucose 105 mg/dL (65-115) 02/21/24 05:56 Calculated Osmolality 286 mOsm/kg (285-295) 02/21/24 05:56 Calcium 9.6 mg/dL (8.5-10.5) 02/21/24 05:56 Total Bilirubin 0.3 mg/dL (0.15-1.2) 02/21/24 05:56 AST 16 U/L (0-32) 02/21/24 05:56 ALT 11 U/L (0-33) 02/21/24 05:56 Alkaline Phosphatase 86 U/L (35-105) 02/21/24 05:56 Total Protein 6.2 g/dL (6.6-8.7) L 02/21/24 05:56 Albumin 3.9 g/dL (3.5-5.2) 02/21/24 05:56 Globulin 2.3 g/dL (1.3-4.6) 02/21/24 05:56 TSH 2.54 uIU/mL (0.27-4.20) 02/20/24 05:57 Urine Color Yellow (Yellow) 02/19/24 07:41 Urine Appearance Clear (CLEAR) 02/19/24 07:41 Urine pH 8.0 (5-7) A 02/19/24 07:41 Ur Specific [place] 1.007 (1.005-1.030) 02/19/24 07:41 Urine Protein Negative (Negative) 02/19/24 07:41 Urine Glucose (UA) Negative (Normal) 02/19/24 07:41 Urine Ketones Negative (Negative) 02/19/24 07:41 Urine Blood Negative (Negative) 02/19/24 07:41 Urine Nitrate Negative (Negative) 02/19/24 07:41 Urine Bilirubin Negative (Negative) 02/19/24 07:41 Urine Urobilinogen 0.2 mg/dL (Negative) 02/19/24 07:41 Ur Leukocyte Esterase Negative (Negative) 02/19/24 07:41 Urine RBC 0-2 /hpf (0-2) 02/19/24 07:41 Urine WBC 0-5 /hpf (0-5) 02/19/24 07:41 Ur Squamous Epith Cells 0-5 /hpf (0-5) 02/19/24 07:41 Amorphous Sediment Not Reportable 02/19/24 07:41 Urine Bacteria None seen /hpf (NONE) 02/19/24 07:41 Hyaline Casts 0.40 /lpf 02/19/24 07:41 Nasal MRSA (PCR) Not detected (Not Detecte) 02/19/24 12:00 Coronavirus (PCR) Negative (Negative) 02/19/24 12:00 Influenza A (PCR) Negative (Negative) 02/19/24 12:00 Influenza Type B (PCR) Negative (Negative) 02/19/24 12:00 RSV (PCR) Negative (Negative) 02/19/24 12:00 Vitals Last Vital Signs Temp 97.9 F 02/21/24 11:17 Pulse 85 02/21/24 11:17 Resp 15 02/21/24 11:17 BP 131/86 02/21/24 11:17 Pulse Ox 94 02/21/24 11:17 O2 Del Method Room Air 02/21/24 11:17 Discharge Plan Discharge Patient Disposition: Home Condition: Stable Prescriptions: New doxycycline hyclate 100 mg tablet 100 mg PO BID 7 Days Qty: 14 0RF Continued furosemide 40 mg tablet 40 mg PO QAM Xarelto 20 mg tablet 20 mg PO BEDTIME (DME) Right distal radial fx fast form See Rx Instructions .Route .MEDSUPPLY Qty: 1 0RF Rx Instructions: As directed ondansetron HCl 4 mg tablet 4 mg PO Q6H PRN (Reason: nausea and vomiting) Qty: 20 0RF (DME) Velcro Right wrist brace See Rx Instructions .Route .MEDSUPPLY Qty: 1 0RF Rx Instructions: As directed pantoprazole [Protonix] 40 mg tablet,delayed release (DR/EC) 40 mg PO DAILY Qty: 30 1RF (DME) Arm Sling See Rx Instructions .Route .MEDSUPPLY Qty: 1 0RF Rx Instructions: As directed tramadol 50 mg tablet 50 mg PO Q8H PRN (Reason: pain) 7 Days Qty: 21 0RF diltiazem HCl 300 mg capsule,extended release 24hr 300 mg PO BEDTIME Qty: 90 0RF levothyroxine 50 mcg tablet 50 mcg PO QAM levalbuterol tartrate [Xopenex HFA] 45 mcg/actuation HFA aerosol inhaler 2 inh inhalation Q6H PRN (Reason: Shortness Of Breath) docusate sodium 100 mg capsule 100 mg PO BID lidocaine 5 % adhesive patch,medicated 1 patch topical DAILY Qty: 15 0RF Rx Instructions: Upper part of lower back. leave on most painful area for up to 12 hrs acetaminophen 500 mg Tablet 500 mg PO Q4H PRN (Reason: fever) Qty: 30 3RF alendronate 10 mg tablet 10 mg PO DAILY meclizine 25 mg tablet 25 mg PO Q6H PRN (Reason: Dizziness Or Vertigo) albuterol sulfate 90 mcg/actuation HFA aerosol inhaler 2 puff INHALATION .Q4-6H PRN (Reason: Shortness Of Breath Or Wheezing) fluticasone propionate [Flonase Allergy Relief] 50 mcg/actuation spray,suspension 2 spray INTRANASAL DAILY cholecalciferol (vitamin D3) [Vitamin D3] 50 mcg (2,000 unit) capsule 100 mcg PO DAILY potassium chloride 20 mEq tablet extended release 20 meq PO DAILY Rx Instructions: TAKE 1 TABLET BY MOUTH DAILY Discontinued amoxicillin-pot clavulanate 875-125 mg tablet 1 tab PO BID Discharge Orders: Discharge Order (Routine); Ordered 02/21/24 Ordered By: Chuck Moon Referrals: Tutu Sims MD, MBBS, MPH [Referring] - 1-3 days (We have notified your physician's clinic of the need for a follow-up appointment to be scheduled. If you have not heard from them within the next 2 business days, please call them directly. ) Lucinda Sanford FNP [Referring] - (We have notified your physician's clinic of the need for a follow-up appointment to be scheduled. If you have not heard from them within the next 2 business days, please call them directly. ) Discharge Diet: Cardiac Discharge Activity: Resume usual activity Patient Instructions: Doxycycline (By mouth), Opioid Safety, Pain Management, Pneumonia Stoplight Activity Restrictions/Additional Instructions: - If you have worsening chest pain or shortness of breath go to the emergency room -Please follow-up with pulmonary for your right pleural effusion, and your pulmonary nodules -Please follow-up with oncology for your pulmonary nodules lingular pulmonary nodule, right middle lobe noncalcified nodule Discharge Attestations Time Spent in Discharge Care*: greater than 30 min Status at Discharge: Cognitive status at discharge: cognitively intact , Behavioral status at discharge: cooperative , Quality Metrics Clinical Quality Measures [ No reported AMI, CVA or VTE this stay] Coding Level of Care Code 21570 Total time (in minutes) for Discharge: 45 Diagnoses Pneumonia J18.9 Weakness R53.1 Pleural effusion J90
[2024-02-21 15:07] VITALS: BP 131/86; PULSE 85; RESP 16; TEMP 36.7; O2SAT 95
== END 2024-02-21 14:48 | disposition home or self-care (01) | DRG 194 ==
LOC: ER 08:58 → MEDSURG 10:14
PROVIDERS: Admitting Provider Internal Medicine; Emergency Provider Emergency Medicine; Visit Provider Family Medicine
DX: J18.9 Pneumonia, unspecified organism (principal); J91.8 Pleural effusion in other conditions classified elsewhere; R53.1 Weakness; R91.1 Solitary pulmonary nodule; D73.5 Infarction of spleen; G47.33 Obstructive sleep apnea (adult) (pediatric); I48.91 Unspecified atrial fibrillation; I11.0 Hypertensive heart disease with heart failure; I50.9 Heart failure, unspecified; E03.9 Hypothyroidism, unspecified; E78.5 Hyperlipidemia, unspecified; J44.9 Chronic obstructive pulmonary disease, unspecified; I71.40 Abdominal aortic aneurysm, without rupture, unspecified; F41.1 Generalized anxiety disorder; Z11.52 Encounter for screening for COVID-19; Z53.29 Procedure and treatment not carried out because of patient's decision for other reasons; Z91.199 Patient's noncompliance with other medical treatment and regimen due to unspecified reason; Z99.81 Dependence on supplemental oxygen; Z79.01 Long term (current) use of anticoagulants; Z79.890 Hormone replacement therapy; Z85.118 Personal history of other malignant neoplasm of bronchus and lung; Z90.2 Acquired absence of lung [part of]; Z87.891 Personal history of nicotine dependence; Z82.3 Family history of stroke
CPT/HCPCS: 0241U; 36415; 70450; 71045; 71260; 74230; 76604; 80053; 81001; 84443; 85025; 85610; 86403; 87040; 87070; 87205; 87449; 92611; 93005; 96365; 96372; 96375; 97116; 97161; 99285; J0456; J0696; J1650; J3490; J7050; J8597; Q0162

== ENCOUNTER 2024-03-06 14:03 | Emergency (ER) | payer MEDICARE, SELFPAY ==
[2024-03-06 14:30] VITALS: BP 146/86; PULSE 88; TEMP 36.7; O2SAT 96; BMI 25.3
--- NOTE | 2024-03-06 14:40 | ECG_ITS ---
[email or web address]: 2024-[facility]06 Pat Name: Samantha Lewis Department: Room: Gender: Female Procedures Rn: : 1940 Requested By: Larisa Green Order Number: [id number] Marshall MD: Bret Olguin M.D. Measurements Intervals [place] Rate: 109 P: 0 W[place]: 0 QRS: 14 QRSD: 86 T: 46 QT: 303 QTc: 408 Interpretive Statements ATRIAL FIBRILLATION WITH RAPID VENTRICULAR RESPONSE WITH ABERRANT CONDUCTION OR VENTRICULAR PREMATURE COMPLEXES Compared to ECG 02/19/2024 07:37:03 Ventricular premature complex(es) now present Aberrant conduction of supraventricular beat(s) now present Electronically Signed On 03-06-2024 21:13:02 CONCRETE BLOCK PLANT SUPERVISOR by Bret Olguin M.D. [email or web address]
[2024-03-06 15:45] LABS: Basophils # 0.1 10^3/uL (0.0-0.1); Basophils % 0.9 %; Eosinophils # 0.1 10^3/uL (0.0-0.8); Eosinophils % 1.7 %; Mean Corpuscular HGB Conc 32.7 g/dL (30-55); Mean Corpuscular Hemoglobin 29.4 pg (27-33); Mean Platelet Volume 12.1 fL (7.4-10.4); Monocytes # 0.8 10^3/uL (0.2-0.9); Monocytes % 9.8 %; Neutrophils # 4.76 10^3/uL (1.8-7.7); Neutrophils % 61.3 %; Nucleated Red Blood Cells % 0 %; Platelet Count 251 10^3/cmm (157-399); Red Blood Count 4.11 10^6/uL (3.85-5.65); Red Cell Distribution Width 13.4 % (12.1-15.1); White Blood Count 7.76 10^3/uL (3.29-11.43)
--- NOTE | 2024-03-06 15:48 | ED_ITS ---
HPI - Back Pain/Injury 2 General: Chief Complaint: Back Pain/Injury Stated Complaint: Back pain Time Seen by Provider: 03/06/24 15:24 History of Present Illness: 83-year-old female presents with epigast mona pain that goes through to her back. Is been going on since yesterday. She has some mild nausea, no vomiting. She reports that the pain started yesterday and is a lot worse today. Patient denies any fever or chills. She does not have any lower abdominal pain. She does have a history of a AAA along with some fluid that was been removed on her left lung. Associated symptoms: Reports abdominal pain and nausea; Deny chills or fever(s) Related Data Home Medications Medication Instructions Recorded Confirmed rivaroxaban 20 mg tablet (Xarelto) 20 mg PO BEDTIME 07/03/19 03/06/24 furosemide 40 mg tablet 40 mg PO QAM 10/05/21 03/06/24 levothyroxine 50 mcg tablet 50 mcg PO QAM 04/22/23 03/06/24 docusate sodium 100 mg capsule 100 mg PO BID 01/31/24 03/06/24 albuterol sulfate 90 mcg/actuation 2 puff inhalation .Q4-6H PRN 02/19/24 03/06/24 aerosol inhaler Shortness Of Breath Or Wheezing alendronate 10 mg tablet 10 mg PO DAILY 02/19/24 03/06/24 cholecalciferol (vitamin D3) 50 100 mcg PO DAILY 02/19/24 03/06/24 mcg (2,000 unit) capsule (Vitamin D3) fluticasone propionate 50 2 spray intranasal DAILY 02/19/24 03/06/24 mcg/actuation nasal spray,suspension (Flonase Allergy Relief) meclizine 25 mg tablet 25 mg PO Q6H PRN Dizziness Or 02/19/24 03/06/24 Vertigo potassium chloride 20 mEq 20 meq PO DAILY 02/19/24 03/06/24 tablet,extended release atorvastatin 40 mg tablet 40 mg PO DAILY 03/05/24 03/06/24 Previous Rx's Medication Instructions Recorded pantoprazole 40 mg tablet,delayed 40 mg PO DAILY #30 tabs 03/25/22 release (Protonix) diltiazem HCl 300 mg 300 mg PO BEDTIME #90 caps 11/24/22 capsule,extended release 24 hr Right distal radial fx fast form #1 ea 01/06/24 Arm Sling #1 ea 01/20/24 tramadol 50 mg tablet 50 mg PO Q8H PRN pain 7 days #21 01/20/24 tabs acetaminophen 500 mg tablet 500 mg PO Q4H PRN fever #30 tabs 01/31/24 lidocaine 5 % topical patch 1 patch topical DAILY #15 ea 01/31/24 Velcro Right wrist brace #1 ea 02/10/24 cpap mask #1 ea 02/21/24 Allergies Allergy/AdvReac Type Severity Reaction Status Date / Time codeine Allergy ADR-Halluci Verified 03/05/24 09:24 nating Sulfa (Sulfonamide Allergy ALGY-Swell Verified 03/05/24 09:24 Antibiotics) Lip/Tongue/Throat vancomycin Allergy ALGY-Redness Verified 03/05/24 09:24 of Skin Review of Systems 2 Const: Denies: fever(s) or chills GI: Reports: abdominal pain and nausea; Denies: constipation : Denies: flank pain or difficulty voiding Musc: Denies: back pain Skin/Breast: Denies: rash PFSH ED 2 PFSH: Medical History MARCUS (generalized anxiety disorder) Hypothyroidism 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 Neuropathic pain CHF (congestive heart failure) Atrial fibrillation AAA (abdominal aortic aneurysm) HTN (hypertension) COPD (chronic obstructive pulmonary disease) Hyperlipidemia Family History Other CAD (coronary artery disease) Cancer Stroke Social History Smoking and tobacco/nicotine status: former use of tobacco/nicotine Quit status (tobacco/nicotine): has quit using Year quit tobacco: 1997 Former quit date comment: 0.5 ppd X 40 years Alcohol intake: never Substance/Drug Use: never Physical Exam 2 Const: COMMON NORMALS: patient oriented x3 GENERAL APPEARANCE: cooperative Resp: COMMON NORMALS: normal respiratory effort and No retractions Cardio: COMMON NORMALS: regular rate and regular rhythm RATE: regular rate RHYTHM: regular rhythm GI: COMMON NORMALS: Soft to palpation PALPATION: Yes Soft to palpation and Yes Tenderness to palpation present (GI) Details: other (Epigastric) : COMMON NORMALS: Yes no CVA tenderness BLADDER/KIDNEY EXAM: Yes no CVA tenderness Back/Pelvis: COMMON NORMALS: no CVA tenderness Neuro: COMMON NORMALS: patient oriented x3 Course 2 Vital Signs: Vital signs: Vital Signs Temperature 98.0 F 03/06/24 14:30 Pulse Rate 106 H 03/06/24 18:32 Respiratory Rate 20 H 03/06/24 17:30 Blood Pressure 147/92 03/06/24 18:32 Pulse Oximetry 96 03/06/24 18:32 Oxygen Delivery Me thod Room Air 03/06/24 16:18 MDM - Back Pain/Injury Medical Decision Making Patient's diagnostic studies were ordered reviewed and showed no significant findings. Patient had a CT abdomen pelvis ordered that showed no significant findings. She does have some findings that are consistent with known aortic aneurysm that is 4.3 cm but no change from her previous exam. Patient reports that her pain is actually got a little bit worse over some time since she fell 6 weeks ago and her back. I suspect is more of a musculoskeletal type pain. Reviewed findings with patient. She feels that she is ready go home but 1 just to make sure that we did not find anything on the CT scan. I will give her a low-dose of Toradol to help with her discomfort. Recommend she use 4% topical lidocaine with menthol. She does have an appointment tomorrow to review her previous injuries including her wrist injury on outpatient basis. At that time they can further address her pain if they feel as needed. Patient was stable and discharged home Labs 03/06/24 15:35 03/06/24 15:35 Radiology Impressions Abdomen/Pelvis CT 03/06/24 16:21 IMPRESSION: 1. No acute findings within the abdomen or pelvis. 2. Diffuse atherosclerotic changes of the thoracoabdominal aorta with 4.3 cm fusiform aneurysm mid abdominal aorta is stable in size from previous exam. 3. Additional nonemergent findings as above. Laboratory Results WBC 7.76 10^3/uL (3.29-11.43) 03/06/24 15:35 RBC 4.11 10^6/uL (3.85-5.65) 03/06/24 15:35 Hgb 12.10 g/dL (11.27-16.99) 03/06/24 15:35 Hct 37.0 % (36-47) 03/06/24 15:35 MCV 90.0 fl (85-98) 03/06/24 15:35 MCH 29.4 pg (27-33) 03/06/24 15:35 MCHC 32.7 g/dL (30-55) 03/06/24 15:35 RDW 13.4 % (12.1-15.1) 03/06/24 15:35 Plt Count 251 10^3/cmm (157-399) 03/06/24 15:35 MPV 12.1 fL (7.4-10.4) H 03/06/24 15:35 Neut % (Auto) 61.3 % 03/06/24 15:35 Lymph % (Auto) 26.0 % 03/06/24 15:35 [place] % (Auto) 9.8 % 03/06/24 15:35 Eos % (Auto) 1.7 % 03/06/24 15:35 Baso % (Auto) 0.9 % 03/06/24 15:35 Neut # (Auto) 4.76 10^3/uL (1.8-7.7) 03/06/24 15:35 Lymph # (Auto) 2.0 10^3/uL (0.8-4.8) 03/06/24 15:35 [place] # (Auto) 0.8 10^3/uL (0.2-0.9) 03/06/24 15:35 Eos # (Auto) 0.1 10^3/uL (0.0-0.8) 03/06/24 15:35 Baso # (Auto) 0.1 10^3/uL (0.0-0.1) 03/06/24 15:35 Nucleated RBC % (auto) 0 % 03/06/24 15:35 Nucleated RBCs # 0.0 /100WBC 03/06/24 15:35 Sodium 140 mmol/L (136-145) 03/06/24 15:35 Potassium 3.5 mmol/L (3.5-5.1) 03/06/24 15:35 Chloride 102 mmol/L (98-107) 03/06/24 15:35 Carbon Dioxide 23 mmol/L (22-29) 03/06/24 15:35 Anion Gap 18.5 (5-19) 03/06/24 15:35 BUN 11 mg/dL (8-23) 03/06/24 15:35 Creatinine 0.9 mg/dL (0.5-0.9) 03/06/24 15:35 GFR Calculation Not Reportable 03/06/24 15:35 Glucose 95 mg/dL (65-115) 03/06/24 15:35 Calculated Osmolality 289 mOsm/kg (285-295) 03/06/24 15:35 Calcium 9.5 mg/dL (8.5-10.5) 03/06/24 15:35 Magnesium 2.1 mg/dL (1.7-2.3) 03/06/24 15:35 Total Bilirubin 0.3 mg/dL (0.15-1.2) 03/06/24 15:35 AST 14 U/L (0-32) 03/06/24 15:35 ALT 9 U/L (0-33) 03/06/24 15:35 Alkaline Phosphatase 93 U/L (35-105) 03/06/24 15:35 Troponin T Baseline 17 ng/L (0-10) H 03/06/24 15:35 Total Protein 6.8 g/dL (6.6-8.7) 03/06/24 15:35 Albumin 4.0 g/dL (3.5-5.2) 03/06/24 15:35 Globulin 2.8 g/dL (1.3-4.6) 03/06/24 15:35 Lipase 48 U/L (13-60) 03/06/24 15:35 Urine Color Yellow (Yellow) 03/06/24 15:47 Urine Appearance Cloudy (CLEAR) A 03/06/24 15:47 Urine pH 5.5 (5-7) 03/06/24 15:47 Ur Specific [place] 1.007 (1.005-1.030) 03/06/24 15:47 Urine Protein Negative (Negative) 03/06/24 15:47 Urine Glucose (UA) Negative (Normal) 03/06/24 15:47 Urine Ketones Negative (Negative) 03/06/24 15:47 Urine Blood Negative (Negative) 03/06/24 15:47 Urine Nitrate Negative (Negative) 03/06/24 15:47 Urine Bilirubin Negative (Negative) 03/06/24 15:47 Urine Urobilinogen 0.2 mg/dL (Negative) 03/06/24 15:47 Ur Leukocyte Esterase Negative (Negative) 03/06/24 15:47 Urine RBC 0-2 /hpf (0-2) 03/06/24 15:47 Urine WBC 0-5 /hpf (0-5) 03/06/24 15:47 Ur Squamous Epith Cells 0-5 /hpf (0-5) 03/06/24 15:47 Amorphous Sediment Not Reportable 03/06/24 15:47 Urine Bacteria None seen /hpf (NONE) 03/06/24 15:47 Hyaline Casts 1.65 /lpf 03/06/24 15:47 All radiology interpretation(s) finalized by discharge Discharge Plan Discharge Patient Disposition: Home Clinical Impression: Acute mid back pain Condition: Stable Prescriptions: No Action furosemide 40 mg tablet 40 mg PO QAM Xarelto 20 mg tablet 20 mg PO BEDTIME (DME) Right distal radial fx fast form See Rx Instructions .Route .MEDSUPPLY Qty: 1 0RF Rx Instructions: As directed (DME) Velcro Right wrist brace See Rx Instructions .Route .MEDSUPPLY Qty: 1 0RF Rx Instructions: As directed pantoprazole [Protonix] 40 mg tablet,delayed release (DR/EC) 40 mg PO DAILY Qty: 30 1RF (DME) Arm Sling See Rx Instructions .Route .MEDSUPPLY Qty: 1 0RF Rx Instructions: As directed tramadol 50 mg tablet 50 mg PO Q8H PRN (Reason: pain) 7 Days Qty: 21 0RF atorvastatin 40 mg tablet 40 mg PO DAILY diltiazem HCl 300 mg capsule,extended release 24hr 300 mg PO BEDTIME Qty: 90 0RF levothyroxine 50 mcg tablet 50 mcg PO QAM docusate sodium 100 mg capsule 100 mg PO BID lidocaine 5 % adhesive patch,medicated 1 patch topical DAILY Qty: 15 0RF Rx Instructions: Upper part of lower back. leave on most painful area for up to 12 hrs acetaminophen 500 mg Tablet 500 mg PO Q4H PRN (Reason: fever) Qty: 30 3RF alendronate 10 mg tablet 10 mg PO DAILY meclizine 25 mg tablet 25 mg PO Q6H PRN (Reason: Dizziness Or Vertigo) albuterol sulfate 90 mcg/actuation HFA aerosol inhaler 2 puff INHALATION .Q4-6H PRN (Reason: Shortness Of Breath Or Wheezing) fluticasone propionate [Flonase Allergy Relief] 50 mcg/actuation spray,suspension 2 spray INTRANASAL DAILY cholecalciferol (vitamin D3) [Vitamin D3] 50 mcg (2,000 unit) capsule 100 mcg PO DAILY potassium chloride 20 mEq tablet extended release 20 meq PO DAILY Rx Instructions: TAKE 1 TABLET BY MOUTH DAILY (DME) cpap mask See Rx Instructions .Route .MEDSUPPLY Qty: 1 0RF Rx Instructions: cpap mask Discharge Orders: Discharge ED (Routine); Ordered 03/06/24 Ordered By: Pranay Diaz Discharge Diet: Usual diet Discharge Activity: Increase activity as tolerated Patient Instructions: Musculoskeletal Pain (ED), Back Pain (ED), Opioid Safety, Pain Management Activity Restrictions/Additional Instructions: 4% topical lidocaine with menthol cream gel or patch use as directed on package. Warm moist heat to affected area for 10 to 15 minutes at a time 3-4 times daily. Voltaren/diclofenac cream or gel use as directed on package as needed for pain. Please keep your appointment tomorrow. Tylenol or ibuprofen as needed for discomfort. Coding Level of Care Code ED Identification Printing Machine Setter for Francisco Noland
[2024-03-06] MEDS: famotidine 20 mg/2 mL INJ IVP (15:53)
[2024-03-06 15:54] VITALS: RESP 18; O2SAT 96
[2024-03-06] MEDS: fentaNYL 50 mcg/mL INJ 2mL IVP (15:54)
[2024-03-06 16:08] LABS: Alanine Aminotransferase 9 U/L (0-33); Alkaline Phosphatase 93 U/L (35-105); Anion Gap 18.5 (5-19); Aspartate Amino Transferase 14 U/L (0-32); Blood Urea Nitrogen 11 mg/dL (8-23); Calcium 9.5 mg/dL (8.5-10.5); Carbon Dioxide 23 mmol/L (22-29); Chloride 102 mmol/L (98-107); Creatinine Clr Calc Pharmacy 44.4118; Globulin 2.8 g/dL (1.3-4.6); Glucose 95 mg/dL (65-115); Lipase 48 U/L (13-60); Magnesium 2.1 mg/dL (1.7-2.3); Osmolality Calculated 289 mOsm/kg (285-295); Potassium 3.5 mmol/L (3.5-5.1); Sodium 140 mmol/L (136-145); Total Bilirubin 0.3 mg/dL (0.15-1.2); Total Protein 6.8 g/dL (6.6-8.7)
[2024-03-06 16:13] LABS: Bilirubin Urine Negative (Negative); Blood Urine Negative (Negative); Glucose Urine UA Negative (Normal); Ketones Urine Negative (Negative); Leukocyte Esterase Urine Negative (Negative); Nitrate Urine Negative (Negative); Protein Urine Negative (Negative); Specific Gravity, Urine 1.007 (1.005-1.030); Urine Appearance Cloudy (CLEAR); Urine Color Yellow (Yellow); Urobilinogen Urine 0.2 mg/dL (Negative); pH Urine 5.5 (5-7)
[2024-03-06 16:16] LABS: Add Urine Microscopic? YES; Bacteria Urine None Seen /hpf; Hyaline Casts Urine 1.65 /lpf; RBC Urine 0-2 /hpf (0-2); Squamous Epithelial Cell Urine 0-5 /hpf (0-5); WBC Urine 0-5 /hpf (0-5)
[2024-03-06 16:18] VITALS: BP 148/88; PULSE 107; RESP 19; O2SAT 92
--- NOTE | 2024-03-06 16:21 | CTR_ITS ---
PROCEDURE INFORMATION: Exam: CT Abdomen And Pelvis With Contrast Exam date and time: 03/06/2024 4:35 PM Age: 83 years old Clinical indication: Abdominal pain TECHNIQUE: Imaging protocol: Computed tomography of the abdomen and pelvis with contrast. Radiation optimization: All CT scans at this facility use at least one of these dose optimization techniques: automated exposure control; mA and/or kV adjustment per patient size (includes targeted exams where dose is matched to clinical indication); or iterative reconstruction. Contrast material: OMNI 350; Contrast volume: 100 ml; Contrast route: INTRAVENOUS (IV); COMPARISON: CT angio chest w abd pel w con 01/30/2024 8:32 PM RADIATION DOSE METRICS: Total DLP (mGy-cm): 424.25 FINDINGS: Lungs: Small left basilar pleural effusion with some adjacent pleural thickening that may have mildly progressed from previous exam, nonspecific. Liver: Normal. No mass. Gallbladder and biliary ducts: Gallbladder has been removed. Bile ducts are not appreciably dilated. Pancreas: Unremarkable. Main pancreatic duct is not significantly dilated. Spleen: There are scattered calcified granulomas within the spleen, longstanding, otherwise spleen is unremarkable. Adrenal glands: Normal. No mass. Kidneys and ureters: Small nonobstructing right renal stone otherwise kidneys unremarkable. Stomach and bowel: There are multiple diverticuli throughout the large bowel without evidence of diverticulitis. Appendix: No evidence of appendicitis. Intraperitoneal space: Unremarkable. No free air. No significant fluid collection. Vasculature: Diffuse atherosclerotic changes and dilatation of the thoraco abdominal aorta with fusiform aneurysm mid abdominal aorta redemonstrated measuring 4.3 x 4.1 cm. There is some mural thrombus along the posterior wall mid abdominal aorta mildly increased from previous exam. Lymph nodes: Unremarkable. No enlarged lymph nodes. Urinary bladder: Unremarkable as visualized. Reproductive: Unremarkable as visualized. Bones/joints: Unremarkable. No acute fracture. Soft tissues: Unremarkable. CT/CT abdomen pelvis w con* [id number] IMPRESSION: 1. No acute findings within the abdomen or pelvis. 2. Diffuse atherosclerotic changes of the thoracoabdominal aorta with 4.3 cm fusiform aneurysm mid abdominal aorta is stable in size from previous exam. 3. Additional nonemergent findings as above.
--- NOTE | 2024-03-06 16:44 | ECG_ITS ---
[email or web address] Date: 2024-03-06 Pat Name: Samantha Lewis Department: Room: Gender: Female Scarifier Operator: : 1940 Requested By: Pranay Diaz Order Number: [id number] Joanna MD: Bret Olguin M.D. Measurements Intervals [place] Rate: 94 P: 0 DC: 0 QRS: 71 QRSD: 87 T: 69 QT: 315 QTc: 394 Interpretive Statements ATRIAL FIBRILLATION Compared to ECG 03/06/2024 14:40:17 Ventricular premature complex(es) no longer present Aberrant conduction of supraventricular beat(s) no longer present Electronically Signed On 03-06-2024 21:12:33 MERCHANDISE ASSOCIATE by Bret Olguin M.D. [email or web address]
[2024-03-06] MEDS: iohexol 350 mg/mL 500 mL Btl (per mL) IV (16:45)
[2024-03-06 17:11] LABS: Troponin(5th) Baseline 17 ng/L (0-10)
[2024-03-06 17:30] VITALS: BP 161/92; PULSE 117; RESP 20; O2SAT 92
[2024-03-06] MEDS: lidocaine 2% viscous 15 ML, aluminum-mag hydrox-simethicon 30 ML, sucralfate oral liq 1 GM PO (17:44)
--- NOTE | 2024-03-06 18:23 | ECG_ITS ---
[facility] Date: 2024-03-06 Pat Name: Samantha Lewis Department: Room: Gender: Female Shot Dropper: : 1940 Requested By: Pranay Diaz Order Number: [id number] Joanna MD: Bret Olguin M.D. Measurements Intervals [place] Rate: 111 P: 0 [place]: 0 QRS: 70 QRSD: 85 T: 74 QT: 311 QTc: 423 Interpretive Statements ATRIAL FIBRILLATION WITH RAPID VENTRICULAR RESPONSE Compared to ECG 03/06/2024 16:44:22 No significant changes Electronically Signed On 03-06-2024 21:17:13 ELECTRIC MOTORS SALESPERSON by Bret Olguin M.D. [id number]
[2024-03-06] MEDS: ketorolac 30 mg/mL INJ 15 MG IVP (18:30)
[2024-03-06 18:32] VITALS: BP 147/92; PULSE 106; O2SAT 96
== END 2024-03-06 18:32 | disposition home or self-care (01) ==
PROVIDERS: Emergency Provider Student in an Organized Health Care Education/Training Program
DX: M54.9 Dorsalgia, unspecified (principal); Z87.891 Personal history of nicotine dependence; I11.0 Hypertensive heart disease with heart failure; I50.9 Heart failure, unspecified; J44.9 Chronic obstructive pulmonary disease, unspecified; Z85.118 Personal history of other malignant neoplasm of bronchus and lung
CPT/HCPCS: 36415; 74177; 80053; 81001; 83690; 83735; 84484; 85025; 93005; 96374; 96375; 99285; J1885; J3010; J3490

== ENCOUNTER 2024-03-07 07:52 | Outpatient (RCR) | payer MEDICARE, SELFPAY | END 2024-03-30 23:59 | disposition home or self-care (01) | LOC: SOT 07:52 | PROVIDERS: Visit Provider Student in an Organized Health Care Education/Training Program | DX: S62.101A Fracture of unspecified carpal bone, right wrist, initial encounter for closed fracture (principal); X58.XXXA Exposure to other specified factors, initial encounter | CPT/HCPCS: 97022; 97110; 97140; 97165; 97530 ==

== ENCOUNTER 2024-03-22 14:45 | Oncology outpatient (recurring) (ONCR) | payer MEDICARE, SELFPAY ==
--- NOTE | 2024-03-16 13:52 | PETR_ITS ---
PROCEDURE INFORMATION: Exam: PET/CT Skull Base to Mid-thigh Exam date and time: 03/16/2024 3:42 PM Age: 83 years old Clinical indication: Condition or disease; Condition/disease: Pulmonary nodule; Patient HX: History of lung cancer LABS AND CLINICAL REPORTS: Glucose: 124 mg/dl Treatment strategy for malignancy (PET staging): Initial Staging (PI) TECHNIQUE: Imaging protocol: Following at least four-hour fasting and following the injection of radiopharmaceutical, low dose CT images were obtained. Then, PET images were obtained. Attenuation corrected images were constructed using the CT scan. Fused images of PET and CT were reviewed. The standardized uptake values (SUV) reported below are maximum values within a region of interest, expressed in gm/ml. Exam includes orbital meatal line to mid-thigh. SUV normalization method: BodyWeight Radiopharmaceutical: 10.25 mCi F-18 FDG (Fluorodeoxyglucose), IV. Time of imaging post radiopharmaceutical administration: 42 minutes Injection site: RIGHT AC COMPARISON: 1. CT chest wo con [id number] 05/13/2023 8:39 AM 2. PT PET Scan 11/07/2021 10:[address] abdomen pelvis w con* [id number] 03/06/2024 4:[address] chest w con* [id number] 02/19/2024 8:07 AM FINDINGS: Brain: Visualized brain has normal physiologic uptake. Pharynx: No abnormal uptake. Larynx: No abnormal uptake. Lungs, pleura and trachea: Upper lung predominant emphysematous change. Moderate to large left pleural effusion. FDG avid mild left pleural thickening from the apex to the base with SUV max 8.3. Approximately 9 mm nodular density adjacent to pleural effusion along the left major fissure on axial image 208 shows SUV max 4.6. Nodular area of FDG uptake at the lingula shows SUV max 4.8 on axial image [address] appearance of atelectasis. 12 mm lingula subpleural nodule on axial image 211 shows SUV max 9.6. 4 mm subpleural right middle lobe nodule is non FDG avid, decreased from 7 mm on 02/19/2024, likely benign with similar to slightly decreased adjacent area of tree-in-bud nodularity. Left basilar curvilinear density suggestive of suture material. Bilateral calcified granulomata. Heart: Normal physiologic uptake. Coronary arteries: Heavy coronary artery calcification. Mediastinal space: No abnormal uptake. Liver: No abnormal uptake. Gallbladder and biliary ducts: No abnormal uptake. Prior cholecystectomy. Pancreas: No abnormal uptake. Spleen: No abnormal uptake. Calcified granulomata. Adrenal glands: No abnormal uptake. Kidneys and ureters: Normal physiologic uptake. Small nonobstructive right nephrolith. Stomach and bowel: No abnormal uptake. Colonic diverticulosis without findings of diverticulitis. Reproductive: The uterus is surgically absent. Vasculature: No abnormal uptake. Heavy systemic atherosclerosis with stable aortic dilatation, ectatic measuring 4.3 cm at the ascending aorta and fusiform aneurysmal at the infrarenal abdominal aorta measuring 4.3 cm. Lymph nodes: FDG uptake at nonenlarged calcified mediastinal nodes with index right paratracheal node measuring 1 cm in the short axis on axial image 226 showing SUV max 5.2 (stable size previously showing SUV max 4.5), lateral AP window node measuring 0.8 cm in the short axis on axial image 228 showing SUV max 4.8 (stable size previously showing SUV max 5.4), and right infrabronchial node measuring 0.9 cm in the short axis on axial image 214 showing SUV max 6.7 (stable size previously showing SUV max 4.5). Skeleton: 4 mm sclerotic focus at the proximal left humerus on axial image 268 shows SUV max 2.3 and stable size from October 2021 compatible with bone island. Degenerative change along the axial skeletal system and acromioclavicular joints. Intraosseous hemangioma at the T5 vertebral body. Soft tissues: No abnormal uptake in the visualized head, neck, chest, abdomen, pelvis, and extremities. METRICS: Mediastinal blood pool: SUV mean 2.6 Liver uptake: SUV mean 2.8 PET/PET skull to thigh SUBS [id number] IMPRESSION: 1. 12 mm FDG avid lingular nodule suspicious for malignancy. 2. Lower level focal FDG uptake along the major fissure with underlying 9 mm nodular density adjacent to pleural effusion may be inflammatory or malignant. 3. Low-level FDG uptake also at the lingula with CT appearance of underlying compressive atelectasis. 4. FDG avid left pleural thickening from the apex to the base may be inflammatory, malignancy not excluded. 5. Moderate to large left pleural effusion. 6. FDG uptake at stable size calcified mediastinal lymph nodes, mildly increased FDG uptake and attenuation compared to October 2021. Favor granulomatous disease, metastases thought less likely. 7. Additional chronic and incidental findings as above, to include heavy coronary artery calcification and atherosclerosis with stable aortic dilatation, aneurysmal at the infrarenal abdominal aorta measuring 4.3 cm.
== END 2024-03-30 23:59 | disposition home or self-care (01) ==
PROVIDERS: Visit Provider Internal Medicine Medical Oncology
DX: Z53.9 Procedure and treatment not carried out, unspecified reason; C34.92 Malignant neoplasm of unspecified part of left bronchus or lung
CPT/HCPCS: 36415; 78815; 99205; A9552

== ENCOUNTER 2024-03-27 14:53 | Observation (INO) | payer MEDICARE, SELFPAY ==
[2024-03-27] VITALS (13 sets, daily range): BP systolic 110–157; BP diastolic 60–101; PULSE 77–122; RESP 16–32; TEMP 36.8; O2SAT 90–97; BMI 25.4
--- NOTE | 2024-03-27 15:05 | ECG_ITS ---
[facility] Test Date: 2024-03-27 Pat Name: Samantha Lewis Department: Room: Gender: Female Maintenance Technician 2Nd Shift: : 1940 Requested By: Arsalan Singh Order Number: [id number] Joanna MD: Bret Olguin M.D. Measurements Intervals [place] Rate: 132 P: 0 [place]: 0 QRS: 16 QRSD: 88 T: 64 QT: 300 QTc: 445 Interpretive Statements ATRIAL FIBRILLATION WITH RAPID VENTRICULAR RESPONSE NONSPECIFIC ST & T-WAVE ABNORMALITY Compared to ECG 03/06/2024 18:19:47 T-wave abnormality now present Electronically Signed On 03-29-2024 11:21:50 SUSTAIN ENGINEER by Bret Olguin M.D. [id number]
--- NOTE | 2024-03-27 15:05 | XR_ITS ---
WS: [id number] Exam: XR chest 1V portable [id number] Date/Time of Exam: 03/27/2024 3:06 PM Reason For Exam: cp Comparison 02/19/2024. Large left-sided pleural effusion noted with compressive atelectasis of the LEFT lower lobe and parts of the LEFT upper lobe. Marked interval cardiac enlargement. The RIGHT lung is generally clear. Sign s of previous chest surgery. Bony structures are intact. Recommendations: Contrast CT scan of the chest might be considered for further work-up if thought to be clinically warranted. XR/XR chest 1V portable [id number] IMPRESSION: 1. Large left-sided pleural effusion with compressive atelectasis of the left l jerica. See above discussion. 2. Marked interval cardiac enlargement. This could be due to cardiac decompensa tion however pericardial effusion might also be a consideration.
--- NOTE | 2024-03-27 15:11 | CTR_ITS ---
PROCEDURE INFORMATION: Exam: CTA Chest With Contrast Exam date and time: 03/27/2024 3:59 PM Age: 84 years old Clinical indication: Shortness of breath; Prior surgery; Surgery date: 6+ months; Surgery type: Left lung, gb; Additional info: SOB TECHNIQUE: Imaging protocol: Computed tomographic angiography of the chest with contrast. Exam focused on the arteries. 3D rendering (Not supervised by radiologist): MIP and/or 3D reconstructed images were created by the technologist. Radiation optimization: All CT scans at this facility use at least one of these dose optimization techniques: automated exposure control; mA and/or kV adjustment per patient size (includes targeted exams where dose is matched to clinical indication); or iterative reconstruction. Contrast material: OMNI 350; Contrast volume: 100 ml; Contrast route: INTRAVENOUS (IV); COMPARISON: CT angio chest w abd pel w con 01/30/2024 8:32 PM RADIATION DOSE METRICS: Total DLP (mGy-cm): 294.44 FINDINGS: Pulmonary arteries: No pulmonary emboli. Aorta: Dilatation of the ascending aorta measuring 4.1 cm. Other arteries: There is atherosclerotic disease. Lungs: Postop changes in the left lung with volume loss. Diffuse emphysematous change bilaterally. Stable calcified pulmonary nodules in the right lower lobe. Pleural spaces: Diffuse loculated near circumferential left pleural effusion which has increased when compared to the recent PET CT study. Associated pleural thickening predominantly in the posterior aspect of the left chest. Associated compressive atelectasis. There is no pneumothorax. Heart: Evidence of right heart dysfunction with reflux into the IVC and hepatic veins. There is no cardiomegaly. There is no pericardial effusion. Lymph nodes: Stable prominent mediastinal nodes. Bones/joints: No acute osseous abnormality. There is degenerative disease of the spine. Soft tissues: Unremarkable. CT/CT angio chest PE protcl [id number] IMPRESSION: 1. No pulmonary embolism. 2. Interval increase in the left pleural effusion with circumferential distribution and pleural thickening with associated compressive atelectasis. 3. Stable ascending aortic dilatation with severe atherosclerosis.
--- NOTE | 2024-03-27 15:24 | ED_ITS ---
HPI - Chest Pain 2 General: Chief Complaint: Chest Pain Stated Complaint: chest pain, sob abd pain Time Seen by Provider: 03/27/24 14:56 Source: patient and EMS Mode of arrival: EMS Limitations: no limitations History of Present Illness: 84-year-old female who states that she h as been having chest pain shortness of breath been going on over the last few days. She states she has had 2 hospital admissions in the last month. Patient states her pain is currently a 5 out of 10 said some mild dyspnea as well. Patient states she lives at home alone has been having a hard time taking care of herself at home. Associated symptoms: Reports dyspnea; Deny abdominal pain, fever(s), nausea or vomiting Related Data Home Medications Medication Instructions Recorded Confirmed rivaroxaban 20 mg tablet (Xarelto) 20 mg PO BEDTIME 07/03/19 03/27/24 furosemide 40 mg tablet 40 mg PO QAM 10/05/21 03/27/24 levothyroxine 50 mcg tablet 50 mcg PO QAM 04/22/23 03/27/24 docusate sodium 100 mg capsule 100 mg PO BID 01/31/24 03/27/24 albuterol sulfate 90 mcg/actuation 2 puff inhalation .Q4-6H PRN 02/19/24 03/27/24 aerosol inhaler Shortness Of Breath Or Wheezing alendronate 10 mg tablet 10 mg PO DAILY 02/19/24 03/27/24 cholecalciferol (vitamin D3) 50 100 mcg PO DAILY 02/19/24 03/27/24 mcg (2,000 unit) capsule (Vitamin D3) fluticasone propionate 50 2 spray intranasal DAILY 02/19/24 03/27/24 mcg/actuation nasal spray,suspension (Flonase Allergy Relief) meclizine 25 mg tablet 25 mg PO Q6H PRN Dizziness Or 02/19/24 03/27/24 Vertigo potassium chloride 20 mEq 20 meq PO DAILY 02/19/24 03/27/24 tablet,extended release atorvastatin 40 mg tablet 40 mg PO DAILY 03/05/24 03/27/24 fluticasone fur. 100 mcg-umeclid 1 inh inhalation DAILY 03/27/24 03/27/24 62.5 mcg-vilant 25 mcg inhalat.powder (Trelegy Ellipta) Previous Rx's Medication Instructions Recorded diltiazem HCl 300 mg 300 mg PO BEDTIME #90 caps 11/24/22 capsule,extended release 24 hr tramadol 50 mg tablet 50 mg PO Q8H PRN pain 7 days #21 01/20/24 tabs acetaminophen 500 mg tablet 500 mg PO Q4H PRN fever #30 tabs 01/31/24 lidocaine 5 % topical patch 1 patch topical DAILY #15 ea 01/31/24 Allergies Allergy/AdvReac Type Severity Reaction Status Date / Time codeine Allergy ADR-Halluci Verified 03/05/24 09:24 nating Sulfa (Sulfonamide Allergy ALGY-Swell Verified 03/05/24 09:24 Antibiotics) Lip/Tongue/Throat vancomycin Allergy ALGY-Redness Verified 03/05/24 09:24 of Skin Review of Systems 2 Const: Denies: fever(s), chills, body aches or change in appetite ENMT: Denies: throat pain or dental pain Card: Reports: chest pain Resp: Reports: dyspnea GI: Denies: abdominal pain, nausea, vomiting or diarrhea Musc: Denies: neck pain or back pain Skin/Breast: Denies: rash Neuro: Denies: headache(s) PFSH ED 2 PFSH: Medical History MARCUS (generalized anxiety disorder) Hypothyroidism 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 Neuropathic pain CHF (congestive heart failure) Atrial fibrillation AAA (abdominal aortic aneurysm) HTN (hypertension) COPD (chronic obstructive pulmonary disease) Hyperlipidemia Family History Other CAD (coronary artery disease) Cancer Stroke Social History Smoking and tobacco/nicotine status: former use of tobacco/nicotine Quit status (tobacco/nicotine): has quit using Year quit tobacco: 1997 Former quit date comment: 0.5 ppd X 40 years Alcohol intake: never Substance/Drug Use: never Physical Exam 2 Const: COMMON NORMALS: patient oriented x3 HENMT: COMMON NORMALS: normocephalic and atraumatic HEAD & SCALP: n ormocephalic and atraumatic Eye: COMMON NORMALS: Equal, round and reactive pupils present and EOMs intact bilaterally PUPIL: Yes Equal, round and reactive pupils present Neck/C-Spine: COMMON NORMALS: full ROM and supple Chest: COMMONS NORMALS: normal inspection of the chest Resp: COMMON NORMALS: No retractions OTHER: decreased breath sounds on the left Cardio: COMMON NORMALS: No murmurs present (Cardio) RATE: tachycardic R HYTHM: abnormal rhythm irregularly irregular GI: COMMON NORMALS: Normal to inspection, nondistended, normoactive bowel sounds present, Soft to palpation, non-tender and no masses PALPATION: Yes Soft to palpation Extremity: COMMON NORMALS: normal to inspection and full ROM Neuro: COMMON NORMALS: patient oriented x3, moves all extremities and no focal motor deficits Psych: COMMON NORMALS: mental status grossly normal, Normal thought process present and cooperative THOUGHT PROCESS: Normal thought process present Skin: COMMON NORMALS: no rashes or lesions noted and no wounds GENERAL SKIN EXAM: no rashes or lesions noted Course 2 Vital Signs: Vital signs: Vital Signs Temperature 98.3 F 03/27/24 14:55 Pulse Rate 117 H 03/27/24 17:31 Respiratory Rate 20 H 03/27/24 17:31 Blood Pressure 145/60 03/27/24 17:31 Pulse Oximetry 91 03/27/24 17:31 Oxygen Delivery Me thod Nasal Cannula 03/27/24 14:55 Oxygen Flow Rate 2 03/27/24 14:55 MDM - Chest Pain Medical Decision Making Patient presents here with dyspnea she is also in A-fib with RVR here having chest pain as well as since resolved she does have a large left-sided pleural effusion she is started on Cardizem for her A-fib I spoke to hospitalist will admit to cardiac stepdown at this time. Medical Records I reviewed the patient's medical records. Lab Data I reviewed the patient's lab results. 03/27/24 15:19 03/27/24 15:19 Radiology Impressions Chest X-Ray 03/27/24 15:05 IMPRESSION: 1. Large left-sided pleural effusion with compressive atelectasis of the left lung. See above discussion. 2. Marked interval cardiac enlargement. This could be due to cardiac decompensation however pericardial effusion might also be a consideration. Chest CTA 03/27/24 15:11 IMPRESSION: 1. No pulmonary embolism. 2. Interval increase in the left pleural effusion with circumferential distribution and pleural thickening with associated compressive atelectasis. 3. Stable ascending aortic dilatation with severe atherosclerosis. Laboratory Results WBC 10.31 10^3/uL (3.29-11.43) 03/27/24 15:19 RBC 4.22 10^6/uL (3.85-5.65) 03/27/24 15:19 Hgb 12.20 g/dL (11.27-16.99) 03/27/24 15:19 Hct 37.4 % (36-47) 03/27/24 15:19 MCV 88.6 fl (85-98) 03/27/24 15:19 MCH 28.9 pg (27-33) 03/27/24 15:19 MCHC 32.6 g/dL (30-55) 03/27/24 15:19 RDW 13.7 % (12.1-15.1) 03/27/24 15:19 Plt Count 200 10^3/cmm (157-399) 03/27/24 15:19 MPV 11.9 fL (7.4-10.4) H 03/27/24 15:19 Neut % (Auto) 61.8 % 03/27/24 15:19 Lymph % (Auto) 21.9 % 03/27/24 15:19 Greene % (Auto) 11.7 % 03/27/24 15:19 Eos % (Auto) 3.5 % 03/27/24 15:19 Baso % (Auto) 0.7 % 03/27/24 15:19 Neut # (Auto) 6.37 10^3/uL (1.8-7.7) 03/27/24 15:19 Lymph # (Auto) 2.3 10^3/uL (0.8-4.8) 03/27/24 15:19 Greene # (Auto) 1.2 10^3/uL (0.2-0.9) H 03/27/24 15:19 Eos # (Auto) 0.4 10^3/uL (0.0-0.8) 03/27/24 15:19 Baso # (Auto) 0.1 10^3/uL (0.0-0.1) 03/27/24 15:19 Nucleated RBC % (auto) 0 % 03/27/24 15:19 Nucleated RBCs # 0.0 /100WBC 03/27/24 15:19 PT 20.40 SECONDS (12.1-14.9) H 03/27/24 15:19 INR 1.64 (0.8-1.2) H 03/27/24 15:19 Sodium 137 mmol/L (136-145) 03/27/24 15:19 Potassium 2.8 mmol/L (3.5-5.1) L* 03/27/24 15:19 Chloride 96 mmol/L (98-107) L 03/27/24 15:19 Carbon Dioxide 25 mmol/L (22-29) 03/27/24 15:19 Anion Gap 18.8 (5-19) 03/27/24 15:19 BUN 10 mg/dL (8-23) 03/27/24 15:19 Creatinine 0.9 mg/dL (0.5-0.9) 03/27/24 15:19 GFR Calculation Not Reportable 03/27/24 15:19 Glucose 108 mg/dL (65-115) 03/27/24 15:19 Calculated Osmolality 284 mOsm/kg (285-295) L 03/27/24 15:19 Calcium 8.9 mg/dL (8.5-10.5) 03/27/24 15:19 Magnesium 2.0 mg/dL (1.7-2.3) 03/27/24 15:19 Total Bilirubin 0.5 mg/dL (0.15-1.2) 03/27/24 15:19 AST 14 U/L (0-32) 03/27/24 15:19 ALT 7 U/L (0-33) 03/27/24 15:19 Alkaline Phosphatase 87 U/L (35-105) 03/27/24 15:19 Troponin T Baseline 65 ng/L (0-10) H 03/27/24 15:19 Total Protein 5.7 g/dL (6.6-8.7) L 03/27/24 15:19 Albumin 3.8 g/dL (3.5-5.2) 03/27/24 15:19 Globulin 1.9 g/dL (1.3-4.6) 03/27/24 15:19 Lipase 20 U/L (13-60) 03/27/24 15:19 All radiology interpretation(s) finalized by discharge EKG Data EKG 1: I personally reviewed and interpreted this EKG as follows: EKG interpretation date: 03/27/24 EKG interpretation time: 15:00 Interpretation: afib with rvr hr [address] elevation qrs 88qtc 378 EKG 2: I personally reviewed and interpreted this EKG as follows: EKG interpretation date: 03/27/24 EKG interpretation time: 16:51 Interpretation: afib hr [address] elevation qrs 80 qtc 362 Discharge Plan Discharge Patient Disposition: Admitted As Inpatient Clinical Impression: Pleural effusion, left, Atrial fibrillation with RVR Condition: Stable Prescriptions: No Action furosemide 40 mg tablet 40 mg PO QAM Xarelto 20 mg tablet 20 mg PO BEDTIME tramadol 50 mg tablet 50 mg PO Q8H PRN (Reason: pain) 7 Days Qty: 21 0RF atorvastatin 40 mg tablet 40 mg PO DAILY diltiazem HCl 300 mg capsule,extended release 24hr 300 mg PO BEDTIME Qty: 90 0RF levothyroxine 50 mcg tablet 50 mcg PO QAM docusate sodium 100 mg capsule 100 mg PO BID lidocaine 5 % adhesive patch,medicated 1 patch topical DAILY Qty: 15 0RF Rx Instructions: Upper part of lower back. leave on most painful area for up to 12 hrs acetaminophen 500 mg Tablet 500 mg PO Q4H PRN (Reason: fever) Qty: 30 3RF alendronate 10 mg tablet 10 mg PO DAILY meclizine 25 mg tablet 25 mg PO Q6H PRN (Reason: Dizziness Or Vertigo) albuterol sulfate 90 mcg/actuation HFA aerosol inhaler 2 puff INHALATION .Q4-6H PRN (Reason: Shortness Of Breath Or Wheezing) fluticasone propionate [Flonase Allergy Relief] 50 mcg/actuation spray,suspension 2 spray INTRANASAL DAILY cholecalciferol (vitamin D3) [Vitamin D3] 50 mcg (2,000 unit) capsule 100 mcg PO DAILY potassium chloride 20 mEq tablet extended release 20 meq PO DAILY Rx Instructions: TAKE 1 TABLET BY MOUTH DAILY Trelegy Ellipta 100-62.5-25 mcg blister with device 1 inh INHALATION DAILY Coding Level of Care Code ED Labor Service Representative for Chg Nuzhat
[2024-03-27 15:35] LABS: Basophils # 0.1 10^3/uL (0.0-0.1); Basophils % 0.7 %; Eosinophils # 0.4 10^3/uL (0.0-0.8); Eosinophils % 3.5 %; Hematocrit 37.4 % (36-47); Lymphocytes # 2.3 10^3/uL (0.8-4.8); Lymphocytes % 21.9 %; Mean Corpuscular HGB Conc 32.6 g/dL (30-55); Mean Corpuscular Hemoglobin 28.9 pg (27-33); Mean Corpuscular Volume 88.6 fl (85-98); Mean Platelet Volume 11.9 fL (7.4-10.4); Monocytes # 1.2 10^3/uL (0.2-0.9); Monocytes % 11.7 %; Neutrophils # 6.37 10^3/uL (1.8-7.7); Neutrophils % 61.8 %; Nucleated Red Blood Cells % 0 %; Platelet Count 200 10^3/cmm (157-399); Red Blood Count 4.22 10^6/uL (3.85-5.65); Red Cell Distribution Width 13.7 % (12.1-15.1); White Blood Count 10.31 10^3/uL (3.29-11.43)
[2024-03-27 15:55] LABS: Troponin(5th) Baseline 65 ng/L (0-10)
[2024-03-27 15:56] LABS: Alanine Aminotransferase 7 U/L (0-33); Albumin Level 3.8 g/dL (3.5-5.2); Alkaline Phosphatase 87 U/L (35-105); Anion Gap 18.8 (5-19); Aspartate Amino Transferase 14 U/L (0-32); Blood Urea Nitrogen 10 mg/dL (8-23); Calcium 8.9 mg/dL (8.5-10.5); Carbon Dioxide 25 mmol/L (22-29); Chloride 96 mmol/L (98-107); Globulin 1.9 g/dL (1.3-4.6); Glucose 108 mg/dL (65-115); INR 1.64 (0.8-1.2); Lipase 20 U/L (13-60); Osmolality Calculated 284 mOsm/kg (285-295); Sodium 137 mmol/L (136-145); Total Bilirubin 0.5 mg/dL (0.15-1.2); Total Protein 5.7 g/dL (6.6-8.7)
[2024-03-27 15:58] LABS: Potassium 2.8 mmol/L (3.5-5.1)
[2024-03-27] MEDS: iohexol 350 mg/mL 500 mL Btl (per mL) IV (16:09)
--- NOTE | 2024-03-27 16:51 | ECG_ITS ---
[facility] Test Date: 2024-03-27 Pat Name: Samantha Lewis Department: Room: Gender: Female Learning And Development Intern: : 1940 Requested By: Arsalan Singh Order Number: [id number] Joanna MD: Bret Olguin M.D. Measurements Intervals [place] Rate: 132 P: 0 [place]: 0 QRS: 5 QRSD: 80 T: 89 QT: 284 QTc: 421 Interpretive Statements ATRIAL FIBRILLATION WITH RAPID VENTRICULAR RESPONSE WITH ABERRANT CONDUCTION OR VENTRICULAR PREMATURE COMPLEXES NONSPECIFIC ST & T-WAVE ABNORMALITY Compared to ECG 03/27/2024 15:00:27 Ventricular premature complex(es) now present Aberrant conduction of supraventricular beat(s) now present T-wave abnormality still present Electronically Signed On 03-31-2024 13:46:26 ELEVATOR ADJUSTER by Bret Olguin M.D. [id number]
[2024-03-27] MEDS: AZITHROMYCIN ADD-Vantage 500 MG in 0.9% NaCl ADD-Vantage 250 ML 250 MG IV (16:56)
[2024-03-27] MEDS: potassium chloride ER 20 mEq Tablet 40 MEQ PO ×2 (16:57→20:44)
[2024-03-27] MEDS: cefTRIAXone 1,000 mg SDV 1000 MG IVP (16:57)
--- NOTE | 2024-03-27 17:43 | P.HP_ITS ---
Providers/Chief Complaint 2 Chief Complaint: chest pain, sob abd pain History of Present Illness Samantha Lewis is a 84 year old female with a past medical history significant for lung cancer with invasive squamous cell carcinoma status post left lung wedge resection in January 2022, recently diagnosed with left-sided adenocarcinoma following recent left thoracentesis, tobacco use disorder in remission, lung nodules, atrial fibrillation, generalized anxiety, emphysema, hypothyroidism, congestive heart failure, hypertension, hyperlipidemia, multiple other comorbidities who presented emergency department with shortness of breath and generalized weakness. Patient reports shortness of breath forever. She reports the last several days have progressively worsened. Exertion worsens symptoms. Rest improves. She endorses associated generalized weakness and fatigue. She notes that she is having trouble caring for self at her home. She lives home alone. She is interested in possible postacute care. Of note, patient was admitted in January for pneumonia and found to have left- sided pleural effusion. Thoracentesis was recommended but she declined. She followed up at [facility] in [place] where thoracentesis was done. Per her report, she was found to have cancer. She was referred to oncology clinic here at [facility]. She saw Dr. Ordoñez in early February. Per his documentation, cytology from the thoracentesis showed adenocarcinoma. His notes indicated they were requesting further records from for cytology. A PET scan was recommended at that time. In the emergency department, imaging showed worsening pleural effusion. She was found to have A-fib with RVR, started on Cardizem drip. Review of Systems 2 Narrative: A complete review of systems was obtained and is negative except as stated in HPI. Medications/Allergies Home Medications Medication Instructions Recorded Confirmed Last Taken Type rivaroxaban 20 mg tablet (Xarelto) 20 mg PO BEDTIME 07/03/19 03/27/24 02/18/24 History furosemide 40 mg tablet 40 mg PO QAM 10/05/21 03/27/24 02/18/24 History diltiazem HCl 300 mg 300 mg PO BEDTIME #90 caps 11/24/22 03/27/24 02/18/24 Rx capsule,extended release 24 hr levothyroxine 50 mcg tablet 50 mcg PO QAM 04/22/23 03/27/24 02/18/24 History tramadol 50 mg tablet 50 mg PO Q8H PRN pain 7 days #21 01/20/24 03/27/24 Unknown Rx tabs acetaminophen 500 mg tablet 500 mg PO Q4H PRN fever #30 tabs 01/31/24 03/27/24 Unknown Rx docusate sodium 100 mg capsule 100 mg PO BID 01/31/24 03/27/24 02/18/24 History lidocaine 5 % topical patch 1 patch topical DAILY #15 ea 01/31/24 03/27/24 Unknown Rx albuterol sulfate 90 mcg/actuation 2 puff inhalation .Q4-6H PRN 02/19/24 03/27/24 Unknown History aerosol inhaler Shortness Of Breath Or Wheezing alendronate 10 mg tablet 10 mg PO DAILY 02/19/24 03/27/24 02/18/24 History cholecalciferol (vitamin D3) 50 100 mcg PO DAILY 02/19/24 03/27/24 02/18/24 History mcg (2,000 unit) capsule (Vitamin D3) fluticasone propionate 50 2 spray intranasal DAILY 02/19/24 03/27/24 Unknown History mcg/actuation nasal spray,suspension (Flonase Allergy Relief) meclizine 25 mg tablet 25 mg PO Q6H PRN Dizziness Or 02/19/24 03/27/24 Unknown History Vertigo potassium chloride 20 mEq 20 meq PO DAILY 02/19/24 03/27/24 02/18/24 History tablet,extended release atorvastatin 40 mg tablet 40 mg PO DAILY 03/05/24 03/27/24 Unknown History fluticasone fur. 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 Neuropathic pain CHF (congestive heart failure) Atrial fibrillation AAA (abdominal aortic aneurysm) HTN (hypertension) COPD (chronic obstructive pulmonary disease) Hyperlipidemia Surgical History History of lung surgery Family History Other CAD (coronary artery disease) Cancer Stroke Social History Smoking and tobacco/nicotine status: former use of tobacco/nicotine Quit status (tobacco/nicotine): has quit using Year quit tobacco: 1997 Former quit date comment: 0.5 ppd X 40 years Alcohol intake: never Substance/Drug Use: never Vitals/I&O/Wt Last Vital Signs Temp 98.3 F 03/27/24 14:55 Pulse 117 H 03/27/24 17:31 Resp 20 H 03/27/24 17:31 BP 145/60 03/27/24 17:31 Pulse Ox 91 03/27/24 17:31 O2 Del Method Nasal Cannula 03/27/24 14:55 O2 Flow Rate 2 03/27/24 14:55 Weight last 48 hrs Weight 65.317 kg Physical Exam 2 Narrative: General: Patient is awake. Head: Normocephalic. Atraumatic. EOM intact. Neck: No JVD. Cardiovascular: No gallops. No murmurs. No peripheral edema. Tachycardic with irregularly irregular rhythm. Lungs: Markedly diminished breath sounds in left lung. Conversational dyspnea. No crackles or wheezing. On nasal canula support. Skin: No jaundice. No rashes. Abdomen: Normal bowel sounds, abdomen soft and nontender. Genito Urinary: Genital exam not performed since complaints not related. Rectal: Rectal exam not performed since no symptoms indicated blood loss. Extremities: No cyanosis or clubbing. Musculoskeletal: No swollen or erythematous joints. Neurological: Moves all 4 extremities. No myoclonus. Data 03/27/24 15:19 03/27/24 15:19 Micro: Microbiology 03/27/24 16:29 Blood Culture - Preliminary Blood SPECIMEN COLLECTED 03/27/24 16:29 Blood Culture - Preliminary Blood SPECIMEN COLLECTED A&P Assessment and plan (1) Lung cancer: Left-sided lung cancer Limited records from [facility] reviewed, non-small cell lung cancer, favoring adenocarcinoma per scanned in result Has establish care with medical oncology at [facility] She also has a history of squamous cell carcinoma status post wedge resection She will need continued outpatient follow-up (2) Atrial fibrillation with RVR: Patient being tolerated on Cardizem drip in ED Hold long-acting Cardizem, start oral short acting Cardizem, wean off drip as tolerated Hold anticoagulation for thoracentesis Continuous telemetry monitoring Correct electrolytes including potassium (3) Debility: Debility and physical deconditioning Patient interested in postacute care Therapy evaluation Case management consult in a.m. (4) Hypokalemia: Replace potassium (5) Malignant pleural effusion: Cytology from [facility] reviewed Will request thoracentesis Hold anticoagulation (6) Emphysema of lung: Breathing treatments as needed Qualifiers: Emphysema type: centrilobular Qualified Code(s): J43.2 - Centrilobular emphysema Plan DVT prophylaxis: Patient is on Xarelto, will hold. SCD. Code: Full code, confirmed with the patient Attestations 2 Medical Necessity Statement*: Patient presents with shortness of breath and weakness, found to have recurrent malignant effusion, A-fib with RVR, hypokalemia and debility with expected hospitalization not to cross 2 midnights for control of heart rate, thoracentesis evaluation, case management evaluation, correction of electrolytes and supportive care. Coding Level of Care Code Acute Code for [facility] Diagnoses Lung cancer C34.90 Atrial fibrillation with RVR I48.91 Debility R53.81 Hypokalemia E87.6 Malignant pleural effusion J91.0 Centrilobular emphysema J43.2 Emphysema type: centrilobular
[2024-03-27] MEDS: dilTIAZem 100 MG in sodium chloride 0.9% (add-van) 100 ML IV (17:59)
[2024-03-27 19:22] LABS: Procalcitonin 0.08 ng/mL (0-0.5)
--- NOTE | 2024-03-27 21:05 | ECG_ITS ---
[facility] Test Date: 2024-03-27 Pat Name: Samantha Lewis Department: Room: ED Gender: Female Vascular Specialists: : 1940 Requested By: Arsalan Singh Order Number: [id number] Joanna MD: Bret Olguin M.D. Measurements Intervals [place] Rate: 98 P: 0 [place]: 0 QRS: 54 QRSD: 84 T: 57 QT: 313 QTc: 401 Interpretive Statements ATRIAL FIBRILLATION Compared to ECG 03/27/2024 16:51:23 Ventricular premature complex(es) no longer present Aberrant conduction of supraventricular beat(s) no longer present T-wave abnormality no longer present Electronically Signed On 03-31-2024 13:44:06 OCULAR CARE TECHNICIAN by Bret Olguin M.D. [id number]
[2024-03-27] MEDS: dilTIAZem ER (24HR) 300 mg Capsule PO (21:32)
[2024-03-27 23:00] LABS: Troponin 5 6HR 67.95 ng/L (0-10); Troponin 5 6HR Delta 2.95 ng/L (0-12)
[2024-03-28] VITALS (16 sets, daily range): BP systolic 107–147; BP diastolic 65–89; PULSE 57–109; RESP 13–23; TEMP 36.6–37.2; O2SAT 88–99; BMI 25.0
[2024-03-28] MEDS: ondansetron 4 MG Tablet PO (00:54)
[2024-03-28] MEDS: TRAMadol 50 mg Tablet PO (00:54)
[2024-03-28] MEDS: ipratropium-albuterol 3 mL Neb INHALATION ×2 (00:55→21:07)
[2024-03-28] MEDS: acetaminophen 325 mg Tablet 650 MG PO (04:27)
[2024-03-28 04:50] LABS: Anion Gap 16.5 (5-19); Blood Urea Nitrogen 11 mg/dL (8-23); Calcium 8.9 mg/dL (8.5-10.5); Carbon Dioxide 26 mmol/L (22-29); Chloride 99 mmol/L (98-107); Glucose 93 mg/dL (65-115); Magnesium 2.1 mg/dL (1.7-2.3); Osmolality Calculated 285 mOsm/kg (285-295); Phosphorus 3.8 mg/dL (2.5-4.5); Potassium 3.5 mmol/L (3.5-5.1); Sodium 138 mmol/L (136-145)
[2024-03-28] MEDS: morphine 4 mg/mL SDV 1 mL 2 MG IVP (04:59)
[2024-03-28] MEDS: FUROsemide 40 mg Tablet PO (05:20)
[2024-03-28] MEDS: levothyroxine 50 mcg Tablet PO (05:21)
--- NOTE | 2024-03-28 09:13 | PC.CHAP ---
Pastoral Care Encounter/Spiritual Assessment Type of Contact [] Declined wireless development manager visit [] Patient/Family/Request visit [] Outpatient visit [] Follow-up visit [] Physician referral [] Code/Alert [x] Routine visit [] Staff referral [] Actively dying [] Patient sleeping [x] Family support [] [] Out of room [] Palliative care [] [] Receiving care in room [] Pre-surgical visit [] Trauma [] Long length of stay [] ICU visit [] Other: Relational/Emotional Strength [x] Patient feels connected with others/family/visitors/staff [] Distress [] Loneliness/isolation [] Abandonment Spirituality of Patient [x] Person of Marlin [] Attends Uatsdin of their Marlin [x] Believes in Prayer [] Reads Bible or Religion materials [] There are Spiritual issues to be addressed Supervisor Lathing Interventions [x] Prayer [x] Active listening [] Non-anxious presence [x] Spiritual/emotional support [] Crisis/trauma care [] Spiritual counseling [] Bereavement support [] Provided bereavement packet [] Provided Bible/devotional materials [] Provided toy/stuffed animal, coloring book to patient or family member [] Provided Communion [] Anointing/[place] [] Salvation [x] Completed spiritual assessment [] Other: Impact on Illness or Injury [] Angry [] Fearful [] Anxious [] Often cries [] Exhaustion [] Unable to work [] Unable to attend hindu [] Unable to walk/stand [] Unable to read [] Unable to drive [] Unable to eat/drink [] Unable to sleep [] Unable to be with family [] Patient intubated [] Other: Summary Time spent with patient 5 min
--- NOTE | 2024-03-28 09:33 | XR_ITS ---
WS: [id number] PORTABLE CHEST HISTORY: s/p thoracentesis, LEFT COMPARISON: 03/27/2024 Significant improvement in aeration of the LEFT lung since the prior study after the thoracentesis. T here is still a small layering pleural effusion. Chronic emphysema. No pneumothorax. Cardiac size: Mildly enlarged. Mediastinum/Aorta: Ectatic aorta with dilatation of fullness at the AP window as seen on prior studie s. No osseous abnormality seen. XR/XR chest 1V portable [id number] IMPRESSION: 1. No pneumothorax status post LEFT thoracentesis. 2. Marked improved aeration of the LEFT lung. There is still a small residual pleural effusion.
[2024-03-28] MEDS: fluticasone nasal spray 16gm Btl 2 SPRAY INTRANASAL (09:47)
[2024-03-28] MEDS: atorvastatin 40 mg Tablet PO (09:47)
[2024-03-28] MEDS: potassium chloride ER 20 mEq Tablet PO (09:47)
[2024-03-28] MEDS: docusate sodium 100 mg Capsule PO ×2 (09:47→18:36)
--- NOTE | 2024-03-28 09:51 | PM.PN ---
Subjective Subjective: Patient reports her breathing is about the same as yesterday. Planning for thoracentesis today. She had multiple questions regarding procedure which we reviewed. Reports continued weakness and debility. Spoke w/ Oncology office this morning. They do not need additional tissue for any further testing at this time. Medications: Reviewed: Yes Vitals/I&O/Wt Last Vital Signs Temp 97.9 F 03/28/24 08:00 Pulse 88 03/28/24 08:00 Resp 18 03/28/24 08:00 BP 131/89 03/28/24 08:00 Pulse Ox 98 03/28/24 08:00 O2 Del Method Nasal Cannula 03/28/24 09:10 O2 Flow Rate 5 03/28/24 06:00 03/27/24 03/28/24 03/28/24 22:59 06:59 14:59 Intake Total 263.75 / 263.75 93.417 / 357.167 Balance 263.75 / 263.75 93.417 / 357.167 Weight last 48 hrs Weight 64.183 kg Weight 65.317 kg Physical Exam Narrative: General: Patient is awake. Alert. In bed. Head: Normocephalic. Atraumatic. EOM intact. Neck: No JVD. Cardiovascular: No gallops. No murmurs. Regular rate. Lungs: Markedly diminished breath sounds in left lung. Conversational dyspnea. No crackles or wheezing. On nasal canula support. Skin: No jaundice. No rashes. Abdomen: Normal bowel sounds, abdomen soft and nontender. Genito Urinary: Genital exam not performed since complaints not related. Rectal: Rectal exam not performed since no symptoms indicated blood loss. Extremities: No cyanosis or clubbing. Musculoskeletal: No swollen or erythematous joints. Neurological: Moves all 4 extremities. No myoclonus. 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 Spoke w/ [facility] oncology office this morning She will need continued outpatient follow-up (2) Atrial fibrillation with RVR: Continue home Cardizem Discontinue Cardizem drip Hold anticoagulation for thoracentesis Continuous telemetry monitoring Correct electrolytes including potassium (3) Debility: Debility and physical deconditioning Patient interested in postacute care options Therapy evaluation Case management consulted (4) Hypokalemia: Status post replacement Continue home potassium supplement (5) Malignant pleural effusion: Cytology from [facility] reviewed Anticipate thoracentesis today Hold anticoagulation (6) Emphysema of lung: Breathing treatments as needed Qualifiers: Emphysema type: centrilobular Qualified Code(s): J43.2 - Centrilobular emphysema Plan DVT prophylaxis: Patient is on Xarelto, will hold again. SCD. Code: Full code Attestations Medical Necessity Statement*: Pt requires ongoing hospitalization for thoracentesis, electrolyte monitoring therapy evaluation, and CM review. Coding Level of Care Code Acute Code for [facility] Fwd Diagnoses Lung cancer C34.90 Atrial fibrillation with RVR I48.91 Debility R53.81 Hypokalemia E87.6 Malignant pleural effusion J91.0 Centrilobular emphysema J43.2 Emphysema type: centrilobular
[2024-03-28 10:01] LABS: Body Fluid Polynuclear #Cells 0.502; Body Fluid WBC 2019 /uL; Monocytes # Body Fluid 1.517
[2024-03-28 10:03] LABS: Apprearance, Body Fluid BLOODY; Color, Body Fluid RED; Cyto Order Verification No Order
[2024-03-28 10:18] LABS: Fluid Laterality PLEURAL FLUID; PATH Referral YES
[2024-03-28 10:38] LABS: Albumin Body Fluid 2.9 g/dL; LDH Body Fluid 505 U/L; Total Protein Pleural Fluid 3.9 g/dL
--- NOTE | 2024-03-28 18:46 | US_ITS ---
WS: [id number] ULTRASOUND-GUIDED THORACENTESIS, LEFT HISTORY: Left pleural effusion Procedure, risks, and complications were explained to the patient. With the patient in an upright pos ition, the skin over the LEFT posterior thorax was cleansed with ChloraPrep and anesthetized with 1% buffered lidocaine. A 5 Turkish Yueh needle is inserted into the pleural fluid without complication. A pproximately 1500 cc of red pleural fluid is removed without difficulty. Specimen collected for analysis. / thoracentesis [id number] IMPRESSION: 1. LEFT thoracentesis yielding 1500 cc of fluid. Dark red pleural fluid remove d. 2. Chest radiograph to follow to evaluate for pneumothorax.
[2024-03-28] MEDS: dilTIAZem ER (24HR) 300 mg Capsule PO (20:35)
[2024-03-28] MEDS: budesonide 0.5 mg/2 mL Neb INHALATION (21:07)
[2024-03-29] VITALS (11 sets, daily range): BP systolic 103–155; BP diastolic 58–105; PULSE 73–96; RESP 16–24; TEMP 36.4–36.9; O2SAT 91–100; BMI 25.0
[2024-03-29] MEDS: levothyroxine 50 mcg Tablet PO (04:51)
[2024-03-29] MEDS: TRAMadol 50 mg Tablet PO ×2 (04:51→16:00)
[2024-03-29] MEDS: FUROsemide 40 mg Tablet PO (04:51)
[2024-03-29] MEDS: budesonide 0.5 mg/2 mL Neb INHALATION (07:47)
[2024-03-29] MEDS: ipratropium-albuterol 3 mL Neb INHALATION (07:47)
[2024-03-29] MEDS: lidocaine 5% Patch 1 PATCH TOPICAL (09:09)
[2024-03-29] MEDS: atorvastatin 40 mg Tablet PO (09:09)
[2024-03-29] MEDS: potassium chloride ER 20 mEq Tablet PO (09:09)
[2024-03-29] MEDS: fluticasone nasal spray 16gm Btl 2 SPRAY INTRANASAL (10:25)
--- NOTE | 2024-03-29 11:07 | P.PN_ITS ---
Subjective 2 Subjective: Patient reports her breathing has improved. She still requiring supplemental oxygen and we discussed she may need supplemental oxygen until her malignant effusion improves which is not likely until she starts treatment for underlying malignancy. We discussed there is a high probability she will need another thoracentesis and another 2 weeks or so depending on reaccumulation rate. Documentation shows that she did establish with Dr. Ordoñez on March 05. She does not seem to remember this interaction well. She did follow through with the PET scan which was ordered at that time. She reports she does have follow-up on April 02 of the medical oncology clinic. She has multiple questions regarding staging and subsequent treatment. We discussed that this will come from her oncology provider Dr. Ordoñez immunities questions can be answered today. She endorses generalized malaise and weakness. She is hopeful to get to postacute care. Referrals were sent. Will follow-up with case management. Medications: Reviewed: Yes Vitals/I&O/Wt Last Vital Signs Temp 97.6 F 03/29/24 08:00 Pulse 85 03/29/24 08:00 Resp 20 H 03/29/24 08:00 BP 110/72 03/29/24 08:00 Pulse Ox 97 03/29/24 08:00 O2 Del Method Nasal Cannula 03/29/24 08:00 O2 Flow Rate 2 03/29/24 08:00 03/28/24 03/29/24 03/29/24 22:59 06:59 14:59 Intake Total 100 / 100 100 / 200 Balance 100 / 100 100 / 200 Weight last 48 hrs Weight 64.183 kg Weight 64.183 kg Weight 64.183 kg Weight 64.183 kg Weight 65.317 kg Physical Exam 2 Narrative: General: Patient is awake. Alert. Sitting in bedside chair. Conversational. Head: Normocephalic. Atraumatic. EOM intact. Neck: No JVD. Cardiovascular: No gallops. No murmurs. Regular rate. Lungs: Breath sounds are diminished in left lung base although improved from prior exams. No crackles or wheezing. Overall respiratory status seems improved. Still on supplemental oxygen. Skin: No jaundice. No rashes. Abdomen: Normal bowel sounds, abdomen soft and nontender. Extremities: No cyanosis or clubbing. Musculoskeletal: No swollen or erythematous joints. Neurological: Moves all 4 extremities. No myoclonus. 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 She will need continued outpatient follow-up, reports clinic follow-up April 02 (2) Atrial fibrillation with RVR: Continue home Cardizem Continuous telemetry monitoring Restart anticoagulation tonight (3) Debility: Debility and physical deconditioning Continue therapy Case management following, referral sent, hopefully will get response today (4) Hypokalemia: Continue home potassium supplement (5) Malignant pleural effusion: Status post thoracentesis 03/28 She will likely need repeat thoracentesis with time as malignant effusions expected to reaccumulate while awaiting initiation of treatment (6) Emphysema of lung: Breathing treatments as needed Qualifiers: Emphysema type: centrilobular Qualified Code(s): J43.2 - Centrilobular emphysema Plan DVT prophylaxis: SCD. Restart Xarelto soon. Code: Full code Attestations 2 Medical Necessity Statement*: Patient requires ongoing hospitalization as she is unsafe to discharge to home alone while case management works on procuring postacute placement. Coding Level of Care Code Acute Code for [facility] Diagnoses Lung cancer C34.90 Atrial fibrillation with RVR I48.91 Debility R53.81 Hypokalemia E87.6 Malignant pleural effusion J91.0 Centrilobular emphysema J43.2 Emphysema type: centrilobular
[2024-03-29] MEDS: docusate sodium 100 mg Capsule PO ×2 (11:32→17:54)
[2024-03-29] MEDS: rivaroxaban 10 mg Tablet 20 MG PO (16:00)
[2024-03-29] MEDS: dilTIAZem ER (24HR) 300 mg Capsule PO (21:48)
[2024-03-30] VITALS (14 sets, daily range): BP systolic 100–138; BP diastolic 61–84; PULSE 56–95; RESP 14–20; TEMP 36.5–37.2; O2SAT 91–99
[2024-03-30] MEDS: acetaminophen 325 mg Tablet 650 MG PO ×3 (00:31→20:42)
[2024-03-30] MEDS: ipratropium-albuterol 3 mL Neb INHALATION ×2 (00:50→07:20)
[2024-03-30] MEDS: FUROsemide 40 mg Tablet PO (06:05)
[2024-03-30] MEDS: levothyroxine 50 mcg Tablet PO (06:05)
[2024-03-30] MEDS: budesonide 0.5 mg/2 mL Neb INHALATION ×2 (07:20→19:36)
[2024-03-30] MEDS: docusate sodium 100 mg Capsule PO ×2 (08:41→17:45)
[2024-03-30] MEDS: potassium chloride ER 20 mEq Tablet PO (08:43)
[2024-03-30] MEDS: rivaroxaban 10 mg Tablet 20 MG PO (08:43)
[2024-03-30] MEDS: atorvastatin 40 mg Tablet PO (08:54)
[2024-03-30] MEDS: fluticasone nasal spray 16gm Btl 2 SPRAY INTRANASAL (08:57)
[2024-03-30] MEDS: lidocaine 5% Patch 1 PATCH TOPICAL (08:58)
--- NOTE | 2024-03-30 11:04 | PM.PN ---
Subjective Subjective: Patient working with therapy this morning. She states that she is short of breath but improved from prior. She is off oxygen this morning. We discussed plan of care and she is in agreement. Denies other new complaints. Medications: Reviewed: Yes Vitals/I&O/Wt Last Vital Signs Temp 98.0 F 03/30/24 07:45 Pulse 68 03/30/24 07:45 Resp 17 03/30/24 07:45 BP 106/65 03/30/24 07:45 Pulse Ox 99 03/30/24 07:45 O2 Del Method Nasal Cannula 03/30/24 07:45 O2 Flow Rate 2 03/30/24 07:30 FiO2 21 03/29/24 18:54 03/29/24 03/30/24 03/30/24 22:59 06:59 14:59 Intake Total 118 / 478 100 / 578 Output Total 700 / 700 150 / 850 400 / 400 Balance -582 / -222 -50 / -272 -400 / -400 Weight last 48 hrs Weight 65.453 kg Weight 65.453 kg Weight 64.183 kg Weight 64.183 kg Weight 64.183 kg Physical Exam Narrative: General: Patient is awake. Alert. Pleasant. Head: Normocephalic. Atraumatic. EOM intact. Neck: No JVD. Cardiovascular: No gallops. No murmurs. Regular rate. Lungs: Breath sounds are diminished in left lung base. No crackles. No rales. Skin: No jaundice. No rashes. Abdomen: Normal bowel sounds, abdomen soft and nontender. Extremities: No cyanosis or clubbing. Musculoskeletal: No swollen or erythematous joints. Neurological: Moves all 4 extremities. No myoclonus. 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 She will need continued outpatient follow-up, reports clinic follow-up April 02 (2) Atrial fibrillation with RVR: Continue home Cardizem Continuous telemetry monitoring Continue anticoagulation (3) Debility: Debility and physical deconditioning Continue therapy Case management following, evaluating postacute options (4) Hypokalemia: Continue home potassium supplement (5) Malignant pleural effusion: Status post thoracentesis 03/28 She will likely need repeat thoracentesis with time as malignant effusions expected to reaccumulate while awaiting initiation of treatment (6) Emphysema of lung: Breathing treatments as needed Qualifiers: Emphysema type: centrilobular Qualified Code(s): J43.2 - Centrilobular emphysema Plan DVT prophylaxis: Xarelto Code: Full code Attestations Medical Necessity Statement*: Patient requires ongoing hospitalization while arranging safe discharge plan. Coding Level of Care Code Acute Code for [facility] Diagnoses Lung cancer C34.90 Atrial fibrillation with RVR I48.91 Debility R53.81 Hypokalemia E87.6 Malignant pleural effusion J91.0 Centrilobular emphysema J43.2 Emphysema type: centrilobular
--- NOTE | 2024-03-30 14:57 | PC.NURSE ---
transferred to [facility] report called to FRANK Gomez. all pt belongings are sent with the pt. son and dgtr in law notified of the transfer and room to be w/c is 269.
[2024-03-30] MEDS: ondansetron 4 MG Tablet PO (18:24)
[2024-03-30] MEDS: dilTIAZem ER (24HR) 300 mg Capsule PO (20:43)
[2024-03-31] VITALS (9 sets, daily range): BP systolic 115–134; BP diastolic 70–88; PULSE 7–91; RESP 15–20; TEMP 36.4–36.7; O2SAT 90–96
[2024-03-31] MEDS: FUROsemide 40 mg Tablet PO (06:10)
[2024-03-31] MEDS: levothyroxine 50 mcg Tablet PO (06:10)
[2024-03-31] MEDS: TRAMadol 50 mg Tablet PO ×2 (06:10→21:17)
[2024-03-31] MEDS: ipratropium-albuterol 3 mL Neb INHALATION (08:23)
[2024-03-31] MEDS: budesonide 0.5 mg/2 mL Neb INHALATION ×2 (08:23→22:02)
[2024-03-31] MEDS: docusate sodium 100 mg Capsule PO ×2 (08:48→17:35)
[2024-03-31] MEDS: lidocaine 5% Patch 1 PATCH TOPICAL (08:48)
[2024-03-31] MEDS: atorvastatin 40 mg Tablet PO (08:48)
[2024-03-31] MEDS: potassium chloride ER 20 mEq Tablet PO (08:48)
[2024-03-31] MEDS: rivaroxaban 10 mg Tablet 20 MG PO (08:48)
[2024-03-31] MEDS: fluticasone nasal spray 16gm Btl 2 SPRAY INTRANASAL (08:55)
--- NOTE | 2024-03-31 09:50 | PM.PN ---
Subjective Subjective: Patient in bedside chair this morning. We discussed her denial to assisted living. She states that she does not intend to undergo cancer treatment. She not interested in chemotherapy. As such we discussed her main symptom from her cancer so far has been fluid collection resulting in shortness of breath. She is required 2 thoracentesis for symptom control. I introduced the idea of a Pleurx catheter. She ultimately stated that she was interested at this time and a Pleurx catheter but will continue to think about it. We discussed the risks, benefits as well as pros and cons of such catheter. She otherwise denies any fevers, chills, nausea or emesis. Reports appetite is okay. Seeking placement. She reports daughters been looking into place locally, she cannot remember the name but will talk to DIL later today or tomorrow. Medications: Reviewed: Yes Vitals/I&O/Wt Last Vital Signs Temp 97.8 F 03/31/24 08:00 Pulse 91 03/31/24 08:00 Resp 15 03/31/24 08:00 BP 126/88 03/31/24 08:00 Pulse Ox 96 03/31/24 08:00 O2 Del Method Room Air 03/31/24 08:00 O2 Flow Rate 2 03/30/24 07:30 FiO2 21 03/29/24 18:54 03/30/24 03/31/24 03/31/24 22:59 06:59 14:59 Intake Total 360 / 360 240 / 240 Balance 360 / -240 240 / 240 Weight last 48 hrs Weight 68.855 kg Weight 65.453 kg Weight 65.453 kg Physical Exam Narrative: General: Patient is awake. Alert. Pleasant. Sitting in bedside chair. Head: Normocephalic. Atraumatic. EOM intact. Neck: No JVD. Cardiovascular: No gallops. No murmurs. Regular rate. Lungs: Breath sounds are diminished in left lung base. No crackles. No rales. Skin: No jaundice. No rashes. Abdomen: Normal bowel sounds, abdomen soft and nontender. Extremities: No cyanosis or clubbing. Musculoskeletal: No swollen or erythematous joints. Neurological: Moves all 4 extremities. No myoclonus. 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 She has outpatient follow-up with medical oncology next week She states she does not intend to proceed with treatment She may benefit from Pleurx catheter for management of her recurrent malignant pleural effusion, she will continue to think about this (2) Atrial fibrillation with RVR: Continue home Cardizem Continuous telemetry monitoring Continue anticoagulation, may need held if plans for Pleurx develop (3) Debility: Debility and physical deconditioning Continue therapy Case management following, evaluating postacute options; planning on postacute care (4) Hypokalemia: Continue home potassium supplement (5) Malignant pleural effusion: Status post thoracentesis 03/28 PleurX discussed as above (6) Emphysema of lung: Breathing treatments as needed Qualifiers: Emphysema type: centrilobular Qualified Code(s): J43.2 - Centrilobular emphysema Plan DVT prophylaxis: Xarelto Code: Full code Attestations Medical Necessity Statement*: Patient requires ongoing hospitalization while arranging safe discharge plan. Coding Level of Care Code Acute Code for [facility] Fwd Diagnoses Lung cancer C34.90 Atrial fibrillation with RVR I48.91 Debility R53.81 Hypokalemia E87.6 Malignant pleural effusion J91.0 Centrilobular emphysema J43.2 Emphysema type: centrilobular
[2024-03-31] MEDS: ondansetron 4 MG Tablet PO (11:51)
[2024-03-31] MEDS: acetaminophen 325 mg Tablet 650 MG PO (12:48)
[2024-03-31] MEDS: dilTIAZem ER (24HR) 300 mg Capsule PO (21:17)
[2024-04-01] VITALS (11 sets, daily range): BP systolic 121–145; BP diastolic 63–88; PULSE 65–109; RESP 14–17; TEMP 36.4–37; O2SAT 90–98
[2024-04-01] MEDS: levothyroxine 50 mcg Tablet PO (05:28)
[2024-04-01] MEDS: FUROsemide 40 mg Tablet PO (05:28)
[2024-04-01] MEDS: fluticasone nasal spray 16gm Btl 2 SPRAY INTRANASAL (08:15)
[2024-04-01] MEDS: docusate sodium 100 mg Capsule PO ×2 (08:15→20:57)
[2024-04-01] MEDS: potassium chloride ER 20 mEq Tablet PO (08:15)
[2024-04-01] MEDS: rivaroxaban 10 mg Tablet 20 MG PO (08:15)
[2024-04-01] MEDS: atorvastatin 40 mg Tablet PO (08:15)
[2024-04-01] MEDS: budesonide 0.5 mg/2 mL Neb INHALATION ×2 (09:21→19:53)
--- NOTE | 2024-04-01 11:33 | PM.PN ---
Subjective Subjective: Patient reports that her breathing slowly worsening. Discussed that her effusions likely reaccumulating given malignant pleural effusion. I discussed she will likely need another thoracentesis soon. We again revisited the idea of a Pleurx but she is currently not interested. Her [id number] is working on trying to find her postacute placement. She thinks that she may have found a place that is interested. She has an appointment to review her PET scan and further oncologic evaluation tomorrow with Dr. Ordoñez. She like to try to make that appointment if possible. She is still favoring no treatment. Son is visiting later in the morning. It sounds like the place they are evaluating his [facility]. Medications: Reviewed: Yes Vitals/I&O/Wt Last Vital Signs Temp 97.6 F 04/01/24 11:22 Pulse 88 04/01/24 11:22 Resp 14 04/01/24 11:22 BP 121/76 04/01/24 07:52 Pulse Ox 97 04/01/24 11:22 O2 Del Method Room Air 04/01/24 11:22 O2 Flow Rate 2 03/30/24 07:30 FiO2 21 03/29/24 18:54 03/31/24 04/01/24 04/01/24 22:59 06:59 14:59 Intake Total 240 / 720 120 / 120 Balance 240 / 720 120 / 120 Weight last 48 hrs Weight 69.808 kg Weight 68.855 kg Physical Exam Narrative: General: Patient is awake and alert. Conversational. Sitting in bedside chair eating breakfast. Head: Normocephalic. Atraumatic. EOM intact. Neck: No JVD. Cardiovascular: No gallops. No murmurs. Regular rate. Lungs: Breath sounds remain diminished in left lung base. No crackles. No rales. Currently on room air. Skin: No jaundice. No rashes. Abdomen: Normal bowel sounds, abdomen soft and nontender. Extremities: No cyanosis or clubbing. Musculoskeletal: No swollen or erythematous joints. Neurological: Moves all 4 extremities. No myoclonus. 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 Ordoñez, would like to keep that appointment if possible; will need to evaluate in the morning (2) Malignant pleural effusion: Status post thoracentesis 03/28 (second thoracentesis, first at [facility]) PleurX discussed as above She will likely need repeat thoracentesis soon, consider setting up prior to discharge (3) Debility: Debility and physical deconditioning Continue therapy Working on postacute placement, will need to follow-up with case management on Tuesday (4) Atrial fibrillation with RVR: RVR has resolved Continue home Cardizem Continue home anticoagulation Continuous telemetry monitoring (5) Hypokalemia: Continue home potassium supplement (6) Emphysema of lung: Breathing treatments as needed Qualifiers: Emphysema type: centrilobular Qualified Code(s): J43.2 - Centrilobular emphysema Plan DVT prophylaxis: Xarelto Code: Full code Attestations Medical Necessity Statement*: Patient requires ongoing hospitalization while arranging safe discharge plan. Coding Level of Care Code Acute Code for [facility] Fwd Diagnoses Lung cancer C34.90 Malignant pleural effusion J91.0 Debility R53.81 Atrial fibrillation with RVR I48.91 Hypokalemia E87.6 Centrilobular emphysema J43.2 Emphysema type: centrilobular
[2024-04-01] MEDS: ipratropium-albuterol 3 mL Neb INHALATION (19:53)
[2024-04-01] MEDS: TRAMadol 50 mg Tablet PO (20:57)
[2024-04-01] MEDS: dilTIAZem ER (24HR) 300 mg Capsule PO (20:57)
[2024-04-02] VITALS (10 sets, daily range): BP systolic 102–148; BP diastolic 63–98; PULSE 72–96; RESP 16–19; TEMP 36.6–36.9; O2SAT 90–97
[2024-04-02] MEDS: FUROsemide 40 mg Tablet PO (05:50)
[2024-04-02] MEDS: levothyroxine 50 mcg Tablet PO (05:50)
[2024-04-02] MEDS: atorvastatin 40 mg Tablet PO (10:38)
[2024-04-02] MEDS: rivaroxaban 10 mg Tablet 20 MG PO (10:38)
[2024-04-02] MEDS: potassium chloride ER 20 mEq Tablet PO (10:38)
[2024-04-02] MEDS: TRAMadol 50 mg Tablet PO (15:29)
--- NOTE | 2024-04-02 17:33 | PM.PN ---
Subjective Subjective: denie new complaint . currently on RA Medications: Reviewed: Yes Vitals/I&O/Wt Last Vital Signs Temp 98.0 F 04/02/24 11:31 Pulse 72 04/02/24 11:31 Resp 19 H 04/02/24 11:31 BP 148/98 04/02/24 11:31 Pulse Ox 90 04/02/24 11:31 O2 Del Method Room Air 04/02/24 11:31 O2 Flow Rate 2 03/30/24 07:30 FiO2 21 03/29/24 18:54 04/02/24 04/02/24 04/02/24 06:59 14:59 22:59 Intake Total 600 / 600 Balance 600 / 600 Weight last 48 hrs Weight 69.808 kg Weight 69.808 kg Physical Exam Narrative: GEN: Awake, alert and oriented, no acute distress CVS: S1S2 N RS: CTA B/L Abd: Soft, nt/nd , bs+ CYBER SYSTEMS ADMINISTRATOR: no focal neuro deficits Data 03/27/24 15:19 03/28/24 04:20 Micro: Microbiology 03/28/24 09:40 Gram Stain - Final Pleural Fluid Anaerobic Culture - Preliminary Body Fluid Culture - Final 03/27/24 16:29 Blood Culture - Final Blood NO GROWTH AFTER 5 DAYS 03/27/24 16:29 Blood Culture - Final Blood NO GROWTH AFTER 5 DAYS A&P Assessment and plan (1) Lung cancer: Left-sided lung cancer, favoring adenocarcinoma 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 Ordoñez, would like to keep that appointment if possible; will need to evaluate in the morning (2) Malignant pleural effusion: Status post thoracentesis 03/28 (second thoracentesis, first at [facility]) PleurX discussed as above She will likely need repeat thoracentesis soon, consider setting up prior to discharge (3) Debility: Debility and physical deconditioning Continue therapy Working on postacute placement, will need to follow-up with case management on Tuesday (4) Atrial fibrillation with RVR: RVR has resolved Continue home Cardizem Continue home anticoagulation Continuous telemetry monitoring (5) Hypokalemia: Continue home potassium supplement (6) Emphysema of lung: Breathing treatments as needed Qualifiers: Emphysema type: centrilobular Qualified Code(s): J43.2 - Centrilobular emphysema Plan DVT prophylaxis: Xarelto Code: Full code 04/02/24: No new complaints today, patient is currently siting in chair at bedside, on RA currently. 02 sat 90%. States breathing feels okay today, appropriate disposition planning ongoing. Continue po lasix, xarelto, cardizem and prn tramadol Attestations Medical Necessity Statement*: Patient requires ongoing hospitalization while arranging safe discharge plan. Coding Level of Care Code Acute Code for [facility] Diagnoses Lung cancer C34.90 Malignant pleural effusion J91.0 Debility R53.81 Atrial fibrillation with RVR I48.91 Hypokalemia E87.6 Centrilobular emphysema J43.2 Emphysema type: centrilobular
[2024-04-02] MEDS: budesonide 0.5 mg/2 mL Neb INHALATION (20:02)
[2024-04-02] MEDS: ipratropium-albuterol 3 mL Neb INHALATION (20:02)
[2024-04-02] MEDS: acetaminophen 325 mg Tablet 650 MG PO (20:39)
--- NOTE | 2024-04-02 20:58 | PC.NURSE ---
BP soft and HR 74. Contacted Dr. Burleson via [employer] messenger to see if he wanted 300mg diltiazem ER PO given as ordered, received order to hold.
[2024-04-02] MEDS: ondansetron 4 MG Tablet PO (23:11)
[2024-04-03] VITALS (7 sets, daily range): BP systolic 124–158; BP diastolic 74–86; PULSE 83–103; RESP 16–126; TEMP 36.3–37.1; O2SAT 90–93
[2024-04-03] MEDS: FUROsemide 40 mg Tablet PO (06:46)
[2024-04-03] MEDS: levothyroxine 50 mcg Tablet PO (06:47)
[2024-04-03] MEDS: budesonide 0.5 mg/2 mL Neb INHALATION (07:24)
[2024-04-03] MEDS: ipratropium-albuterol 3 mL Neb INHALATION (07:24)
[2024-04-03] MEDS: potassium chloride ER 20 mEq Tablet PO (08:20)
[2024-04-03] MEDS: atorvastatin 40 mg Tablet PO (08:20)
[2024-04-03] MEDS: rivaroxaban 10 mg Tablet 20 MG PO (08:20)
[2024-04-03] MEDS: docusate sodium 100 mg Capsule PO (08:21)
[2024-04-03] MEDS: lidocaine 5% Patch 1 PATCH TOPICAL (08:21)
[2024-04-03] MEDS: fluticasone nasal spray 16gm Btl 2 SPRAY INTRANASAL (08:26)
[2024-04-03 12:45] LABS: SARS Covid-2 Antigen Negative (Negative)
[2024-04-03] MEDS: lactulose oral liq 20 gm/30 mL UDC 30 GM PO (14:07)
--- NOTE | 2024-04-03 15:53 | PC.NURSE ---
Discharge Note Patient discharged to [[facility]] via [group home transport] accompanied by [nobody]. Discharge instructions reviewed with patient and/or textile machinery sales representative. Mobile pharmacy medications and/or prescriptions provided. Belongings/home medications returned.
--- NOTE | 2024-04-03 17:18 | P.DS_ITS ---
Discharge Providers Date of Admission: 03/27/24 18:01 Date of Discharge: April 03, 2024 Attending Provider at Admission: Galo Guerrero MD Attending Provider at Discharge: Denia Johnson MD Diagnoses at Discharge Discharge Diagnosis (1) Lung cancer: Status: Acute (2) Malignant pleural effusion: Status: Acute (3) Debility: Status: Acute (4) Atrial fibrillation with RVR: Status: Acute (5) Hypokalemia: Status: Acute (6) Emphysema of lung: Status: Acute Qualifiers: Emphysema type: centrilobular Qualified Code(s): J43.2 - Centrilobular emphysema Reason for Visit Reason for Visit: chest pain, sob abd pain Hospital Course Hospital Course Samantha Lewis is a 84 year old female with a past medical history significant for lung cancer with invasive squamous cell carcinoma status post left lung wedge resection in January 2022, recently diagnosed with left-sided adenocarcinoma following recent left thoracentesis, tobacco use disorder in remission, lung nodules, atrial fibrillation, generalized anxiety, emphysema, hypothyroidism, congestive heart failure, hypertension, hyperlipidemia, multiple other comorbidities who presented emergency department with shortness of breath and generalized weakness. In the emergency department, imaging showed worsening pleural effusion. She was found to have A-fib with RVR, started on Cardizem drip. This was transitioned back to oral Cardizem. She underwent left-sided thoracentesis with removal of 1500 cc of pleural fluid. Pleurx was discussed with the patient but she declined. Following the thoracentesis her breathing did improve. It is likely that she will have some reaccumulation and may eventually need a Pleurx for which she will need to follow-up outpatient with pulmonology. She had recently undergone a PET scan and is awaiting follow-up with oncology for further recommendations regarding treatment for her cancer. Gram stain and culture from the pleural fluid currently were negative. Patient currently lives alone. She stated that she was extremely hesitant to go on living alone as she did not feel safe with her level of deconditioning to be home by herself. SNF placement was pursued and patient was accepted at [facility]. Physical Exam Narrative: General: No acute distress, AO x3 HEENT: PERRLA, pupils bilaterally equal and reactive, pallors not present Chest: Normal vesicular breath sounds, no added sounds, equal good air entry bilaterally CVS: S1-S2 regular, no murmurs, no tachycardia, no gallops, no rubs Abdomen: Soft, nontender, no organomegaly, bowel sounds present Neuro: No focal deficits, no facial deformity, AO x3, power 5/5 in all limbs Discharge Data Studies Completed and Pending Completed Studies During Hospitalization Category Date Time Status CTA chest [CT angio chest PE protcl [id number]] Stat Cat Scan 03/27/24 15:11 Completed XR chest 1V portable [id number] Stat Exams 03/27/24 15:05 Completed XR chest 1V portable [id number] Stat Exams 03/28/24 09:33 Completed US thoracentesis [id number] Routine Ultrasound 03/28/24 18:46 Completed Radiology Impressions Chest CTA 03/27/24 15:11 IMPRESSION: 1. No pulmonary embolism. 2. Interval increase in the left pleural effusion with circumferential distribution and pleural thickening with associated compressive atelectasis. 3. Stable ascending aortic dilatation with severe atherosclerosis. Chest X-Ray 03/28/24 09:33 IMPRESSION: 1. No pneumothorax status post LEFT thoracentesis. 2. Marked improved aeration of the LEFT lung. There is still a small residual pleural effusion. Thoracentesis Ultrasound 03/28/24 18:46 IMPRESSION: 1. LEFT thoracentesis yielding 1500 cc of fluid. Dark red pleural fluid remove d. 2. Chest radiograph to follow to evaluate for pneumothorax. Laboratory Results WBC 10.31 10^3/uL (3.29-11.43) 03/27/24 15:19 RBC 4.22 10^6/uL (3.85-5.65) 03/27/24 15:19 Hgb 12.20 g/dL (11.27-16.99) 03/27/24 15:19 Hct 37.4 % (36-47) 03/27/24 15:19 MCV 88.6 fl (85-98) 03/27/24 15:19 MCH 28.9 pg (27-33) 03/27/24 15:19 MCHC 32.6 g/dL (30-55) 03/27/24 15:19 RDW 13.7 % (12.1-15.1) 03/27/24 15:19 Plt Count 200 10^3/cmm (157-399) 03/27/24 15:19 MPV 11.9 fL (7.4-10.4) H 03/27/24 15:19 Neut % (Auto) 61.8 % 03/27/24 15:19 Lymph % (Auto) 21.9 % 03/27/24 15:19 [place] % (Auto) 11.7 % 03/27/24 15:19 Eos % (Auto) 3.5 % 03/27/24 15:19 Baso % (Auto) 0.7 % 03/27/24 15:19 Neut # (Auto) 6.37 10^3/uL (1.8-7.7) 03/27/24 15:19 Lymph # (Auto) 2.3 10^3/uL (0.8-4.8) 03/27/24 15:19 [place] # (Auto) 1.2 10^3/uL (0.2-0.9) H 03/27/24 15:19 Eos # (Auto) 0.4 10^3/uL (0.0-0.8) 03/27/24 15:19 Baso # (Auto) 0.1 10^3/uL (0.0-0.1) 03/27/24 15:19 Nucleated RBC % (auto) 0 % 03/27/24 15:19 Nucleated RBCs # 0.0 /100WBC 03/27/24 15:19 Differential Comment Yes 03/28/24 09:40 PT 20.40 SECONDS (12.1-14.9) H 03/27/24 15:19 INR 1.64 (0.8-1.2) H 03/27/24 15:19 Sodium 138 mmol/L (136-145) 03/28/24 04:20 Potassium 3.5 mmol/L (3.5-5.1) 03/28/24 04:20 Chloride 99 mmol/L (98-107) 03/28/24 04:20 Carbon Dioxide 26 mmol/L (22-29) 03/28/24 04:20 Anion Gap 16.5 (5-19) 03/28/24 04:20 BUN 11 mg/dL (8-23) 03/28/24 04:20 Creatinine 0.9 mg/dL (0.5-0.9) 03/28/24 04:20 GFR Calculation Not Reportable 03/28/24 04:20 Glucose 93 mg/dL (65-115) 03/28/24 04:20 Calculated Osmolality 285 mOsm/kg (285-295) 03/28/24 04:20 Calcium 8.9 mg/dL (8.5-10.5) 03/28/24 04:20 Phosphorus 3.8 mg/dL (2.5-4.5) 03/28/24 04:20 Magnesium 2.1 mg/dL (1.7-2.3) 03/28/24 04:20 Total Bilirubin 0.5 mg/dL (0.15-1.2) 03/27/24 15:19 AST 14 U/L (0-32) 03/27/24 15:19 ALT 7 U/L (0-33) 03/27/24 15:19 Alkaline Phosphatase 87 U/L (35-105) 03/27/24 15:19 Troponin T Baseline 65 ng/L (0-10) H 03/27/24 15:19 Troponin T 120 Minute 61.30 ng/L (0-10) H 03/27/24 17:34 Delta Troponin T -3.70 ABS# (0-10) L 03/27/24 17:34 Troponin T Hi Sens 6Hr 67.95 ng/L (0-10) H 03/27/24 22:33 Troponin T Hi Sens 6Hr Delta 2.95 ng/L (0-12) 03/27/24 22:33 Total Protein 5.7 g/dL (6.6-8.7) L 03/27/24 15:19 Albumin 3.8 g/dL (3.5-5.2) 03/27/24 15:19 Globulin 1.9 g/dL (1.3-4.6) 03/27/24 15:19 Lipase 20 U/L (13-60) 03/27/24 15:19 Procalcitonin 0.08 ng/mL (0-0.5) 03/27/24 17:34 Fluid Color Red 03/28/24 09:40 Fluid Appearance Bloody 03/28/24 09:40 Fluid pH 7.0 03/28/24 09:40 Fluid WBC 2019 /uL 03/28/24 09:40 Fluid RBC 55.000 10^3/uL 03/28/24 09:40 Fld Polynuclear WBCs # 0.502 03/28/24 09:40 Fld Polynuclear WBCs % 24.900 % 03/28/24 09:40 Fl Mononucl WBCs #(Auto) 1.517 03/28/24 09:40 Fl Mononuclear % Auto 75.100 % 03/28/24 09:40 Fld Crystal Laterality Pleural fluid 03/28/24 09:40 Fluid Glucose 31.0 mg/dL 03/28/24 09:40 Fluid Albumin 2.9 g/dL 03/28/24 09:40 Fluid LDH 505 U/L 03/28/24 09:40 Pleural Total Protein 3.9 g/dL 03/28/24 09:40 SARS-CoV-2 Ag (Rapid) Negative (Negative) 04/03/24 11:10 Vitals Last Vital Signs Temp 98.7 F 04/03/24 15:50 Pulse 87 04/03/24 15:50 Resp 16 04/03/24 15:50 BP 158/84 04/03/24 15:50 Pulse Ox 91 04/03/24 15:50 O2 Del Method Room Air 04/03/24 15:19 O2 Flow Rate 2 04/03/24 04:00 FiO2 21 03/29/24 18:54 Discharge Plan Discharge Patient Disposition: Xfer SNF Condition: Stable Prescriptions: New ondansetron HCl 4 mg Tablet 4 mg PO Q8H PRN (Reason: Nausea) 15 Days Qty: 45 0RF Continued furosemide 40 mg tablet 40 mg PO QAM Xarelto 20 mg tablet 20 mg PO BEDTIME tramadol 50 mg tablet 50 mg PO Q8H PRN (Reason: pain) 7 Days Qty: 21 0RF atorvastatin 40 mg tablet 40 mg PO DAILY diltiazem HCl 300 mg capsule,extended release 24hr 300 mg PO BEDTIME Qty: 90 0RF levothyroxine 50 mcg tablet 50 mcg PO QAM docusate sodium 100 mg capsule 100 mg PO BID lidocaine 5 % adhesive patch,medicated 1 patch topical DAILY Qty: 15 0RF Rx Instructions: Upper part of lower back. leave on most painful area for up to 12 hrs acetaminophen 500 mg Tablet 500 mg PO Q4H PRN (Reason: fever) Qty: 30 3RF alendronate 10 mg tablet 10 mg PO DAILY meclizine 25 mg tablet 25 mg PO Q6H PRN (Reason: Dizziness Or Vertigo) albuterol sulfate 90 mcg/actuation HFA aerosol inhaler 2 puff INHALATION .Q4-6H PRN (Reason: Shortness Of Breath Or Wheezing) fluticasone propionate [Flonase Allergy Relief] 50 mcg/actuation spray,suspension 2 spray INTRANASAL DAILY cholecalciferol (vitamin D3) [Vitamin D3] 50 mcg (2,000 unit) capsule 100 mcg PO DAILY potassium chloride 20 mEq tablet extended release 20 meq PO DAILY Rx Instructions: TAKE 1 TABLET BY MOUTH DAILY Trelegy Ellipta 100-62.5-25 mcg blister with device 1 inh INHALATION DAILY Discharge Orders: Discharge Order (Routine); Ordered 04/03/24 Ordered By: Denia Johnson Referrals: [facility] [Outside] Tina Ordoñez MD [Hospitalist] - 04/10/24 10:30 am Galo Spencer PA [Physician [employer]] - 05/09/24 3:30 pm Patient Instructions: Ondansetron (By mouth), A-fib (Atrial Fibrillation) (GEN), Opioid Safety Discharge Attestations Time Spent in Discharge Care*: greater than 30 min Status at Discharge: Cognitive status at discharge: cognitively intact , Behavioral status at discharge: cooperative , Quality Metrics Clinical Quality Measures [ No reported AMI, CVA or VTE this stay] Coding Level of Care Code Acute Code for g Fwd Diagnoses Lung cancer C34.90 Malignant pleural effusion J91.0 Debility R53.81 Atrial fibrillation with RVR I48.91 Hypokalemia E87.6 Centrilobular emphysema J43.2 Emphysema type: centrilobular
== END 2024-04-03 15:54 | disposition skilled nursing facility (03) ==
LOC: ER 17:59 → ER IP 23:21 → CSU 03-28 06:12 → MEDSURG 03-30 14:50
PROVIDERS: Admitting Provider Internal Medicine; Emergency Provider Emergency Medicine; Visit Provider Student in an Organized Health Care Education/Training Program
DX: C34.90 Malignant neoplasm of unspecified part of unspecified bronchus or lung (principal); J91.0 Malignant pleural effusion; R53.81 Other malaise; I48.91 Unspecified atrial fibrillation; E87.6 Hypokalemia; J43.2 Centrilobular emphysema; E03.9 Hypothyroidism, unspecified; I11.0 Hypertensive heart disease with heart failure; I50.9 Heart failure, unspecified; E78.5 Hyperlipidemia, unspecified; J44.9 Chronic obstructive pulmonary disease, unspecified; Z87.891 Personal history of nicotine dependence
CPT/HCPCS: 32555; 36415; 71045; 71275; 80048; 80053; 80503; 82042; 82945; 83615; 83690; 83735; 83986; 84100; 84145; 84157; 84484; 85025; 85610; 87040; 87070; 87075; 87205; 87426; 89050; 93005; 94640; 94660; 96365; 96366; 96367; 96375; 96376; 97110; 97116; 97161; 97166; 97530; 97535; 99291; G0378; J0456; J0696; J2270; J2405; J3490; J7050; J7626; Q0162

== ENCOUNTER → 2024-04-04 14:14 | Outpatient (BNVA) | payer MEDICARE, SELFPAY | PROVIDERS: PCP Nurse Practitioner Family; Referring Provider Nurse Practitioner Family; Visit Provider Internal Medicine Cardiovascular Disease | DX: I48.19 Other persistent atrial fibrillation (principal); Z79.01 Long term (current) use of anticoagulants; E78.5 Hyperlipidemia, unspecified; Z87.891 Personal history of nicotine dependence; I11.0 Hypertensive heart disease with heart failure; I50.9 Heart failure, unspecified; I71.40 Abdominal aortic aneurysm, without rupture, unspecified; K55.059 Acute (reversible) ischemia of intestine, part and extent unspecified | CPT/HCPCS: 99214 ==